=== PATIENT | female | born 1935 | race Caucasian/White ===

== ENCOUNTER 2016-05-15 10:57 | Outpatient (CLI) | payer MEDICARE | END 2016-05-15 10:58 | disposition home or self-care (01) | DX: J18.9 Pneumonia, unspecified organism (principal) ==

== ENCOUNTER 2016-09-08 00:45 | Outpatient (CLI) | payer MEDICARE | END 2016-09-08 00:46 | disposition critical access hospital (66) | DX: R07.9 Chest pain, unspecified (principal); R03.0 Elevated blood-pressure reading, without diagnosis of hypertension | CPT/HCPCS: A0425; A0429 ==

== ENCOUNTER 2016-09-08 01:12 | Emergency (ER) | payer MEDICARE ==
[2016-09-08 01:43] LABS: BASOPHILS % (AUTO) 0.6 %; EOSINOPHILS # (AUTO) 0.1 10^3/uL (0.0-0.7); EOSINOPHILS % (AUTO) 1.9 %; HCT - HEMATOCRIT 35.3 % (37.0-47.0); HGB - HEMOGLOBIN 11.7 g/dL (12.0-16.0); LYMPHOCYTES # (AUTO) 2.8 10^3/uL (1.5-3.5); LYMPHOCYTES % (AUTO) 37.5 %; MEAN CORPUSCULAR HEMOGLOBIN 30.6 pg (27.0-31.0); MEAN CORPUSCULAR HGB CONC 33.3 g/dL (32.0-36.0); MEAN CORPUSCULAR VOLUME 91.9 fL (81.0-99.0); MEAN PLATELET VOLUME 10.2 fL (7.9-10.8); MONOCYTES # (AUTO) 0.8 10^3/uL (0.0-1.0); MONOCYTES % (AUTO) 10.3 %; NEUTROPHILS # (AUTO) 3.7 10^3/uL (1.5-6.6); NEUTROPHILS % (AUTO) 49.7 %; RED BLOOD COUNT 3.84 10^6/uL (4.20-5.40); RED CELL DISTRIBUTION WIDTH 14.3 % (12.0-15.0); UNCORRECTED WHITE BLOOD COUNT 7.5 x10^3/uL; WHITE BLOOD COUNT 7.5 x10^3/uL (4.8-10.8)
[2016-09-08 01:57] LABS: ALBUMIN/GLOBULIN RATIO 0.9 (1.0-2.2); BILIRUBIN,TOTAL 0.3 mg/dL (0.2-1.0); CALCIUM 9.4 mg/dL (8.5-10.3); CREATININE 1.4 mg/dL (0.4-1.0); POTASSIUM 4.8 mmol/L (3.5-5.0); TOTAL PROTEIN 6.9 g/dL (6.7-8.2)
[2016-09-08 02:13] LABS: PT - PROTHROMBIN TIME 11.8 secs (9.9-12.6)
--- NOTE | 2016-09-08 02:18 | XRAY Preliminary Report ---
Exam: XR Chest 1 View IMPRESSION: 1. Mild cardiomegaly. 2. No acute abnormality seen. [facility] SITE ID: [id number]
--- NOTE | 2016-09-08 02:21 | XRAY Report ---
EXAM: CHEST RADIOGRAPHY EXAM DATE: 09/08/2016 01:59 AM. CLINICAL HISTORY: Chest pain. COMPARISON: 05/15/2016. TECHNIQUE: 1 view. FINDINGS: Lungs/Pleura: No alveolar consolidation or pleural effusion seen. No pneumothorax. Mediastinum: Mild cardiomegaly. Aortic atherosclerosis. Other: None. IMPRESSION: 1. Mild cardiomegaly. 2. No acute abnormality seen. [facility] Referring Provider Line: [phone] SITE ID: [id number]
[2016-09-08 02:30] LABS: PARTIAL THROMBOPLASTIN TIME 27.1 secs (24.9-33.3)
[2016-09-08 05:13] VITALS: BP 174/86
--- NOTE | 2016-09-08 05:41 | ED Physician Documentation ---
PD HPI CHEST PAIN - Stated complaint Stated Complaint: HTN/CP - Chief complaint Chief Complaint: Cardiac - History obtained from History obtained from: Patient, Family, EMS - History of Present Illness Timing - onset: How many minutes ago (30) Timing - onset during: Rest Timing - duration: Seconds Timing - details: Now resolved Quality: Pressure Location: Left chest Improved by: Rest Associated symptoms: No: Shortness of air, Diaphoresis, Nausea, Vomiting, Feeling faint / dizzy, General Weakness Recently seen: Not recently seen - Additional information Additional information: Patient is a 80 year old female wiht a history of htn who was brought in by ems for chest pain. According to patient and ems patient states that she got up tonight and she checked her blood pressure. He pressure was higher than usual so she called ems. when ems arrived she was hypertensive but states that she did not take her meds. patient took her night meds including metoprolol and plavix. as ems was about to leave patient complained of mild left sided chest pressure so ems brought the patient in for evaluation. Upon initial evaluation in the emergency department patient was in no acute distress and was chest pain free. Review of Systems Constitutional: denies: Fever, Chills Eyes: denies: Loss of vision, Decreased vision Ears: denies: Loss of hearing, Ear pain Nose: denies: Rhinorrhea / runny nose, Congestion Throat: denies: Dental pain / toothache, Oral lesions / sores Cardiac: reports: Chest pain / pressure. 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: Hysterectomy - Present Medications Home Medications: Ambulatory Orders Medication Instructions Recorded Confirmed Atorvastatin Calcium [Lipitor] 10 mg PO DAILY 01/16/15 09/08/16 Gabapentin [Neurontin] 60 mg PO BID 01/16/15 09/08/16 Lisinopril 20 mg PO DAILY 01/16/15 09/08/16 Metoprolol Tartrate 25 mg PO DAILY 01/16/15 09/08/16 oxyCODONE [Roxicodone] 10 mg PO Q6H PRN #20 tablet 01/16/15 09/08/16 traMADol [Ultram] 50 mg PO TID 01/16/15 09/08/16 Insulin Glargine,Hum.rec.anlog 10 - 26 units SQ TIDWM 08/08/15 09/08/16 [Toujeo Solostar] Clopidogrel [Plavix] 75 mg PO ONCE 09/08/16 09/08/16 Insulin NPH Human Isophane 48 - 50 units SQ DAILY 09/08/16 09/08/16 [Humulin N] Sertraline [Zoloft] 50 mg PO DAILY 09/08/16 09/08/16 - Allergies Allergies/Adverse Reactions: Allergies Allergy/AdvReac Type Severity Reaction Status Date / Time acetaminophen [From Tylenol] AdvReac Edema Verified 02/12/16 00:04 codeine AdvReac Unknown Verified 02/12/16 00:04 diazepam [From Valium] AdvReac Unknown Verified 02/12/16 00:04 Sulfa (Sulfonamide AdvReac Unknown Verified 02/12/16 00:05 Antibiotics) - Social History Does the pt smoke?: No Smoking Status: Never smoker Does the pt drink ETOH?: No Does the pt have substance abuse?: No - Immunizations Immunizations are current?: Yes - POLST Patient has POLST: Yes PD ED PE NORMAL - Vitals Vital signs reviewed: Yes - General General: Alert and oriented X 3, No acute distress, Well developed/nourished - HEENT HEENT: Atraumatic, PERRL, Pharynx benign - Neck Neck: Supple, no meningeal sign, No JVD - Cardiac Cardiac: RRR, No murmur - Respiratory Respiratory: No respiratory distress - Abdomen Abdomen: Soft, Non tender, Non distended - Derm Derm: Normal color, Warm and dry, No rash - Extremities Extremities: No deformity, No tenderness to palpate - Neuro Neuro: Alert and oriented X 3, 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, No motor deficit, No sensory deficit - Psych Psych: Normal mood, Normal affect Results - Vitals Vitals: Vital Signs - 24 hr 09/08/16 09/08/16 09/08/16 01:19 02:20 03:47 Temperature 35.5 C L Heart Rate 66 55 L 53 L Respiratory 16 14 9 L Rate Blood Pressure 214/61 H 215/90 H 173/48 H O2 Saturation 96 99 97 09/08/16 05:12 Temperature Heart Rate 61 Respiratory 16 Rate Blood Pressure 174/86 H O2 Saturation 100 Oxygen O2 Source Room air - EKG (time done) 0122 Rate: Rate (enter#) (58) Rhythm: NSR [place]: Normal Intervals: Normal [place] QRS: Normal Ischemia: Normal ST segments Compare to prior EKG: Unchanged from prior EKG - Labs Labs: Laboratory Tests 09/08/16 09/08/16 09/08/16 01:35 01:35 01:35 WBC 7.5 RBC 3.84 L Hgb 11.7 L Hct 35.3 L MCV 91.9 MCH 30.6 MCHC 33.3 RDW 14.3 Plt Count 124 L MPV 10.2 Neut # 3.7 Lymph # 2.8 [place] # 0.8 Eos # 0.1 Baso # 0.0 Absolute Nucleated RBC 0.00 Nucleated RBCs 0.0 PT INR APTT Sodium 137 Potassium 4.8 Chloride 104 Carbon Dioxide 25 Anion Gap 8.0 BUN 30 H Creatinine 1.4 H Estimated GFR (MDRD) 36 L Glucose 196 H Calcium 9.4 Total Bilirubin 0.3 AST 27 ALT 21 Alkaline Phosphatase 103 Troponin I < 0.04 B-Natriuretic Peptide Total Protein 6.9 Albumin 3.2 Globulin 3.7 Albumin/Globulin Ratio 0.9 L Lipase 35 TSH 09/08/16 09/08/16 09/08/16 01:35 01:35 02:03 WBC RBC Hgb Hct MCV MCH MCHC RDW Plt Count MPV Neut # Lymph # [place] # Eos # Baso # Absolute Nucleated RBC Nucleated RBCs PT 11.8 INR 1.0 APTT 27.1 Sodium Potassium Chloride Carbon Dioxide Anion Gap BUN Creatinine Estimated GFR (MDRD) Glucose Calcium Total Bilirubin AST ALT Alkaline Phosphatase Troponin I B-Natriuretic Peptide 214 H Total Protein Albumin Globulin Albumin/Globulin Ratio Lipase TSH 12.80 H 09/08/16 05:10 WBC RBC Hgb Hct MCV MCH MCHC RDW Plt Count MPV Neut # Lymph # [place] # Eos # Baso # Absolute Nucleated RBC Nucleated RBCs PT INR APTT Sodium Potassium Chloride Carbon Dioxide Anion Gap BUN Creatinine Estimated GFR (MDRD) Glucose Calcium Total Bilirubin AST ALT Alkaline Phosphatase Troponin I < 0.04 B-Natriuretic Peptide Total Protein Albumin Globulin Albumin/Globulin Ratio Lipase TSH - Rads (name of study) chest x-ray Radiology: Final report received (no acute abnormalities) PD MEDICAL DECISION MAKING - ED course Complexity details: reviewed old records, reviewed results, re-evaluated patient , considered differential, d/w patient, d/w family ED course: Patient was seen and examined at bedside. ekg was performed and was normal sinus rhythm. patient was chest pain free and had already taken asprin and plavix. IV access was gained and labs were drawn. chest x-ray was performed and was within normal limits. Patient's original diagnostics, including troponin came back and were within normal limits. Patient was observed for another 3.5 hours. Patient remained chest pain free. repeat troponin remained within normal limits. Patient required no further work up and was stable for discharge with outpatient follow up. Departure - Departure Disposition: 01 Home, Self Care Clinical Impression: Hypertension Condition: Good Instructions: ED Chest Pain NonCardiac Follow-Up: primary,care provider [Other] - Tomorrow Comments: Your diagnostics today were within normal limits indicating that it is less likely that the pain is cardiac in nature. that being said it is only a snapshot in time. You should still follow up with your doctor, and a stress test might be indicated. You should also work on organizations of your medications to stay more compliant. You may return to the emergency department at any time for new, worsening or uncontrollable symptoms.
== END 2016-09-08 06:00 | disposition home or self-care (01) ==
LOC: EDUNIT# → ED 01:12
DX: I10 Essential (primary) hypertension (principal); E78.00 Pure hypercholesterolemia, unspecified; E11.9 Type 2 diabetes mellitus without complications; Z79.4 Long term (current) use of insulin; G47.30 Sleep apnea, unspecified; Z86.73 Personal history of transient ischemic attack (TIA), and cerebral infarction without residual deficits
CPT/HCPCS: 71010; 80053; 83036; 83690; 83880; 84443; 84484; 85025; 85610; 85730; 93005; 99284

== ENCOUNTER 2016-09-08 10:30 | Emergency (ER) | payer MEDICARE ==
[2016-09-08 11:29] LABS: BILIRUBIN,URINE NEGATIVE (NEGATIVE); PH,URINE 7.5 PH (5.0-7.5); UA w/ MICROSCOPIC CHARGE YES
[2016-09-08 11:52] LABS: UR CULTURE IF IND NOT INDICATED; WBC,URINE 0-3 /HPF (0-5)
[2016-09-08] MEDS ORDERED: ONDANSETRON 4 MG/2 ML VIAL IVP STA (13:05)
[2016-09-08] MEDS ORDERED: SODIUM CHLORIDE 0.9% 1,000 ML IV ONE (13:05)
[2016-09-08] MEDS ORDERED: HYDROmorphone 1 MG/ML SYRINGE IVP STA (13:05)
--- NOTE | 2016-09-08 13:07 | ED Physician Documentation ---
PD HPI ABD PAIN - Stated complaint Stated Complaint: ABD PX - Chief complaint Chief Complaint: Abd Pain - History obtained from History obtained from: Patient, Family - History of Present Illness Timing - onset: Today Timing - duration: Days Timing - details: Gradual onset Pain level max: 5 Pain level now: 5 Quality: Aching, Pain Location: All over / everywhere Radiation: Other (non-radiating) Improved by: Laying still Worsened by: Moving, Position (walking), Palpation Associated symptoms: Diarrhea (BM x 4 today, but firm per pt). No: Nausea, Vomiting, Hematemesis, Constipation, Hematochezia, Dysuria, Hematuria, Chest pain Similar symptoms before: Has not had sx before Recently seen: Emergency Dept (last night for chest pain) Review of Systems Constitutional: denies: Fever, Chills Nose: denies: Rhinorrhea / runny nose, Congestion Throat: denies: Sore throat Cardiac: denies: Chest pain / pressure Respiratory: denies: Cough, Wheezing GI: reports: Abdominal Pain (started when she put her pants on at home, resolved when she took her pants off.), Nausea. 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 - Present Medications Home Medications: Ambulatory Orders Medication Instructions Recorded Confirmed Atorvastatin Calcium [Lipitor] 10 mg PO DAILY 01/16/15 09/08/16 Gabapentin [Neurontin] 60 mg PO BID 01/16/15 09/08/16 Lisinopril 20 mg PO DAILY 01/16/15 09/08/16 Metoprolol Tartrate 25 mg PO DAILY 01/16/15 09/08/16 oxyCODONE [Roxicodone] 10 mg PO Q6H PRN #20 tablet 01/16/15 09/08/16 traMADol [Ultram] 50 mg PO TID 01/16/15 09/08/16 Insulin Glargine,Hum.rec.anlog 10 - 26 units SQ TIDWM 08/08/15 09/08/16 [Touyunior Solostosvaldo] Clopidogrel [Plavix] 75 mg PO ONCE 09/08/16 09/08/16 Insulin NPH Human Isophane 48 - 50 units SQ DAILY 09/08/16 09/08/16 [Humulin N] Sertraline [Zoloft] 50 mg PO DAILY 09/08/16 09/08/16 - Allergies Allergies/Adverse Reactions: Allergies Allergy/AdvReac Type Severity Reaction Status Date / Time acetaminophen [From Tylenol] AdvReac Edema Verified 02/12/16 00:04 codeine AdvReac Unknown Verified 02/12/16 00:04 diazepam [From Valium] AdvReac Unknown Verified 02/12/16 00:04 Sulfa (Sulfonamide AdvReac Unknown Verified 02/12/16 00:05 Antibiotics) - Social History Does the pt smoke?: No Smoking Status: Never smoker Does the pt drink ETOH?: No Does the pt have substance abuse?: No - Immunizations Immunizations are current?: Yes - POLST Patient has POLST: Yes PD ED PE NORMAL - Vitals Vital signs reviewed: Yes - General General: Alert and oriented X 3, No acute distress, Well developed/nourished - HEENT HEENT: Moist mucous membranes - Neck Neck: Supple, no meningeal sign - Cardiac Cardiac: RRR, Strong equal pulses - Respiratory Respiratory: No respiratory distress, Clear bilaterally - Abdomen Abdomen: Soft, Non distended, Other (diffusely TTP lower abdomen without peritoneal signs.) - Back Back: No CVA TTP, No spinal TTP - Derm Derm: Warm and dry - Extremities Extremities: Normal ROM s pain - Neuro Neuro: Alert and oriented X 3 - Psych Psych: Normal mood, Normal affect Results - Vitals Vitals: Vital Signs - 24 hr 09/08/16 09/08/16 10:38 15:01 Temperature 36.1 C L 36.6 C Heart Rate 59 L 74 Respiratory 20 16 Rate Blood Pressure 203/74 H 179/73 H O2 Saturation 98 97 Oxygen O2 Source Room air - Labs Labs: Laboratory Tests 09/08/16 09/08/16 09/08/16 10:45 13:10 13:10 WBC 8.0 RBC 3.79 L Hgb 11.8 L Hct 34.6 L MCV 91.4 MCH 31.2 H MCHC 34.1 RDW 14.5 Plt Count 116 L MPV 10.0 Sodium 138 Potassium 4.9 Chloride 105 Carbon Dioxide 26 Anion Gap 7.0 BUN 29 H Creatinine 1.3 H Estimated GFR (MDRD) 40 L Glucose 223 H Calcium 9.7 Total Bilirubin 0.6 AST 28 ALT 21 Alkaline Phosphatase 102 Total Protein 7.2 Albumin 3.4 Globulin 3.8 Albumin/Globulin Ratio 0.9 L Lipase 28 Urine Color YELLOW Urine Clarity CLEAR Urine pH 7.5 Ur Specific [place] 1.020 Urine Protein >=300 H Urine Glucose (UA) 250 H Urine Ketones NEGATIVE Urine Occult Blood TRACE-LYSE Urine Nitrite NEGATIVE Urine Bilirubin NEGATIVE Urine Urobilinogen 0.2 (NORMAL) Ur Leukocyte Esterase NEGATIVE Urine RBC 0-5 Urine WBC 0-3 Ur Squamous Epith Cells RARE Squamous Urine Bacteria Few Urine Casts 3-5 Hyaline Casts Ur Microscopic Review INDICATED Urine Culture Comments NOT INDICATED - Rads (name of study) CT abd/pelvis Radiology: Prelim report reviewed, EMP read contemporaneously, See rad report ( no acute abnormality.) PD MEDICAL DECISION MAKING - ED course Complexity details: reviewed results, re-evaluated patient, considered differential, d/w patient, d/w family ED course: Patient is a 80-year-old female with abdominal pain today. Unclear etiology. Resolved in the emergency department. No recurrent symptoms. No acute findings on laboratory testing or CT abdomen and pelvis to explain her symptoms. We will have her follow-up with her doctor for further evaluation and care. No peritoneal signs. Abdomen is soft, nontender nondistended on serial exam. Patient counseled regarding signs and symptoms for which I believe and urgent re-evaluation would be necessary. Patient with good understanding of and agreement to plan and is comfortable going home at this time This document was made in part using voice recognition software. While efforts are made to proofread this document, sound alike and grammatical errors may occur. Departure - Departure Disposition: 01 Home, Self Care Clinical Impression: Abdominal pain Qualifiers: Abdominal location: generalized Qualified Code(s): R10.84 - Generalized abdominal pain Hypertension Qualifiers: Hypertension type: essential hypertension Qualified Code(s): I10 - Essential ( primary) hypertension Condition: Good Instructions: ED Abdominal Pain Unkn Cause Follow-Up: Cordelia Pendleton PA-C [Primary Care Provider] - Within 1 week Comments: Return if you worsen. The cause of your symptoms is unclear today. Your TSH was high last night and your doctor may want to adjust your thyroid medications. Discharge Date/Time: 09/08/16 15:25
[2016-09-08] MEDS ORDERED: HYDROmorphone 1 MG/ML SYRINGE ONE (13:13)
[2016-09-08] MEDS ORDERED: ONDANSETRON 4 MG/2 ML VIAL ONE (13:14)
[2016-09-08 13:21] LABS: HCT - HEMATOCRIT 34.6 % (37.0-47.0); HGB - HEMOGLOBIN 11.8 g/dL (12.0-16.0); MEAN CORPUSCULAR HEMOGLOBIN 31.2 pg (27.0-31.0); MEAN CORPUSCULAR HGB CONC 34.1 g/dL (32.0-36.0); MEAN CORPUSCULAR VOLUME 91.4 fL (81.0-99.0); RED BLOOD COUNT 3.79 10^6/uL (4.20-5.40); RED CELL DISTRIBUTION WIDTH 14.5 % (12.0-15.0)
[2016-09-08 13:40] LABS: ALBUMIN/GLOBULIN RATIO 0.9 (1.0-2.2); BILIRUBIN,TOTAL 0.6 mg/dL (0.2-1.0); CALCIUM 9.7 mg/dL (8.5-10.3); CREATININE 1.3 mg/dL (0.4-1.0); POTASSIUM 4.9 mmol/L (3.5-5.0); TOTAL PROTEIN 7.2 g/dL (6.7-8.2)
[2016-09-08] MEDS ORDERED: IOPAMIDOL-300 100 ML VIAL IVP ONE ×2 (13:48)
--- NOTE | 2016-09-08 14:32 | CT Report ---
EXAM: CT ABDOMEN AND PELVIS EXAM DATE: 09/08/2016 01:48 PM. CLINICAL HISTORY: Lower abd pain, diarrhea. COMPARISONS: None. TECHNIQUE: Routine helical CT imaging was performed through the abdomen and pelvis. IV contrast: 50 m L Isovue 300. Enteric contrast: No. Reconstructions: Coronal and sagittal. In accordance with CT protocol optimization, one or more of the following dose reduction techniques w ere utilized for this exam: automated exposure control, adjustment of mA and/or KV based on patient s ize, or use of iterative reconstructive technique. FINDINGS: Lung Bases: Unremarkable. Liver: Normal. No masses. Gallbladder/Bile Ducts: Patient is status post cholecystectomy. Spleen: Normal. Pancreas: Normal. Adrenal Glands: Normal. Kidneys: Normal. No masses or hydronephrosis. Peritoneal Cavity/Bowel: Diverticulosis without diverticulitis. No bowel obstruction or inflammatory process associated with the bowel. No free air or fluid in the abdomen or pelvis. The appendix is not visualized. Pelvic Organs: Normal. The bladder and visualized pelvic organs are within normal limits. Vasculature: No aneurysms or other significant abnormality. Bones: Degenerative changes in lumbar spine with posterior fusion at L3-L4 with no evidence of Failure or loosening. Other: None. IMPRESSION: 1. Diverticulosis without diverticulitis. 2. No bowel obstruction or inflammatory process associated with the bowel. 3. No free air or fluid in the abdomen or pelvis. [facility] Referring Provider Line: [phone] SITE ID: [id number]
[2016-09-08 15:02] VITALS: BP 179/73
== END 2016-09-08 15:25 | disposition home or self-care (01) ==
LOC: ED 10:30
DX: R10.84 Generalized abdominal pain (principal); I10 Essential (primary) hypertension; E78.00 Pure hypercholesterolemia, unspecified; E11.9 Type 2 diabetes mellitus without complications; Z79.4 Long term (current) use of insulin; G47.30 Sleep apnea, unspecified; Z86.73 Personal history of transient ischemic attack (TIA), and cerebral infarction without residual deficits
CPT/HCPCS: 36415; 71010; 74177; 80053; 81001; 83690; 83880; 84443; 84484; 85025; 85027; 85610; 85730; 93005; 93010; 96374; 96375; 99283; 99284; 99285; J1170; Q9967; 81003; 83036; 87086

== ENCOUNTER 2016-09-09 06:23 | Outpatient (CLI) | payer MEDICARE | END 2016-09-09 06:24 | disposition critical access hospital (66) | LOC: EMS 06:23 | PROVIDERS: ATTEND Surgery | DX: R07.9 Chest pain, unspecified (principal); R06.02 Shortness of breath | CPT/HCPCS: A0425; A0427; 84484 ==

== ENCOUNTER 2016-09-09 06:51 | Observation (INO) | payer MEDICARE ==
--- NOTE | 2016-09-09 07:24 | XRAY Preliminary Report ---
Exam: XR Chest 1 View IMPRESSION: 1. Mild cardiomegaly. 2. No focal consolidation seen. [facility] SITE ID: [id number]
--- NOTE | 2016-09-09 07:27 | XRAY Report ---
EXAM: CHEST RADIOGRAPHY EXAM DATE: 09/09/2016 07:15 AM. CLINICAL HISTORY: Chest pain. COMPARISON: 09/08/2016. TECHNIQUE: 1 view. FINDINGS: Lungs/Pleura: No alveolar consolidation or pleural effusion seen. No pneumothorax. Mediastinum: Mild cardiomegaly. Other: None. IMPRESSION: 1. Mild cardiomegaly. 2. No focal consolidation seen. [facility] Referring Provider Line: [phone] SITE ID: [id number]
[2016-09-09 07:36] LABS: BASOPHILS % (AUTO) 0.3 %; EOSINOPHILS # (AUTO) 0.1 10^3/uL (0.0-0.7); EOSINOPHILS % (AUTO) 1.2 %; HCT - HEMATOCRIT 33.9 % (37.0-47.0); HGB - HEMOGLOBIN 11.6 g/dL (12.0-16.0); LYMPHOCYTES # (AUTO) 2.9 10^3/uL (1.5-3.5); LYMPHOCYTES % (AUTO) 38.6 %; MEAN CORPUSCULAR HEMOGLOBIN 31.1 pg (27.0-31.0); MEAN CORPUSCULAR HGB CONC 34.3 g/dL (32.0-36.0); MEAN CORPUSCULAR VOLUME 90.6 fL (81.0-99.0); MEAN PLATELET VOLUME 10.1 fL (7.9-10.8); MONOCYTES # (AUTO) 0.7 10^3/uL (0.0-1.0); MONOCYTES % (AUTO) 9.2 %; NEUTROPHILS # (AUTO) 3.9 10^3/uL (1.5-6.6); NEUTROPHILS % (AUTO) 50.7 %; RED BLOOD COUNT 3.74 10^6/uL (4.20-5.40); RED CELL DISTRIBUTION WIDTH 14.3 % (12.0-15.0); UNCORRECTED WHITE BLOOD COUNT 7.6 x10^3/uL; WHITE BLOOD COUNT 7.6 x10^3/uL (4.8-10.8)
[2016-09-09 07:37] LABS: ALBUMIN/GLOBULIN RATIO 0.9 (1.0-2.2); BILIRUBIN,TOTAL 0.8 mg/dL (0.2-1.0); CALCIUM 9.6 mg/dL (8.5-10.3); CREATININE 1.2 mg/dL (0.4-1.0); POTASSIUM 4.2 mmol/L (3.5-5.0); TOTAL PROTEIN 6.9 g/dL (6.7-8.2)
[2016-09-09] MEDS ORDERED: PROMETHAZINE INJ 12.5 MG in SODIUM CHLORIDE 0.9% 50 ML IV STA (07:55)
[2016-09-09] MEDS ORDERED: MORPHINE 2 MG/ML SYRINGE IVP STA (07:55)
[2016-09-09] MEDS ORDERED: PROMETHAZINE 25 MG/1 ML VIAL ONE (07:58)
[2016-09-09] MEDS ORDERED: MORPHINE 2 MG/ML SYRINGE ONE (07:59)
--- NOTE | 2016-09-09 08:18 | ED Physician Documentation ---
History of Present Illness - Stated complaint Stated Complaint: L CHEST DISCOMFORT - Chief complaint Chief Complaint: Cardiac - Additonal information Additional information: hx from pt 80 female seen twice yesterday - once for HTN and brief CP and then for abd pain back again this AM for chest discomofrt 4/10 rad to posterior neck with assoc SOA and diaphoresis onset 5 Am and better with nitro by EMS took her plavix last night no fever cough no NV chronic R leg swelling never worked up per pt Review of Systems Constitutional: reports: Sweats. 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 - Present Medications Home Medications: Ambulatory Orders Medication Instructions Recorded Confirmed Atorvastatin Calcium [Lipitor] 10 mg PO DAILY 01/16/15 09/09/16 Gabapentin [Neurontin] 600 mg PO BID 01/16/15 09/09/16 Lisinopril 20 mg PO DAILY 01/16/15 09/09/16 Metoprolol Tartrate 25 mg PO BID 01/16/15 09/09/16 Clopidogrel [Plavix] 75 mg PO DAILY 09/08/16 09/09/16 Insulin NPH Human Isophane 48 - 50 units SQ DAILY 09/08/16 09/09/16 [Humulin N] Sertraline [Zoloft] 50 mg PO DAILY 09/08/16 09/09/16 Insulin Lispro [Humalog Kwikpen] 10 - 30 unit SQ TIDWM 09/09/16 09/09/16 Magnesium Oxide [Mag Ox] 400 mg PO DAILY 09/09/16 09/09/16 oxyCODONE [Roxicodone] 5 mg PO Q6H PRN 09/09/16 09/09/16 - Allergies Allergies/Adverse Reactions: Allergies Allergy/AdvReac Type Severity Reaction Status Date / Time acetaminophen [From Tylenol] AdvReac Edema Verified 09/09/16 06:57 codeine AdvReac Unknown Verified 09/09/16 06:57 diazepam [From Valium] AdvReac Unknown Verified 09/09/16 06:57 Sulfa (Sulfonamide AdvReac Unknown Verified 09/09/16 06:57 Antibiotics) - Social History Does the pt smoke?: No Smoking Status: Never smoker Does the pt drink ETOH?: No Does the pt have substance abuse?: No - Immunizations Immunizations are current?: Yes - POLST Patient has POLST: Yes PD ED PE NORMAL - Vitals Vital signs reviewed: Yes - General General: Alert and oriented X 3 - HEENT HEENT: PERRL - Neck Neck: Supple, no meningeal sign - Cardiac Cardiac: RRR - Respiratory Respiratory: No respiratory distress, Clear bilaterally - Abdomen Abdomen: Soft, Non tender - Derm Derm: Normal color - Extremities Extremities: No deformity, No calf tenderness / cord. No: No edema (+ RLE edema ) - Neuro Neuro: Alert and oriented X 3, No motor deficit, No sensory deficit Results - Vitals Vitals: Vital Signs - 24 hr 09/09/16 09/09/16 09/09/16 06:53 07:04 07:48 Temperature 36.0 C L Heart Rate 77 58 L 60 Respiratory 32 H 27 H 18 Rate Blood Pressure 212/69 H 196/59 H 218/64 H O2 Saturation 99 96 100 09/09/16 08:45 Temperature Heart Rate 61 Respiratory 16 Rate Blood Pressure 166/64 H O2 Saturation 97 Oxygen O2 Source Room air - EKG (time done) 0705 Rate: Rate (enter#) (56) Rhythm: NSR [place]: Normal Intervals: Normal ID Ischemia: ST depression (very slight , lateral) - Labs Labs: Laboratory Tests 09/09/16 09/09/16 09/09/16 07:15 07:15 07:15 WBC 7.6 RBC 3.74 L Hgb 11.6 L Hct 33.9 L MCV 90.6 MCH 31.1 H MCHC 34.3 RDW 14.3 Plt Count 120 L MPV 10.1 Neut # 3.9 Lymph # 2.9 [place] # 0.7 Eos # 0.1 Baso # 0.0 Absolute Nucleated RBC 0.00 Nucleated RBCs 0.0 Sodium 137 Potassium 4.2 Chloride 107 Carbon Dioxide 21 Anion Gap 9.0 BUN 24 H Creatinine 1.2 H Estimated GFR (MDRD) 43 L Glucose 239 H Calcium 9.6 Total Bilirubin 0.8 AST 28 ALT 21 Alkaline Phosphatase 98 Troponin I < 0.04 B-Natriuretic Peptide Total Protein 6.9 Albumin 3.2 Globulin 3.7 Albumin/Globulin Ratio 0.9 L Lipase 46 09/09/16 07:15 WBC RBC Hgb Hct MCV MCH MCHC RDW Plt Count MPV Neut # Lymph # [place] # Eos # Baso # Absolute Nucleated RBC Nucleated RBCs Sodium Potassium Chloride Carbon Dioxide Anion Gap BUN Creatinine Estimated GFR (MDRD) Glucose Calcium Total Bilirubin AST ALT Alkaline Phosphatase Troponin I B-Natriuretic Peptide 272 H Total Protein Albumin Globulin Albumin/Globulin Ratio Lipase - Rads (name of study) CXR Radiology: See rad report (mild cardiomegaly) doppler Radiology: See rad report (no DVT) PD MEDICAL DECISION MAKING - ED course ED course: cannopt get CTPA 2/2 GFR but doppler RLE neg so doubt PE CP SOA diaphoresis X 2 hr relieved with nitro in a pt with nurmeorus risk factors will obs to rule out Departure - Departure Disposition: ED Place in Observation Clinical Impression: Chest pain Qualifiers: Chest pain type: unspecified Qualified Code(s): R07.9 - Chest pain, unspecified
--- NOTE | 2016-09-09 09:20 | Ultrasound Preliminary Report ---
Exam: US Duplex Ext Veins Right IMPRESSION: No evidence for deep venous thrombosis. [facility] SITE ID: [id number]
--- NOTE | 2016-09-09 09:22 | Ultrasound Report ---
EXAM: RIGHT LOWER EXTREMITY VENOUS ULTRASOUND EXAM DATE: 09/09/2016 08:39 AM. CLINICAL HISTORY: Right leg swell, sob, chest pain, clinical concern for DVT. COMPARISON: None. TECHNIQUE: Real-time sonographic vascular imaging was performed by the mail list processor through the lower extremity utilizing both color-flow and Doppler spectral analysis. Multiple telesales representative static florian ges were saved for review. FINDINGS: Common Femoral Vein (CFV): Normal. CFV-GSV [place]: Normal. Profunda Femoral Vein (PFV): Normal. Femoral Vein (FV) Prox: Normal. Femoral Vein (FV) Mid: Normal. Femoral Vein (FV) Dist: Normal. Popliteal Vein: Normal. Posterior Tibial Veins: Normal. Peroneal Veins: Normal. IMPRESSION: No evidence for deep venous thrombosis. [facility] Referring Provider Line: [phone] SITE ID: [id number]
[2016-09-09] MEDS ORDERED: SODIUM CHLORIDE FLUSH 0.9% 10 ML SYRINGE IVP PRN (09:30)
[2016-09-09] MEDS ORDERED: oxyCODONE 5 MG TABLET PO PRN (11:55)
[2016-09-09] MEDS ORDERED: LISINOPRIL 20 MG TABLET PO SCH (12:00)
[2016-09-09] MEDS ORDERED: CLOPIDOGREL 75 MG TABLET PO SCH (12:00)
[2016-09-09] MEDS ORDERED: ATORVASTATIN 10 MG TABLET PO SCH (12:00)
[2016-09-09] MEDS ORDERED: GABAPENTIN 300 MG CAPSULE PO SCH (12:00)
[2016-09-09] MEDS ORDERED: INSULIN REGULAR HUMAN 100 UNIT/1 ML 10 ML MDV SUBQ SCH (12:00)
[2016-09-09 12:21] LABS: HEMOGLOBIN A1C 0.66 g/dL
[2016-09-09 12:47] LABS: CHOL/HDL RATIO 4.2 (<4.4); CHOLESTEROL 226 mg/dL; HDL CHOLESTEROL 54 mg/dL; LDL/HDL RATIO 2.6 (<4.4); TRIGLYCERIDES 156 mg/dL; VLDL CHOLESTEROL 31 mg/dL
[2016-09-09] MEDS ORDERED: INSULIN 70/30 HUMAN 100 UNIT/1 ML 10 ML MDV SUBQ ONE (13:31)
[2016-09-09] MEDS ORDERED: SODIUM CHLORIDE FLUSH 0.9% 10 ML SYRINGE IVP SCH (14:00)
[2016-09-09] MEDS ORDERED: ALPRAZolam 0.25 MG TABLET PO ONE (14:05)
[2016-09-09] MEDS ORDERED: INSULIN LISPRO 100 UNIT/1 ML 10 ML MDV SUBQ ONE (14:27)
[2016-09-09] MEDS ORDERED: INSULIN REGULAR HUMAN 100 UNIT/1 ML 10 ML MDV SUBQ ONE (14:40)
--- NOTE | 2016-09-09 16:35 | Discharge Plan ---
Discharge Plan Disposition: Home, Self Care Condition: Stable Prescriptions: Alprazolam 0.25 mg PO BID PRN #10 tablet PRN Reason: Anxiety Diet: Diabetic Activity Restrictions: No Restrictions Shower Restrictions: No Driving Restrictions: No Weight Bearing: Full Weight Additional Instructions or Follow Up instructions: Chest pain Your EKG, heart enzymes, echocardiogram did not show evidence of cardiac muscle injury That does NOT mean that you do not have coronary artery disease. You do have risk factors (diabetes, hypertension, cholesterol. You do not smoke so that is good), Your symptoms today (rather localized left chest pain) were somewhat atypical for heart pain, BUT it would still be good for you to have an outpatient stress test that needs to be arranged by your PCP Some of your symptoms may have been extreme anxiety; you felt much better after alprazolam 0.25 mg. You have a prescription for a small # of these if you have extreme anxiety. Try a 1/2 pill first (0.125 mg). Possibly your PCP could increase your zoloft dose for better "background" anxiety control. We will defer to Dr. Pendleton. Frequent hypoglycemia with "hypoglycemic unawareness". You reported that on your home dose of "average" 45 units of NPH nightly, and meal based insulin Regular/short acting from 10-18 units based on your blood sugar that you "at least " 2x / month have a glucose in the 40's without symptoms. that puts you at risk for falls or other consequence of low sugar. Your A1C is 6.5, which suggests over control at your age, and the frequent low sugars. It is very important that you discuss this with your PCP and your sheetrock applicator Until your Sunday appointment, reduce your NPH dose to 40 units, and dont exceed 14 units on your "prandial" (meal based" insulin dose, even if your sliding scale would say to take 16 or 18 units. ? If lantus would work for you Obstructive sleep apnea; continue to wear your CPAP nightly; try to wear it longer than from 10pm - 1am (sounds like you only last 3 hrs til the dogs wake you) No Smoking: If you smoke, Please STOP! Call for help. Follow-up with: Cordelia Pendleton PA-C [Primary Care Provider] - 1-2 Days (follow up for possible out patient cardiac stress test follow up to evaluate anxiety control / ? possible increase zoloft dose She was given a small # of alprazolam for prn use (only for severe anxiety) needs f/u for insulin/ frequent episodes of hypoglycemia/unawarenessover many months)
[2016-09-09] MEDS ORDERED: METOPROLOL TARTRATE 25 MG TABLET PO SCH (17:00)
[2016-09-09 20:16] VITALS: BP 168/73
--- NOTE | 2016-09-10 01:46 | HISTORY & PHYSICAL EXAMINATION ---
DATE OF ADMISSION: 09/09/2016 PRIMARY CARE PROVIDER: Dr. Pendleton CHIEF COMPLAINT: Chest pressure localized over the left breast this morning. HISTORY OF PRESENT ILLNESS: The patient is a 80-year-old female who presented to the ER at [facility] 3 times in the last 24 hours. This morning she woke up with fairly localized left-sided chest pain and she clarifies that she was not wakened by this, but rather when her dogs woke her, she noticed that she had this discomfort and she says, "that it felt like it was trying to shut down", although she did not qualify this (what "it" was ) any further. Initially, she denies any associated symptoms, but her family says she does have a modest beading of sweat on her brow. She denies that there was any radiation of this to her arm or jaw and did have some associated nausea. Initial troponin in the emergency room was not elevated. EKG done today 2016, showed normal sinus rhythm with a rate in the 50s with left axis and very slight depressions in 1, 2, 4, 5 and 6, unchanged compared with the EKG from the prior day. This is also unchanged and compared with an EKG from a year ago, August 08 2015, although her heart rate at that time was 69. When the aviculturist were called this morning, the patient notes the pain improved with nitro paste; however, she says that this improvement did not come for approximately 20 minutes and when I asked about the time frame whether the resolution was really due to the nitropaste, she says well it did not work initially because they did not put the paste on correctly, but "it was the nitro-paste that made me feel better. Her vital signs in the emergency room today were notable for elevated blood pressure 212/69, rechecked at 169/59, rechecked at 218/64 and then 166/64. In the emergency room, she had been given morphine 2 mg at approximately 8 o'clock. In asking the family about any new activity intolerance, they note she actually very recently had back surgery, which she had no difficulty with anesthesia or recovery. She did not require SNF stay, she was actually going to followup for 1 month post. She denies that there was any new recent activity intolerance due to shortness of breath or fatigue, but rather it was due to back pain. She has not had any orthopnea or PND and does have trace lower extremity edema, which is chronic on both legs. In the emergency room, they had done a venous duplex of the right. She indicates this has never been worked for and was negative for a DVT. Yesterday 09/08, at approximately midnight she had substernal chest pain which brought her to the ED. She notes that this also did not wake her up. She had gotten up and then noticed it and she had some corresponding nausea. She had gone to the emergency room via EMS. In discussion with the patient, she described this chest discomfort; however, according to the ED report, at that time she had gotten up and checked her blood pressure and called EMS when she found it to be higher than usual. She also notes that she had not taken her night time meds and is not entirely sure why she did not, but she says she does not generally miss her medication. Last night when she came, according to the ED documentation she actually was chest pain free by the time they came to the emergency room. An EKG done at that time showed normal sinus rhythm without acute ischemic changes. She was given aspirin at that time. She had an initial troponin, and after being observed for several hours was sent home; However, at 10 in the morning, her er family brought her back as she then developed abdominal discomfort and pain to her left shoulder. Her son also suggested she had a panic attack. She does not have any short-acting anxiolytic at home, but the son had her take her Zoloft. On that second presentation, although she indicates to me that it was primarily abdominal discomfort and the left shoulder pain, in the emergency room note it indicates, "all over, everywhere pain" as well as diarrheal bowel movement x4. On that second ED presentation, which per the records, was for abdominal discomfort, she had a CT abdomen and pelvis and unremarkable lab testing with an unremarkable abdominal exam and again was sent home. Yesterday, in the emergency room, she had been given a dose of 1 mg of IV Dilaudid for her abdominal pain. PAST MEDICAL HISTORY: 1. Hypertension. 2. Diabetes mellitus type 2 with history of hypoglycemia. 3. Hyperlipidemia. 4. Obstructive sleep apnea on CPAP. 5. History of stroke, on Plavix. 6. Chronic lower extremity edema as above. SURGERY HISTORY: Includes a total knee replacement, hysterectomy and back surgery as noted above. HOME MEDICATIONS: This list was gone over with the patient. 1. Atorvastatin 10 mg once daily. 2. Gabapentin 600 mg twice daily for neuropathy. 3. Lisinopril 20 mg once daily. 4. Metoprolol tartrate 25 mg twice daily. 5. Oxycodone 5-10 mg every 6 hours if needed for pain, just since her back surgery. 6. Novolin N 48-50 units based on her blood sugar. She does not take it if her sugar is under 90. She reports usually it is on average 45 units that she takes. Then she also takes meal based prandial Humalog. She takes 10 units of Humalog for a blood sugar less than 120, none for a blood sugar less than 90; 120-140, she takes 12 units; 140-160, she takes 14 units and 161-180 she takes 16 units, if it is 181-200, she takes 18 units. ALLERGIES: 1. SHE REPORTEDLY HAS TRANSAMINITIS WITH TYLENOL. SHE ALSO IS ALLERGIC TO: 2. CODEINE. 3. VALIUM. 4. SULFA. 5. TAPE. SOCIAL HISTORY: She is a never smoker. Does not drink alcohol and no history of illicits. FAMILY HISTORY: Her father of coronary disease and had a CABG and 83, mother complications of diabetes, at 76. Her children, all 3 of them have diabetes. One child had a gastric bypass surgery and had diabetes complications as well. SOCIAL HISTORY: She lives with her son. She originally is from [place] and they all came to live closer to the granddaughter who is here at the [facility] base. Her approximately 7 years ago and since then, she has lived with her son. REVIEW OF SYSTEMS: CONSTITUTIONAL: No unintentional weight loss or weight gain, no night sweats or fever. HEAD, EARS, EYES, NOSE, THROAT: No change in vision. No neck stiffness. CARDIOVASCULAR: As per the HPI. RESPIRATORY: No shortness of breath, cough or wheezing and as above, no activity intolerance in the form of shortness of breath. GASTROINTESTINAL: She reports chronic loose bowels that initially she attributed to metformin. However, she has been off that for some time and still has at least 4 loose bowel movements per day. She says she had a colonoscopy for this and does take Imodium generally each morning, there has been no further workup. GENITOURINARY: She denies any dysuria, frequency of hesitancy, although she does have some dribbling. MUSCULOSKELETAL: She reports some hand arthritis and right foot and ankle are arthritic and she has neuropathy related to diabetes for which she is on gabapentin. She denies any falls, other than a trip over her a few weeks ago and per the family that is the first fall, she has had in a long time. ENDOCRINE: She is followed by Dr. Stern and is on NPH and Novolin. She reports that she has hypoglycemic episodes at least twice a month down into the 40s. She reports that her provider is aware of this and that they "are working on it ". She actually presented to the ED about a year ago with facial droop in the setting of severe hypoglycemia and evidently these are happening at least twice a month and she had hypoglycemic unawareness. HEME: No easy bruising or bleeding. PSYCH; per son she is "prone" to anxiety, panic, and she notes she had some weird dreams after watching a television show last evening PHYSICAL EXAMINATION: VITAL SIGNS: Most recently on arrival to the floor, heart rate 58, blood pressure 170/59, respiratory rate 14, room air oxygenation 100%. The patient is seen in the emergency room with her son and granddaughter present. NEUROLOGIC: She is alert, oriented, appropriate, initially lying in the room with the lights out, which was her preference though she tolerated the lights being on. She is in no acute distress. She seems to need some jogging of her memory from her family regarding the reason for her 3presentations in the last 2 days. CN 2-12 intact HEAD, EARS, EYES, NOSE AND THROAT: She is normocephalic, atraumatic, wearing glasses, anicteric sclerae. Pupils are equal. Oral mucosa is moist. Dentition is intact. NECK: Supple. There is no appreciable lymphadenopathy. Carotids are +2 with no appreciable bruit. CHEST: Posterior is clear to auscultation with unlabored respirations. HEART: Regular S1, S2 with no appreciable extra sounds. There is no longer any localized tenderness over the left chest wall area. ABDOMEN: Generous soft, nondistended, nontender. Habitus precludes any appreciable organomegaly. EXTREMITIES: Notable for no joint swelling or tenderness. She has trace to +1 pretibial edema bilaterally. Gait was not assessed. She moves extremities without any difficulty, rolling over in bed onto her side for a portion of the echocardiogram. DIAGNOSTIC STUDIES: Chest x-ray August 10 shows mild cardiomegaly and no acute findings. Venous duplex done today of the right lower extremity shows no DVT. CT abdomen and pelvis, which was done yesterday due to her complaints of abdominal pain was unremarkable. EKG is as described previously. Echocardiogram is in the process currently. DIAGNOSTIC LABORATORY STUDIES: Troponin initially done at 7 in the morning, there was also one yesterday at 5, less then 0.04. BNP is 272. Sodium 137, potassium 4.2, chloride 107, bicarbonate 21, BUN 24, creatinine 1.2. BUN and creatinine are consistent with values that have been done over the course of last year. Glucose 239, today at 7:15 in the morning and yesterday at 1 in the afternoon, it was 223. White count 7.6, hemoglobin 11.6, hematocrit 33.9, platelets 120,000. UA done yesterday was unremarkable. ASSESSMENT AND PLAN: 1. Chest pain. She does have cardiac risk factors of hypertension, hyperlipidemia, diabetes and family history, although the family history is in age well over 55 and 65 respectively for father, mother, and her different presentations over the last 3 days in a very localized left chest pain, is somewhat atypical for ischemic chest pain. However, she will have serial troponins and echocardiogram to evaluate for any wall motion abnormality. Given her risk factors, it would be recommended to have an outpatient stress test as we cannot do one here. Her second and third troponin will be approximately at noon and 6 p.m. She is already on a statin, beta-avelina, and an DMITRY inhibitor. She is on Plavix. She had been on aspirin until the time of this stroke, but since then has only been on Plavix (no further ASA). 2. Hypertension. She had persistent hypertension on presentation to the emergency room, had not taken her medications at home, this is improving. There may have been a component of anxiety along with this. She does not have evidence of organ damage with any severe LVH on her EKG, although there is cardiomegaly on the chest x-ray and the echocardiogram will be in front of this. She continues on her lisinopril for blood pressure control. Currently, her heart rate in the low 50s precludes her beta-avelina. We will watch this over the course of the day as her blood pressure improves, but we may need to lower her beta-avelina dose. The sinus bradycardia is likely related to the hypertension right now, and I suspect the heart rate will increase somewhat as blood pressure improves (which it is). 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 This is definitely concerning and the patient indicates she is having followup with her PCP on Sunday. It is not entirely clear why she is not on an agent with less peaks, possibly insulin and will include on her discharge paperwork consideration of Lantus. 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 4. History of stroke. The patient had noted that she was treated as hypoglycemia and she reports that she subsequently went to [facility] where she was diagnosed with a stroke in 07/2015. However, she had a MRI of the brain, 2 months later, here at [facility] and there is no stroke found on the brain MRI. She was evidently started on Plavix based on having a stroke in 07/2015. I will try to obtain these records from [facility] just for clarification of what happened in July 2015. 5. Deep vein thrombosis prophylaxis. She will not need any currently as she is low risk for DVT right now and plus she already had a study showing no DVT. CODE STATUS: FULL CODE. JOB #: [id number] EXT JOB #:[id number] [facility]OSPITALDorothy
[2016-09-10] MEDS ORDERED: POLYETHYLENE GLYCOL 3350 17 GM PACKET PO SCH (09:00)
[2016-09-10] MEDS ORDERED: SERTRALINE 50 MG TABLET PO SCH (09:00)
--- NOTE | 2016-09-11 07:15 | DISCHARGE SUMMARY ---
DATE OF ADMISSION: 09/09/2016 DATE OF DISCHARGE: 09/09/2016 PRIMARY CARE PROVIDER: Dr. Cordelia Pendleton. PRIMARY DISCHARGE DIAGNOSES 1. Chest pain. 2. Anxiety. 3. 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 4. Hypertension. CONSULTATIONS: None. PROCEDURES: None. DIAGNOSTIC IMAGING STUDIES Chest x-ray on 09/09/2016: Mild cardiomegaly. No focal consolidation or other acute finding. Venous duplex on 09/09/2016: No evidence for DVT, right lower extremity. LABORATORY STUDIES: Troponin less than 0.04 x3. BNP 272. Lipid panel, total cholesterol 226, triglycerides 156, LDL 141, HDL 54, sodium of 137, potassium 4.2, chloride 107, bicarbonate 21, BUN 24, creatinine 1.2, glucose 239 at 7:15 in the morning. Blood sugar point of care testing in the very short time she was here. Point of care glucose 205 at 8 in the morning, 278 at noon, 213 at 4 p.m. A 12-lead EKG: Normal sinus rhythm with a rate of approximately 66 with a left axis. No acute ST elevations or T-wave inversions. She has nominal ST depression of 1 mm in 1, 2, 3, 4 and 5, unchanged from EKG the day prior to admission, as well as of 09/2015. BRIEF HOSPITAL COURSE: Please see the history and physical dated 09/09 for full details. 1. Chest pain. Briefly, the patient is a 80-year-old female who came to the emergency room 3 times in 24 hours, please see details in the ER physician's note for the presentations on 09/08. On 09/09, she was awakened by her dog and noted some localized left breast area discomfort. Of note, this did not wake her up. She initially denied any associated symptoms, although her family said that she had some beading of sweat on her brow. Previously, she had had some complaints of abdominal pain. She initially said that her pain was resolved by nitro paste that the EMT's had placed on her; however, she said that it took 20 minutes to work, which would be inconsistent with an effect of nitroglycerin. Emergency room EKG was without acute ischemic changes. Troponins were negative x3. She was monitored on telemetry, and her sinus dillan was unchanged. Her initial blood pressure was elevated at 219/69. This resolved with medication of her home lisinopril and metoprolol. On discharge, it was 161/62, though she did have considerable anxiety at the time of admission, which seemed to be a considerable component to her presenting symptoms. She has a history of panic attacks and is only on Zoloft at home. She denies having any short-acting anxiolytic prescription. After monitoring her for a couple hours in the hospital , she did receive a dose of alprazolam 0.25 mg, and she was feeling markedly improved after she received that and she is given a prescription for a small number of xanax to be used only for extreme anxiety. The patient does have underlying cardiac risk factors of hypertension, hyperlipidemia, and diabetes, so it would be recommended to have an outpatient stress test, although this particular presentation seems most consistent with anxiety. She continues on her Plavix, beta-avelina, and statin. Of note, the Plavix is for history of stroke. Prior to that she had been on aspirin and for cardiac risk given her diabetes, ideally she would be on aspirin. Interestingly, she says that she was diagnosed with a stroke approximately this time last year at [facility]; however, since that time, she has had an MRI of the brain here, which demonstrates no stroke. We tried to obtain those records from [facility] for additional information; however, they did not come at the time she was here. Would recommend following up on those. Again, whether or not she should ideally be on aspirin for cardiac protection. 2. Diabetes mellitus and frequent hypoglycemic unawareness. The patient is on a regimen at home of Novolin-N, for which she takes anywhere from 45-50 units along with a prandial coverage of Humalog-R, which ranges anywhere from 10 units up to 18 units with meals. She had forgotten to take her insulin the prior day and did have a sugar over 200 on presentation; however, she says that she has at least twice a month glucoses in the 40s, of which she is unaware and only finds that on a fingerstick, which is certainly concerning given her age. Of note, her A1c is 6.5, which in an 82-year-old and her comorbid conditions, which is just a little bit of over control, she says she is followed closely by Endocrine and her PCP and she does in fact have a followup with her primary provider, Dr. Pendleton, on Sunday. In case the patient has not made clear to her PCP that she has hypoglycemia on this frequent of a basis and is aware of it, we advised her until followup until that can be addressed, to not take more than 40 mg of her N and to not exceed 14 units on her prandial base regardless of her fingerstick until she is rechecked. 3. Hypertension. She notes that she did not take her medications the prior day and denies that she has a regular history of missing her medications. I suspect that the hypertension on presentation was primarily related to her anxiety. It did improve and she received her dose of lisinopril and metoprolol prior to discharge. FOLLOWUP She is to follow up with her primary provider, Dr. Pendleton, on Sunday. 1. Consider outpatient stress test. 2. Reevaluate her insulin regimen given her hypoglycemic unawareness and relatively frequent hypoglycemia. 3. Revaluate blood pressure control. 4. Consider increase in statin dose given lipid panel results noted above. 5. Consider reevaluating the records from [facility] regarding the start of Plavix for stroke and the discontinuation nearly a year ago of aspirin if she should be on aspirin therapy. 6. The patient to continue wearing her CPAP for sleep apnea/ She wears it only ~ 3 hrs total /night and was advised to try to leave it on longer 7. consider increase zoloft dose for anxiety. DISCHARGE MEDICATIONS The only change on her regimen is the recommended more conservative dosing of her insulin until followup. Otherwise, she continues on 1. Sertraline 50 mg once daily. 2. Metoprolol 25 mg twice daily. 3. Magnesium oxide 400 mg once daily. 4. Lisinopril 20 mg once daily. 5. Gabapentin 600 mg twice daily. 6. Plavix 75 mg once daily. 7. Atorvastatin 10 mg once daily. 8. Oxycodone 5 mg every 6 hours if needed for pain. 9. NPH insulin as above to not exceed 40 units until followup with her evening dose and prandial lispro coverage not to exceed 14 units. 10. Lastly, she was given a prescription for a small number of alprazolam 0.25 mg tablets, only 10 of those, and advised to even try 1/2 of one for a situation of extreme anxiety twice daily p.r.n. extreme anxiety JOB #: [id number] EXT JOB #:[id number] [facility]
== END 2016-09-09 19:25 | disposition home or self-care (01) ==
LOC: EDUNIT# → ED 06:51 → MS 09:30
PROVIDERS: ADMIT Nurse Practitioner; ATTEND Nurse Practitioner
DX: R07.89 Other chest pain (principal); F41.0 Panic disorder [episodic paroxysmal anxiety]; E11.649 Type 2 diabetes mellitus with hypoglycemia without coma; I10 Essential (primary) hypertension; E78.5 Hyperlipidemia, unspecified; G47.30 Sleep apnea, unspecified; Z79.02 Long term (current) use of antithrombotics/antiplatelets; Z86.73 Personal history of transient ischemic attack (TIA), and cerebral infarction without residual deficits; Z79.4 Long term (current) use of insulin; Z98.890 Other specified postprocedural states
CPT/HCPCS: 36415; 71010; 80053; 80061; 83036; 83690; 83880; 84484; 85025; 93005; 93010; 93306; 93971; 96365; 96375; 99284; A9270; G0378; J1815

== ENCOUNTER 2017-04-18 10:36 | Outpatient (CLI) | payer MEDICARE ==
--- NOTE | 2017-04-19 16:21 | XRAY Report ---
DATE OF SERVICE: 04/18/2017 COMPLETE LUMBAR SPINE: 04/18/2017 CLINICAL INDICATION: Pain. COMPARISON: 03/06/2016 FINDINGS: AP, lateral, oblique, coned-down views of the lumbar spine demonstrate moderate degenerati ve disk and facet disease. Postoperative changes of posterior radha and pedicle screw fusion of L4 to L5 are p resent, with no evidence of hardware complication. The visualized bowel gas pattern is normal. IMPRESSION: Degenerative changes, with posterior radha and pedicle screw fusion of L4 to L5. No evide nce of fracture. TD: 04/18/2017 18:21
== END 2017-04-18 10:37 | disposition home or self-care (01) ==
LOC: DI.S 10:36
PROVIDERS: ATTEND Physician Assistant Medical
DX: M51.36 Other intervertebral disc degeneration, lumbar region (principal); M47.896 Other spondylosis, lumbar region; Z98.1 Arthrodesis status
CPT/HCPCS: 72110

== ENCOUNTER 2017-04-18 23:48 | Outpatient (CLI) | payer MEDICARE | END 2017-04-18 23:49 | disposition home or self-care (01) | LOC: EMS 23:48 | PROVIDERS: ATTEND Surgery | DX: R06.00 Dyspnea, unspecified (principal) | CPT/HCPCS: A0425; A0427 ==

== ENCOUNTER 2017-04-19 00:11 | Inpatient (IN) | payer MEDICARE ==
[2017-04-19] MEDS ORDERED: NITROGLYCERIN 50 MG/250 ML 50 MG/250 ML BOTTLE IV STA (00:29)
[2017-04-19 00:34] LABS: BASOPHILS % (AUTO) 0.9 %; EOSINOPHILS % (AUTO) 1.4 %; LYMPHOCYTES % (AUTO) 59.8 %; MEAN CORPUSCULAR HEMOGLOBIN 30.3 pg (27.0-31.0); MEAN CORPUSCULAR HGB CONC 31.8 g/dL (32.0-36.0); MEAN CORPUSCULAR VOLUME 95.1 fL (81.0-99.0); MEAN PLATELET VOLUME 10.2 fL (7.9-10.8); MONOCYTES % (AUTO) 3.2 %; NEUTROPHILS % (AUTO) 34.7 %; PLT - PLATELET COUNT 221 10^3/uL (130-450); RED BLOOD COUNT 4.94 10^6/uL (4.20-5.40); RED CELL DISTRIBUTION WIDTH 14.7 % (12.0-15.0); WHITE BLOOD COUNT 30.1 x10^3/uL (4.8-10.8)
[2017-04-19 00:36] LABS: ABNORMAL LYMPHS % (MANUAL) 0 %
[2017-04-19 00:44] LABS: ALBUMIN 3.3 g/dL (3.2-5.5); ALBUMIN/GLOBULIN RATIO 0.7 (1.0-2.2); BILIRUBIN,TOTAL 0.5 mg/dL (0.2-1.0); CALCIUM 9.7 mg/dL (8.5-10.3); CREATININE 1.7 mg/dL (0.4-1.0); TOTAL PROTEIN 8.1 g/dL (6.7-8.2)
[2017-04-19] MEDS ORDERED: HYDROcod/ACETAM 5/325 MG TABLET PO PRN (00:45)
[2017-04-19] MEDS ORDERED: ONDANSETRON 4 MG/2 ML VIAL IVP PRN (00:45)
[2017-04-19] MEDS ORDERED: SODIUM CHLORIDE FLUSH 0.9% 10 ML SYRINGE IVP PRN (00:45)
[2017-04-19] MEDS ORDERED: ONDANSETRON ODT 4 MG TABLET TL PRN (00:45)
[2017-04-19] MEDS ORDERED: ACETAMINOPHEN 325 MG TABLET PO PRN (00:45)
--- NOTE | 2017-04-19 00:46 | ED Physician Documentation ---
History of Present Illness - Stated complaint Stated Complaint: SOA - Chief complaint Chief Complaint: Resp - History obtained from History obtained from: Family, EMS (pt with hx of asthma arrived by EMS after at around 10PM the pt became short of breath. family reports that the pt cam to get them at around 11PM for shortenss of breath. Does have a hx of asthma and took some of her nebs at home at the onset of this symptoms with minimal relief. no hx of CHF. EMS had pt with o2 sats in the 70's on the way to the ER. they attempted CPAP on 21% fi02 in route and the sats dropped to the low 70 's.) Review of Systems Unable to obtain: Other (shortness of breath. ROS provided by EMS and family) Constitutional: denies: Fever Cardiac: denies: Chest pain / pressure Respiratory: reports: Dyspnea. denies: Cough, Hemoptysis GI: denies: Vomiting Skin: denies: Rash Neurologic: reports: Altered mental status. 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 - Present Medications Home Medications: Ambulatory Orders Medication Instructions Recorded Confirmed Atorvastatin Calcium [Lipitor] 10 mg PO DAILY 01/16/15 04/19/17 Gabapentin [Neurontin] 600 mg PO BID 01/16/15 04/19/17 Lisinopril 20 mg PO DAILY 01/16/15 04/19/17 Metoprolol Tartrate 25 mg PO BID 01/16/15 04/19/17 Clopidogrel [Plavix] 75 mg PO DAILY 09/08/16 04/19/17 Insulin NPH Human Isophane 48 - 50 units SQ DAILY 09/08/16 04/19/17 [Humulin N] ALPRAZolam [Alprazolam] 0.25 mg PO BID PRN #10 tablet 09/09/16 04/19/17 Insulin Lispro [Humalog Kwikpen 10 - 30 unit SQ TIDWM 09/09/16 04/19/17 U-100] Magnesium Oxide [Mag Ox] 400 mg PO DAILY 09/09/16 04/19/17 oxyCODONE [Roxicodone] 5 mg PO Q6H PRN 09/09/16 04/19/17 Calcium/Magnesium/Vitamin D3 1 tab PO DAILY 04/19/17 04/19/17 [Douglas-Mag Complex 300-150 mg Tab] L. Acidophilus/L. Rhamnosus 2 tab PO DAILY 04/19/17 04/19/17 [Probiotic 15 Billion Cell Cap] Meclizine HCl [Motion Sickness 25 mg PO QID 04/19/17 04/19/17 Relief] traMADol [Ultram] 1 tab PO QID 04/19/17 04/19/17 - Allergies Allergies/Adverse Reactions: Allergies Allergy/AdvReac Type Severity Reaction Status Date / Time acetaminophen [From Tylenol] AdvReac Edema Verified 04/19/17 00:16 codeine AdvReac Unknown Verified 04/19/17 00:16 diazepam [From Valium] AdvReac Unknown Verified 04/19/17 00:16 Sulfa (Sulfonamide AdvReac Unknown Verified 04/19/17 00:16 Antibiotics) - Social History Does the pt smoke?: No Smoking Status: Never smoker Does the pt drink ETOH?: No Does the pt have substance abuse?: No - Immunizations Immunizations are current?: Yes - POLST Patient has POLST: Yes PD ED PE NORMAL - Vitals Vital signs reviewed: Yes - General General: Well developed/nourished. No: No acute distress (severe distress) - HEENT HEENT: Moist mucous membranes, Pharynx benign - Neck Neck: No JVD - Cardiac Cardiac: RRR, No murmur - Respiratory Respiratory: No: No respiratory distress (sats 75% on NRB. crackles with decreased lung sounds bilatera. ), Clear bilaterally - Abdomen Abdomen: Soft - Back Back: Other (unremarkable. ) - Derm Derm: Normal color, Warm and dry, No rash - Extremities Extremities: No edema, No calf tenderness / cord - Neuro Eye Opening: Spontaneous Motor: Obeys Commands Verbal: None (did not answer questions) GCS Score: 11 PD ED PE EXPANDED - Respiratory Respiratory: Distress, Labored, Accessory mm use, Rhonchi, Rales, Decreased breath sounds, Right upper lobe, Right middle lobe, Right lower lobe, Left upper lobe, Left lower lobe. No: Gasping, Absent Breath Sounds Results - Vitals Vitals: Vital Signs - 24 hr 04/19/17 04/19/17 04/19/17 00:11 00:20 00:25 Temperature 35.1 C L Heart Rate 98 126 H Respiratory 22 30 H Rate Blood Pressure 205/89 H 210/99 H O2 Saturation 74 L 84 L 88 L 04/19/17 04/19/17 00:37 00:42 Temperature Heart Rate 125 H 124 H Respiratory 31 H 37 H Rate Blood Pressure 187/90 H 185/86 H O2 Saturation 89 L 87 L Oxygen O2 Source BIPAP - EKG (time done) 0015 Rate: Rate (enter#) Rhythm: NSR [place]: LAD Intervals: Normal IA QRS: LVH Ischemia: Non specific changes - Labs Labs: Laboratory Tests 04/19/17 04/19/17 04/19/17 00:18 00:18 00:18 WBC 30.1 H RBC 4.94 Hgb 15.0 Hct 47.0 MCV 95.1 MCH 30.3 MCHC 31.8 L RDW 14.7 Plt Count 221 MPV 10.2 Neut # Not Reportable Lymph # Not Reportable Meade # Not Reportable Eos # Not Reportable Baso # Not Reportable Absolute Nucleated RBC Not Reportable Total Counted 100 Band Neuts % (Manual) 1 Reactive Lymphs % (Man) 30 Abnorm Lymph % (Manual) 0 Nucleated RBC % Not Reportable Neutrophils # (Manual) 13.8 H Lymphocytes # (Manual) 15.7 H Monocytes # (Manual) 0.6 Eosinophils # (Manual) 0.0 Basophils # (Manual) 0.0 Differential Comment MANUAL DIFFERENTIAL Platelet Estimate NORMAL (130-450,000) RBC Morph Micro Appear NORMAL APPEARANCE PT 11.2 INR 1.0 APTT 27.8 Bld Gas Analysis Time Sample Site ABG pH ABG pCO2 ABG pO2 ABG HCO3 ABG Total CO2 ABG O2 Saturation ABG Oximetry Spot Check ABG Base Excess Joe Test Respiration Rate O2 Delivery Device Vent Mode FiO2 EPAP IPAP Sodium 139 Potassium 4.3 Chloride 101 Carbon Dioxide 26 Anion Gap 12.0 BUN 34 H Creatinine 1.7 H Estimated GFR (MDRD) 29 L Glucose 249 H Lactic Acid Calcium 9.7 Total Bilirubin 0.5 AST 57 H ALT 32 Alkaline Phosphatase 115 Troponin I B-Natriuretic Peptide Total Protein 8.1 Albumin 3.3 Globulin 4.8 H Albumin/Globulin Ratio 0.7 L Lipase 38 04/19/17 04/19/17 04/19/17 00:18 00:18 00:33 WBC RBC Hgb Hct MCV MCH MCHC RDW Plt Count MPV Neut # Lymph # Meade # Eos # Baso # Absolute Nucleated RBC Total Counted Band Neuts % (Manual) Reactive Lymphs % (Man) Abnorm Lymph % (Manual) Nucleated RBC % Neutrophils # (Manual) Lymphocytes # (Manual) Monocytes # (Manual) Eosinophils # (Manual) Basophils # (Manual) Differential Comment Platelet Estimate RBC Morph Micro Appear PT INR APTT Bld Gas Analysis Time Sample Site ABG pH ABG pCO2 ABG pO2 ABG HCO3 ABG Total CO2 ABG O2 Saturation ABG Oximetry Spot Check ABG Base Excess Joe Test Respiration Rate O2 Delivery Device Vent Mode FiO2 EPAP IPAP Sodium Potassium Chloride Carbon Dioxide Anion Gap BUN Creatinine Estimated GFR (MDRD) Glucose Lactic Acid 1.8 Calcium Total Bilirubin AST ALT Alkaline Phosphatase Troponin I 0.09 B-Natriuretic Peptide 311 H Total Protein Albumin Globulin Albumin/Globulin Ratio Lipase 04/19/17 00:40 WBC RBC Hgb Hct MCV MCH MCHC RDW Plt Count MPV Neut # Lymph # Meade # Eos # Baso # Absolute Nucleated RBC Total Counted Band Neuts % (Manual) Reactive Lymphs % (Man) Abnorm Lymph % (Manual) Nucleated RBC % Neutrophils # (Manual) Lymphocytes # (Manual) Monocytes # (Manual) Eosinophils # (Manual) Basophils # (Manual) Differential Comment Platelet Estimate RBC Morph Micro Appear PT INR APTT Bld Gas Analysis Time 0050 Sample Site LEFT RADIAL ABG pH 7.20 L* ABG pCO2 63 H* ABG pO2 61 L ABG HCO3 24.5 ABG Total CO2 26.0 ABG O2 Saturation 84 L* ABG Oximetry Spot Check 89 ABG Base Excess -4.0 L Joe Test POSITIVE Respiration Rate 18 O2 Delivery Device BiPAP Vent Mode SYNCHRONOUS/TIMES FiO2 100.00 EPAP 5 IPAP 12 Sodium Potassium Chloride Carbon Dioxide Anion Gap BUN Creatinine Estimated GFR (MDRD) Glucose Lactic Acid Calcium Total Bilirubin AST ALT Alkaline Phosphatase Troponin I B-Natriuretic Peptide Total Protein Albumin Globulin Albumin/Globulin Ratio Lipase - Rads (name of study) CXR Radiology: Final report received (significan increase in diffuse interstitial and alveolar opacities concerning for infultrates or edema.), EMP read contemporaneously PD MEDICAL DECISION MAKING - ED course Complexity details: reviewed old records, reviewed results, re-evaluated patient , considered differential, d/w patient, d/w audit consultant ED course: Pt with respiratory distress and hypoxic. O2 sats increased to the high 80's and low 90's on BIPAP. ABG with a ph of 7.2 and Co2 of 62. Pt does follow commands. No STEMI on the ECG. pt with pulm edema on exam and on the CXR. no Hx of CHF. EMS gave lasix in route and placed nitro paste. pt hypertensive in the ER and placed on a nitro drip. pt becoming more responsive on the BiPAP. Discussed case with admitting provider will admit to the ICU. - Critical Care Time(min): 35 Time Includes: Direct patient care, Review records, Reassess patient, Document care, Coordinate care, Medical consult Data interpretation: Labs, ABG, CXR, Cardiac output Departure - Departure Disposition: 66 [facility] DC/Xfer Clinical Impression: Shortness of breath, CHF (congestive heart failure), Asthma, Hypoxia Condition: Stable Discharge Date/Time: 04/19/17 01:21
[2017-04-19 00:49] LABS: PT - PROTHROMBIN TIME 11.2 secs (9.9-12.6)
[2017-04-19] MEDS ORDERED: oxyCODONE 5 MG TABLET PO PRN (00:50)
--- NOTE | 2017-04-19 01:03 | XRAY Preliminary Report ---
Exam: XR CHEST 1 VIEW IMPRESSION: 1. Significant increase in the diffuse interstitial and alveolar opacities concerning for edema or in filtrates. 2. Mild cardiac enlargement. 3. Small effusions or pneumothorax. [facility] SITE ID: [id number]
[2017-04-19 01:04] LABS: BAND NEUTROPHILS % (MANUAL) 1 %; DIFFERENTIAL COMMENT MANUAL DIFFERENTIAL; LYMPHOCYTES # (MANUAL) 15.7 10^3/uL (1.5-3.5); LYMPHOCYTES % (MANUAL) 22 %; MONOCYTES # (MANUAL) 0.6 10^3/uL (0.0-1.0); NEUTROPHILS # (MANUAL) 13.8 10^3/uL (1.5-6.6); NEUTROPHILS % (MANUAL) 45 %; PLATELET ESTIMATE, MANUAL NORMAL (130-450,000) (NORMAL); RBC MORPHOLOGY (MULTIPLE) NORMAL APPEARANCE (NORMAL)
--- NOTE | 2017-04-19 01:07 | XRAY Report ---
EXAM: CHEST RADIOGRAPHY EXAM DATE: 04/19/2017 12:39 AM. CLINICAL HISTORY: Shortness of breath. COMPARISON: 09/09/2016. TECHNIQUE: 1 view. FINDINGS: Lungs/Pleura: Mild blunting of the costophrenic angles. No pneumothorax. Worsening diffuse interstiti al and ground-glass opacities throughout both lungs. No pneumothorax. Mediastinum: Mild cardiac enlargement. EKG leads overlie the chest. Other: None. IMPRESSION: 1. Significant increase in the diffuse interstitial and alveolar opacities concerning for edema or in filtrates. 2. Mild cardiac enlargement. 3. Small effusions. No pneumothorax. [facility] Referring Provider Line: [phone] SITE ID: [id number]
[2017-04-19 01:21] LABS: ABG HCO3 24.5 mmol/L (22.0-26.0); ABG PO2 61 mmHg (80-100)
[2017-04-19 01:51] LABS: ABG OXYGEN SATURATION 84 % (94-98); ABG PCO2 63 mmHg (34-45); ALLEN TEST POSITIVE
[2017-04-19] MEDS ORDERED: FUROSEMIDE 40 MG/4 ML VIAL ONE (02:44)
[2017-04-19] MEDS: SODIUM CHLORIDE FLUSH 0.9% 10 ML SYRINGE IVP SCH ×2 (05:09→06:34)
[2017-04-19] MEDS: FUROSEMIDE 40 MG/4 ML VIAL IVP SCH ×2 (05:10→06:34)
[2017-04-19 06:16] LABS: BASOPHILS % (AUTO) 0.2 %; EOSINOPHILS % (AUTO) 0.1 %; LYMPHOCYTES # (AUTO) 0.7 10^3/uL (1.5-3.5); LYMPHOCYTES % (AUTO) 6.5 %; MEAN CORPUSCULAR HEMOGLOBIN 30.5 pg (27.0-31.0); MEAN CORPUSCULAR HGB CONC 31.8 g/dL (32.0-36.0); MEAN CORPUSCULAR VOLUME 95.8 fL (81.0-99.0); MEAN PLATELET VOLUME 9.9 fL (7.9-10.8); MONOCYTES # (AUTO) 0.9 10^3/uL (0.0-1.0); MONOCYTES % (AUTO) 8.6 %; NEUTROPHILS # (AUTO) 9.3 10^3/uL (1.5-6.6); NEUTROPHILS % (AUTO) 84.6 %; PLT - PLATELET COUNT 191 10^3/uL (130-450); RED CELL DISTRIBUTION WIDTH 14.7 % (12.0-15.0)
[2017-04-19 06:28] LABS: MAGNESIUM 1.7 mg/dL (1.7-2.8)
[2017-04-19 06:32] LABS: HB2 TOTAL 15.1 g/dL; HEMOGLOBIN A1C 0.83 g/dL; HEMOGLOBIN A1C % 7.2 % (4.6-6.2)
[2017-04-19] MEDS ORDERED: INSULIN NPH HUMAN 100 UNIT/1 ML 10 ML MDV SUBQ SCH (07:00)
[2017-04-19] MEDS: ALBUTEROL NEB 2.5 MG/3 ML INH PRN ×2 (07:20→11:10)
[2017-04-19] MEDS ORDERED: MORPHINE 2 MG/ML SYRINGE IVP PRN (08:21)
[2017-04-19] MEDS ORDERED: HEPARIN 5,000 UNIT/ML VIAL IVP ONE (08:23)
[2017-04-19] MEDS ORDERED: ASPIRIN CHEW 81 MG TABLET PO SCH ×2 (08:30)
[2017-04-19] MEDS: INSULIN ASPART 300 UNIT/3 ML PEN SUBQ SCH ×2 (08:35→12:16)
[2017-04-19 08:37] LABS: ABG BASE EXCESS -7.8 mmol/L (-2.0-3.0); ABG HCO3 20.7 mmol/L (22.0-26.0); ABG OXYGEN SATURATION 94 % (94-98); ABG PCO2 54 mmHg (34-45); ABG PO2 77 mmHg (80-100); ABG TCO2 22.3 MMOL/L (21.0-29.0); ALLEN TEST POSITIVE
[2017-04-19] MEDS ORDERED: GABAPENTIN 300 MG CAPSULE PO SCH (09:00)
[2017-04-19] MEDS ORDERED: ALPRAZolam 0.25 MG TABLET PO PRN (09:00)
[2017-04-19] MEDS ORDERED: METOPROLOL TARTRATE 25 MG TABLET PO SCH (09:00)
[2017-04-19] MEDS ORDERED: LISINOPRIL 20 MG TABLET PO SCH (09:00)
[2017-04-19] MEDS ORDERED: HEPARIN 25,000 UNITS/500 ML NS 25,000 UNIT/500 ML BAG IV SCH (09:00)
[2017-04-19] MEDS ORDERED: CLOPIDOGREL 75 MG TABLET PO SCH (09:00)
[2017-04-19] MEDS ORDERED: traMADol 50 MG TABLET PO SCH (09:00)
[2017-04-19] MEDS ORDERED: BUMETANIDE 1 MG/4 ML VIAL IVP SCH (10:00)
[2017-04-19] MEDS ORDERED: NITROGLYCERIN 50 MG/250 ML 50 MG/250 ML BOTTLE IV SCH (11:00)
--- NOTE | 2017-04-19 12:12 | HISTORY & PHYSICAL EXAMINATION ---
DATE OF SERVICE: 04/19/2017 Physician: Corie Miller MD PRIMARY CARE PROVIDER: RYAN Villasenor ADMITTING PROVIDER: Corie Miller MD CHIEF COMPLAINT: Sudden onset of severe shortness of breath. HISTORY OF PRESENT ILLNESS: The patient is an 81-year-old, morbidly obese, female that has a history of diastolic stage 2 congestive heart failure, anxiety and depression, and atypical chest pain. She lives with her son and [id number], and has done so since approximately 2008. They said that they still trust her to take her own medications and, as far as they are concerned, she seems to do a good job with her pills and her insulin. So she is compliant with medication. [place] and [place] have been busy for the family, but she has not been in discrete with her diet. If anything, they have to encourage her to eat. Her daughter states that she is recently trying to get her mom to do protein supplements to improve her diet. She had a cold a couple of months ago. The entire family did. All of her cold symptoms resolved except for a dry hacking cough. Her son has the same cough. Her endurance has remained unchanged. If she has to walk long distances, she needs a walker to push or hold on to. At the grocery store, she uses a grocery cart to push, but if push comes to shove, she is actually able to walk probably 100 feet without having to stop as long as she does it slowly and she does not need a walker. She does have intermittent leg edema that comes and goes. In addition to the dry cough, she feels like her legs have been more swollen over the last couple of months. Again, she has been compliant with her medications. Around 9:30 in the evening everyone went to bed. She has obstructive sleep apnea and uses a CPAP mask. As she lay down, she realized that she was uncomfortable and had to start sitting up in bed to feel like she was breathing better. As time went on, anxiety and shortness of breath increased to the point she felt like she could not breathe and she was suffocating. She denies chest pain, palpitations or nausea. She went into her son's room and woke him up. He said that she was able to speak a few short words, but was clearly gasping for air. By the time the ambulance got there to treat her, she was audibly gurgling. EMS described her as having pink frothy phlegm. She was given nitroglycerin paste and Lasix 40 mg IV push. She was then transferred to the emergency room where her blood pressure was 205/89. She was 74% on a nonrebreather mask. She was then placed on BiPAP, and started on a nitroglycerin drip. By then, the Lasix IV kicked in , she was having good urine output, and nitroglycerin drip brought her blood pressure steadily down to the 120s and in the one-teens. The patient herself was feeling much better. Chest x-ray revealed significant increase in diffuse interstitial and alveolar opacities concerning for edema or infiltrates when compared to the 09/09/2016 x-ray. She is afebrile, and she has a white blood count of 30,000. BNP was 311, and creatinine was 1.7. Normal creatinine is anywhere between 1 and 1.2. Initial troponin was less than 0.09. The patient is now brought into the ICU, on BiPAP, and being treated for diastolic congestive heart failure causing acute respiratory failure with hypoxia. PAST MEDICAL HISTORY 1. Hypertension. 2. Type 2 diabetes mellitus, uncontrolled, with complications of neuropathy and retinopathy, on long-term use of insulin. Last glycosylated hemoglobin was 7.8% 02/27/2017. 3. History of stroke that presented with slurred speech and dysarthria, and chronic left body numbness. 4. Morbid obesity. 5. Obstructive sleep apnea, on CPAP. 6. History of asthma, but never been intubated. 7. Hyperlipidemia. 8. s/p hysterectomy 9. Chronic low back pain with sciatica resulting in an L4-L5 fusion, cage placement, decompressive laminectomy with bilateral facetectomies and L1-L2 left microdiscectomy with hemilaminectomy 08/03/2016. 10. History of chest pain with qlqb-tjj-iwlbjoktmw-infarction admission 2016. 11. Osteoarthritis, status post left total knee replacement. ALLERGIES 1. ACETAMINOPHEN, WHICH "ATTACKS" HER LIVER. 2. CODEINE, WHICH CAUSES A COTTON MOUTH AND FUZZY THINKING. 3. SULFA, WHICH CAUSES A RASH. 4. VALIUM MAKES HER FEEL FUNNY. 5. METFORMIN CAUSES DIARRHEA. 6. TAPE PEELS OFF HER SKIN. MEDICATIONS 1. Alprazolam 0.25 mg tablet, 1/2-1 p.o. b.i.d. p.r.n. 2. Lipitor 10 mg daily. 3. Vitamin D 1 tablet daily. 4. Plavix 75 mg daily. 5. Neurontin 600 mg p.o. b.i.d. 6. Humalog KwikPen before meals anywhere between 10 and 30 units a.c. t.i.d. 7. NPH 48-50 units b.i.d. 8. Acidophilus 2 tablets daily. 9. Lisinopril 20 mg daily. 10. Magnesium oxide 400 mg daily. 11. Meclizine 25 mg p.o. q.i.d. p.r.n. motion sickness. 12. Metoprolol tartrate 25 mg p.o. b.i.d. 13. Oxycodone 5 mg p.o. q. 6 hours p.r.n. pain. 14. Ultram 50 mg tablet 1 p.o. q.i.d. p.r.n. pain. SOCIAL HISTORY: She is from [place], which is the [facility]. She worked mainly doing [employer] all of her life. When she retired, she and her went on a 5 -year motor home trip with her daughter and son-in-law. Her was diagnosed with cancer and they could no longer travel. When he , she moved in with her son approximately 2008 and lived with him in [place] until they moved here in 2014. So she has lived with her son and [id number] since 2008. She was never a smoker. She has no history of alcohol abuse or recreational substance abuse. CODE STATUS: Resuscitation allow with regards to chest compressions and cardioversion. However, she does not want to be intubated. FAMILY HISTORY: Father of coronary artery disease and had bypass surgery at age 83. Mom of complications of diabetes and at the age of 76. Of 3 children, they have diabetes, one had gastric bypass surgery for obesity. REVIEW OF SYSTEMS CONSTITUTIONAL: She has had no recent change in exertional status until tonight , and denies any constitutional complaints of unexpected weight changes, fevers, chills, sweats. HEAD AND NECK: Without any change in vision, hearing, swallowing. PULMONARY: She gets occasional wheezing from asthma, but has never needed to be intubated, nor has she had to be on steroids. She has had the dry nonproductive cough for a couple of months now. This is after she had a bad cold. CARDIAC: She has no problems with bypass surgery. She did have the rule-out- [facility] admission 08/2016. She knows that she has a murmur. Leg edema is present off and on, worsening over the last 2 months. She has been evaluated for the leg edema with venous Dopplers, and those have been negative. An echocardiogram was done 09/2015 and 08/2016. From 08/2016, she had an overall left ventricular systolic function normal with an ejection fraction of 60% to 65%. She had grade 2 diastolic dysfunction. Right ventricle was normal, and no hemodynamically significant cardiac valve disease noted. GI: She used to have diarrhea when she took metformin and when she stopped it, her diarrhea got much better. She has had a colonoscopy. There is no blood in her stool. She still tends to have loose stools. GENITOURINARY: She denies urgency, frequency, dysuria. She denies hematuria. JOINTS: Ache in the morning, knees. GYNECOLOGIC: G3, P3 status post hysterectomy. OCCUPATIONAL THERAPIST HOME BASED: She denies syncope, is developing some mild memory loss, but no history of seizures. She continues to have left body weakness, and sometimes she wonders if it is just her sciatica that causes her leg to feel that way and not the stroke. She still has problems with balance off and on, but not severely. PHYSICAL EXAMINATION She is seen in the ICU, and in [facility], both IVs have popped out, so she is no longer on a nitroglycerin drip. VITAL SIGNS: Blood pressure is 118/60 systolic, respirations are 20 and unlabored, temperature is 36. Pulse is 78. GENERAL: She is a pleasant, alert and oriented, morbidly obese, elderly female who looks her stated age. HEAD AND NECK: Voice is muffled by the BiPAP mask, but no facial asymmetry. Pupils are reactive. Mouth is dry. NECK: Too obese to assess for JVD, but it is supple. No goiter or bruits. PULMONARY: Diffuse crackles in the supine position, louder at the axilla, but no increased respiratory effort with talking to me. No tachypnea or use of accessory muscles. HEART: Regular rate and rhythm with is soft systolic murmur in the left lower sternal border. ABDOMEN: Obese, soft, nontender, without organomegaly. EXTREMITIES: She has 3+ bilateral pitting edema to just at the knees. The left knee has an anterior total knee replacement scar. She is Homans' negative. There is no redness, skin breakdown. NEUROLOGIC: She is alert, oriented to person, place and time. Able to give a lucid history in spite of the BiPAP mask being on. She uses her right arm to bring a Yankauer up to her mouth and suck up pink, frothy phlegm that comes and goes. She occasionally uses her left hand to adjust the bed sheets, adjust her face mask while she uses the right hand to put the [place]auer in her mouth. She is able to lift both legs off the bed. LABORATORY/DATA: Sodium 139, potassium 4.3, BUN 34, creatinine 1.7. Lactic acid 1.8. AST 57. ALT 32. Total bilirubin 0.05. Troponin of 0.09. BNP is 311. White cell count is 30.1000, even divided between neutrophils and lymphocytes. Hemoglobin is 15. This patient's hemoglobin is usually 32.1 or 11. Hematocrit 47. Platelets 221. In the past, her thrombocytopenia has gone to as low as 110. This is the first time in a year her platelets have been normal. Chest x-ray is as above. ASSESSMENT/PLAN 1. Acute respiratory failure with hypoxia and hypercapnia. Blood gas shows a pH of 7.2, pCO2 of 63, pO2 61 with base excess -4 and an 84% saturation. She is on synchronous BiPAP with an FiO2 of 100%. Most likely cause is combination of asthma, and diastolic congestive heart failure, as well as uncontrolled hypertension. Admit to ICU. Give 40 mg of Lasix more. Since she is off the nitroglycerin drip, we will keep her off the nitroglycerin drip. From what she was in the emergency room and to what she is in the ICU, she is much improved. Her code status is no intubation at all. She will allow chest compressions. 2. Diastolic congestive heart failure. Control blood pressure, diurese. We will also recheck serial cardiac enzymes to make sure coronary ischemia not cause of sudden decompensation as opposed to #5. 3. History of asthma. Currently, there is no wheezing, but she has hypercapnia. This could be from chronic obstructive sleep apnea or worsening of asthma. Since white blood count is elevated, we will hold off on using steroids. Use albuterol or Xopenex as needed. No signs of infection on the basis of fever or history. As such, no antibiotics. 4. Type 2 diabetes mellitus, uncontrolled, with complications of neuropathy, on long-term use of insulin. We will resume NPH b.i.d. and sliding scale high dose insulin before meals t.i.d. 5. Uncontrolled hypertension, possible malignant hypertension. Contributing to #1 and #2. Blood pressure has now dropped dramatically with the nitroglycerin drip. We will resume her usual medications and no nitroglycerin drip will be resumed. 6. Anxiety history. We will make sure her alprazolam is given. 7. Deep venous thrombosis prophylaxis. Will be SCDs and ALBARO carter. 8. CODE STATUS: DO NOT INTUBATE, BUT DO CHEST COMPRESSIONS AND CARDIOVERSION. TD: 04/19/2017 08:28 MTDDorothy
[2017-04-19 14:25] VITALS: BP 104/92
--- NOTE | 2017-04-19 14:28 | DISCHARGE SUMMARY ---
DATE OF SERVICE: 04/19/2017 Physician: Bridget Gallegos MD DISCHARGE/TRANSFER SUMMARY HOSPITAL COURSE: This is an 81-year-old white female with history of diabetes on insulin, hypertension, sleep apnea, who uses a CPAP, prior stroke maintained on Plavix, prior evaluation in August 2016 for chest pain where she ruled out for an VT, and echo showed LVH with diastolic dysfunction. The patient presented with 1 month of leg edema and then rapidly progressive PND and flash pulmonary edema, placed in the ICU on a BiPAP as she wanted no intubation ever and has ruled in for myocardial infarction. DISCHARGE DIAGNOSES AND HOSPITAL COURSE 1. Flash pulmonary edema. The patient had gurgling audible by her family members at the time of her symptoms and witnessed frothy sputum since being admitted. She has received IV diuretics , IV nitroglycerin drip and respiratory treatment with both inhalers and requiring BiPAP to improve very low saturations. Her chest x-ray was consistent with pulmonary edema. The etiology of the pulmonary edema appears to be from malignant hypertension as well as an acute NSTEMI. 2. Acute guj-NK-kevpwsqql myocardial infarction (NSTEMI). The patient never described chest discomfort; however, her presentation was of shortness of breath and pulmonary edema. The patient's initial troponin was 0.09 in the ER, increased to 1.21 and at the time of discharge the last troponin was 1.60. The patient was treated with full dose IV heparin drip with bolus, IV nitroglycerin, her beta- avelina oral dose was continued, she received (chewed) 4 baby aspirin given at the time of the rule-in, daily aspirin was started, and she was kept on her daily Plavix. She was accepted in transfer to the [facility] for further cardiac management including coronary angiography, under the care of Dr. Valdivia and the [facility]. 3. Hypertension. The patient's admission blood pressure was 205/89, 210/99 and in sinus tachycardia at a rate of 126 (also in respiratory distress with a respiratory rate of 30). After management of both blood pressure and respiratory status, her blood pressure improved and at the time of discharge was 126/71 on the above management. 4. Diabetes, on insulin. The patient's HbA1c was 7.2, indicating fairly good diabetic control. The patient had fingerstick glucoses of 390-420 while here, likely related to the stress of the acute VT and pulmonary edema. This was treated with sliding scale insulin coverage. 5. Acute versus chronic renal insufficiency. The patient presented with a creatinine of 1.7 and repeat after 6 hours was 2.0 at the time of discharge. This may be related to renal vascular disease versus hypoperfusion from her acute myocardial infarction. 6. Prior stroke, on Plavix. The patient was not on aspirin plus Plavix according to the family, only on Plavix at home, and this was continued throughout the course. She had additional aspirin and iv heparin begun while here as well as the management (see above) for the acute myocardial infarction. 7. Obstructive sleep apnea, on CPAP. By description, she is compliant with her management. She was able to tolerate a BiPAP mask for management of her pulmonary edema. 8. Hyperlipidemia. Continued management with her medications and dietary restrictions as advised. Labs and Imaging: Reviewed and summarized above. MEDICATIONS AT THE TIME OF DISCHARGE 1. Tylenol p.o. p.r.n. 2. [place] p.o. p.r.n. 3. Albuterol inhaler p.r.n. wheezing. 4. Xanax p.r.n. anxiety. 5. Adult-dose aspirin daily, begun today. 6. Bumex 1 mg IV b.i.d. 7. Neurontin 600 mg p.o. b.i.d. 8. Heparin weight-based protocol with bolus and drip. 9. Insulin sliding scale coverage as well as NPH 40 units subcutaneous b.i.d. and a.c. 10. Lisinopril 20 mg p.o. daily. 11. Morphine 2 mg IV q.2 hours p.r.n. dyspnea. 12. IV nitroglycerin drip at 5 mcg per minute. 13. Zofran p.r.n. nausea. 14. Oxycodone p.r.n. pain. 15. Ultram 50 mg p.o. b.i.d. ALLERGIES 1. TYLENOL. 2. CODEINE. 3. VALIUM. 4. SULFA. CONDITION AT DISCHARGE: Guarded. PHYSICAL EXAMINATION VITAL SIGNS: Blood pressure 126/70, heart rate 100-120 in sinus rhythm, afebrile, respiratory rate 30 on BiPAP with saturation of 89 percent with FiO2 of 60%. HEENT: Oral airway moist. NECK: Positive JVD. No carotid bruits. CHEST: Diminished breath sounds diffusely. Heart sounds distant. ABDOMEN: Soft. EXTREMITIES: Trace pedal edema. NEUROLOGIC : Intact. CODE STATUS: DO NOT INTUBATE, BUT A FULL CODE IS PERMISSIBLE OTHERWISE. TOTAL TIME REQUIRED FOR COMPLETE BEING DISCHARGED: 60 minutes. TD: 04/19/2017 14:14 MTDDorothy
--- NOTE | 2017-05-08 16:50 | HISTORY & PHYSICAL EXAMINATION ---
DATE OF SERVICE: 04/19/2017 Physician: Corie Miller MD ADDENDUM: I am attesting that this patient will be admitted to the hospital for less than 96 hours. At 96 hours, I plan on discharging or reevaluating the patient for transfer. TD: 05/08/2017 13:43
== END 2017-04-19 15:30 | disposition short-term general hospital (02) | DRG 280 ==
LOC: EDUNIT# → EDBD → ED 00:11 → ICU 00:45
PROVIDERS: ADMIT Specialist; ATTEND Internal Medicine
DX: R09.02 Hypoxemia (principal); I11.0 Hypertensive heart disease with heart failure; I50.9 Heart failure, unspecified; I21.4 Non-ST elevation (NSTEMI) myocardial infarction; G47.30 Sleep apnea, unspecified; E11.9 Type 2 diabetes mellitus without complications; Z86.73 Personal history of transient ischemic attack (TIA), and cerebral infarction without residual deficits; J96.01 Acute respiratory failure with hypoxia; J96.02 Acute respiratory failure with hypercapnia; I13.0 Hypertensive heart and chronic kidney disease with heart failure and stage 1 through stage 4 chronic kidney disease, or unspecified chronic kidney disease; I50.30 Unspecified diastolic (congestive) heart failure; I69.354 Hemiplegia and hemiparesis following cerebral infarction affecting left non-dominant side; E11.65 Type 2 diabetes mellitus with hyperglycemia; E11.40 Type 2 diabetes mellitus with diabetic neuropathy, unspecified; E11.319 Type 2 diabetes mellitus with unspecified diabetic retinopathy without macular edema; E11.22 Type 2 diabetes mellitus with diabetic chronic kidney disease; N18.9 Chronic kidney disease, unspecified; J45.909 Unspecified asthma, uncomplicated; G47.33 Obstructive sleep apnea (adult) (pediatric); E78.5 Hyperlipidemia, unspecified; E66.01 Morbid (severe) obesity due to excess calories; F32.9 Major depressive disorder, single episode, unspecified; F41.9 Anxiety disorder, unspecified; M54.42 Lumbago with sciatica, left side; Z96.652 Presence of left artificial knee joint; Z79.4 Long term (current) use of insulin; Z79.02 Long term (current) use of antithrombotics/antiplatelets; Z68.37 Body mass index [BMI] 37.0-37.9, adult; Z98.1 Arthrodesis status
CPT/HCPCS: 36415; 36600; 71010; 80048; 80053; 82803; 83036; 83605; 83690; 83735; 83880; 84100; 84484; 85025; 85610; 85730; 87070; 87150; 87205; 93005; 93306; 94640; 94660; 96365; 99284; 99291

== ENCOUNTER 2017-05-07 10:58 | Inpatient (IN) | payer MEDICARE ==
--- NOTE | 2017-05-07 11:49 | XRAY Report ---
EXAM: CHEST RADIOGRAPHY, 2 VIEWS EXAM DATE: 05/07/2017 11:39 AM. CLINICAL HISTORY: 81-year-old female with SOA. COMPARISON: AP portable study of 04/19/2017 and previous. TECHNIQUE: Upright PA and lateral views. FINDINGS: Lungs/Pleura: Small bilateral pleural effusions with minimal residual infiltrate/edema right upper lo be. No pneumothorax. Mediastinum: Heart size upper normal without pulmonary vascular congestion or adenopathy. Other: Trachea is midline. Osseous structures are unremarkable for age. IMPRESSION: Near-complete resolution of likely CHF and pulmonary edema since prior exam with small re sidual bilateral pleural effusions and minimal residual infiltrate/edema right upper lobe. [facility] Referring Provider Line: [phone] SITE ID: [id number]
[2017-05-07] MEDS ORDERED: NITROGLYCERIN 2% PASTE TOP STA (12:03)
[2017-05-07] MEDS ORDERED: FUROSEMIDE 40 MG/4 ML VIAL IVP STA (12:03)
--- NOTE | 2017-05-07 12:07 | ED Physician Documentation ---
PD HPI DYSPNEA - Stated complaint Stated Complaint: FLUID IN LUNGS - Chief complaint Chief Complaint: Cardiac - History obtained from History obtained from: Patient - History of Present Illness Timing - onset: Other (This is an 81-year-old woman who is admitted here couple days after [facility] for pulmonary edema. During that admission she ruled in and was transferred to [facility], per her she was managed medically because her renal function would not permit coronary angiography. Progressively since discharge from they are over the last couple weeks she has developed dyspnea on exertion and orthopnea. 2 days ago she had an episode of angina which resolved with nitroglycerin. She notes that she has had a 16 pound weight gain since discharge over the last 2 weeks or so as well. There is no active chest pain at this juncture. She does have significant pedal edema.) Review of Systems Ten Systems: 10 systems reviewed and negative Constitutional: denies: Fever, Chills Throat: denies: Dental pain / toothache, Sore throat Cardiac: reports: Chest pain / pressure, Pedal edema. denies: Palpitations, Calf pain Respiratory: reports: Dyspnea. 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 - Present Medications Home Medications: Ambulatory Orders Medication Instructions Recorded Confirmed Atorvastatin Calcium [Lipitor] 10 mg PO DAILY 01/16/15 05/07/17 Gabapentin [Neurontin] 600 mg PO BID 01/16/15 05/07/17 Lisinopril 20 mg PO DAILY 01/16/15 05/07/17 Metoprolol Tartrate 25 mg PO BID 01/16/15 05/07/17 Clopidogrel [Plavix] 75 mg PO DAILY 09/08/16 05/07/17 Insulin NPH Human Isophane 48 - 50 units SQ DAILY 09/08/16 05/07/17 [Humulin N] Insulin Lispro [Humalog Kwikpen 10 - 30 unit SQ TIDWM 09/09/16 05/07/17 U-100] Magnesium Oxide [Mag Ox] 400 mg PO DAILY 09/09/16 05/07/17 oxyCODONE [Roxicodone] 5 - 10 mg PO Q4H PRN 09/09/16 05/07/17 Calcium/Magnesium/Vitamin D3 1 tab PO DAILY 04/19/17 05/07/17 [[place]-Mag Complex 300-150 mg Tab] L. Acidophilus/L. Rhamnosus 2 tab PO DAILY 04/19/17 05/07/17 [Probiotic 15 Billion Cell Cap] Meclizine HCl [Motion Sickness 25 mg PO QID 04/19/17 05/07/17 Relief] hydrOXYzine PAMOATE [Vistaril] 25 - 50 mg PO Q4H PRN 04/19/17 05/07/17 traMADol [Ultram] 1 tab PO QID 04/19/17 05/07/17 - Allergies Allergies/Adverse Reactions: Allergies Allergy/AdvReac Type Severity Reaction Status Date / Time adhesive tape AdvReac Mild Itching Verified 05/07/17 11:20 acetaminophen [From Tylenol] AdvReac Edema Verified 05/07/17 11:19 codeine AdvReac Unknown Verified 05/07/17 11:19 diazepam [From Valium] AdvReac Unknown Verified 05/07/17 11:19 Sulfa (Sulfonamide AdvReac Unknown Verified 05/07/17 11:19 Antibiotics) - Social History Does the pt smoke?: No Smoking Status: Never smoker Does the pt drink ETOH?: No Does the pt have substance abuse?: No - Family History Family history: reports: Non contributory - Immunizations Immunizations are current?: Yes - POLST Patient has POLST: Yes PD ED PE NORMAL - Vitals Vital signs reviewed: Yes - General General: Alert and oriented X 3, No acute distress - HEENT HEENT: PERRL, EOMI - Neck Neck: Supple, no meningeal sign, No bony TTP - Cardiac Cardiac: RRR, No murmur - Respiratory Respiratory: Other (Mild bibasilar rales, nonlabored at rest but easily winded.) - Abdomen Abdomen: Soft, Non tender - Rectal Rectal: Other (brown stool, mod guaiac pos) - Back Back: No CVA TTP, No spinal TTP - Derm Derm: Normal color, Warm and dry - Extremities Extremities: Other (3 Bilateral pitting pedal edema) - Neuro Neuro: Alert and oriented X 3, Normal speech Results - Vitals Vitals: Vital Signs - 24 hr 05/07/17 11:14 Temperature 36.3 C L Heart Rate 64 Respiratory 20 Rate Blood Pressure 165/52 H O2 Saturation 99 Oxygen O2 Source Room air - EKG (time done) 1211 Rate: Rate (enter#) (61) Rhythm: NSR [place]: Normal Intervals: Normal MA QRS: Normal Ischemia: T wave inversion (inferolateral) Compare to prior EKG: Changed from prior EKG (Compared with April 19, 2017, she has an increase in ischemic appearing T-wave inversion in the inferolateral leads, especially lead II and leads V4 through V6.) - Labs Labs: Laboratory Tests 05/07/17 05/07/17 05/07/17 12:15 12:15 12:15 WBC 8.1 RBC 3.10 L Hgb 9.7 L Hct 26.6 L MCV 85.5 MCH 31.4 H MCHC 36.7 H RDW 14.5 Plt Count 115 L MPV 8.9 Neut # 3.7 Lymph # 3.6 H [place] # 0.6 Eos # 0.2 Baso # 0.0 Absolute Nucleated RBC 0.00 Band Neuts % (Manual) Not Reportable Abnorm Lymph % (Manual) Not Reportable Nucleated RBC % 0.0 Neutrophils # (Manual) Not Reportable Lymphocytes # (Manual) Not Reportable Monocytes # (Manual) Not Reportable Eosinophils # (Manual) Not Reportable Basophils # (Manual) Not Reportable Differential Comment MANUAL=AUTO DIFF Platelet Estimate DECREASED (<130,000) Platelet Morphology NORMAL APPEARANCE RBC Morph Micro Appear NORMAL APPEARANCE VBG pH VBG pCO2 VBG pO2 VBG HCO3 VBG Total CO2 VBG O2 Saturation VBG Base Excess Sodium 137 Potassium 4.8 Chloride 107 Carbon Dioxide 22 Anion Gap 8.0 BUN 36 H Creatinine 2.0 H Estimated GFR (MDRD) 24 L Glucose 142 H Calcium 9.3 Total Bilirubin 0.4 AST 29 ALT 23 Alkaline Phosphatase 76 Troponin I < 0.04 B-Natriuretic Peptide Total Protein 6.4 L Albumin 2.8 L Globulin 3.6 Albumin/Globulin Ratio 0.8 L Lipase 45 05/07/17 05/07/17 12:15 12:15 WBC RBC Hgb Hct MCV MCH MCHC RDW Plt Count MPV Neut # Lymph # [place] # Eos # Baso # Absolute Nucleated RBC Band Neuts % (Manual) Abnorm Lymph % (Manual) Nucleated RBC % Neutrophils # (Manual) Lymphocytes # (Manual) Monocytes # (Manual) Eosinophils # (Manual) Basophils # (Manual) Differential Comment Platelet Estimate Platelet Morphology RBC Morph Micro Appear VBG pH 7.286 L VBG pCO2 48.6 VBG pO2 32.3 VBG HCO3 22.6 L VBG Total CO2 24.1 VBG O2 Saturation 64.4 VBG Base Excess -4.1 L Sodium Potassium Chloride Carbon Dioxide Anion Gap BUN Creatinine Estimated GFR (MDRD) Glucose Calcium Total Bilirubin AST ALT Alkaline Phosphatase Troponin I B-Natriuretic Peptide 391 H Total Protein Albumin Globulin Albumin/Globulin Ratio Lipase PD MEDICAL DECISION MAKING - ED course ED course: 81-year-old woman with I think ischemic cardiomyopathy presents with progressive orthopnea and dyspnea but with relatively clear lungs and clear chest x-ray but she does have significant pedal edema. She has baseline chronic renal insufficiency. Her troponin is negative and her BNP is improved from the last admission. Notably though her hemoglobin has trended from 14- 9.7. Case was discussed by phone with Dr. Arin Freitas cardiology who felt that medical management only was necessary and no transfer was necessary at this juncture unless the condition changes. She was administered Nitropaste, Lasix IV and Protonix. She was crossmatched for blood. Spoke with Dr. Miller for admission at 2 PM. Departure - Departure Disposition: [facility] DC/Xfer Clinical Impression: Renal insufficiency CHF (congestive heart failure) Qualifiers: Congestive heart failure type: unspecified Congestive heart failure chronicity : unspecified Qualified Code(s): I50.9 - Heart failure, unspecified GI bleed Qualifiers: GI bleed type/associated pathology: unspecified gastrointestinal hemorrhage type Qualified Code(s): K92.2 - Gastrointestinal hemorrhage, unspecified Cardiomyopathy Qualifiers: Cardiomyopathy type: unspecified Qualified Code(s): I42.9 - Cardiomyopathy, unspecified Condition: Serious
[2017-05-07 12:34] LABS: BASOPHILS % (AUTO) 0.4 %; EOSINOPHILS # (AUTO) 0.2 10^3/uL (0.0-0.7); EOSINOPHILS % (AUTO) 1.9 %; HGB - HEMOGLOBIN 9.7 g/dL (12.0-16.0); LYMPHOCYTES # (AUTO) 3.6 10^3/uL (1.5-3.5); LYMPHOCYTES % (AUTO) 44.4 %; MEAN CORPUSCULAR HEMOGLOBIN 31.4 pg (27.0-31.0); MEAN CORPUSCULAR HGB CONC 36.7 g/dL (32.0-36.0); MEAN CORPUSCULAR VOLUME 85.5 fL (81.0-99.0); MEAN PLATELET VOLUME 8.9 fL (7.9-10.8); MONOCYTES # (AUTO) 0.6 10^3/uL (0.0-1.0); MONOCYTES % (AUTO) 7.7 %; NEUTROPHILS # (AUTO) 3.7 10^3/uL (1.5-6.6); NEUTROPHILS % (AUTO) 45.6 %; PLT - PLATELET COUNT 115 10^3/uL (130-450); RED CELL DISTRIBUTION WIDTH 14.5 % (12.0-15.0); WHITE BLOOD COUNT 8.1 x10^3/uL (4.8-10.8)
[2017-05-07 12:38] LABS: VBG BASE EXCESS -4.1 mmol/L (-2 - +2); VBG PCO2 48.6 mmHg (41-51); VBG PH 7.286 (7.31-7.41); VBG PO2 32.3 mmHg (25-47); VBG TOTAL CO2 24.1 mmol/L (24-29)
[2017-05-07 12:41] LABS: ALBUMIN 2.8 g/dL (3.2-5.5); ALBUMIN/GLOBULIN RATIO 0.8 (1.0-2.2); BILIRUBIN,TOTAL 0.4 mg/dL (0.2-1.0); CALCIUM 9.3 mg/dL (8.5-10.3); TOTAL PROTEIN 6.4 g/dL (6.7-8.2)
[2017-05-07 12:51] LABS: PLATELET ESTIMATE, MANUAL DECREASED (<130,000) (NORMAL); PLATELET MORPHOLOGY NORMAL APPEARANCE (NORMAL); RBC MORPHOLOGY (MULTIPLE) NORMAL APPEARANCE (NORMAL)
[2017-05-07 12:52] LABS: DIFFERENTIAL COMMENT MANUAL=AUTO DIFF
[2017-05-07] MEDS ORDERED: PANTOPRAZOLE 40 MG VIAL IVP STA (13:44)
[2017-05-07] MEDS ORDERED: SODIUM CHLORIDE FLUSH 0.9% 10 ML SYRINGE IVP PRN (14:01)
[2017-05-07] MEDS: SODIUM CHLORIDE FLUSH 0.9% 10 ML SYRINGE IVP SCH (14:11)
[2017-05-07 18:47] LABS: BASOPHILS % (AUTO) 0.6 %; EOSINOPHILS # (AUTO) 0.1 10^3/uL (0.0-0.7); EOSINOPHILS % (AUTO) 1.7 %; HGB - HEMOGLOBIN 9.7 g/dL (12.0-16.0); LYMPHOCYTES # (AUTO) 3.8 10^3/uL (1.5-3.5); LYMPHOCYTES % (AUTO) 51.2 %; MEAN CORPUSCULAR HGB CONC 32.4 g/dL (32.0-36.0); MEAN CORPUSCULAR VOLUME 92.8 fL (81.0-99.0); MONOCYTES # (AUTO) 0.8 10^3/uL (0.0-1.0); MONOCYTES % (AUTO) 10.4 %; NEUTROPHILS # (AUTO) 2.7 10^3/uL (1.5-6.6); NEUTROPHILS % (AUTO) 36.1 %; PLT - PLATELET COUNT 134 10^3/uL (130-450); RED BLOOD COUNT 3.25 10^6/uL (4.20-5.40); RED CELL DISTRIBUTION WIDTH 14.3 % (12.0-15.0); WHITE BLOOD COUNT 7.4 x10^3/uL (4.8-10.8)
--- NOTE | 2017-05-07 19:39 | HISTORY & PHYSICAL EXAMINATION ---
DATE OF SERVICE: 05/07/2017 Physician: Corie Miller MD DATE OF ADMISSION: 05/07/2017 PRIMARY CARE PROVIDER: Cordelia Pendleton ADMITTING PROVIDER: Corie Miller CHIEF COMPLAINT: Severe shortness of breath and orthopnea. HISTORY OF PRESENT ILLNESS: Ms. Vences is a day, day 81-year-old female who is accompanied by her son. She lives with her son and [id number]. She was just with us on April 19, when she was hospitalized with flash pulmonary edema and frothy, frothy pink sputum. We attributed the flash pulmonary edema to multiple causes including asthma, diastolic congestive heart failure, as well as uncontrolled hypertension with a systolic that was 205/89. She was treated with Lasix, nitroglycerin drip, and once her blood pressure came down in the 120 systolic, the patient felt much better, with very brisk diuresis. Her chest x-ray at that time showed a diffuse increase in interstitial alveolar opacities concerning for edema. Her initial troponin was less than 0.09. Through the course of the morning, the patient was gradually improving and was less and less short of breath; however, her troponin increased to 1.21, then 1.60. She was treated with IV heparin drip, IV nitroglycerin, beta avelina oral dose continued. She was given 4 baby aspirin. We contacted [facility] and accepted the patient in transfer for further cardiac management including coronary angiography under the care of Dr. Valdivia. She did not get a coronary angiogram, and when she was discharged from the hospital, she was not discharged with a diuretic. She is not aware of congestive heart failure education. For instance, she did not know she needed to weigh herself daily. She knew that she was gaining weight and her legs were getting more and more swollen and she was having orthopnea, but she did not realize that she needed to tell somebody that. On 05/05/2017 , she had an episode of anginal and left anterior chest that radiated into her left armpit, associated with a little bit of nausea and diaphoresis. She took some sublingual nitroglycerin and it went away. Between discharge and now she has never really recovered back to baseline. Everything she does requires an extensive effort and she is just exhausted. While she can still get up and feed herself, dress herself, etc., it takes 3 times as long to do things as it used to do. She has only had 2 episodes of angina between discharge of [place] to now. She did have 1 episode of very dark stool. She says it was "almost black, but not quite" and she has had no further stool like that. That happened last week. She has finally gained probably 16 pounds from what she can gather, as she weighed herself today. Her dyspnea on exertion is now constant and at rest, and she decided to call her doctor. Her doctor asked her to please call us and she was brought in by EMS. Here she has a blood pressure of 165/52. Her EKG shows some new T-wave inversions, but her troponin is stable, creatinine is stable, BNP is at 300. Stool is guaiac positive. Her baseline creatinine is 1.1. She is up to 2 today. Her hemoglobin at discharge on April 19, when she went to [facility], was 14. Today, she is 9.7. She does take aspirin and Plavix, but no other nonsteroidals or anticoagulants. She has chronic pain syndrome, for which she is treating that with tramadol. As such, this day lady is now admitted for systolic congestive heart failure , probably exacerbated by anemia. She also may be having a GI bleed. PAST MEDICAL HISTORY: 1. Coronary artery disease with NSTEMI 04/19/2017. Echocardiogram done April 19, showed mild concentric left ventricular hypertrophy, overall left ventricular systolic function moderately severely impaired with an ejection fraction of 30-35%. Mild increase in left atrial volume index. Mild mitral regurgitation. Mildly abnormal heart pressures. She also has a previous rule out myocardial admission for chest pain in 07/2016. 2. Hypertension. 3. Type 2 diabetes mellitus, uncontrolled, with complications of neuropathy and retinopathy, and kidney disease, on long-term insulin use. Glycosylated hemoglobin 7.8% 10/2016. 4. History of stroke that presented with slurred speech, dysarthria and chronic left body numbness. 5. Morbid obesity. 6. Obstructive sleep apnea on CPAP. 7. History of asthma, never intubated. 8. Hyperlipidemia. 9. G3, P3. 10. Status post hysterectomy and has chronic urinary incontinence that is overflow as well as urge. 11. Chronic low back pain with sciatica resulting in an L4-5 fusion. Cage placement. Decompressive laminectomy and bilateral facetectomy, as well as L1-2 left microdiscectomy with hemilaminectomy 08/03/2016. 12. Osteoarthritis, status left total knee replacement ALLERGIES: 1. ACETAMINOPHEN ATTACKS HER LIVER. 2. CODEINE CAUSES COTTON MOUTH AND FUZZY THINKING. 3. SULFA MAKES HER HAVE A RASH. 4. VALIUM MAKES HER FEEL FUNNY. 5. METFORMIN CAUSES DIARRHEA. 6. TAPE PEELS HER SKIN OFF. MEDICATIONS: 1. Amlodipine 10 mg daily. 2. Vitamin C 250 mg daily. 3. Aspirin 81 mg daily. 4. Atorvastatin 40 mg daily. 5. Carvedilol 12.5 mg p.o. b.i.d. 6. Vitamin D 2000 units daily. 7. Plavix 75 mg daily. 8. Dicyclomine 10 mg p.o. t.i.d. 9. Gabapentin 600 mg p.o. b.i.d. 10. Glimepiride 2 mg daily. 11. Lispro sliding scale before meals t.i.d. 12. NPH 35 units subcutaneous q. p.m. 13. Isosorbide mononitrate 30 mg daily. 14. Levothyroxine 75 mcg daily. 15. Sublingual nitroglycerin 0.4 mg every 5 minutes p.r.n. chest pain. 16. Zoloft 50 mg daily. 17. Tramadol 50 mg p.o. t.i.d. p.r.n. SOCIAL HISTORY: She is from [place], which is in [facility]. She is on the [place], she carefully points out, [place]. She worked doing [employer] all of her life. When she retired, she and her went on a 5-year motor home trip with her daughter and son-in-law. Her was diagnosed with cancer and they could not travel. When he , she moved in with her son approximately 2009 live with them in [place] until they moved here in 2014. She has lived with her son and daughter-in- law since 2008. She was never a smoker. She has no history of alcohol abuse or recreational substance abuse. FAMILY HISTORY: Father of coronary artery disease and had bypass surgery at the age of 83. Mom of complications of diabetes and at the age of 76. She has 3 children. They all have diabetes. One had gastric bypass surgery for obesity. CODE STATUS: She is OKAY WITH CHEST COMPRESSIONS AND CARDIOVERSION. However, SHE NEVER WANTS TO BE INTUBATED. REVIEW OF SYSTEMS: CONSTITUTIONAL: Recent weight gain of 16 pounds in the last 2 weeks. Denies any fevers, chills, sweats. HEAD AND NECK: Without any change in vision, hearing or swallowing. PULMONARY: She got diagnosed with asthma at the age of 71. She can't believe it, but she never needed to be intubated or be on steroids. She feels like a lot of her postnasal drip causes the asthma and the postnasal drip is from her CPAP mask. CARDIOVASCULAR: As above. GASTROINTESTINAL: A lack of appetite. She just does not have the appetite she used too, but she is still eating. No abdominal pain, no diarrhea. No blood in her stool. GENITOURINARY: She has incontinence, overflow especially with coughing. She leaks all the time and really hates to travel because of it. She denies hematuria, urgency, frequency, dysuria. JOINT: Stiffness in the morning in her joints and knees. Get better as the day goes on. CENTRAL NERVOUS SYSTEM: Mild memory loss, but no history of seizures, or syncope. Her leg is always numb and weak. She has problems with balance, but no recent falls. PHYSICAL EXAMINATION: The patient seen in ICU. VITAL SIGNS: Temperature is 36.7, pulse is 62 in sinus, blood pressure 136/51. She is 99% on room air. Breathing at about 15 a minute. GENERAL: She is a short-statured, morbidly obese, exceedingly pleasant elderly woman. Son is at the bedside. She is alert, oriented, lucid and appropriate. She has definite generalized paleness. HEAD AND NECK: Unremarkable. Normocephalic, atraumatic skull. Pupils reactive. Sclerae nonicteric. Moist, pink oral mucosa. Neck is supple. Sternocleidal musculature is quite firm, but there is no JVD. She points to underneath her jawline and says that it aches there and in palpation, she has large anterior cervical nodes high up underneath her jawline, most likely from postnasal drip. No bruits. No goiter. LUNGS: Actually clear. I do not hear crackles, rhonchi or wheezing. Slightly diminished at the bases. HEART: Regular rate and rhythm. Soft systolic murmur. ABDOMEN: Obese, soft, nontender, with hypoactive bowel sounds. No guarding, no rebound. EXTREMITIES: The legs are with 2+ edema. SCDs and ALBARO hosfreya are on them. She says she is already starting to feel the effects of diuresis, but are they are still edematous. No clubbing or cyanosis. NEUROLOGIC: She is a little deaf, but other cranial nerves appear intact. No focal deficits with upper and lower extremity strength appears intact. She uses her hands, raises her arms, raises her legs without any difficulty. Left leg is more difficult to move because of the sciatica. Speech is lucid. LABORATORY DATA: White cell count is 8.1, hemoglobin 9.7. Hematocrit 26.6. Platelets 115. Her discharge H and H on April 19, was hemoglobin 14, hematocrit 44, platelets 191. INR is not done. Venous blood gas shows a pH of 7.28, pCO2 48, bicarbonate 22, base excess -4. Sodium and potassium are normal. Anion gap is normal. BUN is 36. Her usual BUN varies anywhere from 19 in 01/2016 and as high as 40 April 19. Creatinine is 2. She was 1.0 02/09/2015. She has then climbed up to 1.1, then 1.3. She was 1.7 April 19, and she is 2.0 today. BNP 391. Troponin less than 0.04. Chest x-ray has near complete resolution of likely congestive heart failure and pulmonary edema since prior exam with small residual bilateral pleural effusions and minimal residual infiltrate, edema in right upper lobe. ASSESSMENT AND PLAN: 1. Uzvul-ex-awtssbk diastolic congestive heart failure. My suspicion is this woman has ongoing coronary ischemia. Add that, the new anemia and we have a lack of oxygen delivery to this unfortunate woman's myocardium and a resultant diastolic heart failure. She does have chronic systolic heart failure but that may or may not be the problem. She does not appear to be fluid overloaded by lung exam or chest x-ray exam or BNP. Her legs, however, are quite edematous. She is caught between a rock and a hard place and I am going to have to diurese her, but at the same time increase her oxygen develivery being affected by her anemia. Troponin is negative. We will repeat troponin in [address] Altamirano has already spoken to her customer relations coordinator, Dr. Valdivia. Apparently Dr. Valdivia feels that we can handle this problem. It would only be medical management at [facility] anyway. We can do medical management here as well as they can, according to Dr. Altamirano's statement of Dr. Valdivia. 2. Acute blood loss anemia with guaiac positive stool. One episode of near black stool. This woman is on aspirin and Plavix and I would suspect a gastrointestinal bleed. Her gastrointestinal review of systems is completely negative other than the change in stool. Check hemoglobin in 6 hours. If she drops below 9, I am seriously going to consider transfusing her because of her shortness of breath and fatigue, and probable active coronary artery disease with angina. We will diurese as needed with the extra blood on board. 3. Ufnho-wj-ouzqeiu kidney disease, stage III. This may be part of the problem of why she did not get a coronary angiogram. I am not sure. We will continue to monitor. In the face of blood and diuresis, she may get worse before she gets better. 4. Hypertension with a history of malignant hypertension and flash pulmonary edema. This woman's home blood pressure medicines are Norvasc, carvedilol and isosorbide mononitrate. We will make sure she stays on those. 5. Type 2 diabetes, uncontrolled, with complications, on long-term insulin. We will resume NPH at night, and short-acting insulin before meals with sliding scale to cover. 6. DO NOT INTUBATE status. However, SHE STILL WANTS CHEST COMPRESSIONS AND CARDIOVERSION. 7. Deep vein thrombosis prophylaxis will be with sequential compression devices and ALBARO hose. However, when available will allow the patient to please get up and walk in the room. 8. I am attesting that I anticipate less than a 96 hour admission and at 96 hours will evaluate for transfer and/or discharge. TD: 05/07/2017 20:36 MARIBEL
[2017-05-07] MEDS: INSULIN ASPART 300 UNIT/3 ML PEN SUBQ SCH (21:20)
[2017-05-07] MEDS: PANTOPRAZOLE 40 MG VIAL IVP SCH (21:31)
[2017-05-07] MEDS: INSULIN GLARGINE 300 UNIT/3 ML PEN SUBQ SCH (21:31)
[2017-05-07] MEDS ORDERED: MIN OIL/DIMETHICON/COCONUT OIL 92 GM TUBE TOP PRN (23:08)
[2017-05-08 04:51] LABS: BASOPHILS # (AUTO) 0.1 10^3/uL (0.0-0.1); BASOPHILS % (AUTO) 0.6 %; EOSINOPHILS # (AUTO) 0.2 10^3/uL (0.0-0.7); EOSINOPHILS % (AUTO) 1.8 %; HGB - HEMOGLOBIN 10.3 g/dL (12.0-16.0); LYMPHOCYTES # (AUTO) 4.5 10^3/uL (1.5-3.5); LYMPHOCYTES % (AUTO) 48.6 %; MEAN CORPUSCULAR HEMOGLOBIN 30.5 pg (27.0-31.0); MEAN CORPUSCULAR HGB CONC 32.4 g/dL (32.0-36.0); MEAN CORPUSCULAR VOLUME 93.9 fL (81.0-99.0); MEAN PLATELET VOLUME 9.9 fL (7.9-10.8); MONOCYTES # (AUTO) 0.9 10^3/uL (0.0-1.0); MONOCYTES % (AUTO) 9.8 %; NEUTROPHILS # (AUTO) 3.7 10^3/uL (1.5-6.6); NEUTROPHILS % (AUTO) 39.2 %; PLT - PLATELET COUNT 136 10^3/uL (130-450); RED BLOOD COUNT 3.39 10^6/uL (4.20-5.40); RED CELL DISTRIBUTION WIDTH 14.8 % (12.0-15.0); WHITE BLOOD COUNT 9.3 x10^3/uL (4.8-10.8)
[2017-05-08 05:00] LABS: CALCIUM 9.2 mg/dL (8.5-10.3); MAGNESIUM 1.8 mg/dL (1.7-2.8); PHOSPHORUS 3.9 mg/dL (2.5-4.6)
[2017-05-08 05:38] LABS: HB2 TOTAL 10.6 g/dL; HEMOGLOBIN A1C 0.58 g/dL; HEMOGLOBIN A1C % 7.2 % (4.6-6.2)
[2017-05-08] MEDS: SODIUM CHLORIDE FLUSH 0.9% 10 ML SYRINGE IVP SCH ×3 (05:42→21:02)
[2017-05-08] MEDS: INSULIN ASPART 300 UNIT/3 ML PEN SUBQ SCH ×4 (07:47→21:01)
[2017-05-08] MEDS: PANTOPRAZOLE 40 MG VIAL IVP SCH (10:06)
[2017-05-08] MEDS ORDERED: traMADol 50 MG TABLET PO PRN (11:54)
--- NOTE | 2017-05-08 12:05 | HISTORY & PHYSICAL EXAMINATION ---
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: reports: Hysterectomy - POLST Patient has POLST: Yes Meds/Allgy - Home Medications Home Medications: Ambulatory Orders Medication Instructions Recorded Confirmed traMADol [Ultram] 50 mg PO QID PRN 04/19/17 05/07/17 Ascorbic Acid [Vitamin C] 250 mg PO DAILY 05/07/17 05/07/17 Aspirin [Aspirin EC] 81 mg PO DAILY 05/07/17 05/07/17 Atorvastatin Calcium 40 mg PO QPM 05/07/17 05/07/17 Carvedilol 12.5 mg PO BID 05/07/17 05/07/17 Cholecalciferol (Vitamin D3) 2,000 units PO DAILY 05/07/17 05/07/17 [Vitamin D3] Clopidogrel Bisulfate [Clopidogrel] 75 mg PO DAILY 05/07/17 05/07/17 Dicyclomine HCl 10 mg PO TID PRN 05/07/17 05/07/17 Gabapentin 600 mg PO BID 05/07/17 05/07/17 Glimepiride 2 mg PO DAILY 05/07/17 05/07/17 Insulin Lispro [Humalog Kwikpen 5 - 30 units SUBQ TIDWM 05/07/17 05/07/17 U-100] Insulin NPH Human Isophane 35 units SUBQ QPM 05/07/17 05/07/17 [Humulin N] Isosorbide Mononitrate ER [Imdur] 30 mg PO QPM 05/07/17 05/07/17 Levothyroxine Sodium 75 mcg PO QDAC 05/07/17 05/07/17 Nitroglycerin [Nitrostat] 0.4 mg PO Q5M PRN 05/07/17 05/07/17 Sertraline [Zoloft] 50 mg PO DAILY 05/07/17 05/07/17 amLODIPine [Norvasc] 10 mg PO DAILY 05/07/17 05/07/17 - Allergies Allergies/Adverse Reactions: Allergies Allergy/AdvReac Type Severity Reaction Status Date / Time adhesive tape AdvReac Mild Itching Verified 05/07/17 11:20 acetaminophen [From Tylenol] AdvReac Edema Verified 05/07/17 11:19 codeine AdvReac Unknown Verified 05/07/17 11:19 diazepam [From Valium] AdvReac Unknown Verified 05/07/17 11:19 Sulfa (Sulfonamide AdvReac Unknown Verified 05/07/17 11:19 Antibiotics) Exam - Vital Signs Vital Signs: Vital Signs x48h Temp Pulse Pulse Resp BP Pulse Ox 05/08/17 11:00 66 13 151/84 H 99 05/08/17 10:00 37.1 C 81 19 158/61 H 98 05/08/17 09:21 66 16 137/53 H 98 05/08/17 08:18 65 17 139/58 H 95 05/08/17 07:00 66 10 L 142/56 H 96 05/08/17 06:00 67 12 136/51 H 97 05/08/17 05:00 62 12 113/64 98 05/08/17 04:09 37.2 C 70 16 91/76 Conclusion/Plan - Lab Results Fish Bones: 05/08/17 04:34 05/08/17 04:34
[2017-05-08 12:14] LABS: BASOPHILS # (AUTO) 0.1 10^3/uL (0.0-0.1); BASOPHILS % (AUTO) 1.2 %; EOSINOPHILS # (AUTO) 0.1 10^3/uL (0.0-0.7); EOSINOPHILS % (AUTO) 1.6 %; HGB - HEMOGLOBIN 9.8 g/dL (12.0-16.0); MEAN CORPUSCULAR HGB CONC 32.2 g/dL (32.0-36.0); MEAN CORPUSCULAR VOLUME 96.5 fL (81.0-99.0); MEAN PLATELET VOLUME 10.3 fL (7.9-10.8); MONOCYTES # (AUTO) 0.6 10^3/uL (0.0-1.0); MONOCYTES % (AUTO) 8.1 %; NEUTROPHILS % (AUTO) 38.1 %; PLT - PLATELET COUNT 120 10^3/uL (130-450); RED BLOOD COUNT 3.16 10^6/uL (4.20-5.40); RED CELL DISTRIBUTION WIDTH 15.2 % (12.0-15.0); WHITE BLOOD COUNT 7.9 x10^3/uL (4.8-10.8)
--- NOTE | 2017-05-08 17:11 | PROVIDER PROGRESS NOTE ---
Subjective - Prog Note Date Prog Note Date: 05/08/17 Prog Note Time: 17:09 - Subjective Pt reports feeling: Improved (Patient has less shortness of breath and feels a little bit more energy today) Current Medications - Current Medications Current Medications: Insulin, mineral oil, Protonix, normal saline IV fluids, and tramadol Objective - Vital Signs/Intake & Output Reviewed Vital Signs: Yes Vital Signs: Vital Signs x48h Temp Pulse Resp BP Pulse Ox 05/08/17 16:00 65 18 169/58 H 97 05/08/17 15:00 68 17 158/58 H 100 05/08/17 14:00 37.1 C 72 14 150/59 H 96 05/08/17 13:00 73 16 170/62 H 98 05/08/17 12:00 79 12 170/92 H 98 05/08/17 11:00 66 13 151/84 H 99 05/08/17 10:00 37.1 C 81 19 158/61 H 98 05/08/17 09:21 66 16 137/53 H 98 Intake & Output: Intake & Output 05/05/17 05/06/17 05/07/17 05/08/17 23:59 23:59 23:59 23:59 Intake Total 250 200 Output Total 1150 1400 Balance -900 -1200 - Objective General Appearance: positive: No acute distress, Alert Eyes Bilateral: positive: Normal inspection, PERRL, EOMI, No lid inflammation, Conjunctivae nml, No scleral icterus ENT: positive: ENT inspection nml, Pharynx nml, No signs of dehydration Neck: positive: Nml inspection, Thyroid nml, No JVD, Trachea midline. negative : Thyromegaly Respiratory: positive: Chest non-tender, No respiratory distress, Breath sounds nml. negative: Wheezes, Rales, Rhonchi Cardiovascular: positive: Regular rate & rhythm, No murmur, No gallop. negative : Systolic murmur, Diastolic murmur Abdomen: positive: Non-tender, No organomegaly, Nml bowel sounds, No distention. negative: Guarding, Rebound, Hepatomegaly, Splenomegaly Back: positive: Nml inspection. negative: CVA tenderness (R), CVA tenderness (L ) Skin: positive: Color nml, No rash, Warm, Dry. negative: Cyanosis Extremities: positive: Non-tender, Full ROM, Nml appearance, Pedal edema Neurologic/Psychiatric: positive: Oriented x3, CN's nml (2-12), Motor nml, Sensation nml, Mood/affect nml - Lab Results Fish Bones: 05/08/17 12:05 05/08/17 04:34 Other Labs: Lab Results x24hrs 05/08/17 05/08/17 05/08/17 Range/Units 16:20 12:05 11:26 WBC 7.9 (4.8-10.8) x10^3/uL RBC 3.16 L (4.20-5.40) 10^6/uL Hgb 9.8 L (12.0-16.0) g/dL Hct 30.5 L (37.0-47.0) % MCV 96.5 (81.0-99.0) fL MCH 31.0 (27.0-31.0) pg MCHC 32.2 (32.0-36.0) g/dL RDW 15.2 H (12.0-15.0) % Plt Count 120 L (130-450) 10^3/uL MPV 10.3 (7.9-10.8) fL Neut # 3.0 (1.5-6.6) 10^3/uL Lymph # 4.0 H (1.5-3.5) 10^3/uL Early # 0.6 (0.0-1.0) 10^3/uL Eos # 0.1 (0.0-0.7) 10^3/uL Baso # 0.1 (0.0-0.1) 10^3/uL Absolute Nucleated RBC 0.00 x10^3/uL Nucleated RBC % 0.0 /100WBC Manual Slide Review Indicated WBC Morphology 2+ REACTIVE LYMPHS (NORMAL) Sodium (135-145) mmol/L Potassium (3.5-5.0) mmol/L Chloride (101-111) mmol/L Carbon Dioxide (21-32) mmol/L Anion Gap (6-13) BUN (6-20) mg/dL Creatinine (0.4-1.0) mg/dL Estimated GFR (MDRD) (>89) Glucose (70-100) mg/dL POC Whole Bld Glucose 204 H 131 H (70 - 100) mg/dL Glycated Hemoglobin (4.6-6.2) % Estim Average Glucose (70-100) Calcium (8.5-10.3) mg/dL Phosphorus (2.5-4.6) mg/dL Magnesium (1.7-2.8) mg/dL Troponin I (<0.49) ng/mL Crossmatch IS Only 05/08/17 05/08/17 05/08/17 Range/Units 07:42 04:34 04:34 WBC (4.8-10.8) x10^3/uL RBC (4.20-5.40) 10^6/uL Hgb (12.0-16.0) g/dL Hct (37.0-47.0) % MCV (81.0-99.0) fL MCH (27.0-31.0) pg MCHC (32.0-36.0) g/dL RDW (12.0-15.0) % Plt Count (130-450) 10^3/uL MPV (7.9-10.8) fL Neut # (1.5-6.6) 10^3/uL Lymph # (1.5-3.5) 10^3/uL Early # (0.0-1.0) 10^3/uL Eos # (0.0-0.7) 10^3/uL Baso # (0.0-0.1) 10^3/uL Absolute Nucleated RBC x10^3/uL Nucleated RBC % /100WBC Manual Slide Review WBC Morphology (NORMAL) Sodium 140 (135-145) mmol/L Potassium 4.3 (3.5-5.0) mmol/L Chloride 109 (101-111) mmol/L Carbon Dioxide 22 (21-32) mmol/L Anion Gap 9.0 (6-13) BUN 33 H (6-20) mg/dL Creatinine 2.0 H (0.4-1.0) mg/dL Estimated GFR (MDRD) 24 L (>89) Glucose 114 H (70-100) mg/dL POC Whole Bld Glucose 101 H (70 - 100) mg/dL Glycated Hemoglobin 7.2 H (4.6-6.2) % Estim Average Glucose 160 H (70-100) Calcium 9.2 (8.5-10.3) mg/dL Phosphorus 3.9 (2.5-4.6) mg/dL Magnesium 1.8 (1.7-2.8) mg/dL Troponin I (<0.49) ng/mL Crossmatch IS Only 05/08/17 05/07/17 05/07/17 Range/Units 04:34 20:41 18:37 WBC 9.3 7.4 (4.8-10.8) x10^3/uL RBC 3.39 L 3.25 L (4.20-5.40) 10^6/uL Hgb 10.3 L 9.7 L (12.0-16.0) g/dL Hct 31.8 L 30.1 L (37.0-47.0) % MCV 93.9 92.8 (81.0-99.0) fL MCH 30.5 30.0 (27.0-31.0) pg MCHC 32.4 32.4 (32.0-36.0) g/dL RDW 14.8 14.3 (12.0-15.0) % Plt Count 136 134 (130-450) 10^3/uL MPV 9.9 10.0 (7.9-10.8) fL Neut # 3.7 2.7 (1.5-6.6) 10^3/uL Lymph # 4.5 H 3.8 H (1.5-3.5) 10^3/uL Early # 0.9 0.8 (0.0-1.0) 10^3/uL Eos # 0.2 0.1 (0.0-0.7) 10^3/uL Baso # 0.1 0.0 (0.0-0.1) 10^3/uL Absolute Nucleated RBC 0.00 0.00 x10^3/uL Nucleated RBC % 0.0 0.0 /100WBC Manual Slide Review WBC Morphology (NORMAL) Sodium (135-145) mmol/L Potassium (3.5-5.0) mmol/L Chloride (101-111) mmol/L Carbon Dioxide (21-32) mmol/L Anion Gap (6-13) BUN (6-20) mg/dL Creatinine (0.4-1.0) mg/dL Estimated GFR (MDRD) (>89) Glucose (70-100) mg/dL POC Whole Bld Glucose 139 H (70 - 100) mg/dL Glycated Hemoglobin (4.6-6.2) % Estim Average Glucose (70-100) Calcium (8.5-10.3) mg/dL Phosphorus (2.5-4.6) mg/dL Magnesium (1.7-2.8) mg/dL Troponin I (<0.49) ng/mL Crossmatch IS Only 05/07/17 05/07/17 Range/Units 18:37 14:35 WBC (4.8-10.8) x10^3/uL RBC (4.20-5.40) 10^6/uL Hgb (12.0-16.0) g/dL Hct (37.0-47.0) % MCV (81.0-99.0) fL MCH (27.0-31.0) pg MCHC (32.0-36.0) g/dL RDW (12.0-15.0) % Plt Count (130-450) 10^3/uL MPV (7.9-10.8) fL Neut # (1.5-6.6) 10^3/uL Lymph # (1.5-3.5) 10^3/uL Early # (0.0-1.0) 10^3/uL Eos # (0.0-0.7) 10^3/uL Baso # (0.0-0.1) 10^3/uL Absolute Nucleated RBC x10^3/uL Nucleated RBC % /100WBC Manual Slide Review WBC Morphology (NORMAL) Sodium (135-145) mmol/L Potassium (3.5-5.0) mmol/L Chloride (101-111) mmol/L Carbon Dioxide (21-32) mmol/L Anion Gap (6-13) BUN (6-20) mg/dL Creatinine (0.4-1.0) mg/dL Estimated GFR (MDRD) (>89) Glucose (70-100) mg/dL POC Whole Bld Glucose (70 - 100) mg/dL Glycated Hemoglobin (4.6-6.2) % Estim Average Glucose (70-100) Calcium (8.5-10.3) mg/dL Phosphorus (2.5-4.6) mg/dL Magnesium (1.7-2.8) mg/dL Troponin I < 0.04 (<0.49) ng/mL Crossmatch IS Only See Detail - Diagnostic Imaging Diagnostic Imaging Results: positive: Final report reviewed Diagnostic Imaging Comments: EXAM: CHEST RADIOGRAPHY, 2 VIEWS EXAM DATE: 05/07/2017 11:39 AM. CLINICAL HISTORY: 81-year-old female with SOA. COMPARISON: [facility] portable study of 04/19/2017 and previous. TECHNIQUE: Upright PA and lateral views. FINDINGS: Lungs/Pleura: Small bilateral pleural effusions with minimal residual infiltrate /edema right upper lobe. No pneumothorax. Mediastinum: Heart size upper normal without pulmonary vascular congestion or adenopathy. Other: Trachea is midline. Osseous structures are unremarkable for age. IMPRESSION: Near-complete resolution of likely CHF and pulmonary edema since prior exam with small residual bilateral pleural effusions and minimal residual infiltrate/edema right upper lobe. Assessment/Plan - Problem List (1) Acute exacerbation of CHF (congestive heart failure) Impression: Patient is breathing easier today and her lower extremity edema is slowly resolving. She appears to be stable enough to be transferred to the medical surgical floor. Troponin I which was positive in March 2017 for myocardial infarction has been undetectable and the patient's BNP was elevated in the 300s but will be repeated tomorrow.At this time will continue the current care plan (2) Anemia due to GI blood loss Impression: Hemoglobin remains around 10, no need to transfuse at this time. (3) Diabetes type 2, controlled Impression: Blood sugars have been running between 101 140 with one isolated blood sugar around 200. We will continue with current medication regimen. (4) Renal insufficiency Impression: Acute on chronic renal insufficiency. We will repeat creatinine tomorrow. Patient has been receiving IV fluids gently due to her congestive heart failure. (5) Hypertension Impression: Continue current medications Qualifiers: Hypertension type: essential hypertension Qualified Code(s): I10 - Essential (primary) hypertension
[2017-05-08 17:55] LABS: BASOPHILS # (AUTO) 0.1 10^3/uL (0.0-0.1); BASOPHILS % (AUTO) 0.8 %; EOSINOPHILS # (AUTO) 0.1 10^3/uL (0.0-0.7); EOSINOPHILS % (AUTO) 1.8 %; HGB - HEMOGLOBIN 10.5 g/dL (12.0-16.0); LYMPHOCYTES # (AUTO) 3.6 10^3/uL (1.5-3.5); LYMPHOCYTES % (AUTO) 48.1 %; MEAN CORPUSCULAR HEMOGLOBIN 30.7 pg (27.0-31.0); MEAN CORPUSCULAR HGB CONC 32.9 g/dL (32.0-36.0); MEAN CORPUSCULAR VOLUME 93.4 fL (81.0-99.0); MONOCYTES # (AUTO) 0.8 10^3/uL (0.0-1.0); MONOCYTES % (AUTO) 10.9 %; NEUTROPHILS # (AUTO) 2.9 10^3/uL (1.5-6.6); NEUTROPHILS % (AUTO) 38.4 %; PLT - PLATELET COUNT 126 10^3/uL (130-450); RED BLOOD COUNT 3.43 10^6/uL (4.20-5.40); RED CELL DISTRIBUTION WIDTH 14.8 % (12.0-15.0); WHITE BLOOD COUNT 7.5 x10^3/uL (4.8-10.8)
[2017-05-08] MEDS: INSULIN GLARGINE 300 UNIT/3 ML PEN SUBQ SCH (21:02)
[2017-05-09 04:46] LABS: CALCIUM 8.8 mg/dL (8.5-10.3); CREATININE 1.9 mg/dL (0.4-1.0); MAGNESIUM 1.6 mg/dL (1.7-2.8); PHOSPHORUS 3.1 mg/dL (2.5-4.6)
[2017-05-09] MEDS ORDERED: PANTOPRAZOLE 40 MG TABLET PO SCH (07:00)
[2017-05-09] MEDS: SODIUM CHLORIDE FLUSH 0.9% 10 ML SYRINGE IVP SCH ×2 (07:12→14:58)
[2017-05-09] MEDS: INSULIN ASPART 300 UNIT/3 ML PEN SUBQ SCH ×2 (08:41→11:59)
--- NOTE | 2017-05-09 14:16 | Discharge Plan ---
Discharge Plan Disposition: 01 Home, Self Care Condition: Fair Diet: Cardiac Activity Restrictions: Activity as Tolerated Shower Restrictions: No Driving Restrictions: No Weight Bearing: Full Weight No Smoking: If you smoke, Please STOP! Call for help. Follow-up with: Cordelia Pendleton PA-C [Primary Care Provider] -
--- NOTE | 2017-05-09 14:20 | DISCHARGE SUMMARY ---
Discharge Summary Admit Date: 05/07/17 Discharge Date: 05/09/17 Discharging Provider: Dania Grewal DO Primary Care Provider: Cordelia Pendleton Code Status: Attempt Resuscitation Condition at Discharge: Fair Discharge Disposition: Home, Self Care - DIAGNOSES Admission Diagnoses: 1) Acute on chronic diastolic (congestive) heart failure 2) Other forms of angina pectoris 3) Acute posthemorrhagic anemia 4) Acute kidney failure, unspecified 5) Type 2 diabetes mellitus with unspecified complications Discharge Diagnoses with Status of Each Condition: 1) Acute on chronic diastolic (congestive) heart failure -Much improved. Patient resting initially on room air, ambulating without significant dyspnea. 2) Other forms of angina pectoris- Resolved, no further episodes this hospitalization. 3) Acute posthemorrhagic anemia - resolving 4) Acute kidney failure, unspecified - slowly improving 5) Type 2 diabetes mellitus with unspecified complications- continue home meds - HPI History of Present Illness: pt presented to ER with progressive christy, sob at rest, angina, and severe leg edema with 16 lb weight gain since dc from [place]. she has LVEF of 30% and ongoing angina after NsTEMI 04/19. She also had flash pulm edema then too. Since dc from [place] still tired, more and more christy and more and more leg edema. one episode of dark stool on ASA and Plavix. In ER normotensive, pale, sob. lungs clear. Hgb is 9 ( she was 14 04/19), and guaic (+). Admit for GI bleed, angina, and acute diastolic/systolic chf. PMH: spinal stenosis, obesity, asthma, KINDRA on CPAP, DM - HOSPITAL COURSE Hospital Course: The patient was admitted to the intensive care unit and stabilized. She was slowly diuresed and her symptoms improved to the point where today she is essentially asymptomatic. - ALLERGIES Allergies/Adverse Reactions: Allergies Allergy/AdvReac Type Severity Reaction Status Date / Time adhesive tape AdvReac Mild Itching Verified 05/07/17 11:20 acetaminophen [From Tylenol] AdvReac Edema Verified 05/07/17 11:19 codeine AdvReac Unknown Verified 05/07/17 11:19 diazepam [From Valium] AdvReac Unknown Verified 05/07/17 11:19 Sulfa (Sulfonamide AdvReac Unknown Verified 05/07/17 11:19 Antibiotics) - MEDICATIONS Home Medications: Ambulatory Orders Medication Instructions Recorded Confirmed traMADol [Ultram] 50 mg PO QID PRN 04/19/17 05/07/17 Ascorbic Acid [Vitamin C] 250 mg PO DAILY 05/07/17 05/07/17 Aspirin [Aspirin EC] 81 mg PO DAILY 05/07/17 05/07/17 Atorvastatin Calcium 40 mg PO QPM 05/07/17 05/07/17 Carvedilol 12.5 mg PO BID 05/07/17 05/07/17 Cholecalciferol (Vitamin D3) 2,000 units PO DAILY 05/07/17 05/07/17 [Vitamin D3] Clopidogrel Bisulfate [Clopidogrel] 75 mg PO DAILY 05/07/17 05/07/17 Dicyclomine HCl 10 mg PO TID PRN 05/07/17 05/07/17 Gabapentin 600 mg PO BID 05/07/17 05/07/17 Glimepiride 2 mg PO DAILY 05/07/17 05/07/17 Insulin Lispro [Humalog Kwikpen 5 - 30 units SUBQ TIDWM 05/07/17 05/07/17 U-100] Insulin NPH Human Isophane 35 units SUBQ QPM 05/07/17 05/07/17 [Humulin N] Isosorbide Mononitrate ER [Imdur] 30 mg PO QPM 05/07/17 05/07/17 Levothyroxine Sodium 75 mcg PO QDAC 05/07/17 05/07/17 Nitroglycerin [Nitrostat] 0.4 mg PO Q5M PRN 05/07/17 05/07/17 Sertraline [Zoloft] 50 mg PO DAILY 05/07/17 05/07/17 amLODIPine [Norvasc] 10 mg PO DAILY 05/07/17 05/07/17 - PHYSICAL EXAM AT DISCHARGE General Appearance: positive: No acute distress, Alert Eyes Bilateral: positive: Normal inspection, PERRL, EOMI ENT: positive: ENT inspection nml, Pharynx nml, No signs of dehydration Neck: positive: Nml inspection, Thyroid nml, No JVD, Trachea midline, Thyromegaly Respiratory: positive: Chest non-tender, No respiratory distress, Breath sounds nml. negative: Wheezes, Rales, Rhonchi Cardiovascular: positive: Regular rate & rhythm, No gallop. negative: Extrasystoles, Tachycardia Peripheral Pulses: positive: 1+ Abdomen: positive: Non-tender, No organomegaly, Nml bowel sounds, No distention Back: positive: Nml inspection. negative: CVA tenderness (R), CVA tenderness (L ) Skin: positive: Color nml, No rash, Warm, Dry Extremities: positive: Non-tender, Full ROM, Nml appearance Neurologic/Psychiatric: positive: Oriented x3, CN's nml (2-12), Motor nml, Sensation nml, Mood/affect nml - LABS Result Diagrams: 05/08/17 17:50 05/09/17 04:15 - DIAGNOSTIC IMAGING Diagnostic Imaging Results: Final report reviewed - FOLLOW UP Follow Up: Patient will follow up with her primary care physician and research mechanic. - TIME SPENT Time Spent in Discharge (Minutes): 45
[2017-05-09 14:41] VITALS: BP 170/76
== END 2017-05-09 15:00 | disposition home or self-care (01) | DRG 291 ==
LOC: ED 10:58 → ICU 14:01
PROVIDERS: ADMIT Specialist; ATTEND Hospitalist
DX: I13.0 Hypertensive heart and chronic kidney disease with heart failure and stage 1 through stage 4 chronic kidney disease, or unspecified chronic kidney disease (principal); N18.9 Chronic kidney disease, unspecified; I50.9 Heart failure, unspecified; I50.43 Acute on chronic combined systolic (congestive) and diastolic (congestive) heart failure; E78.00 Pure hypercholesterolemia, unspecified; G47.30 Sleep apnea, unspecified; K52.9 Noninfective gastroenteritis and colitis, unspecified; F41.9 Anxiety disorder, unspecified; N17.9 Acute kidney failure, unspecified; M19.90 Unspecified osteoarthritis, unspecified site; D62 Acute posthemorrhagic anemia; Z96.659 Presence of unspecified artificial knee joint; K92.2 Gastrointestinal hemorrhage, unspecified; E11.22 Type 2 diabetes mellitus with diabetic chronic kidney disease; N18.3 Chronic kidney disease, stage 3 (moderate); E11.65 Type 2 diabetes mellitus with hyperglycemia; E11.40 Type 2 diabetes mellitus with diabetic neuropathy, unspecified; E11.319 Type 2 diabetes mellitus with unspecified diabetic retinopathy without macular edema; I25.119 Atherosclerotic heart disease of native coronary artery with unspecified angina pectoris; Z68.37 Body mass index [BMI] 37.0-37.9, adult; E66.01 Morbid (severe) obesity due to excess calories; G47.33 Obstructive sleep apnea (adult) (pediatric); G89.4 Chronic pain syndrome; J45.909 Unspecified asthma, uncomplicated; E78.5 Hyperlipidemia, unspecified; R32 Unspecified urinary incontinence; Z96.652 Presence of left artificial knee joint; Z79.4 Long term (current) use of insulin; Z79.82 Long term (current) use of aspirin; Z79.02 Long term (current) use of antithrombotics/antiplatelets; Z79.899 Other long term (current) drug therapy; I25.2 Old myocardial infarction; Z98.1 Arthrodesis status; Z86.73 Personal history of transient ischemic attack (TIA), and cerebral infarction without residual deficits
CPT/HCPCS: 36415; 71046; 80048; 80053; 82803; 83036; 83690; 83735; 83880; 84100; 84484; 85025; 86850; 86900; 86901; 86920; 87150; 93005; 96374; 96375; 99283; 99285

== ENCOUNTER 2017-05-19 20:40 | Outpatient (CLI) | payer MEDICARE | END 2017-05-19 20:41 | disposition critical access hospital (66) | LOC: EMS 20:40 | PROVIDERS: ATTEND Surgery | DX: R53.1 Weakness (principal); R06.02 Shortness of breath | CPT/HCPCS: A0425; A0427 ==

== ENCOUNTER 2017-05-19 21:13 | Emergency (ER) | payer MEDICARE ==
[2017-05-19 22:02] LABS: BASOPHILS % (AUTO) 0.2 %; EOSINOPHILS # (AUTO) 0.2 10^3/uL (0.0-0.7); EOSINOPHILS % (AUTO) 2.4 %; HGB - HEMOGLOBIN 10.5 g/dL (12.0-16.0); LYMPHOCYTES # (AUTO) 4.5 10^3/uL (1.5-3.5); LYMPHOCYTES % (AUTO) 50.2 %; MEAN CORPUSCULAR HEMOGLOBIN 30.8 pg (27.0-31.0); MEAN CORPUSCULAR HGB CONC 34.6 g/dL (32.0-36.0); MEAN PLATELET VOLUME 9.7 fL (7.9-10.8); MONOCYTES # (AUTO) 0.7 10^3/uL (0.0-1.0); MONOCYTES % (AUTO) 8.1 %; NEUTROPHILS # (AUTO) 3.5 10^3/uL (1.5-6.6); NEUTROPHILS % (AUTO) 39.1 %; PLT - PLATELET COUNT 120 10^3/uL (130-450); RED CELL DISTRIBUTION WIDTH 14.6 % (12.0-15.0); WHITE BLOOD COUNT 8.9 x10^3/uL (4.8-10.8)
[2017-05-19 22:12] LABS: ALBUMIN 3.4 g/dL (3.2-5.5); ALBUMIN/GLOBULIN RATIO 0.9 (1.0-2.2); CALCIUM 9.6 mg/dL (8.5-10.3); CREATININE 1.6 mg/dL (0.4-1.0); MAGNESIUM 1.8 mg/dL (1.7-2.8); TOTAL PROTEIN 7.3 g/dL (6.7-8.2)
[2017-05-19 22:44] LABS: BILIRUBIN,URINE NEGATIVE (NEGATIVE); CLARITY,URINE CLEAR (CLEAR); GLUCOSE, URINE (UA) 100 mg/dL (NEGATIVE); KETONES,URINE (UA) NEGATIVE (NEGATIVE); LEUKOCYTE ESTERASE, URINE NEGATIVE (NEGATIVE); NITRITE,URINE NEGATIVE (NEGATIVE); OCCULT BLOOD,URINE TRACE-INTA (NEGATIVE); PH,URINE 6.5 PH (5.0-7.5); PROTEIN,URINE >=300 mg/dL (NEGATIVE); UROBILINOGEN,URINE 0.2 (NORMAL) E.U./dL (NORMAL)
[2017-05-19 22:51] LABS: PLATELET MORPHOLOGY NORMAL APPEARANCE (NORMAL)
[2017-05-19 22:52] LABS: PLATELET ESTIMATE, MANUAL NORMAL (130-450,000) (NORMAL); RBC MORPHOLOGY (MULTIPLE) NORMAL APPEARANCE (NORMAL)
[2017-05-19 23:02] LABS: BACTERIA,URINE Rare /HPF (None Seen); RBC,URINE 0-5 /HPF (0-5); SQUAMOUS EPITHELIAL CELL,UR FEW Squamous (<= Few)
--- NOTE | 2017-05-19 23:33 | XRAY Preliminary Report ---
Exam: XR CHEST 2 VIEW X-RAY IMPRESSION: 1. Mild cardiac enlargement. 2. Small bilateral effusions. No pneumothorax. Retrocardiac opacities could represent infiltrate or a telectasis. [facility] SITE ID: [id number]
--- NOTE | 2017-05-19 23:40 | XRAY Report ---
EXAM: CHEST RADIOGRAPHY EXAM DATE: 05/19/2017 11:05 PM. CLINICAL HISTORY: Chest pain, left-sided. COMPARISON: 01/05/2018. TECHNIQUE: 2 views. FINDINGS: Lungs/Pleura: Mild blunting of both costophrenic angles. No pneumothorax noted. Mild retrocardiac den sities could represent atelectasis. Mediastinum: Stable cardiac silhouette. EKG leads overlie the chest. Other: None. IMPRESSION: 1. Mild cardiac enlargement. 2. Small bilateral effusions. No pneumothorax. Retrocardiac opacities could represent infiltrate or a telectasis. [facility] Referring Provider Line: [phone] SITE ID: [id number]
[2017-05-19 23:48] VITALS: BP 158/59
[2017-05-19] MEDS ORDERED: DOXYCYCLINE 100 MG TABLET PO STA (23:59)
[2017-05-20] MEDS ORDERED: ONDANSETRON ODT 4 MG Prepack 2 TL PRN (00:11)
--- NOTE | 2017-05-20 00:11 | ED Physician Documentation ---
PD HPI URI - Stated complaint Stated Complaint: WEAKNESS - Chief complaint Chief Complaint: General - History obtained from History obtained from: Patient, Family - History of Present Illness Timing - onset: How many days ago (2-3 days of feeling generally ill/malaise, some cough. Shakiness/weak feeling today.) Timing duration: Days (2-3) Timing details: Gradual onset, Still present Associated symptoms: Chills, Dry cough, Dyspnea. No: Chest pain, NVD Contributing factors: Sick contact (she was recently in hospital for chest pain and cough, Dx pneumonia and also ACS. Seen by Cardiology and is doing medical management, since renal function was impaired. New meds the past week. Having some pedal edema but no notable weight gain per daughter.) Similar symptoms before: Diagnosis (pneumonia in the past month, with symptoms similar.) Review of Systems Ten Systems: 10 systems reviewed and negative Constitutional: reports: Chills, Myalgias. denies: Fever Nose: denies: Rhinorrhea / runny nose, Congestion Throat: denies: Sore throat Cardiac: denies: Chest pain / pressure, Palpitations Respiratory: reports: Cough GI: denies: Vomiting, Diarrhea Musculoskeletal: reports: Extremity swelling Neurologic: reports: Generalized weakness. denies: Focal weakness, Numbness, Syncope PD PAST MEDICAL HISTORY - Past Medical History Cardiovascular: Hypertension, High cholesterol Respiratory: Sleep apnea, CPAP use Neuro: CVA Endocrine/Autoimmune: Type 2 diabetes GI: Chronic diarrhea : None Psych: Anxiety Musculoskeletal: Osteoarthritis Derm: None - Past Surgical History Past Surgical History: Yes Ortho: Knee replacement, Spine surgery, Other /[employer]: Hysterectomy - Present Medications Home Medications: Ambulatory Orders Medication Instructions Recorded Confirmed traMADol [Ultram] 50 mg PO QID PRN 04/19/17 05/19/17 Ascorbic Acid [Vitamin C] 250 mg PO DAILY 05/07/17 05/19/17 Atorvastatin Calcium 40 mg PO QPM 05/07/17 05/19/17 Carvedilol 12.5 mg PO BID 05/07/17 05/19/17 Cholecalciferol (Vitamin D3) 2,000 units PO DAILY 05/07/17 05/19/17 [Vitamin D3] Clopidogrel Bisulfate [Clopidogrel] 75 mg PO DAILY 05/07/17 05/19/17 Gabapentin 600 mg PO BID 05/07/17 05/19/17 Insulin Lispro [Humalog Kwikpen 5 - 30 units SUBQ TIDWM 05/07/17 05/19/17 U-100] Insulin NPH Human Isophane 35 units SUBQ QPM 05/07/17 05/19/17 [Humulin N] Isosorbide Mononitrate ER [Imdur] 30 mg PO QPM 05/07/17 05/19/17 Nitroglycerin [Nitrostat] 0.4 mg PO Q5M PRN 05/07/17 05/19/17 Sertraline [Zoloft] 50 mg PO DAILY 05/07/17 05/19/17 amLODIPine [Norvasc] 10 mg PO DAILY 05/07/17 05/19/17 Furosemide [Lasix] 20 mg PO DAILY 05/19/17 05/19/17 Metoprolol Tartrate 25 mg PO BID 05/19/17 05/19/17 Potassium Chloride [Micro-K] 10 meq PO DAILY 05/19/17 05/19/17 Doxycycline Monohydrate 100 mg PO BID #14 tablet 05/20/17 - Allergies Allergies/Adverse Reactions: Allergies Allergy/AdvReac Type Severity Reaction Status Date / Time adhesive tape AdvReac Mild Itching Verified 05/19/17 21:22 acetaminophen [From Tylenol] AdvReac Edema Verified 05/19/17 21:22 codeine AdvReac Unknown Verified 05/19/17 21:22 diazepam [From Valium] AdvReac Unknown Verified 05/19/17 21:22 Sulfa (Sulfonamide AdvReac Unknown Verified 05/19/17 21:22 Antibiotics) - Social History Does the pt smoke?: No Smoking Status: Never smoker Does the pt drink ETOH?: No Does the pt have substance abuse?: No - Immunizations Immunizations are current?: Yes - POLST Patient has POLST: Yes PD ED PE NORMAL - Vitals Vital signs reviewed: Yes - General General: Alert and oriented X 3, No acute distress, Well developed/nourished - HEENT HEENT: Moist mucous membranes, Pharynx benign - Neck Neck: Supple, no meningeal sign, No adenopathy, No JVD - Cardiac Cardiac: RRR, No murmur - Respiratory Respiratory: No respiratory distress, Clear bilaterally - Abdomen Abdomen: Soft, Non tender - Back Back: No CVA TTP - Derm Derm: Normal color, Warm and dry - Extremities Extremities: No calf tenderness / cord, Other (has 2+ edema in both ankles/ lower legs. ) - Neuro Neuro: Alert and oriented X 3, No motor deficit, Normal speech - Psych Psych: Normal mood, Normal affect Results - Vitals Vitals: Vital Signs - 24 hr 05/19/17 05/19/17 05/19/17 21:17 22:35 23:46 Temperature 36.9 C Heart Rate 79 72 67 Respiratory 22 17 17 Rate Blood Pressure 177/68 H 163/63 H 158/59 H O2 Saturation 96 100 97 Oxygen O2 Source Room air - Labs Labs: Laboratory Tests 05/19/17 05/19/17 05/19/17 21:56 21:56 21:56 WBC 8.9 RBC 3.40 L Hgb 10.5 L Hct 30.3 L MCV 89.0 MCH 30.8 MCHC 34.6 RDW 14.6 Plt Count 120 L MPV 9.7 Neut # 3.5 Lymph # 4.5 H [place] # 0.7 Eos # 0.2 Baso # 0.0 Absolute Nucleated RBC 0.01 Nucleated RBC % 0.1 WBC Morphology 1+ REACTIVE LYMPHS Platelet Estimate NORMAL (130-450,000) Platelet Morphology NORMAL APPEARANCE RBC Morph Micro Appear NORMAL APPEARANCE Sodium 138 Potassium 3.9 Chloride 107 Carbon Dioxide 21 Anion Gap 10.0 BUN 42 H Creatinine 1.6 H Estimated GFR (MDRD) 31 L Glucose 213 H Lactic Acid 0.9 Calcium 9.6 Magnesium 1.8 Total Bilirubin 1.0 AST 36 ALT 32 Alkaline Phosphatase 112 Troponin I B-Natriuretic Peptide Total Protein 7.3 Albumin 3.4 Globulin 3.9 Albumin/Globulin Ratio 0.9 L Lipase 39 Urine Color Urine Clarity Urine pH Ur Specific [place] Urine Protein Urine Glucose (UA) Urine Ketones Urine Occult Blood Urine Nitrite Urine Bilirubin Urine Urobilinogen Ur Leukocyte Esterase Urine RBC Urine WBC Ur Squamous Epith Cells Urine Bacteria Ur Microscopic Review Urine Culture Comments Influenza A (Rapid) Influenza B (Rapid) Influenza Types A,B Ag 05/19/17 05/19/17 05/19/17 21:56 21:56 22:14 WBC RBC Hgb Hct MCV MCH MCHC RDW Plt Count MPV Neut # Lymph # [place] # Eos # Baso # Absolute Nucleated RBC Nucleated RBC % WBC Morphology Platelet Estimate Platelet Morphology RBC Morph Micro Appear Sodium Potassium Chloride Carbon Dioxide Anion Gap BUN Creatinine Estimated GFR (MDRD) Glucose Lactic Acid Calcium Magnesium Total Bilirubin AST ALT Alkaline Phosphatase Troponin I < 0.04 B-Natriuretic Peptide 444 H Total Protein Albumin Globulin Albumin/Globulin Ratio Lipase Urine Color Urine Clarity Urine pH Ur Specific [place] Urine Protein Urine Glucose (UA) Urine Ketones Urine Occult Blood Urine Nitrite Urine Bilirubin Urine Urobilinogen Ur Leukocyte Esterase Urine RBC Urine WBC Ur Squamous Epith Cells Urine Bacteria Ur Microscopic Review Urine Culture Comments Influenza A (Rapid) Negative Influenza B (Rapid) Negative Influenza Types A,B Ag - 05/19/17 22:34 WBC RBC Hgb Hct MCV MCH MCHC RDW Plt Count MPV Neut # Lymph # [place] # Eos # Baso # Absolute Nucleated RBC Nucleated RBC % WBC Morphology Platelet Estimate Platelet Morphology RBC Morph Micro Appear Sodium Potassium Chloride Carbon Dioxide Anion Gap BUN Creatinine Estimated GFR (MDRD) Glucose Lactic Acid Calcium Magnesium Total Bilirubin AST ALT Alkaline Phosphatase Troponin I B-Natriuretic Peptide Total Protein Albumin Globulin Albumin/Globulin Ratio Lipase Urine Color YELLOW Urine Clarity CLEAR Urine pH 6.5 Ur Specific [place] 1.025 Urine Protein >=300 H Urine Glucose (UA) 100 H Urine Ketones NEGATIVE Urine Occult Blood TRACE-INTA Urine Nitrite NEGATIVE Urine Bilirubin NEGATIVE Urine Urobilinogen 0.2 (NORMAL) Ur Leukocyte Esterase NEGATIVE Urine RBC 0-5 Urine WBC 0-3 Ur Squamous Epith Cells FEW Squamous Urine Bacteria Rare Ur Microscopic Review INDICATED Urine Culture Comments NOT INDICATED Influenza A (Rapid) Influenza B (Rapid) Influenza Types A,B Ag - Rads (name of study) chest Radiology: Prelim report reviewed (small posterior infiltrate, could be residual of recent pneumonia vs. atelectasis. But since she is having some cough and feeling ill, would treat it as new illness. She is okay with going home. Family okay with it as well. ) PD MEDICAL DECISION MAKING - ED course Complexity details: reviewed results, considered differential, d/w patient, d/w family Departure - Departure Disposition: Home, Self Care Clinical Impression: Dyspnea Qualifiers: Dyspnea type: shortness of breath Qualified Code(s): R06.02 - Shortness of breath Condition: Stable Record reviewed to determine appropriate education?: Yes Instructions: ED Dyspnea Shortness of Breath Follow-Up: Cordelia Pendleton PA-C [Primary Care Provider] - Prescriptions: Doxycycline Monohydrate 100 mg PO BID #14 tablet Comments: Right now there is no signs of congestive failure or heart attack. There is a small infiltrate on your x-ray which could be new or could be residual from the prior pneumonia. Will treat with doxycycline for a week in case of new infiltrate. Continue other usual medications. Recheck if not improving over the next few days. Discuss also be possible viral illness and so may be just ill for a few days. Return if worsening symptoms. You can use the furosemide for 2-3 days for leg edema, but does not appear to be CHF/fluid in the lungs right now. Discharge Date/Time: 05/20/17 00:31
== END 2017-05-20 00:31 | disposition home or self-care (01) ==
LOC: EDUNIT# → EDBD → ED 21:13
DX: R06.02 Shortness of breath (principal); R05 Cough; R94.31 Abnormal electrocardiogram [ECG] [EKG]; I10 Essential (primary) hypertension; E78.00 Pure hypercholesterolemia, unspecified; E11.9 Type 2 diabetes mellitus without complications; Z79.4 Long term (current) use of insulin; Z96.659 Presence of unspecified artificial knee joint
CPT/HCPCS: 36415; 71046; 80053; 81001; 83605; 83690; 83735; 83880; 84484; 85025; 87275; 87276; 93005; 99284; A9270; 81003; 87086

== ENCOUNTER 2017-05-29 04:20 | Outpatient (CLI) | payer MEDICARE | END 2017-05-29 04:21 | disposition short-term general hospital (02) | LOC: EMS 04:20 | PROVIDERS: ATTEND Surgery | DX: R07.9 Chest pain, unspecified (principal); R19.7 Diarrhea, unspecified | CPT/HCPCS: A0170; A0425; A0427 ==

== ENCOUNTER 2017-06-08 13:15 | Outpatient (CLI) | payer MEDICARE ==
--- NOTE | 2017-06-08 13:20 | CONSULTATION NOTE ---
Palliative Care Consultation - Referral Referring Provider: Cordelia Pendleton PA-C Time of Visit: 06/07/2017. 10:00 - 10:55 Referral setting: Home (Seen in home setting due to taxing and considerable effort required to leave the home due to breathlessness and weakness secondary to recent hospitalization for N-STEMI, NATALIE, and pneumonia.) - Information Sources Records reviewed: Previous records reviewed History/Review of Systems obtained from: Patient, Family Exam limitations: No limitations - History of Present Illness Brief History of Present Illness: Thank you, Cordelia Pendleton PA-C, for asking the palliative care consult service to be involved in the care of your patient. I am asked to provide support regarding symptom management and goals of care. This is an 81-year-old with multiple very recent ED visits and a hospitalization at [facility] for NSTEMI in March, and a second hospitalization, also at [facility], starting 29 May 2017, for NSTEMI, NATALIE, and pneumonia. Her medical history includes CKD III, CAD, DM II on insulin , diastolic CHF, HTN, arthritis, h/o multiple NSTEMI, h/o total hysterectomy 1969, h/o bladder suspension 1970,h/o appendectomy and cholecystectomy 1979, bilateral knee replacement surgeries 2002 and 2003, h/o back surgery 2015. Since discharge on 31 May, she is being followed by [facility], including nursing services for medicine management and disease education, and PT for rehabilitation. She is considering following up with cardiac rehabilitation. She lives with her son, James, and lcucarqe-xh-itr on several acres in [facility]. They moved here from [place], [place], after her son went on permanent work disability, to be closer to her son's daughter and grandchildren. After her March hospitalization for NSTEMI, she had been having worsening bilateral lower extremity edema and was started on oral Lasix by her PCP. She also had worsening SOA, neck stiffness and throbbing, with pins/needles down her left arm. She went in to the ED and was admitted for the NSTEMI and was found to have cmofq-yy-segwuvt kidney failure as well as pneumonia. She was released on oral antibiotics, which are now finished. She was not a candidate for coronary angiography given her renal function, and medical management was elected for her cardiac conditions, aspirin, ACEI, beta avelina, Imdur, nitroglycerin, anticoagulants, and statin. She is sitting up in her recliner today, is very pleasant, sociable, and alert. She is very organized and had the palliative care paperwork plus her list of current medications already filled out and ready to give to me. Her LE edema has improved since being on Lasix, and is about 2+ today. She does not wear compression stockings, but does elevate her legs during the day while sitting in her recliner. The nurse arrived toward the end of my visit and we agreed she would bring some tubigrip on her next visit for the patient to try out and order online if it works. She reports having had two sessions of physical therapy since being discharged from hospital. She has very little symptom burden currently. Her chronic back pain has vastly improved since her spinal fusion surgery of July 2015. She uses flexeril as needed for neck pain (and has not used it the past two nights) as well as lidocaine cream. She has a bone spur in the R heel that is chronically painful and uses Blue Ice on it at bedtime. 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 There may be complicated family dynamics between patient and adpcrwwh-yw-dds, per previous medical notes. The patient's granddaughter and her family live nearby in [place]. Family History - Family History Family History: Mother: (father age 77 heart, mother age 83 CHF), Father: , CAD, Other family: Cancer (sibling: liver cancer), Diabetes, Type 1 (children) Medications/Allergies - Medications Home Medications: Ambulatory Orders Medication Instructions Recorded Confirmed traMADol [Ultram] 50 mg PO QID PRN 12/28/17 02/16/18 Ascorbic Acid [Vitamin C] 1,000 mg PO DAILY 05/07/17 06/08/17 Atorvastatin Calcium 40 mg PO QPM 05/07/17 06/08/17 Carvedilol 25 mg PO BID 05/07/17 06/08/17 Cholecalciferol (Vitamin D3) 2,000 units PO QPM 05/07/17 06/08/17 [Vitamin D3] Clopidogrel Bisulfate [Clopidogrel] 75 mg PO DAILY 05/07/17 06/08/17 Insulin Lispro [Humalog Kwikpen 5 - 30 units SUBQ TIDWM 05/07/17 06/08/17 U-100] Insulin NPH Human Isophane 15 units SUBQ QPM 05/07/17 06/08/17 [Humulin N] Isosorbide Mononitrate ER [Imdur] 60 mg PO BID 05/07/17 06/08/17 Nitroglycerin [Nitrostat] 0.4 mg PO Q5M PRN 05/07/17 06/08/17 Sertraline [Zoloft] 50 mg PO DAILY 05/07/17 06/08/17 Furosemide [Lasix] 40 mg PO DAILY 05/19/17 06/08/17 Potassium Chloride [Micro-K] 10 meq PO DAILY 05/19/17 06/08/17 Cholecalciferol (Vitamin D3) 5,000 units PO DAILY 06/08/17 06/08/17 [Vitamin D3] Cyclobenzaprine HCl 5 mg PO DAILY PRN 06/08/17 06/08/17 Lidocaine Cream 1 ea TOP DAILY PRN 06/08/17 Lisinopril 5 mg PO DAILY 06/08/17 06/08/17 Magnesium Oxide 400 mg PO 06/08/17 Ondansetron HCl [Zofran] 4 mg PO Q6H PRN 06/08/17 06/08/17 Spironolactone 25 mg PO 06/08/17 - Allergies Allergies/Adverse Reactions: Allergies Allergy/AdvReac Type Severity Reaction Status Date / Time adhesive tape AdvReac Mild Itching Verified 05/19/17 21:22 acetaminophen [From Tylenol] AdvReac Edema Verified 05/19/17 21:22 codeine AdvReac Unknown Verified 01/27/18 21:22 diazepam [From Valium] AdvReac Unknown Verified 05/19/17 21:22 Sulfa (Sulfonamide AdvReac Unknown Verified 05/19/17 21:22 Antibiotics) Review of Systems - Constitutional Constitutional: reports: Fatigue (3 of 10), Poor appetite (3 of 10) - Cardiovascular Cardiovascular: reports: Edema (bilateral lower extremities, but greatly improved since Lasix) - Gastrointestinal Gastrointestinal: reports: Diarrhea (chronic). denies: Constipation - Genitourinary Genitourinary: denies: Dysuria, Incontinence - Musculoskeletal Musculoskeletal: reports: Back pain (chronic back pain improved to 2/10 since spinal surgery in July 2015. Hasn't used cyclosporine for neck/back pain for 2 days.), Stiffness, Gout, Joint pain (arthritis), Assistive devices (uses walker when outside of the house). denies: Transfer issues - Psychiatric Psychiatric: reports: Anxiety (3 of 10) - Endocrine Endocrine: reports: Diabetes type 2 Physical Exam - Vital Signs Temperature: 96.5 F Pulse Rate: 65 O2 Saturation: 93 Blood Pressure: 136/82 - Physical Exam General Appearance: positive: No acute distress, Alert Eyes Bilateral: positive: Normal inspection ENT: positive: No signs of dehydration Neck: positive: No JVD, Trachea midline Cardiovascular: positive: Regular rate & rhythm, No murmur, No gallop Abdomen: positive: Non-tender, Soft, Nml bowel sounds Skin: positive: No symptoms Extremities: positive: Pedal edema (+2, but improved per patient report) Neurologic/Psychiatric: positive: Oriented x3, Motor nml, Sensation nml, Mood/ affect nml Palliative Care - POLST POLST Status: DNR Pain: Pain improved (3/10) Tiredness/Fatigue: Mild (1-3) Drowsiness/Sedation: Mild (1-3) Nausea: None Depression: Mild (1-3) Anxiety: Mild (1-3) Dyspnea: None Anorexia: Mild (1-3) Constipation: No Performance Status: Independently ambulatory inside the house. Uses walker outside the house. Performs her own ADLs and bathing. Family prepares the meals. Continent of bowel /bladder. She is currently participating in PT. She is considering cardiac rehabilitation but has not scheduled an appointment yet. - Palliative Care Discussion: We filled out a new POLST because her original POLST was missing, likely is back at the hospital. She has made no changes to her DNR/selective treatment only. She wants medical conditions treated while avoiding burdensome measures. Her main goal is to rehabilitate so that she can resume her daily (on most days ) walks of 1/2 mile or so around the [facility] [place]. Impression and Recommendations - Palliative Care Impression: This is an 81-year-old with h/o CKD, diastolic CHF, CAD, HTN, DMII, arthritis and multiple very recent ED visits and two hospitalizations (since March) at [facility] for NSTEMI, with the second hospitalization including NATALIE and pneumonia. Since discharge from [facility] on [facility] May, [facility] for [facility], and is following up on cardiac rehabilitation. She has been improving since discharge, her bilateral lower extremity edema is being well controlled with Lasix, and she currently has a low symptom burden. She would benefit from palliative care oversight and monitoring on a regular basis. Recommendations/Counseling Done: Pneumonia: Symptoms resolved, oral antibiotics completed. CHF: Stable, continue Lasix, potassium,carvedilol for rate control, lisinopril for BP control. Bilateral lower extremity edema: Improved on Lasix. Recommend continued elevation throughout day and start compression. HH RN will bring sample tubigrip stockings at next visit for patient to try sizing. These are available for purchase by patient online. Chronic diarrhea: Chronic times years. Patient has been advised to discontinue medications some as loperamide. Monitor. Depression with anxiety: Stable on sertraline, patient rates depression mild at 1/10 and anxiety at 3/10. Monitor for mood/behavior changes. Can consider anxiolytic if anxiety increases. Advanced care planning: POLST redone since original was lost. No revisions from earlier version: patient is DNR and selective treatment: treat medical conditions while avoiding burdensome measures. Current goals are to rehabilitate with PT to regain strength,stamina and balance to resume her daily walks on the family's property. Next visit is scheduled for July 04 at 2pm. Time Spent: 55 minutes were spent with more than 50% of the time spent on counseling, education, and coordination of care.
== END 2017-06-08 13:16 | disposition home or self-care (01) ==
LOC: PC 13:15
PROVIDERS: ATTEND Nurse Practitioner
DX: Z51.5 Encounter for palliative care (principal); I50.9 Heart failure, unspecified; R60.0 Localized edema; K52.9 Noninfective gastroenteritis and colitis, unspecified; F41.8 Other specified anxiety disorders; I10 Essential (primary) hypertension; G47.30 Sleep apnea, unspecified; Z86.73 Personal history of transient ischemic attack (TIA), and cerebral infarction without residual deficits; E11.9 Type 2 diabetes mellitus without complications; Z79.4 Long term (current) use of insulin; Z79.891 Long term (current) use of opiate analgesic; R53.83 Other fatigue; G89.29 Other chronic pain; M54.5 Low back pain; I21.4 Non-ST elevation (NSTEMI) myocardial infarction; Z66 Do not resuscitate
CPT/HCPCS: 99343

== ENCOUNTER 2017-06-11 08:03 | Outpatient (CLI) | payer MEDICARE ==
[2017-06-11 13:30] LABS: CALCIUM 9.1 mg/dL (8.5-10.3); CREATININE 1.7 mg/dL (0.4-1.0)
[2017-06-11 16:49] LABS: MAGNESIUM 1.7 mg/dL (1.7-2.8)
== END 2017-06-11 08:04 | disposition home or self-care (01) ==
LOC: LAB.F 08:03
PROVIDERS: ATTEND Nurse Practitioner Family
DX: I50.9 Heart failure, unspecified (principal); N18.4 Chronic kidney disease, stage 4 (severe); E83.42 Hypomagnesemia
CPT/HCPCS: 36415; 80048; 83735; 83880; 84100

== ENCOUNTER 2017-07-04 20:10 | Outpatient (CLI) | payer MEDICARE ==
--- NOTE | 2017-07-04 20:24 | CONSULTATION NOTE ---
Palliative Care Follow Up - Referral Referring Provider: Cordelia Pendleton PA-C Time of Visit: 07/04/2017. 14:10 - 14:40 Referral setting: Home (Seen in home setting due to taxing and considerable effort required to leave the home due to recent hospitalization for N-STEMI.) Referral Reason: CHF - Information Sources Records reviewed: RN notes reviewed, Previous records reviewed History/Review of Systems obtained from: Patient, Family Exam limitations: No limitations - History of Present Illness Update Brief HPI Update: This is an 81-year-old woman with multiple recent ED visits and hospitalization at [facility] for NSTEMI in March, and a second hospitalization, also at [facility], starting 29 May 2017, for NSTEMI, NATALIE, and pneumonia. Her medical history includes CKD 3, CAD, DM 2 on insulin, diastolic CHF, HTN, arthritis, history of multiple NSTEMIs, history of total hysterectomy in 1969, history of bladder suspension 1970, history of appendectomy and cholecystectomy 1979, bilateral knee replacement surgeries in 2002 and 2003, history of back surgery 2015. The patient has recently been discharged from home health nursing and PT because goals have been met. She reports being able to walk around the perimeter of the family property, which was her goal in rehabilitation and therapy. She reports feeling well, her edema of lower extremities has improved. She is not wearing any compression stockings or Tubigrip which was supplied by nursing, but she finds that it works well and just is not wearing it today. She complains of sleep problems: she goes to bed about 11 and then wakes up just before 2am, and is wide awake for awhile. After that, she wakes up throughout the rest of the night. We discussed sleep hygiene and she does not want to start on any pills for insomnia at present. She has chronic loose stools associated with urge urinary incontinence. She uses adult briefs and pads. We discussed some approaches for dealing with the urge incontinence, such as scheduling times to use the bathroom and not waiting "until it's too late." Social History - Living Situation Living arrangement: At home Living Situation: With family Support System: She lives with her son, James, and xxiaodsp-iy-ien, Maci, on [place] [facility]. They moved here from [place], [place], after James went on permanent work disability, in order to be closer to James's daughter and grandchildren. Medications/Allergies - Medications Home Medications: Ambulatory Orders Medication Instructions Recorded Confirmed traMADol [Ultram] 50 mg PO QID PRN 04/19/17 07/04/17 Ascorbic Acid [Vitamin C] 1,000 mg PO DAILY 05/07/17 07/04/17 Atorvastatin Calcium 40 mg PO QPM 05/07/17 07/04/17 Carvedilol 25 mg PO BID 05/07/17 07/04/17 Cholecalciferol (Vitamin D3) 2,000 units PO QPM 05/07/17 07/04/17 [Vitamin D3] Clopidogrel Bisulfate [Clopidogrel] 75 mg PO DAILY 05/07/17 07/04/17 Insulin NPH Human Isophane 15 units SUBQ QPM 05/07/17 07/04/17 [Humulin N] Isosorbide Mononitrate ER [Imdur] 60 mg PO BID 05/07/17 07/04/17 Nitroglycerin [Nitrostat] 0.4 mg PO Q5M PRN 05/07/17 07/04/17 Sertraline [Zoloft] 50 mg PO DAILY 05/07/17 07/04/17 Furosemide [Lasix] 20 mg PO DAILY 05/19/17 07/04/17 Potassium Chloride [Micro-K] 10 meq PO DAILY 05/19/17 07/04/17 Cholecalciferol (Vitamin D3) 5,000 units PO DAILY 06/08/17 07/04/17 [Vitamin D3] Cyclobenzaprine HCl 5 mg PO DAILY PRN 06/08/17 07/04/17 Lidocaine Cream 1 ea TOP DAILY PRN 06/08/17 07/04/17 Lisinopril 5 mg PO DAILY 06/08/17 07/04/17 Magnesium Oxide 400 mg PO 06/08/17 Ondansetron HCl [Zofran] 4 mg PO Q6H PRN 06/08/17 07/04/17 Spironolactone 25 mg PO 06/08/17 - Allergies Allergies/Adverse Reactions: Allergies Allergy/AdvReac Type Severity Reaction Status Date / Time adhesive tape AdvReac Mild Itching Verified 05/19/17 21:22 acetaminophen [From Tylenol] AdvReac Edema Verified 05/19/17 21:22 codeine AdvReac Unknown Verified 05/19/17 21:22 diazepam [From Valium] AdvReac Unknown Verified 05/19/17 21:22 Sulfa (Sulfonamide AdvReac Unknown Verified 05/19/17 21:22 Antibiotics) Review of Systems - Constitutional Constitutional: reports: Weight loss (Weight loss was welcome. She weighed 196 lbs on 04/18/17, which is high for her -- per previous baseline was around 180 lbs. This morning she weighed 172 lbs, which is a weight gain from recent weights. She would prefer to weight less.). denies: Fatigue, Weakness, Poor appetite - Cardiovascular Cardiovascular: denies: Palpitations, Chest pain, Lightheadedness, Exertional dyspnea, Decr. exercise tolerance - Respiratory Respiratory: denies: SOB at rest, SOB with exertion - Gastrointestinal Gastrointestinal: reports: Other (chronic loose stools). denies: Nausea - Genitourinary Genitourinary: reports: Incontinence (urge) - Musculoskeletal Musculoskeletal: reports: Back pain (relieved with Tramadol), Stiffness, Assistive devices (walker outside the house). denies: Transfer issues - Endocrine Endocrine: reports: Diabetes type 2 - All Other Systems All Other Systems: reports: Reviewed and negative Physical Exam - Vital Signs Temperature: 96.1 F Pulse Rate: 55 O2 Saturation: 95 (room air) Blood Pressure: 110/54 - Physical Exam General Appearance: positive: No acute distress, Alert Eyes Bilateral: positive: EOMI, No lid inflammation, Conjunctivae nml, No scleral icterus ENT: positive: No signs of dehydration Neck: positive: No JVD, Trachea midline Cardiovascular: positive: Regular rate & rhythm, No murmur, No gallop Respiratory: positive: Chest non-tender, No respiratory distress, Breath sounds nml Skin: positive: No symptoms Extremities: positive: Pedal edema (+1, right more than left) Neurologic/Psychiatric: positive: Oriented x3, Mood/affect nml Palliative Care - POLST Patient has POLST: Yes POLST Status: DNR, Selective Treatment Pain: Location (back pain, uses tramadol to manage) Dyspnea: None Anorexia: None Sleep: Sleeps poorly (wakes up on and off during the night) Constipation: No Feelings of wellbeing/Perceived Quality of Life: Good - Palliative Care Discussion: Patient feels she is doing very well and is pleased to be able to walk around the property when the weather is good. She feels she has come a long way. She doesn't feel she needs a monthly palliative care follow up but would like me to call in about two months. Her phxzczzt-kz-fcy, Maci, confided to me, when we were alone in the room together for a brief period, that she was going to see a counsellor. Her , James, and she have not been speaking, and she is seeking help on how to approach this. She also feels she is not able to speak with other family members. The relationship between the patient and her daughter -in-law appears cordial, but there are complex family dynamics at work. Impression and Recommendations - Palliative Care Impression: This is an 81-year-old woman with a history of CKD, diastolic CHF, CAD, HTN, DM 2, arthritis and multiple recent ED visits with 2 hospitalizations (since March) at [facility] for NSTEMI. The second hospitalization was for NSTEMI, NATALIE and pneumonia. She has made very good progress and is discharged from home health and home physical therapy since she met her goals of therapy. She feels well and does not think she needs monthly palliative care oversight at this time; she did request palliative care to follow-up with her in about 2 months. Recommendations/Counseling Done: Chronic insomnia: Provided education and tactics for sleep hygiene. Weighed benefits and burdens of pharmaceutical approaches and decided against Bilateral lower extremity edema: Well controlled, likes the tubigrip material for compression, elevates legs throughout the day. CHF: Stable on lasix, potassium, spironolactone. HTN: Carvedilol and lisinopril. Chronic loose stools: For many years. She was counselled to discontinue medications such as loperamide. She manages it with briefs and heavy pads. Educated on tactics for urge incontinence, which is associated with her bowel incontinence. Advanced care planning: POLST is DNR and selective treatment. Does not feel she needs monthly follow up with palliative care. Wants palliative care to check in with her in about two monthsl. Call patient in August. Time Spent: 30 minutes were spent with more than 50% of the time spent on counseling, education, and coordination of care.
== END 2017-07-04 20:11 | disposition home or self-care (01) ==
LOC: PC 20:10
PROVIDERS: ATTEND Nurse Practitioner
DX: Z51.5 Encounter for palliative care (principal); F51.04 Psychophysiologic insomnia; E11.22 Type 2 diabetes mellitus with diabetic chronic kidney disease; I13.0 Hypertensive heart and chronic kidney disease with heart failure and stage 1 through stage 4 chronic kidney disease, or unspecified chronic kidney disease; N18.9 Chronic kidney disease, unspecified; Z79.4 Long term (current) use of insulin; Z66 Do not resuscitate
CPT/HCPCS: 99348

== ENCOUNTER 2017-08-03 13:43 | Outpatient (CLI) | payer MEDICARE | END 2017-08-03 13:44 | disposition home or self-care (01) | LOC: DI 13:43 | PROVIDERS: ATTEND Internal Medicine Cardiovascular Disease | DX: I50.9 Heart failure, unspecified (principal); I51.7 Cardiomegaly | CPT/HCPCS: 93306 ==

== ENCOUNTER 2017-08-21 14:57 | Outpatient (CLI) | payer MEDICARE ==
--- NOTE | 2017-08-21 16:57 | Ultrasound Report ---
RENAL ULTRASOUND: 08/21/2017 CLINICAL INDICATION: Chronic kidney disease, hematuria. TECHNIQUE: Real-time scanning was performed with investment representative static images obtained. FINDINGS: The right kidney measures 11.2 x 4.8 x 4.8 cm. No hydronephrosis, focal renal lesion, or perinephric collection is seen. The left kidney measures 11.1 x 5.2 x 4.7 cm. A 6 mm cortical cyst is incidentally noted. No hydronephrosis, solid renal lesion, or perinephric collection is present. Prevoid, the urinary bladder measures 5.8 x 4.0 x 2.8 cm, yielding a prevoid volume of 34 mL. Bilateral ureteral jets are present. No postvoid residual is seen. No bladder wall mass is appreciated. IMPRESSION: INCIDENTAL TINY LEFT RENAL CYST. NO HYDRONEPHROSIS. NO POSTVOID RESIDUAL. TD: 08/21/2017 16:55
== END 2017-08-21 14:58 | disposition home or self-care (01) ==
LOC: DI 14:57
PROVIDERS: ATTEND Internal Medicine Nephrology
DX: E11.22 Type 2 diabetes mellitus with diabetic chronic kidney disease (principal); N18.4 Chronic kidney disease, stage 4 (severe); R31.9 Hematuria, unspecified
CPT/HCPCS: 76770

== ENCOUNTER 2017-09-24 09:50 | Outpatient (CLI) | payer MEDICARE ==
[2017-09-24 17:51] LABS: BILIRUBIN,URINE NEGATIVE (NEGATIVE); GLUCOSE, URINE (UA) 250 mg/dL (NEGATIVE); KETONES,URINE (UA) NEGATIVE (NEGATIVE); LEUKOCYTE ESTERASE, URINE NEGATIVE (NEGATIVE); NITRITE,URINE NEGATIVE (NEGATIVE); OCCULT BLOOD,URINE NEGATIVE (NEGATIVE); PROTEIN,URINE >=300 mg/dL (NEGATIVE); UROBILINOGEN,URINE 0.2 (NORMAL) E.U./dL (NORMAL)
[2017-09-24 18:03] LABS: BACTERIA,URINE None Seen /HPF (None Seen); CLARITY,URINE CLEAR (CLEAR); RBC,URINE 0-5 /HPF (0-5); SQUAMOUS EPITHELIAL CELL,UR RARE Squamous (<= Few)
[2017-09-24 18:45] LABS: ALBUMIN 3.5 g/dL (3.2-5.5); BILIRUBIN,TOTAL 0.7 mg/dL (0.2-1.0); CALCIUM 9.6 mg/dL (8.5-10.3); CREATININE 1.6 mg/dL (0.4-1.0); MAGNESIUM 1.8 mg/dL (1.7-2.8); TOTAL PROTEIN 6.9 g/dL (6.7-8.2)
[2017-09-24 18:59] LABS: THYROID STIMULATING HORMONE 0.55 uIU/mL (0.34-5.60)
[2017-09-24 19:01] LABS: FREE T4 (FREE THYROXINE) 1.23 ng/dL (0.58-1.64)
== END 2017-09-24 09:51 | disposition home or self-care (01) ==
LOC: LAB.F 09:50
PROVIDERS: ATTEND Physician Assistant Medical
DX: N18.4 Chronic kidney disease, stage 4 (severe) (principal); E83.42 Hypomagnesemia; I50.9 Heart failure, unspecified; E03.9 Hypothyroidism, unspecified; N39.0 Urinary tract infection, site not specified
CPT/HCPCS: 36415; 80053; 81001; 83735; 83880; 84439; 84443; 84481; 87077; 87086

== ENCOUNTER 2017-09-26 08:33 | Outpatient (CLI) | payer MEDICARE ==
[2017-09-26 10:57] LABS: BASOPHILS % (AUTO) 0.4 %; EOSINOPHILS # (AUTO) 0.2 10^3/uL (0.0-0.7); HGB - HEMOGLOBIN 11.2 g/dL (12.0-16.0); LYMPHOCYTES # (AUTO) 4.1 10^3/uL (1.5-3.5); MEAN CORPUSCULAR HEMOGLOBIN 30.9 pg (27.0-31.0); MEAN CORPUSCULAR HGB CONC 33.9 g/dL (32.0-36.0); MEAN CORPUSCULAR VOLUME 91.1 fL (81.0-99.0); MONOCYTES # (AUTO) 0.7 10^3/uL (0.0-1.0); MONOCYTES % (AUTO) 8.6 %; NEUTROPHILS # (AUTO) 2.8 10^3/uL (1.5-6.6); PLT - PLATELET COUNT 94 10^3/uL (130-450); RED BLOOD COUNT 3.62 10^6/uL (4.20-5.40); RED CELL DISTRIBUTION WIDTH 14.2 % (12.0-15.0); WHITE BLOOD COUNT 7.7 x10^3/uL (4.8-10.8)
== END 2017-09-26 08:34 | disposition home or self-care (01) ==
LOC: LAB.F 08:33
PROVIDERS: ATTEND Physician Assistant Medical
DX: R53.83 Other fatigue (principal); R68.83 Chills (without fever); I50.9 Heart failure, unspecified
CPT/HCPCS: 36415; 85025

== ENCOUNTER 2017-10-07 21:35 | Emergency (ER) | payer MEDICARE ==
[2017-10-07] MEDS ORDERED: CYCLOBENZAPRINE 10 MG TABLET PO STA (22:10)
--- NOTE | 2017-10-07 23:10 | CT Report ---
Procedure Date: 10/07/2017 Accession Number: [id number] / [id number] Procedure: CT - Head W/O CPT Code: FULL RESULT: EXAM: CT HEAD EXAM DATE: 10/07/2017 10:42 PM. CLINICAL HISTORY: Fall on plavix. COMPARISON: 08/08/2015. TECHNIQUE: Multiaxial CT images were obtained from the foramen magnum to the vertex. Reformats: Coronal. IV contrast: None. In accordance with CT protocol optimization, one or more of the following dose reduction techniques were utilized for this exam: automated exposure control, adjustment of mA and/or KV based on patient size, or use of iterative reconstructive technique. FINDINGS: Parenchyma: No intraparenchymal hemorrhage. No evidence of mass, midline shift, or CT findings of acute infarction. He-white differentiation is distinct. Diffuse chronic microangiopathic white matter changes are evident. Extraaxial Spaces: Normal for age. No subdural or epidural collections identified. Ventricles: The ventricles and cortical sulci are enlarged, consistent with age-related tissue loss. Sinuses and orbits: Imaged paranasal sinuses, orbits, and mastoids show no significant abnormality. Bones: No evidence of fracture or calvarial defect. Other: No significant change since the prior study. IMPRESSION: Generalized age-related cortical atrophic changes without evidence of acute intracranial abnormality. RADIA
--- NOTE | 2017-10-07 23:16 | CT Report ---
Procedure Date: 10/07/2017 Accession Number: [id number] / [id number] Procedure: CT - Cervical Spine W/O CPT Code: FULL RESULT: EXAM: CT CERVICAL SPINE WITHOUT CONTRAST DATE: 10/07/2017 10:49 PM. HISTORY: Fall on back, pain diffusely. COMPARISONS: None. TECHNIQUE: Thin-section axial images were acquired of the cervical spine without contrast. Post-processing: Coronal and sagittal reformats. Other: None. In accordance with CT protocol optimization, one or more of the following dose reduction techniques were utilized for this exam: automated exposure control, adjustment of mA and/or KV based on patient size, or use of iterative reconstructive technique. FINDINGS: Alignment: No scoliosis or spondylolisthesis. Bones: No fracture or bone lesion. 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 Interspace Levels/Facets: Pannus formation dorsal to the dens. No significant appearing degenerative narrowing of the central canal or foramina. Musculature: Normal. No fatty atrophy. Other: The paravertebral and prevertebral soft tissues are unremarkable. The lung apices are clear. IMPRESSION: No fracture identified in the cervical spine. 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 RADIA
[2017-10-07] MEDS ORDERED: fentaNYL 100 MCG/2 ML VIAL IVP STA (23:22)
--- NOTE | 2017-10-07 23:23 | CT Report ---
Procedure Date: 10/07/2017 Accession Number: [id number] / [id number] Procedure: CT - Thoracic Spine W/O CPT Code: FULL RESULT: EXAM: CT THORACIC SPINE WITHOUT CONTRAST EXAM DATE: 10/07/2017 10:53 PM. CLINICAL HISTORY: Fall on back, pain diffusely. COMPARISONS: None. TECHNIQUE: Thin-section axial images were acquired of the thoracic spine from C7 to L1 without contrast. Post-processing: Coronal and sagittal reformats. Other: None. IV Contrast: None. In accordance with CT protocol optimization, one or more of the following dose reduction techniques were utilized for this exam: automated exposure control, adjustment of mA and/or KV based on patient size, or use of iterative reconstructive technique. FINDINGS: Alignment: Accentuated thoracic kyphosis. Bones: Spine is ankylosed from the lower cervical spine to T12. 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 At T7-T8, this is more pronounced and a mild degree of cord impingement could be present. AP diameter of the central canal reduced to 5.5 mm at this level. Musculature: Normal. No fatty atrophy. Other: The visualized lungs, mediastinum, and abdominal cavity are unremarkable. 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 No fracture is identified. RAD[facility]
--- NOTE | 2017-10-07 23:37 | CT Report ---
Procedure Date: 10/07/2017 Accession Number: [id number] / [id number] Procedure: CT - Lumbar Spine W/O CPT Code: FULL RESULT: EXAM: CT LUMBAR SPINE WITHOUT CONTRAST EXAM DATE: 10/07/2017 10:51 PM. CLINICAL HISTORY: Fall on back, pain diffusely. COMPARISONS: CT abdomen and pelvis 09/08/2016. TECHNIQUE: Thin-section axial images were acquired of the lumbar spine from T12 to S1 without contrast. Post-processing: Coronal and sagittal reformats. Other: None. In accordance with CT protocol optimization, one or more of the following dose reduction techniques were utilized for this exam: automated exposure control, adjustment of mA and/or KV based on patient size, or use of iterative reconstructive technique. FINDINGS: Alignment: Grade 1 anterolisthesis at L3-L4. Bones: Five [id number] lumbar vertebral bodies are present. Spine is ankylosed from L1 to the sacrum, from T12 cranially. Disk Levels/Facets: T12-L1: Mild disk space narrowing. Disk/endplate osteophyte and facet arthrosis narrows the central canal and the foramina bilaterally. Previous left-sided laminectomy. L1-L2: Right sided disk/endplate osteophyte mildly narrows the central canal. L2-L3: Facet hypertrophy and disk/endplate osteophyte. Moderate central stenosis. L3-L4: Solid-appearing fusion with bilateral pedicle screw instrumentation and spacer device placed across the disk space. Left-sided facetectomy. L4-L5: No significant abnormality. L5-S1: No significant abnormality. Musculature: Prominent atrophy of the posterior paraspinal musculature. Other: The visualized retroperitoneum is unremarkable. No significant interval change appreciated. IMPRESSION: 1. Spine is ankylosed from L1-L2 the sacrum, from T12 cranially. 2. Degenerative changes narrows the central canal at T12-L1, status post left-sided laminectomy.. 3. Moderate central stenosis at L2-L3. 4. Solid-appearing posterior instrumented fusion at L3-L4. RADIA
--- NOTE | 2017-10-07 23:43 | ED Physician Documentation ---
PD HPI Fall - Stated complaint Stated Complaint: GLF/HEAD INJ - Chief complaint Chief Complaint: Trauma Hd/Nk - History obtained from History obtained from: Patient, Family - History of Present Illness Mechanism of injury: Slipped Fall distance: Sitting position Where injury occurred: Home Timing - onset: Today Injury(ies) location: Head, Back Quality of pain: Pain, Throbbing, Aching Associated symptoms: No: LOC, AMS Worsens with: Movement, Palpation Recently seen: Not recently seen - Additional information Additional information: Patient is an 81 year old female with a history of chronic pain, and previous back surgery and previous KS who is presenting to the emergency department after falling. patient was trying to sit down and the walker she was using to support her rolled out and patient fell back. Patient landed on her back and hit her head on a metal chair. Patient is on plavix. Review of Systems Ten Systems: 10 systems reviewed and negative Musculoskeletal: reports: Back pain Neurologic: reports: Head injury. denies: Confused, Altered mental status, Headache, LOC PD PAST MEDICAL HISTORY - Past Medical History Cardiovascular: Hypertension, High cholesterol Respiratory: Sleep apnea, CPAP use Endocrine/Autoimmune: Type 2 diabetes GI: Chronic diarrhea : None Psych: Anxiety Musculoskeletal: Osteoarthritis Derm: None - Past Surgical History Past Surgical History: Yes General: Cholecystectomy Ortho: Knee replacement, Spine surgery, Other /[employer]: Hysterectomy, Other - Present Medications Home Medications: Ambulatory Orders Medication Instructions Recorded Confirmed traMADol [Ultram] 50 mg PO QID PRN 04/19/17 07/04/17 Ascorbic Acid [Vitamin C] 1,000 mg PO DAILY 05/07/17 07/04/17 Atorvastatin Calcium 40 mg PO QPM 05/07/17 07/04/17 Carvedilol 25 mg PO BID 05/07/17 07/04/17 Cholecalciferol (Vitamin D3) 2,000 units PO QPM 05/07/17 07/04/17 [Vitamin D3] Clopidogrel Bisulfate [Clopidogrel] 75 mg PO DAILY 05/07/17 07/04/17 Insulin NPH Human Isophane 15 units SUBQ QPM 05/07/17 07/04/17 [Humulin N] Isosorbide Mononitrate ER [Imdur] 60 mg PO BID 05/07/17 07/04/17 Nitroglycerin [Nitrostat] 0.4 mg PO Q5M PRN 05/07/17 07/04/17 Sertraline [Zoloft] 50 mg PO DAILY 05/07/17 07/04/17 Furosemide [Lasix] 20 mg PO DAILY 05/19/17 07/04/17 Potassium Chloride [Micro-K] 10 meq PO DAILY 05/19/17 07/04/17 Cholecalciferol (Vitamin D3) 5,000 units PO DAILY 06/08/17 07/04/17 [Vitamin D3] Cyclobenzaprine HCl 5 mg PO DAILY PRN 06/08/17 07/04/17 Lidocaine Cream 1 ea TOP DAILY PRN 06/08/17 07/04/17 Lisinopril 5 mg PO DAILY 06/08/17 07/04/17 Magnesium Oxide 400 mg PO 06/08/17 Ondansetron HCl [Zofran] 4 mg PO Q6H PRN 06/08/17 07/04/17 Spironolactone 25 mg PO 06/08/17 - Allergies Allergies/Adverse Reactions: Allergies Allergy/AdvReac Type Severity Reaction Status Date / Time adhesive tape AdvReac Mild Itching Verified 10/07/17 21:41 acetaminophen [From Tylenol] AdvReac Edema Verified 10/07/17 21:41 codeine AdvReac Unknown Verified 10/07/17 21:41 diazepam [From Valium] AdvReac Unknown Verified 10/07/17 21:41 Sulfa (Sulfonamide AdvReac Unknown Verified 10/07/17 21:41 Antibiotics) - Social History Does the pt smoke?: No Smoking Status: Never smoker Does the pt drink ETOH?: No Does the pt have substance abuse?: No - Immunizations Immunizations are current?: Yes - POLST Patient has POLST: Yes PD ED PE NORMAL - Vitals Vital signs reviewed: Yes - General General: Alert and oriented X 3 - Cardiac Cardiac: RRR, No murmur - Respiratory Respiratory: No respiratory distress - Abdomen Abdomen: Soft, Non tender - Derm Derm: Normal color, No rash - Neuro Neuro: Alert and oriented X 3, No motor deficit Eye Opening: Spontaneous Motor: Obeys Commands Verbal: Oriented GCS Score: 15 PD ED PE EXPANDED - General General: Alert, In Pain - HEENT HEENT: Dry mucous membranes - Back Back: Vertebral tenderness, Soft tissue tenderness Back visual: 1 - tenderness (diffuse tenderness throughout patient's cervical, thoracic and lumbar spine, no abrasion, laceration or gross deformity) Results - Vitals Vitals: Vital Signs - 24 hr 10/07/17 10/08/17 21:37 00:01 Temperature 36.6 C Heart Rate 59 L 60 Respiratory 19 18 Rate Blood Pressure 186/58 H 189/55 H O2 Saturation 98 96 Oxygen O2 Source Room air - Labs Labs: Laboratory Tests 10/07/17 22:04 POC Whole Bld Glucose 294 H - Rads (name of study) ct head Radiology: Final report received (no acute findings) ct cervical spine Radiology: Final report received (no acute fracture or dislocation), See rad report CT thoracic and lumbar spine Radiology: Final report received, See rad report (multiple chronic findings no acute fracture or dislocation) PD MEDICAL DECISION MAKING - ED course Complexity details: reviewed old records, reviewed results, re-evaluated patient , considered differential, d/w patient, d/w family ED course: Patient was seen and examined at bedside. patient was in pain but the story for the fall was clearly mechanical. it was hard to tease out what pain was actually new and what pain is chronic. Patient was on blood thinners and complained of headache. Patient had diffuse tenderness from her cervical spine through her lumbar spine. patient complained of bilateral muscle spams. Patient was treated with flexeril and imaging was ordered. When patient returned from imaging the results were reviewed. there were no acute findings. Patient was crying out in pain. patient was treated with fentanyl IM. Patient had no focal neurological deficits. patient required no further inpatient work up and was stable for discharge with outpatient follow up. - Sepsis Event Vital Signs: Vital Signs - 24 hr 10/07/17 10/08/17 21:37 00:01 Temperature 36.6 C Heart Rate 59 L 60 Respiratory 19 18 Rate Blood Pressure 186/58 H 189/55 H O2 Saturation 98 96 Oxygen O2 Source Room air Departure - Departure Disposition: 01 Home, Self Care Clinical Impression: Contusion Condition: Good Instructions: Back Pain Relieve Follow-Up: Cordelia Pendleton PA-C [Primary Care Provider] - Tomorrow Comments: Your diagnostics today showed multiple chronic findings but no acute fractures or dislocation. You should continue with your current pain management regiment. you will likely be more sore tomorrow and the next day. You should follow up with your doctor if your symptoms persist. You may return to the emergency department at any time for new, worsening or uncontrollable symptoms.
[2017-10-08 00:02] VITALS: BP 189/55
== END 2017-10-08 00:17 | disposition home or self-care (01) ==
LOC: ED 21:35
DX: S00.03XA Contusion of scalp, initial encounter (principal); S20.222A Contusion of left back wall of thorax, initial encounter; S20.221A Contusion of right back wall of thorax, initial encounter; S30.0XXA Contusion of lower back and pelvis, initial encounter; W18.39XA Other fall on same level, initial encounter; Y92.009 Unspecified place in unspecified non-institutional (private) residence as the place of occurrence of the external cause; I10 Essential (primary) hypertension; E78.00 Pure hypercholesterolemia, unspecified; G47.30 Sleep apnea, unspecified; E11.9 Type 2 diabetes mellitus without complications; M54.9 Dorsalgia, unspecified; G89.29 Other chronic pain; M19.90 Unspecified osteoarthritis, unspecified site; Z79.4 Long term (current) use of insulin
CPT/HCPCS: 70450; 72125; 72128; 72131; 99283; A9270

== ENCOUNTER 2017-10-25 09:31 | Outpatient (CLI) | payer MEDICARE ==
[2017-10-25 17:48] LABS: CHOL/HDL RATIO 2.7 (<4.4); CHOLESTEROL 136 mg/dL; HDL CHOLESTEROL 50 mg/dL; LDL CHOLESTEROL,CALCULATED 57 mg/dL; LDL/HDL RATIO 1.1 (<4.4); VLDL CHOLESTEROL 29 mg/dL
[2017-10-25 18:19] LABS: HEMOGLOBIN A1C 0.68 g/dL; HEMOGLOBIN A1C % 7.3 % (4.6-6.2)
== END 2017-10-25 09:32 | disposition home or self-care (01) ==
LOC: LAB.F 09:31
PROVIDERS: ATTEND Internal Medicine
DX: E78.5 Hyperlipidemia, unspecified (principal); E11.22 Type 2 diabetes mellitus with diabetic chronic kidney disease
CPT/HCPCS: 36415; 80061; 83036; 83721

== ENCOUNTER 2018-01-07 10:13 | Outpatient (CLI) | payer MEDICARE ==
[2018-01-07 11:07] LABS: HB2 TOTAL 11.4 g/dL; HEMOGLOBIN A1C 0.66 g/dL; HEMOGLOBIN A1C % 7.4 % (4.6-6.2)
== END 2018-01-07 10:14 | disposition home or self-care (01) ==
LOC: LAB 10:13
PROVIDERS: ATTEND Nurse Practitioner
DX: E11.51 Type 2 diabetes mellitus with diabetic peripheral angiopathy without gangrene (principal)
CPT/HCPCS: 36415; 83036

== ENCOUNTER 2018-01-17 07:35 | Outpatient (CLI) | payer MEDICARE | END 2018-01-17 07:36 | disposition home or self-care (01) | LOC: LAB.F 07:35 | PROVIDERS: ATTEND Physician Assistant Medical | DX: N39.0 Urinary tract infection, site not specified (principal); R32 Unspecified urinary incontinence | CPT/HCPCS: 87086 ==

== ENCOUNTER 2018-01-28 10:12 | Outpatient (CLI) | payer MEDICARE ==
[2018-01-28 18:15] LABS: BILIRUBIN,TOTAL 0.6 mg/dL (0.2-1.0); CREATININE 1.6 mg/dL (0.4-1.0); TOTAL PROTEIN 5.9 g/dL (6.7-8.2)
== END 2018-01-28 10:13 | disposition home or self-care (01) ==
LOC: LAB.F 10:12
PROVIDERS: ATTEND Physician Assistant Medical
DX: E87.5 Hyperkalemia (principal); I50.9 Heart failure, unspecified; E83.42 Hypomagnesemia
CPT/HCPCS: 36415; 80053; 83735

== ENCOUNTER 2018-02-11 16:17 | Observation (INO) | payer MEDICARE ==
--- NOTE | 2018-02-11 16:53 | ED Physician Documentation ---
PD HPI CHEST PAIN - Stated complaint Stated Complaint: CHEST PX - Chief complaint Chief Complaint: Cardiac - History obtained from History obtained from: Patient - History of Present Illness Timing - onset: Other (82-year-old woman with history of non-STEMI which was treated conservatively with medication management only given underlying renal function per her description presents 3 days of intermittent chest pain. It feels like a thump in her chest and then she feels drained for a second. She also has some residual chest pain but nothing severe right now and shortness of breath. She also has chronic right-sided pedal edema.) Review of Systems Ten Systems: 10 systems reviewed and negative Constitutional: denies: Fever, Chills Nose: denies: Rhinorrhea / runny nose, Congestion Cardiac: reports: Chest pain / pressure, Palpitations, Pedal edema. denies: Calf pain Respiratory: reports: Dyspnea. denies: Cough GI: denies: Abdominal Pain, Nausea, Vomiting PD PAST MEDICAL HISTORY - Past Medical History Cardiovascular: Hypertension, High cholesterol Respiratory: Sleep apnea, CPAP use Endocrine/Autoimmune: Type 2 diabetes GI: Chronic diarrhea : None Psych: Anxiety Musculoskeletal: Osteoarthritis Derm: None - Past Surgical History Past Surgical History: Yes General: Cholecystectomy Ortho: Knee replacement, Spine surgery, Other /MDM SR: Hysterectomy, Other - Present Medications Home Medications: Ambulatory Orders Medication Instructions Recorded Confirmed traMADol [Ultram] 50 mg PO QID PRN 04/19/17 07/04/17 Ascorbic Acid [Vitamin C] 1,000 mg PO DAILY 05/07/17 07/04/17 Atorvastatin Calcium 40 mg PO QPM 05/07/17 07/04/17 Carvedilol 25 mg PO BID 05/07/17 07/04/17 Cholecalciferol (Vitamin D3) 2,000 units PO QPM 05/07/17 07/04/17 [Vitamin D3] Clopidogrel Bisulfate [Clopidogrel] 75 mg PO DAILY 05/07/17 07/04/17 Insulin NPH Human Isophane 15 units SUBQ QPM 05/07/17 07/04/17 [Humulin N] Isosorbide Mononitrate ER [Imdur] 60 mg PO BID 05/07/17 07/04/17 Nitroglycerin [Nitrostat] 0.4 mg PO Q5M PRN 05/07/17 07/04/17 Sertraline [Zoloft] 50 mg PO DAILY 05/07/17 07/04/17 Furosemide [Lasix] 20 mg PO DAILY 05/19/17 07/04/17 Potassium Chloride [Micro-K] 10 meq PO DAILY 05/19/17 07/04/17 Cholecalciferol (Vitamin D3) 5,000 units PO DAILY 06/08/17 07/04/17 [Vitamin D3] Cyclobenzaprine HCl 5 mg PO DAILY PRN 06/08/17 07/04/17 Lidocaine Cream 1 ea TOP DAILY PRN 06/08/17 07/04/17 Lisinopril 5 mg PO DAILY 06/08/17 07/04/17 Magnesium Oxide 400 mg PO 06/08/17 Ondansetron HCl [Zofran] 4 mg PO Q6H PRN 06/08/17 07/04/17 Spironolactone 25 mg PO 06/08/17 - Allergies Allergies/Adverse Reactions: Allergies Allergy/AdvReac Type Severity Reaction Status Date / Time adhesive tape AdvReac Mild Itching Verified 10/07/17 21:41 acetaminophen [From Tylenol] AdvReac Edema Verified 10/07/17 21:41 codeine AdvReac Unknown Verified 10/07/17 21:41 diazepam [From Valium] AdvReac Unknown Verified 10/07/17 21:41 Sulfa (Sulfonamide AdvReac Unknown Verified 10/07/17 21:41 Antibiotics) - Social History Does the pt smoke?: No Smoking Status: Never smoker Does the pt drink ETOH?: No Does the pt have substance abuse?: No - Immunizations Immunizations are current?: Yes - POLST Patient has POLST: Yes PD ED PE NORMAL - Vitals Vital signs reviewed: Yes - General General: Alert and oriented X 3, No acute distress - HEENT HEENT: PERRL, EOMI - Neck Neck: Supple, no meningeal sign, No bony TTP - Cardiac Cardiac: RRR, No murmur - Respiratory Respiratory: No respiratory distress, Clear bilaterally - Abdomen Abdomen: Non tender - Back Back: No CVA TTP, No spinal TTP - Extremities Extremities: Other (Asymmetric pedal edema, right greater than left that she says is chronic and unchanged from usual.) - Neuro Neuro: Alert and oriented X 3, Normal speech Results - Vitals Vitals: Vital Signs - 24 hr 02/11/18 16:26 Temperature 36.8 C Heart Rate 69 Respiratory 16 Rate Blood Pressure 134/55 H O2 Saturation 97 Oxygen O2 Source Room air - EKG (time done) 1628 Rate: Rate (enter#) (53) Rhythm: NSR Sutton: Normal Intervals: Normal NV QRS: Normal Ischemia: Normal ST segments Computer interpretation: Agree with computer - Labs Labs: Laboratory Tests 02/11/18 02/11/18 02/11/18 16:46 16:46 16:46 WBC 6.5 RBC 3.35 L Hgb 10.6 L Hct 31.1 L MCV 92.8 MCH 31.6 H MCHC 34.0 RDW 14.4 Plt Count 94 L MPV 10.5 Neut # (Auto) 2.7 Lymph # (Auto) 3.0 Archer # (Auto) 0.6 Eos # (Auto) 0.1 Baso # (Auto) 0.0 Absolute Nucleated RBC 0.00 Nucleated RBC % 0.1 Sodium 139 Potassium 4.4 Chloride 108 Carbon Dioxide 24 Anion Gap 7.0 BUN 58 H Creatinine 1.7 H Estimated GFR (MDRD) 29 L Glucose 177 H Calcium 9.3 Magnesium 1.8 Total Bilirubin 0.8 AST 23 ALT 17 Alkaline Phosphatase 86 Troponin I < 0.04 Total Protein 6.5 L Albumin 3.5 Globulin 3.0 Albumin/Globulin Ratio 1.2 Lipase 62 H PD MEDICAL DECISION MAKING - ED course ED course: 82-year-old woman with atypical intermittent chest pain for 3 days that on first blush actually sounded like PVCs but there are some historical factors that make it inconsistent including the fact that she still has some pain we have not really seen a lot of PVCs on the monitor. She has high risk and has ruled in under similar circumstances before and as such she will be placed in observation and I spoke with Dr. Gallegos at 5:50 PM. Departure - Departure Disposition: ED Place in Observation Clinical Impression: Chest pain Qualifiers: Chest pain type: unspecified Qualified Code(s): R07.9 - Chest pain, unspecified Condition: Stable
[2018-02-11 17:03] LABS: BASOPHILS % (AUTO) 0.3 %; EOSINOPHILS # (AUTO) 0.1 10^3/uL (0.0-0.7); EOSINOPHILS % (AUTO) 1.9 %; HGB - HEMOGLOBIN 10.6 g/dL (12.0-16.0); MEAN CORPUSCULAR HEMOGLOBIN 31.6 pg (27.0-31.0); MEAN CORPUSCULAR VOLUME 92.8 fL (81.0-99.0); MEAN PLATELET VOLUME 10.5 fL (7.9-10.8); MONOCYTES # (AUTO) 0.6 10^3/uL (0.0-1.0); MONOCYTES % (AUTO) 9.9 %; NEUTROPHILS # (AUTO) 2.7 10^3/uL (1.5-6.6); NEUTROPHILS % (AUTO) 41.9 %; PLT - PLATELET COUNT 94 10^3/uL (130-450); RED BLOOD COUNT 3.35 10^6/uL (4.20-5.40); RED CELL DISTRIBUTION WIDTH 14.4 % (12.0-15.0); WHITE BLOOD COUNT 6.5 x10^3/uL (4.8-10.8)
[2018-02-11 17:16] LABS: ALBUMIN 3.5 g/dL (3.2-5.5); ALBUMIN/GLOBULIN RATIO 1.2 (1.0-2.2); BILIRUBIN,TOTAL 0.8 mg/dL (0.2-1.0); CALCIUM 9.3 mg/dL (8.5-10.3); CREATININE 1.7 mg/dL (0.4-1.0); MAGNESIUM 1.8 mg/dL (1.7-2.8); TOTAL PROTEIN 6.5 g/dL (6.7-8.2)
--- NOTE | 2018-02-11 17:32 | XRAY Report ---
Reason: chest pain/soa Procedure Date: 02/11/2018 Accession Number: [id number] / [id number] Procedure: XR - Chest 2 View X-Ray CPT Code: 61807 FULL RESULT: EXAM: CHEST RADIOGRAPHY EXAM DATE: 02/11/2018 05:09 PM. CLINICAL HISTORY: Chest pain/shortness of air. COMPARISON: CHEST 2 VIEW 05/19/2017 10:56 PM. TECHNIQUE: 2 views. FINDINGS: Lungs/Pleura: No focal opacities evident. No pleural effusion. No pneumothorax. Normal volumes. Mediastinum: Stable mild cardiomegaly. Other: Lumbar hardware. IMPRESSION: Stable mild cardiomegaly. No acute findings are seen. [facility]
[2018-02-11] MEDS ORDERED: ASPIRIN CHEW 81 MG TABLET PO STA (17:51)
[2018-02-11] MEDS ORDERED: SODIUM CHLORIDE FLUSH 0.9% 10 ML SYRINGE IVP PRN (18:33)
[2018-02-11] MEDS ORDERED: traMADol 50 MG TABLET PO PRN (20:09)
[2018-02-11] MEDS ORDERED: NITROGLYCERIN SL 0.4 MG TABLET SL PRN (20:09)
[2018-02-11] MEDS ORDERED: CYCLOBENZAPRINE 10 MG TABLET PO PRN (20:09)
[2018-02-11] MEDS ORDERED: MORPHINE 2 MG/ML CARPUJECT IVP PRN (20:19)
[2018-02-11] MEDS ORDERED: SPIRONOLACTONE 25 MG TABLET PO SCH (21:00)
[2018-02-11] MEDS ORDERED: MAGNESIUM OXIDE 400 MG TABLET PO SCH (21:00)
[2018-02-11] MEDS ORDERED: CHOLECALCIFEROL 1,000 UNIT TABLET PO SCH (21:00)
[2018-02-11] MEDS ORDERED: ATORVASTATIN 40 MG TABLET PO SCH (21:00)
[2018-02-11] MEDS: INSULIN ASPART 300 UNIT/3 ML PEN SUBQ SCH (21:46)
[2018-02-11] MEDS: CARVEDILOL 12.5 MG TABLET PO SCH (22:01)
--- NOTE | 2018-02-12 00:05 | HISTORY & PHYSICAL EXAMINATION ---
Chief Complaint - Chief Complaint Chief Complaint: Chest pain History of Present Illness - Admitted From Admitted From:: Emergency department - History Obtained From Records Reviewed: Yes History obtained from: Patient Exam Limitations: None - History of Present Illness HPI Comment/Other: Patient is a very pleasant 82-year-old female with a past medical history significant for insulin-dependent diabetes mellitus, hypertension, hyperlipidemia, chronic kidney disease stage IV, history of CVA, peripheral neuropathy, osteoarthritis and history of coronary artery disease status post non-ST elevation CA in March 2017 with significant coronary disease but no angiogram or stent done due to the patient's kidney disease. She presents today to the emergency department with a chief complaint of chest pain. The patient states that things all started back in July when she had a couple of falls onto her back. She states that after that she started rehab and seems to be doing okay but then had an episode about 4-5 months ago where she had chest pain in the left side of her chest which lasted for a few minutes and resolved with nitroglycerin. She states that after that the chest pain went away and did not return again until this morning. She states that when she woke up this morning she just did not feel right. She states that she began having left-sided chest pain that was going across the left side of her chest. She states that it was about a 5 out of 10 in severity and a dull pain. She states that there was no associated nausea, diaphoresis or palpitations. She states that she took 2 nitroglycerin and the pain did not improve then she remembered that those were old nitroglycerin pills so that she went and got a new bottle of nitroglycerin after 1 more nitroglycerin she states that the symptoms resolved. She states that she continued to feel fatigued throughout the day then at around 3 PM this afternoon the chest pain returned. She states that it was a little bit different as it started under her left breast and made its way up the chest. She states that this time she had associated shortness of breath and a headache. She denies any nausea or diaphoresis. She denies any cough, fevers or chills. The patient states that this time she did not take nitroglycerin and came straight to the emergency department. She states the pain again was dull and about 4 or 5 out of 10. Patient denies any blurred vision, runny nose, sore throat, nasal congestion, difficulty swallowing, orthopnea, PND, increased lower extremity swelling, palpitations, abdominal pain, vomiting, diarrhea, constipation, urinary urgency, urinary frequency, dysuria, increasing joint swelling, joint pain, neck stif fness, recent unintentional weight loss, changes in her appetite, skin rashes, hair loss, polyuria, polydipsia, dizziness or any focal neurologic deficits. On presentation to the emergency department the patient was afebrile and slightly hypertensive otherwise the remainder of her vital signs are within normal limits. The patient underwent an EKG which showed a normal sinus rhythm without any evidence of ST elevations or ischemic changes. The patient also underwent routine lab work including a troponin which was less than 0.04. The patient's labs otherwise were remarkable for creatinine of 1.7 which was near her baseline. And a mild anemia with a hemoglobin of 10.6. Given the patient's chest pain and multiple risk factors the patient was placed in observation for rule out of acute coronary syndrome. History - Past Medical History Cardiovascular: reports: Hypertension, High cholesterol, CA Respiratory: reports: Pneumonia, Sleep apnea, CPAP use Neuro: reports: None, CVA, Peripheral neuropathy Endocrine/Autoimmune: reports: Type 2 diabetes, HyPOthyroidism GI: reports: Chronic diarrhea : reports: Incontinence, Renal insuffiency, Kidney stones HEENT: reports: None Psych: reports: Anxiety Musculoskeletal: reports: Osteoarthritis, Fatigue, Chronic back pain Derm: reports: None MRSA Hx?: No - Past Surgical History General: reports: Cholecystectomy, Appendectomy Ortho: reports: Knee replacement, Spine surgery, Other /ENVIRONMENTAL SERVICES TECHNICIAN: reports: Hysterectomy, Other - Family & Social History Family History: Mother: (father age 77 heart, mother age 83 CHF), Father: , CAD, Other family: Cancer (sibling: liver cancer), Diabetes, Type 1 (children) Living arrangement: At home Living Situation: With family Social History Notes: The patient lives with her son in [place], [place]. She is . She previously lived in the [facility] area, she moved up to [facility] in 2014 so that her son could take care of her after her . She had 3 children 1 of whom has . 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 She has never smoked, she does not drink alcohol and she denies any illicit drug use. - Substance History Use: Uses substance without health or social issues: NONE (never smoker) - POLST Patient has POLST: Yes POLST Status: Full Code Meds/Allgy - Home Medications Home Medications: Ambulatory Orders Medication Instructions Recorded Confirmed traMADol [Ultram] 50 mg PO QID PRN 04/19/17 02/11/18 Atorvastatin Calcium 40 mg PO QPM 05/07/17 02/11/18 Carvedilol 25 mg PO BID 05/07/17 02/11/18 Cholecalciferol (Vitamin D3) 2,000 units PO QPM 05/07/17 02/11/18 [Vitamin D3] Clopidogrel Bisulfate [Clopidogrel] 75 mg PO DAILY 05/07/17 02/11/18 Insulin NPH Human Isophane 15 units SUBQ QPM 05/07/17 07/04/17 [Humulin N] Isosorbide Mononitrate ER [Imdur] 120 mg PO QDAC 05/07/17 02/11/18 Nitroglycerin [Nitrostat] 0.4 mg PO Q5M PRN 05/07/17 02/11/18 Sertraline [Zoloft] 50 mg PO DAILY 05/07/17 02/11/18 Furosemide [Lasix] 20 mg PO DAILY 05/19/17 02/11/18 Cholecalciferol (Vitamin D3) 1,000 units PO DAILY 06/08/17 02/11/18 [Vitamin D3] Cyclobenzaprine HCl 5 mg PO DAILY PRN 06/08/17 02/11/18 Lidocaine Cream 1 ea TOP DAILY PRN 06/08/17 02/11/18 Lisinopril 5 mg PO DAILY 06/08/17 02/11/18 Magnesium Oxide 400 mg PO QPM 06/08/17 02/11/18 Ondansetron HCl [Zofran] 4 mg PO Q6H PRN 06/08/17 02/11/18 Spironolactone 25 mg PO QPM 06/08/17 02/11/18 - Allergies Allergies/Adverse Reactions: Allergies Allergy/AdvReac Type Severity Reaction Status Date / Time adhesive tape AdvReac Mild Itching Verified 10/07/17 21:41 acetaminophen [From Tylenol] AdvReac Edema Verified 10/07/17 21:41 codeine AdvReac Unknown Verified 10/07/17 21:41 diazepam [From Valium] AdvReac Unknown Verified 10/07/17 21:41 Sulfa (Sulfonamide AdvReac Unknown Verified 10/07/17 21:41 Antibiotics) Review of Systems - Other Findings Other Findings: A comprehensive review of systems was performed the pertinent positives and negatives are stated above in the HPI and the remainder of the review of systems is negative. Prior Level of Functionality: The patient uses a walker at home and lives with her son. She has good support at home and she is still fairly independent with all her activities of daily living. Exam - Vital Signs Reviewed Vital Signs: Yes Vital Signs: Vital Signs x48h Temp Pulse Pulse Resp BP BP Pulse Ox 02/11/18 19:43 36.9 C 60 18 174/59 H 99 02/11/18 19:00 55 L 18 177/58 H 98 02/11/18 18:45 68 18 179/70 H 02/11/18 17:00 64 18 161/88 H 98 02/11/18 16:26 36.8 C 69 16 134/55 H 97 - Physical Exam General Appearance: positive: No acute distress, Alert Eyes Bilateral: positive: Normal inspection, PERRL, EOMI, No lid inflammation, Conjunctivae nml, No scleral icterus ENT: positive: ENT inspection nml, Pharynx nml, No signs of dehydration. negative: Purulent nasal drainage, Pharyngeal erythema, Oral lesions Neck: positive: Nml inspection, Thyroid nml, No JVD, Trachea midline. negative: Thyromegaly, Lymphadenopathy (R), Lymphadenopathy (L), Stiff neck, Carotid bruit, Tracheal deviation Respiratory: positive: Chest non-tender, No respiratory distress, Breath sounds nml. negative: Wheezes, Rales, Rhonchi Cardiovascular: positive: Regular rate & rhythm, No murmur, No gallop Peripheral Pulses: positive: 2+ Abdomen: positive: Non-tender, No organomegaly, Nml bowel sounds, No distention. negative: Guarding, Rebound, Hepatomegaly Back: positive: Nml inspection. negative: CVA tenderness (R), CVA tenderness (L) Skin: positive: Color nml, No rash, Warm, Dry. negative: Cyanosis, Diaphoresis, Pallor Extremities: positive: Non-tender, Full ROM, Nml appearance, No pedal edema Neurologic/Psychiatric: positive: Oriented x3, CN's nml (2-12), Motor nml, Sensation nml, Mood/affect nml Conclusion/Plan - Problem List (1) Chest pain Conclusion/Plan: The patient presents with left-sided chest pain that occurred at rest. She had an episode earlier in the day which resolved with 3 tablets of nitroglycerin. She had a second episode in the afternoon and came to the emergency department. The patient has multiple risk factors for coronary artery disease including history of coronary artery disease with an non-ST elevation CA in March 2017 with likely coronary artery disease but no angiogram performed secondary to the patient's CKD as she would not be a candidate for stents. The patient also has hypertension, hyperlipidemia and diabetes. The patient's chest pain had both typical and atypical features. Likely the patient has having angina. Plan: Serial troponins x3 Echocardiogram Titration of the patient's Imdur and carvedilol for better control of her anginal pain Nitroglycerin as needed Morphine as needed Aspirin, Plavix, Coreg and Lipitor Qualifiers: Chest pain type: unspecified Qualified Code(s): R07.9 - Chest pain, unspecified (2) History of coronary artery disease Conclusion/Plan: The patient has a history of coronary artery disease with a non-ST elevation CA in March 2017. At that time patient could not undergo coronary angiogram as she had poor kidney function. The patient is being medically managed for coronary artery disease. Currently the patient is on optimal medical management with Plavix, Coreg and Lipitor. We will continue these medications while the patient is hospitalized and get an echocardiogram as well as serial troponins. (3) Diabetes Conclusion/Plan: Patient has a history of type 2 diabetes mellitus on insulin. The patient presented to the emergency room department for chest pain and had a blood glucose of 177 on presentation. Plan: Continue patient's home dose of long acting insulin Sliding scale insulin with meals Diabetic diet Check hemoglobin A1c Check blood glucose before meals at bedtime Qualifiers: Diabetes mellitus type: type 2 Diabetes mellitus intermediate accountant insulin use: with intermediate accountant use Diabetes mellitus complication status: with hyperglycemia Qualified Code(s): E11.65 - Type 2 diabetes mellitus with hyperglycemia; Z79.4 - intermediate (current) use of insulin (4) CKD (chronic kidney disease) stage 4, GFR 15-29 ml/min Conclusion/Plan: The patient has a history of chronic kidney disease. Her GFR on presentation is 29 which is consistent with CKD stage IV. The patient had a non-ST elevation CA in March 2017 at which time cardiology decided against doing a coronary angiogram or placing any stents due to the patient's advanced kidney disease. The patient is being medically managed for her coronary artery disease. The patient has no indications for dialysis. Plan: Avoid nephrotoxic agents Monitor kidney function Monitor urine output. (5) Hypertension Conclusion/Plan: The patient has a history of hypertension. The patient's blood pressure on presentation was elevated in the 170s. The patient will be placed on her home blood pressure medications and we will continue to monitor the patient's blood pressure and titrate medications as needed. Qualifiers: Hypertension type: essential hypertension Qualified Code(s): I10 - Essential (primary) hypertension (6) Hyperlipidemia Conclusion/Plan: Patient has a history of hyperlipidemia and uses statin at home. The patient will be continued on statin while she is hospitalized. We will check a lipid profile in the morning. Qualifiers: Hyperlipidemia type: unspecified Qualified Code(s): E78.5 - Hyperlipidemia, unspecified - Lab Results Lab results reviewed: Yes Fish Bones: 02/11/18 16:46 02/11/18 16:46 Other Lab Results: Laboratory Results WBC 6.5 x10^3/uL (4.8-10.8) 02/11/18 16:46 RBC 3.35 10^6/uL (4.20-5.40) L 02/11/18 16:46 Hgb 10.6 g/dL (12.0-16.0) L 02/11/18 16:46 Hct 31.1 % (37.0-47.0) L 02/11/18 16:46 MCV 92.8 fL (81.0-99.0) 02/11/18 16:46 MCH 31.6 pg (27.0-31.0) H 02/11/18 16:46 MCHC 34.0 g/dL (32.0-36.0) 02/11/18 16:46 RDW 14.4 % (12.0-15.0) 02/11/18 16:46 Plt Count 94 10^3/uL (130-450) L 02/11/18 16:46 MPV 10.5 fL (7.9-10.8) 02/11/18 16:46 Neut # (Auto) 2.7 10^3/uL (1.5-6.6) 02/11/18 16:46 Lymph # (Auto) 3.0 10^3/uL (1.5-3.5) 02/11/18 16:46 [place] # (Auto) 0.6 10^3/uL (0.0-1.0) 02/11/18 16:46 Eos # (Auto) 0.1 10^3/uL (0.0-0.7) 02/11/18 16:46 Baso # (Auto) 0.0 10^3/uL (0.0-0.1) 02/11/18 16:46 Absolute Nucleated RBC 0.00 x10^3/uL 02/11/18 16:46 Nucleated RBC % 0.1 /100WBC 02/11/18 16:46 Sodium 139 mmol/L (135-145) 02/11/18 16:46 Potassium 4.4 mmol/L (3.5-5.0) 02/11/18 16:46 Chloride 108 mmol/L (101-111) 02/11/18 16:46 Carbon Dioxide 24 mmol/L (21-32) 02/11/18 16:46 Anion Gap 7.0 (6-13) 02/11/18 16:46 BUN 58 mg/dL (6-20) H 02/11/18 16:46 Creatinine 1.7 mg/dL (0.4-1.0) H 02/11/18 16:46 Estimated GFR (MDRD) 29 (>89) L 02/11/18 16:46 Glucose 177 mg/dL (70-100) H 02/11/18 16:46 POC Whole Bld Glucose 127 mg/dL (70 - 100) H 02/11/18 20:40 Calcium 9.3 mg/dL (8.5-10.3) 02/11/18 16:46 Magnesium 1.8 mg/dL (1.7-2.8) 02/11/18 16:46 Total Bilirubin 0.8 mg/dL (0.2-1.0) 02/11/18 16:46 AST 23 IU/L (10-42) 02/11/18 16:46 ALT 17 IU/L (10-60) 02/11/18 16:46 Alkaline Phosphatase 86 IU/L (42-121) 02/11/18 16:46 Troponin I < 0.04 ng/mL (<0.49) 02/11/18 16:46 Total Protein 6.5 g/dL (6.7-8.2) L 02/11/18 16:46 Albumin 3.5 g/dL (3.2-5.5) 02/11/18 16:46 Globulin 3.0 g/dL (2.1-4.2) 02/11/18 16:46 Albumin/Globulin Ratio 1.2 (1.0-2.2) 02/11/18 16:46 Lipase 62 U/L (22-51) H 02/11/18 16:46 - Diagnostic Imaging Results Diagnostic Imaging Results: positive: Final report reviewed Diagnostic Imaging Results Comments: Chest x-ray Impression: Stable mild cardiomegaly. No acute findings are seen. - EKG Results EKG Interpreted Independently: Yes EKG Findings: Normal sinus rhythm with no ST elevations or ischemic changes. Core Measures - Anticipated LOS I expect patient to be DC'd or transferred within 96 hours.: Yes - DVT/VTE - Prophylaxis VTE/DVT Device ordered at admit?: Yes
[2018-02-12] MEDS: SODIUM CHLORIDE FLUSH 0.9% 10 ML SYRINGE IVP SCH ×2 (00:14→09:22)
[2018-02-12] MEDS ORDERED: ISOSORBIDE MONONITRATE ER 30 MG TABLET PO SCH (07:00)
[2018-02-12 07:05] LABS: BASOPHILS % (AUTO) 0.4 %; EOSINOPHILS # (AUTO) 0.1 10^3/uL (0.0-0.7); EOSINOPHILS % (AUTO) 1.9 %; HGB - HEMOGLOBIN 10.4 g/dL (12.0-16.0); LYMPHOCYTES # (AUTO) 2.8 10^3/uL (1.5-3.5); LYMPHOCYTES % (AUTO) 46.7 %; MEAN CORPUSCULAR HEMOGLOBIN 31.6 pg (27.0-31.0); MEAN CORPUSCULAR HGB CONC 33.7 g/dL (32.0-36.0); MEAN PLATELET VOLUME 10.6 fL (7.9-10.8); MONOCYTES # (AUTO) 0.7 10^3/uL (0.0-1.0); MONOCYTES % (AUTO) 11.2 %; NEUTROPHILS # (AUTO) 2.4 10^3/uL (1.5-6.6); NEUTROPHILS % (AUTO) 39.8 %; PLT - PLATELET COUNT 86 10^3/uL (130-450); RED BLOOD COUNT 3.28 10^6/uL (4.20-5.40); RED CELL DISTRIBUTION WIDTH 14.4 % (12.0-15.0)
[2018-02-12 07:23] LABS: ALBUMIN 3.1 g/dL (3.2-5.5); ALBUMIN/GLOBULIN RATIO 1.1 (1.0-2.2); ALKALINE PHOSPHATASE 79 IU/L (42-121); ALT ALANINE AMINOTRANSFERASE 16 IU/L (10-60); AST ASPARTATE AMINOTRANSFERASE 21 IU/L (10-42); BILIRUBIN,TOTAL 0.8 mg/dL (0.2-1.0); BUN - BLOOD UREA NITROGEN 49 mg/dL (6-20); CALCIUM 9.3 mg/dL (8.5-10.3); CARBON DIOXIDE - CO2 23 mmol/L (21-32); CHLORIDE 107 mmol/L (101-111); CHOL/HDL RATIO 2.9 (<4.4); CHOLESTEROL 144 mg/dL; CREATININE 1.4 mg/dL (0.4-1.0); GFR - MDRD 36 (>89); GLUCOSE 197 mg/dL (70-100); HDL CHOLESTEROL 49 mg/dL; LDL CHOLESTEROL,CALCULATED 76 mg/dL; LDL/HDL RATIO 1.6 (<4.4); SODIUM 136 mmol/L (135-145); TOTAL PROTEIN 5.9 g/dL (6.7-8.2); VLDL CHOLESTEROL 19 mg/dL
[2018-02-12 07:33] LABS: HB2 TOTAL 10.4 g/dL; HEMOGLOBIN A1C 0.53 g/dL; HEMOGLOBIN A1C % 6.8 % (4.6-6.2)
[2018-02-12] MEDS ORDERED: ASPIRIN 325 MG TABLET PO SCH (08:00)
[2018-02-12] MEDS: INSULIN ASPART 300 UNIT/3 ML PEN SUBQ SCH ×2 (08:07→12:08)
[2018-02-12] MEDS ORDERED: CLOPIDOGREL 75 MG TABLET PO SCH (09:00)
[2018-02-12] MEDS ORDERED: POLYETHYLENE GLYCOL 3350 17 GM PACKET PO SCH (09:00)
[2018-02-12] MEDS ORDERED: CHOLECALCIFEROL 1,000 UNIT TABLET PO SCH (09:00)
[2018-02-12] MEDS ORDERED: LISINOPRIL 5 MG TABLET PO SCH (09:00)
[2018-02-12] MEDS ORDERED: SERTRALINE 50 MG TABLET PO SCH (09:00)
[2018-02-12] MEDS ORDERED: FUROSEMIDE 20 MG TABLET PO SCH (09:00)
[2018-02-12] MEDS: CARVEDILOL 12.5 MG TABLET PO SCH (09:21)
--- NOTE | 2018-02-12 11:42 | Discharge Plan ---
Discharge Plan Disposition: Home, Self Care Condition: Stable Prescriptions: hydrALAZINE [Apresoline] 25 mg PO BID #60 tablet Ranolazine [Ranexa] 500 mg PO BID #30 tab.er.12h Diet: Cardiac Activity Restrictions: Activity as Tolerated Shower Restrictions: No Driving Restrictions: No Weight Bearing: Full Weight Additional Instructions or Follow Up instructions: May f/u with PCP in 1-2 weeks. Has appt with [facility] in march but would need one sooner with an ECHO to follow. No Smoking: If you smoke, Please STOP! Call for help. Follow-up with: Cordelia Pendleton PA-C [Primary Care Provider] - (In 1-2 weeks )
[2018-02-12] MEDS ORDERED: hydrALAZINE 25 MG TABLET PO SCH (12:00)
[2018-02-12] MEDS ORDERED: NON FORMULARY MED PO SCH (12:00)
--- NOTE | 2018-02-12 12:23 | DISCHARGE SUMMARY ---
"Discharge Summary Admit Date: 02/11/18 Discharge Date: 02/12/18 Discharging Provider: Dr. Cassidy Primary Care Provider: Dr. Cordelia Pendleton Condition at Discharge: Stable Discharge Disposition: 01 Home, Self Care - DIAGNOSES Admission Diagnoses: Acute recurrent unstable chronic angina Discharge Diagnoses with Status of Each Condition: Chronic Stable Angina improved on Ranexa Chronic diastolic HF on hydralazine, coreg and Isosorbide - HPI History of Present Illness: Patient is a very pleasant 82-year-old female with a past medical history significant for insulin-dependent diabetes mellitus, hypertension, hype rlipidemia, chronic kidney disease stage IV, history of CVA, peripheral neuropathy, osteoarthritis and history of coronary artery disease status post non-ST elevation [place] in March 2017 with significant coronary disease but no angiogram or stent done due to the patient's kidney disease. She presents today to the emergency department with a chief complaint of chest pain. The patient states that things all started back in July when she had a couple of falls onto her back. She states that after that she started rehab and seems to be doing okay but then had an episode about 4-5 months ago where she had chest pain in the left side of her chest which lasted for a few minutes and resolved with nitroglycerin. She states that after that the chest pain went away and did not return again until this morning. She states that when she woke up this morning she just did not feel right. She states that she began having left-sided chest pain that was going across the left side of her chest. She states that it was about a 5 out of 10 in severity and a dull pain. She states that there was no a ssociated nausea, diaphoresis or palpitations. She states that she took 2 nitroglycerin and the pain did not improve then she remembered that those were old nitroglycerin pills so that she went and got a new bottle of nitroglycerin after 1 more nitroglycerin she states that the symptoms resolved. She states that she continued to feel fatigued throughout the day then at around 3 PM this afternoon the chest pain returned. She states that it was a little bit different as it started under her left breast and made its way up the chest. She states that this time she had associated shortness of breath and a headache. She denies any nausea or diaphoresis. She denies any cough, fevers or chills. The patient states that this time she did not take nitroglycerin and came straight to the emergency department. She states the pain again was dull and about 4 or 5 out of 10. Patient denies any blurred vision, runny nose, sore throat, nasal congestion, difficulty swallowing, orthopnea, PND, increased lower extremity swelling, palpitations, abdominal pain, vomiting, diarrhea, constipation, urinary urgency, urinary frequency, dysuria, increasing joint swelling, joint pain, neck stiffness, recent unintentional weight loss, changes in her appetite, skin rashes, hair loss, polyuria, polydipsia, dizziness or any focal neurologic deficits. On presentation to the emergency department the patient was afebrile and slightly hypertensive otherwise the remainder of her vital signs are within norm al limits. The patient underwent an EKG which showed a normal sinus rhythm without any evidence of ST elevations or ischemic changes. The patient also underwent routine lab work including a troponin which was less than 0.04. The patient's labs otherwise were remarkable for creatinine of 1.7 which was near her baseline. And a mild anemia with a hemoglobin of 10.6. Given the patient's chest pain and multiple risk factors the patient was placed in observation for rule out of acute coronary syndrome. 02/12/18: Patient CP free, hx CKD stge 4, not candidate for Angio/cath, chronic UA and Diast HF with BNP 292, CXR shows no decompensation, CBC stable, trop x 3 neg, ECHO no service today. Would benefit from Hydralazine 25mg po bid for afterload reduction, continue with Lisinopril, lasix but would not advise to uptitrate due to CKD-4, Cr 1.4. BP elevated 166/50, AF, Rx ranexa as outpatient. August f/u with PCP in 1-2 weeks. Has appt with [facility] in march but would need one sooner with an ECHO to follow. - CONSULTS | PROCEDURES Consultations: None Procedures: None - HOSPITAL COURSE Hospital Course: Patient was medically managed for chronic stable UA. Afterload reduction ind icated in the setting of Diastolic Grade 1/2 HF. No prior echo on Incentivyze and would benefit from Ranexa 500 mg PO BID, hydralazine for afterload reduction, continue all home meds. August f/u with PCP in 1-2 weeks. Has appt with [facility] in march but would need one sooner with an ECHO to follow. - ALLERGIES Allergies/Adverse Reactions: Allergies Allergy/AdvReac Type Severity Reaction Status Date / Time adhesive tape AdvReac Mild Itching Verified 10/07/17 21:41 acetaminophen [From Tylenol] AdvReac Edema Verified 10/07/17 21:41 codeine AdvReac Unknown Verified 10/07/17 21:41 diazepam [From Valium] AdvReac Unknown Verified 10/07/17 21:41 Sulfa (Sulfonamide AdvReac Unknown Verified 10/07/17 21:41 Antibiotics) - MEDICATIONS Home Medications: Ambulatory Orders Medication Instructions Recorded Confirmed traMADol [Ultram] 50 mg PO QID PRN 04/19/17 02/11/18 Atorvastatin Calcium 40 mg PO QPM 05/07/17 02/11/18 Cholecalciferol (Vitamin D3) 2,000 units PO QPM 05/07/17 02/11/18 [Vitamin D3] Clopidogrel Bisulfate [Clopidogrel] 75 mg PO DAILY 05/07/17 02/11/18 Insulin NPH Human Isophane 8 - 15 units SUBQ QPM 05/07/17 02/12/18 [Humulin N] Isosorbide Mononitrate ER [Imdur] 120 mg PO QDAC 05/07/17 02/11/18 Nitroglycerin [Nitrostat] 0.4 mg PO Q5M PRN 05/07/17 02/11/18 Sertraline [Zoloft] 50 mg PO DAILY 05/07/17 02/11/18 Furosemide [Lasix] 20 mg PO DAILY 05/19/17 02/11/18 Cholecalciferol (Vitamin D3) 1,000 units PO DAILY 06/08/17 02/11/18 [Vitamin D3] Cyclobenzaprine HCl 5 mg PO DAILY PRN 06/08/17 02/11/18 Lidocaine Cream 1 ea TOP DAILY PRN 06/08/17 02/11/18 Lisinopril 5 mg PO DAILY 06/08/17 02/11/18 Magnesium Oxide 400 mg PO QPM 06/08/17 02/11/18 Ondansetron HCl [Zofran] 4 mg PO Q6H PRN 06/08/17 02/11/18 Spironolactone 25 mg PO QPM 02/16/18 10/22/18 Carvedilol 25 mg PO BID 02/12/18 02/12/18 Ranolazine [Ranexa] 500 mg PO BID #30 tab.er.12h 02/12/18 hydrALAZINE [Apresoline] 25 mg PO BID #60 tablet 02/12/18 - PHYSICAL EXAM AT DISCHARGE General Appearance: positive: No acute distress Eyes Bilateral: positive: Normal inspection ENT: positive: ENT inspection nml Neck: positive: Nml inspection. negative: No JVD, Thyromegaly Respiratory: positive: Chest non-tender, Breath sounds nml. negative: No respiratory distress, Wheezes, Rales, Rhonchi Cardiovascular: positive: Regular rate & rhythm, No murmur, No gallop, JVD present. negative: Irregularly irregular, Tachycardia Peripheral Pulses: positive: 2+ Abdomen: positive: Non-tender, Nml bowel sounds, No distention, Tenderness. negative: No organomegaly Extremities: positive: Non-tender, Full ROM, No pedal edema. negative: Joint swelling - LABS Result Diagrams: 02/12/18 06:55 02/12/18 06:55 - DIAGNOSTIC IMAGING Diagnostic Imaging Results: Final report reviewed - FOLLOW UP Follow Up: August f/u with PCP in Dr. Cordelia Pendleton 1-2 weeks. Has appt with [facility] in march but would need one sooner with an ECHO to follow. - TIME SPENT Time Spent in Discharge (Minutes): 35"
[2018-02-12 13:17] VITALS: BP 144/49
[2018-02-12] MEDS ORDERED: INSULIN GLARGINE 300 UNIT/3 ML PEN SUBQ SCH (21:00)
== END 2018-02-12 13:36 | disposition home or self-care (01) ==
LOC: ED 16:17 → OBS 18:33
PROVIDERS: ADMIT Internal Medicine; ATTEND Family Medicine
DX: I25.119 Atherosclerotic heart disease of native coronary artery with unspecified angina pectoris (principal); N18.4 Chronic kidney disease, stage 4 (severe); I13.0 Hypertensive heart and chronic kidney disease with heart failure and stage 1 through stage 4 chronic kidney disease, or unspecified chronic kidney disease; I50.32 Chronic diastolic (congestive) heart failure; E11.22 Type 2 diabetes mellitus with diabetic chronic kidney disease; E11.42 Type 2 diabetes mellitus with diabetic polyneuropathy; E11.65 Type 2 diabetes mellitus with hyperglycemia; Z79.4 Long term (current) use of insulin; E78.5 Hyperlipidemia, unspecified; Z86.73 Personal history of transient ischemic attack (TIA), and cerebral infarction without residual deficits; I25.2 Old myocardial infarction; G47.30 Sleep apnea, unspecified; E03.9 Hypothyroidism, unspecified; Z79.02 Long term (current) use of antithrombotics/antiplatelets; M19.90 Unspecified osteoarthritis, unspecified site
CPT/HCPCS: 36415; 71046; 80053; 80061; 83036; 83690; 83735; 83880; 84484; 85025; 93005; 99284; A9270; G0378; 83721

== ENCOUNTER 2018-02-15 11:24 | Outpatient (CLI) | payer MEDICARE ==
[2018-02-15 18:11] LABS: HGB - HEMOGLOBIN 10.9 g/dL (12.0-16.0); MEAN CORPUSCULAR HEMOGLOBIN 31.6 pg (27.0-31.0); MEAN CORPUSCULAR HGB CONC 33.4 g/dL (32.0-36.0); MEAN CORPUSCULAR VOLUME 94.7 fL (81.0-99.0); MEAN PLATELET VOLUME 11.1 fL (7.9-10.8); RED BLOOD COUNT 3.45 10^6/uL (4.20-5.40); RED CELL DISTRIBUTION WIDTH 14.3 % (12.0-15.0); WHITE BLOOD COUNT 8.4 x10^3/uL (4.8-10.8)
[2018-02-15 19:00] LABS: CREATININE,URINE 101.9 mg/dL; PROTEIN/CREATININE RATIO,URINE 1.7 (<=0.2)
== END 2018-02-15 11:25 | disposition home or self-care (01) ==
LOC: LAB.F 11:24
PROVIDERS: ATTEND Internal Medicine Nephrology
DX: D70.9 Neutropenia, unspecified (principal); R80.9 Proteinuria, unspecified
CPT/HCPCS: 36415; 82570; 84156; 85027

== ENCOUNTER 2018-03-04 10:03 | Outpatient (CLI) | payer MEDICARE | END 2018-03-04 10:04 | disposition home or self-care (01) | LOC: LAB.F 10:03 | PROVIDERS: ATTEND Physician Assistant Medical | DX: E03.9 Hypothyroidism, unspecified (principal) | CPT/HCPCS: 36415; 84443 ==

== ENCOUNTER 2018-03-23 16:23 | Emergency (ER) | payer MEDICARE ==
[2018-03-23] MEDS ORDERED: ALBUTEROL NEB 2.5 MG/3 ML INH STA ×2 (16:40→17:50)
[2018-03-23] MEDS ORDERED: SODIUM CHLORIDE 0.9% 1,000 ML IV ONE (16:41)
--- NOTE | 2018-03-23 16:49 | ED Physician Documentation ---
PD HPI URI - Stated complaint Stated Complaint: SOA/CP/GREEN MUCUS - Chief complaint Chief Complaint: Resp - History obtained from History obtained from: Patient, Family () - History of Present Illness Timing - onset: How many days ago (3-4) Timing duration: Days (3-4) Timing details: Abrupt onset, Still present Associated symptoms: Fever, Chills, Nasal congestion, Productive cough (green), Dyspnea, Bilateral edema (chronic, not increased over baseline). No: Hemoptysis, NVD Contributing factors: Sick contact (her had URI symptoms last week and still with some cough, but improving.) Similar symptoms before: Diagnosis (had pneumonia last March (year ago) but no ongoing lung problems in the interval.) Recently seen: Not recently seen Review of Systems Constitutional: reports: Fever, Chills, Myalgias Nose: reports: Rhinorrhea / runny nose, Congestion Throat: denies: Sore throat Cardiac: denies: Chest pain / pressure, Palpitations Respiratory: reports: Dyspnea, Cough, Wheezing GI: denies: Abdominal Pain, Nausea, Vomiting : denies: Dysuria, Frequency Skin: denies: Rash, Lesions 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 denies: Focal weakness, Numbness, Near syncope, Altered mental status Endocrine: reports: Easy bruising / bleeding. denies: Weight loss Immunocompromised: denies: Immunocompromised PD PAST MEDICAL HISTORY - Past Medical History Cardiovascular: Hypertension, High cholesterol, [place] Respiratory: Pneumonia, Sleep apnea, CPAP use Neuro: None, CVA, Peripheral neuropathy Endocrine/Autoimmune: Type 2 diabetes, HyPOthyroidism GI: Chronic diarrhea : Incontinence, Renal insuffiency, Kidney stones HEENT: None Psych: Anxiety Musculoskeletal: Osteoarthritis, Fatigue, Chronic back pain Derm: None - Past Surgical History Past Surgical History: Yes General: Cholecystectomy, Appendectomy Ortho: Knee replacement, Spine surgery, 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, Other - Present Medications Home Medications: Ambulatory Orders Medication Instructions Recorded Confirmed traMADol [Ultram] 50 mg PO QID PRN 04/19/17 02/11/18 Atorvastatin Calcium 40 mg PO QPM 05/07/17 02/11/18 Cholecalciferol (Vitamin D3) 2,000 units PO QPM 05/07/17 02/11/18 [Vitamin D3] Clopidogrel Bisulfate [Clopidogrel] 75 mg PO DAILY 05/07/17 02/11/18 Insulin NPH Human Isophane 8 - 15 units SUBQ QPM 05/07/17 02/12/18 [Humulin N] Isosorbide Mononitrate ER [Imdur] 120 mg PO QDAC 05/07/17 02/11/18 Nitroglycerin [Nitrostat] 0.4 mg PO Q5M PRN 05/07/17 02/11/18 Sertraline [Zoloft] 50 mg PO DAILY 05/07/17 02/11/18 Furosemide [Lasix] 20 mg PO DAILY 05/19/17 02/11/18 Cholecalciferol (Vitamin D3) 1,000 units PO DAILY 06/08/17 02/11/18 [Vitamin D3] Cyclobenzaprine HCl 5 mg PO DAILY PRN 06/08/17 02/11/18 Lidocaine Cream 1 ea TOP DAILY PRN 06/08/17 02/11/18 Lisinopril 5 mg PO DAILY 06/08/17 02/11/18 Magnesium Oxide 400 mg PO QPM 06/08/17 02/11/18 Ondansetron HCl [Zofran] 4 mg PO Q6H PRN 06/08/17 02/11/18 Spironolactone 25 mg PO QPM 06/08/17 02/11/18 Carvedilol 25 mg PO BID 02/12/18 02/12/18 Ranolazine [Ranexa] 500 mg PO BID #30 tab.er.12h 02/12/18 hydrALAZINE [Apresoline] 25 mg PO BID #60 tablet 02/12/18 Albuterol 2.5 mg INH Q4H PRN #30 neb 03/23/18 Albuterol Sulf [Ventolin Hfa 1 - 2 puffs INH Q4HR PRN #1 inhaler 03/23/18 Inhaler] Benzonatate [Tessalon Perle] 100 - 200 mg PO TID PRN #30 capsule 03/23/18 Doxycycline Hyclate 100 mg PO BID #20 capsule 03/23/18 - Allergies Allergies/Adverse Reactions: Allergies Allergy/AdvReac Type Severity Reaction Status Date / Time adhesive tape AdvReac Mild Itching Verified 03/23/18 16:37 acetaminophen [From Tylenol] AdvReac Edema Verified 03/23/18 16:37 codeine AdvReac Unknown Verified 03/23/18 16:37 diazepam [From Valium] AdvReac Unknown Verified 03/23/18 16:37 Sulfa (Sulfonamide AdvReac Unknown Verified 03/23/18 16:37 Antibiotics) - Social History Does the pt smoke?: No Smoking Status: Never smoker Does the pt drink ETOH?: No Does the pt have substance abuse?: No - Family History Family history: reports: CAD - Immunizations Immunizations are current?: Yes - POLST Patient has POLST: Yes POLST Status: Full Code PD ED PE NORMAL - General General: Alert and oriented X 3, Well developed/nourished - HEENT HEENT: Moist mucous membranes, Pharynx benign - Neck Neck: Supple, no meningeal sign, No adenopathy - Cardiac Cardiac: RRR, No murmur - Respiratory Respiratory: No: Clear bilaterally (diffuse wheezing mild to moderate. Central/hilar congestion sounds. Peripheral without coarse sounds. No crackles at the bases. ) - Abdomen Abdomen: Soft, Non tender - Back Back: No CVA TTP - Derm Derm: Normal color, Warm and dry - Extremities Extremities: Normal ROM s pain, No calf tenderness / cord, Other (1+ edema in both lower legs. No redness nor tenderness. ) - Neuro Neuro: Alert and oriented X 3, No motor deficit, Normal speech Results - Vitals Vitals: Vital Signs - 24 hr 03/23/18 03/23/18 03/23/18 16:33 17:04 17:56 Temperature 36.8 C Heart Rate 72 66 59 L Respiratory 18 16 16 Rate Blood Pressure 129/47 L 119/54 L O2 Saturation 94 93 Oxygen O2 Source Room air - Labs Labs: Laboratory Tests 03/23/18 03/23/18 03/23/18 17:00 17:00 17:00 WBC 6.7 RBC 2.92 L Hgb 9.3 L Hct 27.8 L MCV 95.1 MCH 31.8 H MCHC 33.4 RDW 14.4 Plt Count 98 L MPV 10.5 Neut # (Auto) 3.5 Lymph # (Auto) 2.2 Irion # (Auto) 1.0 Eos # (Auto) 0.0 Baso # (Auto) 0.0 Absolute Nucleated RBC 0.00 Nucleated RBC % 0.0 Sodium 134 L Potassium 3.7 Chloride 106 Carbon Dioxide 21 Anion Gap 7.0 BUN 45 H Creatinine 2.0 H Estimated GFR (MDRD) 24 L Glucose 256 H Lactic Acid Calcium 8.5 Magnesium 1.6 L Total Bilirubin 0.8 AST 37 ALT 27 Alkaline Phosphatase 94 B-Natriuretic Peptide 280 H Total Protein 5.8 L Albumin 2.7 L Globulin 3.1 Albumin/Globulin Ratio 0.9 L Lipase 31 Influenza A (Rapid) Influenza B (Rapid) 03/23/18 03/23/18 17:00 17:15 WBC RBC Hgb Hct MCV MCH MCHC RDW Plt Count MPV Neut # (Auto) Lymph # (Auto) [place] # (Auto) Eos # (Auto) Baso # (Auto) Absolute Nucleated RBC Nucleated RBC % Sodium Potassium Chloride Carbon Dioxide Anion Gap BUN Creatinine Estimated GFR (MDRD) Glucose Lactic Acid 2.2 Calcium Magnesium Total Bilirubin AST ALT Alkaline Phosphatase B-Natriuretic Peptide Total Protein Albumin Globulin Albumin/Globulin Ratio Lipase Influenza A (Rapid) Negative Influenza B (Rapid) Negative - Rads (name of study) chest xray Radiology: Prelim report reviewed (no infiltrates, no CHF. elevated left hemidiaphragm. See Radiologist report. ), EMP read contemporaneously PD MEDICAL DECISION MAKING - ED course Complexity details: reviewed results (no infiltrates. No signs of sepsis nor CHF. ), re-evaluated patient (She is breathing easier. She feels better after nebulizer treatment. There is no signs of pneumonia. She does not up look septic. Her oxygenation saturations are adequate. She would prefer to go home and at this point I think she is stable for discharge.), considered differential (bronchitis/URI, viral vs bacterial. With some underlying asthma sounds. Has CAD/CHF in the past but does not seem pulmonary edema now. Will treat for potential bacterial bronchitis. She has nebulizer at home from last year. ), d/w patient Departure - Departure Disposition: Home, Self Care Clinical Impression: Acute bronchitis Qualifiers: Bronchitis organism: unspecified organism Qualified Code(s): J20.9 - Acute bronchitis, unspecified Dyspnea Qualifiers: Dyspnea type: shortness of breath Qualified Code(s): R06.02 - Shortness of breath Condition: Stable Record reviewed to determine appropriate education?: Yes Instructions: ED Upper Resp Infec Abx Tx Follow-Up: Helder,Cordelia L, PA-C [Primary Care Provider] - Prescriptions: Albuterol Sulf [Ventolin Hfa Inhaler] 1 - 2 puffs INH Q4HR PRN #1 inhaler PRN Reason: Shortness Of Air/Wheezing Albuterol 2.5 mg INH Q4H PRN #30 neb PRN Reason: Wheezing Benzonatate [Tessalon Perle] 100 - 200 mg PO TID PRN #30 capsule PRN Reason: Cough Doxycycline Hyclate 100 mg PO BID #20 capsule Comments: Use your albuterol nebulizer or inhaler 4 times a day regularly for the next week and then added doses if needed. This would be for the wheezing and shortness of breath. Doxycycline antibiotic twice daily for 10 days for potential bacterial infection. Tessalon if needed for cough. I looked these up in a reference and they do not interact with your Ranexa. Continue usual medications. Recheck if not improving over the next few days and return sooner if worsening.
[2018-03-23 17:09] LABS: BASOPHILS % (AUTO) 0.3 %; EOSINOPHILS % (AUTO) 0.3 %; HGB - HEMOGLOBIN 9.3 g/dL (12.0-16.0); LYMPHOCYTES # (AUTO) 2.2 10^3/uL (1.5-3.5); LYMPHOCYTES % (AUTO) 32.7 %; MEAN CORPUSCULAR HEMOGLOBIN 31.8 pg (27.0-31.0); MEAN CORPUSCULAR HGB CONC 33.4 g/dL (32.0-36.0); MEAN CORPUSCULAR VOLUME 95.1 fL (81.0-99.0); MEAN PLATELET VOLUME 10.5 fL (7.9-10.8); MONOCYTES % (AUTO) 15.2 %; NEUTROPHILS # (AUTO) 3.5 10^3/uL (1.5-6.6); NEUTROPHILS % (AUTO) 51.5 %; PLT - PLATELET COUNT 98 10^3/uL (130-450); RED BLOOD COUNT 2.92 10^6/uL (4.20-5.40); RED CELL DISTRIBUTION WIDTH 14.4 % (12.0-15.0); WHITE BLOOD COUNT 6.7 x10^3/uL (4.8-10.8)
[2018-03-23 17:23] LABS: ALBUMIN 2.7 g/dL (3.2-5.5); ALBUMIN/GLOBULIN RATIO 0.9 (1.0-2.2); BILIRUBIN,TOTAL 0.8 mg/dL (0.2-1.0); CALCIUM 8.5 mg/dL (8.5-10.3); MAGNESIUM 1.6 mg/dL (1.7-2.8); TOTAL PROTEIN 5.8 g/dL (6.7-8.2)
[2018-03-23] MEDS ORDERED: cefTRIAXone 1 GM VIAL IVP STA (17:44)
[2018-03-23] MEDS ORDERED: AZITHROMYCIN 250 MG TABLET PO STA (17:44)
[2018-03-23] MEDS ORDERED: BENZONATATE 100 MG CAPSULE PO STA (17:50)
--- NOTE | 2018-03-23 17:55 | XRAY Report ---
Reason: cough and green sputum/ dyspnea Procedure Date: 03/23/2018 Accession Number: [id number] / [id number] Procedure: XR - Chest 2 View X-Ray CPT Code: 82690 FULL RESULT: EXAM: CHEST RADIOGRAPHY EXAM DATE: 03/23/2018 05:43 PM. CLINICAL HISTORY: Cough and green sputum/ dyspnea. COMPARISON: CHEST 2 VIEW 02/11/2018 5:01 PM. TECHNIQUE: 2 views. FINDINGS: Lungs/Pleura: No focal opacities evident. No pleural effusion. No pneumothorax. Normal volumes. Mediastinum: Stable cardiomediastinal silhouette. Other: Mildly elevated right hemidiaphragm is unchanged. IMPRESSION: 1. No acute pulmonary process. RADIA
[2018-03-23 18:27] VITALS: BP 102/61
== END 2018-03-23 18:27 | disposition home or self-care (01) ==
LOC: ED 16:23
DX: J20.9 Acute bronchitis, unspecified (principal); I10 Essential (primary) hypertension; E11.9 Type 2 diabetes mellitus without complications; Z87.01 Personal history of pneumonia (recurrent); N28.9 Disorder of kidney and ureter, unspecified; Z79.4 Long term (current) use of insulin; Z86.79 Personal history of other diseases of the circulatory system
CPT/HCPCS: 36415; 71046; 80053; 83605; 83690; 83735; 83880; 85025; 87205; 87275; 87276; 94640; 96374; 99283; A9270; 87070

== ENCOUNTER 2018-05-02 16:48 | Outpatient (CLI) | payer MEDICARE ==
[2018-05-02 17:06] LABS: HGB - HEMOGLOBIN 11.3 g/dL (12.0-16.0); MEAN CORPUSCULAR HEMOGLOBIN 31.9 pg (27.0-31.0); MEAN CORPUSCULAR HGB CONC 33.3 g/dL (32.0-36.0); MEAN CORPUSCULAR VOLUME 96.1 fL (81.0-99.0); MEAN PLATELET VOLUME 9.3 fL (7.9-10.8); RED BLOOD COUNT 3.55 10^6/uL (4.20-5.40); WHITE BLOOD COUNT 8.6 x10^3/uL (4.8-10.8)
[2018-05-02 17:23] LABS: ALBUMIN 3.7 g/dL (3.2-5.5); CALCIUM 9.1 mg/dL (8.5-10.3); CREATININE 2.2 mg/dL (0.4-1.0); PHOSPHORUS 4.1 mg/dL (2.5-4.6); URIC ACID 7.9 mg/dL (2.6-7.2)
== END 2018-05-02 16:49 | disposition home or self-care (01) ==
LOC: LAB 16:48
PROVIDERS: ATTEND Internal Medicine Nephrology
DX: R80.9 Proteinuria, unspecified (principal); N05.9 Unspecified nephritic syndrome with unspecified morphologic changes; D70.9 Neutropenia, unspecified; D63.1 Anemia in chronic kidney disease; E83.30 Disorder of phosphorus metabolism, unspecified; N25.81 Secondary hyperparathyroidism of renal origin; M10.00 Idiopathic gout, unspecified site
CPT/HCPCS: 36415; 80048; 82040; 83970; 84100; 84550; 85027

== ENCOUNTER 2018-05-09 10:43 | Outpatient (CLI) | payer MEDICARE ==
[2018-05-09 18:17] LABS: HB2 TOTAL 11.2 g/dL; HEMOGLOBIN A1C 0.53 g/dL; HEMOGLOBIN A1C % 6.5 % (4.6-6.2)
== END 2018-05-09 10:44 | disposition home or self-care (01) ==
LOC: LAB.F 10:43
PROVIDERS: ATTEND Nurse Practitioner
DX: E11.51 Type 2 diabetes mellitus with diabetic peripheral angiopathy without gangrene (principal)
CPT/HCPCS: 36415; 83036

== ENCOUNTER 2018-07-24 17:47 | Outpatient (CLI) | payer MEDICARE ==
--- NOTE | 2018-07-25 22:13 | XRAY Report ---
Reason: BRONCHITIS,ACUTE WITH BRONCHOSPASM,ASTHMA EXACERBA Procedure Date: 07/24/2018 Accession Number: [id number] / [id number] Procedure: XR - Chest 2 View X-Ray CPT Code: 18433 FULL RESULT: EXAM: CHEST RADIOGRAPHY EXAM DATE: 07/24/2018 06:21 PM. CLINICAL HISTORY: Bronchitis. COMPARISON: CHEST 2 VIEW 03/23/2018 5:26 PM. TECHNIQUE: 2 views. FINDINGS: Lungs/Pleura: No focal opacities evident. No pleural effusion. No pneumothorax. Normal volumes. Mediastinum: There is mild cardiomegaly. There is thoracic aortic calcification. Other: None. IMPRESSION: No acute intrathoracic plain film abnormality. RADIA
== END 2018-07-24 17:48 | disposition home or self-care (01) ==
LOC: DI 17:47
PROVIDERS: ATTEND Physician Assistant Medical
DX: J20.9 Acute bronchitis, unspecified (principal); J45.901 Unspecified asthma with (acute) exacerbation; I50.9 Heart failure, unspecified
CPT/HCPCS: 71046

== ENCOUNTER 2018-09-05 08:50 | Outpatient (CLI) | payer MEDICARE ==
[2018-09-05 12:55] LABS: HB2 TOTAL 9.6 g/dL; HEMOGLOBIN A1C 0.46 g/dL; HEMOGLOBIN A1C % 6.5 % (4.6-6.2)
== END 2018-09-05 08:51 | disposition home or self-care (01) ==
LOC: LAB.F 08:50
PROVIDERS: ATTEND Nurse Practitioner
DX: E11.40 Type 2 diabetes mellitus with diabetic neuropathy, unspecified (principal); Z79.4 Long term (current) use of insulin
CPT/HCPCS: 36415; 83036

== ENCOUNTER 2018-09-13 08:40 | Outpatient (CLI) | payer MEDICARE ==
--- NOTE | 2018-09-13 11:15 | Ultrasound Report ---
Reason: LEG SWELLING Procedure Date: 09/13/2018 Accession Number: [id number] / [id number] Procedure: US - Duplex Ext Veins Bilateral CPT Code: FULL RESULT: EXAM: BILATERAL LOWER EXTREMITY VENOUS ULTRASOUND EXAM DATE: 09/13/2018 09:43 AM. CLINICAL HISTORY: Bilateral leg swelling. COMPARISON: None. TECHNIQUE: Real-time sonographic vascular imaging was performed by the freight receiver through the lower extremities utilizing both color-flow and Doppler spectral analysis. Multiple goodwill representative static images were saved for review. FINDINGS: Right: Common Femoral Vein (CFV): Normal. CFV-GSV Junction: Normal. Profunda Femoral Vein (PFV): Normal. Femoral Vein (FV) Prox: Normal. Femoral Vein (FV) Mid: Normal. Femoral Vein (FV) Dist: Normal. Popliteal Vein: Normal. Posterior Tibial Veins: Normal. Peroneal Veins: Normal. Left: Common Femoral Vein (CFV): Normal. CFV-GSV Junction: Normal. Profunda Femoral Vein (PFV): Normal. Femoral Vein (FV) Prox: Normal. Femoral Vein (FV) Mid: Normal. Femoral Vein (FV) Dist: Normal. Popliteal Vein: Normal. Posterior Tibial Veins: Normal. Peroneal Veins: Normal. Other: None. IMPRESSION: No evidence for deep venous thrombosis bilaterally. RADIA
== END 2018-09-13 08:41 | disposition home or self-care (01) ==
LOC: DI 08:40
PROVIDERS: ATTEND Student in an Organized Health Care Education/Training Program
DX: M79.89 Other specified soft tissue disorders (principal)
CPT/HCPCS: 93970

== ENCOUNTER 2018-09-17 08:00 | Outpatient (CLI) | payer MEDICARE | END 2018-09-17 23:59 | disposition home or self-care (01) | LOC: LAB.R 08:00 | PROVIDERS: ATTEND Physician Assistant Medical | DX: N30.90 Cystitis, unspecified without hematuria (principal) | CPT/HCPCS: 87086 ==

== ENCOUNTER 2018-09-17 09:19 | Outpatient (CLI) | payer MEDICARE ==
[2018-09-17 18:07] LABS: HGB - HEMOGLOBIN 9.8 g/dL (12.0-16.0); MEAN CORPUSCULAR HEMOGLOBIN 32.2 pg (27.0-31.0); MEAN CORPUSCULAR HGB CONC 32.8 g/dL (32.0-36.0); MEAN CORPUSCULAR VOLUME 98.2 fL (81.0-99.0); MEAN PLATELET VOLUME 10.6 fL (7.9-10.8); RED BLOOD COUNT 3.05 10^6/uL (4.20-5.40); RED CELL DISTRIBUTION WIDTH 14.5 % (12.0-15.0); WHITE BLOOD COUNT 6.7 x10^3/uL (4.8-10.8)
[2018-09-17 18:23] LABS: CALCIUM 9.2 mg/dL (8.5-10.3); CREATININE 2.1 mg/dL (0.4-1.0)
== END 2018-09-17 09:20 | disposition home or self-care (01) ==
LOC: LAB.F 09:19
PROVIDERS: ATTEND Internal Medicine Nephrology
DX: N05.9 Unspecified nephritic syndrome with unspecified morphologic changes (principal); D70.9 Neutropenia, unspecified; D63.1 Anemia in chronic kidney disease; D50.0 Iron deficiency anemia secondary to blood loss (chronic); N30.90 Cystitis, unspecified without hematuria
CPT/HCPCS: 36415; 80048; 82728; 83540; 84466; 85025; 85027; 87086

== ENCOUNTER 2018-10-02 08:27 | Outpatient (CLI) | payer MEDICARE | END 2018-10-02 08:28 | disposition home or self-care (01) | LOC: LAB.F 08:27 | PROVIDERS: ATTEND Physician Assistant Medical | DX: N39.0 Urinary tract infection, site not specified (principal) | CPT/HCPCS: 87077; 87086; 87181 ==

== ENCOUNTER 2018-10-08 13:33 | Outpatient (CLI) | payer MEDICARE ==
[2018-10-08 18:04] LABS: BASOPHILS % (AUTO) 0.5 %; EOSINOPHILS # (AUTO) 0.2 10^3/uL (0.0-0.7); LYMPHOCYTES # (AUTO) 4.4 10^3/uL (1.5-3.5); LYMPHOCYTES % (AUTO) 55.2 %; MEAN CORPUSCULAR HEMOGLOBIN 31.8 pg (27.0-31.0); MEAN CORPUSCULAR VOLUME 102.5 fL (81.0-99.0); MEAN PLATELET VOLUME 12.6 fL (7.9-10.8); MONOCYTES # (AUTO) 1.1 10^3/uL (0.0-1.0); MONOCYTES % (AUTO) 13.3 %; NEUTROPHILS # (AUTO) 2.3 10^3/uL (1.5-6.6); NEUTROPHILS % (AUTO) 28.7 %; PLT - PLATELET COUNT 99 10^3/uL (130-450); RED BLOOD COUNT 2.83 10^6/uL (4.20-5.40)
[2018-10-08 18:07] LABS: BILIRUBIN,URINE NEGATIVE (NEGATIVE); GLUCOSE, URINE (UA) NEGATIVE (NEGATIVE); KETONES,URINE (UA) NEGATIVE (NEGATIVE); LEUKOCYTE ESTERASE, URINE NEGATIVE (NEGATIVE); NITRITE,URINE NEGATIVE (NEGATIVE); OCCULT BLOOD,URINE NEGATIVE (NEGATIVE); PROTEIN,URINE 100 mg/dL (NEGATIVE); UROBILINOGEN,URINE 0.2 (NORMAL) E.U./dL (NORMAL)
[2018-10-08 18:08] LABS: CLARITY,URINE CLEAR (CLEAR)
[2018-10-08 18:15] LABS: BACTERIA,URINE Few /HPF (None Seen); CASTS, URINE 3-5 Hyaline Casts /LPF; RBC,URINE 0-5 /HPF (0-5); SQUAMOUS EPITHELIAL CELL,UR FEW Squamous (<= Few)
[2018-10-08 18:23] LABS: CALCIUM 9.1 mg/dL (8.5-10.3); CREATININE 2.3 mg/dL (0.4-1.0); MAGNESIUM 1.6 mg/dL (1.7-2.8)
[2018-10-08 19:54] LABS: DIFFERENTIAL COMMENT MANUAL=AUTO DIFF; PLATELET ESTIMATE, MANUAL DECREASED (<130,000) (NORMAL); PLATELET MORPHOLOGY NORMAL APPEARANCE (NORMAL); RBC MORPHOLOGY (MULTIPLE) NORMAL APPEARANCE (NORMAL)
== END 2018-10-08 13:34 | disposition home or self-care (01) ==
LOC: LAB.F 13:33
PROVIDERS: ATTEND Registered Nurse
DX: N30.90 Cystitis, unspecified without hematuria (principal)
CPT/HCPCS: 36415; 80048; 81001; 83735; 85025; 87086

== ENCOUNTER 2018-11-18 14:29 | Outpatient (CLI) | payer MEDICARE ==
[2018-11-18 18:08] LABS: HGB - HEMOGLOBIN 9.5 g/dL (12.0-16.0)
== END 2018-11-18 14:30 | disposition home or self-care (01) ==
LOC: LAB.S 14:29
PROVIDERS: ATTEND Internal Medicine Nephrology
DX: D64.9 Anemia, unspecified (principal)
CPT/HCPCS: 36415; 85014; 85018

== ENCOUNTER 2018-11-19 08:30 | Outpatient (CLI) | payer MEDICARE ==
[2018-11-19 08:57] LABS: HGB - HEMOGLOBIN 9.6 g/dL (12.0-16.0); MEAN CORPUSCULAR HEMOGLOBIN 31.5 pg (27.0-31.0); MEAN CORPUSCULAR HGB CONC 31.2 g/dL (32.0-36.0); MEAN PLATELET VOLUME 11.1 fL (7.9-10.8); RED BLOOD COUNT 3.05 10^6/uL (4.20-5.40); RED CELL DISTRIBUTION WIDTH 13.1 % (12.0-15.0)
[2018-11-19 09:10] LABS: CALCIUM 9.5 mg/dL (8.5-10.3); CREATININE 2.8 mg/dL (0.4-1.0)
== END 2018-11-19 08:31 | disposition home or self-care (01) ==
LOC: LAB 08:30
PROVIDERS: ATTEND Internal Medicine Nephrology
DX: N05.9 Unspecified nephritic syndrome with unspecified morphologic changes (principal); I50.32 Chronic diastolic (congestive) heart failure; D63.1 Anemia in chronic kidney disease; D70.9 Neutropenia, unspecified
CPT/HCPCS: 36415; 80048; 83880; 85027

== ENCOUNTER 2018-12-05 13:32 | Outpatient (CLI) | payer MEDICARE ==
[2018-12-05 14:18] LABS: CALCIUM 9.2 mg/dL (8.5-10.3); CREATININE 2.8 mg/dL (0.4-1.0)
== END 2018-12-05 13:33 | disposition home or self-care (01) ==
LOC: LAB 13:32
PROVIDERS: ATTEND Internal Medicine Nephrology
DX: N05.9 Unspecified nephritic syndrome with unspecified morphologic changes (principal); I50.32 Chronic diastolic (congestive) heart failure
CPT/HCPCS: 80048; 83880

== ENCOUNTER 2019-01-02 11:21 | Outpatient (CLI) | payer MEDICARE ==
[2019-01-02 17:11] LABS: MEAN CORPUSCULAR HGB CONC 33.2 g/dL (32.0-36.0); MEAN CORPUSCULAR VOLUME 99.3 fL (81.0-99.0); MEAN PLATELET VOLUME 12.3 fL (7.9-10.8); RED BLOOD COUNT 3.03 10^6/uL (4.20-5.40); RED CELL DISTRIBUTION WIDTH 13.5 % (12.0-15.0); WHITE BLOOD COUNT 8.2 x10^3/uL (4.8-10.8)
[2019-01-02 17:43] LABS: CALCIUM 8.9 mg/dL (8.5-10.3); CREATININE 2.9 mg/dL (0.4-1.0)
== END 2019-01-02 11:22 | disposition home or self-care (01) ==
LOC: LAB.S 11:21
PROVIDERS: ATTEND Internal Medicine Nephrology
DX: N05.9 Unspecified nephritic syndrome with unspecified morphologic changes (principal); I50.32 Chronic diastolic (congestive) heart failure; D70.9 Neutropenia, unspecified; D63.1 Anemia in chronic kidney disease
CPT/HCPCS: 36415; 80048; 83880; 85027

== ENCOUNTER 2019-02-26 14:53 | Outpatient (CLI) | payer MEDICARE ==
[2019-02-26 17:27] LABS: BASOPHILS % (AUTO) 0.3 %; EOSINOPHILS # (AUTO) 0.2 10^3/uL (0.0-0.7); HGB - HEMOGLOBIN 9.7 g/dL (12.0-16.0); LYMPHOCYTES # (AUTO) 4.3 10^3/uL (1.5-3.5); MEAN CORPUSCULAR HGB CONC 31.7 g/dL (32.0-36.0); MEAN PLATELET VOLUME 12.5 fL (7.9-10.8); MONOCYTES # (AUTO) 1.1 10^3/uL (0.0-1.0); MONOCYTES % (AUTO) 12.1 %; NEUTROPHILS # (AUTO) 3.3 10^3/uL (1.5-6.6); NEUTROPHILS % (AUTO) 37.3 %; PLT - PLATELET COUNT 114 10^3/uL (130-450); RED BLOOD COUNT 3.03 10^6/uL (4.20-5.40); RED CELL DISTRIBUTION WIDTH 13.8 % (12.0-15.0); WHITE BLOOD COUNT 8.9 x10^3/uL (4.8-10.8)
[2019-02-26 17:44] LABS: CALCIUM 9.5 mg/dL (8.5-10.3)
== END 2019-02-26 14:54 | disposition home or self-care (01) ==
LOC: LAB.S 14:53
PROVIDERS: ATTEND Internal Medicine Nephrology
DX: N05.9 Unspecified nephritic syndrome with unspecified morphologic changes (principal); D70.9 Neutropenia, unspecified; N18.9 Chronic kidney disease, unspecified; D63.1 Anemia in chronic kidney disease
CPT/HCPCS: 36415; 80048; 82728; 83540; 84466; 85025

== ENCOUNTER 2019-04-10 13:27 | Emergency (ER) | payer MEDICARE ==
--- NOTE | 2019-04-10 14:08 | ED Physician Documentation ---
PD HPI CHEST PAIN - Stated complaint Stated Complaint: CHEST PX - Chief complaint Chief Complaint: Cardiac - History obtained from History obtained from: Patient - History of Present Illness Timing - onset: Today (this morning, as well as 2 mornings ago.) Timing - onset during: Rest (she noted chest tightness/pressure when awoke this morning, improved with NTG x 2 but not fully resolved and has continued with some light pressure until here. Had similar 2 days ago also in AM, but resolved completely with NTG x 2. Has not used NTG for awhile. Did some extra walking around yesterday, but did not notice chest pressure nor pain during that.) Timing - duration: Hours Timing - details: Abrupt onset, Still present Quality: Pressure, Tightness. No: Sharp, Pain Location: Substernal, Right chest Radiation: No: Jaw, Back, Right upper extremity Improved by: Nitro (but not completely) Worsened by: No: Exertion, Inspiration Associated symptoms: Shortness of air. No: Nausea, Feeling faint / dizzy, Palpitations Similar symptoms before: Diagnosis (feeling similar to heart pain/angina she had prior to Rx with meds few years ago. Had heart cath with some stentable stenoses but not stented due to renal insufficiency at the time. Had been maintained without symptoms with medical management.) Recently seen: Not recently seen Review of Systems Constitutional: denies: Fever, Chills, Myalgias Nose: denies: Rhinorrhea / runny nose, Congestion Throat: denies: Sore throat Cardiac: reports: Chest pain / pressure, Pedal edema. denies: Palpitations, Calf pain Respiratory: denies: Cough GI: denies: Abdominal Pain, Nausea, Vomiting, Diarrhea Musculoskeletal: reports: Extremity swelling (typically slight edema right lower leg.) Neurologic: reports: Generalized weakness. 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, Other - Present Medications Home Medications: Ambulatory Orders Medication Instructions Recorded Confirmed traMADol [Ultram] 50 mg PO QID PRN 04/19/17 12/05/18 Atorvastatin Calcium 40 mg PO QPM 05/07/17 12/05/18 Cholecalciferol (Vitamin D3) 2,000 units PO QPM 05/07/17 12/05/18 [Vitamin D3] Insulin NPH Human Isophane 20 - 24 units SUBQ QPM 05/07/17 12/05/18 [Humulin N] Nitroglycerin [Nitrostat] 0.4 mg PO Q5M PRN 05/07/17 12/05/18 Sertraline [Zoloft] 50 mg PO DAILY 05/07/17 12/05/18 Furosemide [Lasix] 20 mg PO DAILY 05/19/17 12/05/18 Lidocaine Cream 1 ea TOP DAILY PRN 06/08/17 12/05/18 Lisinopril 5 mg PO DAILY 06/08/17 12/05/18 Magnesium Oxide 400 mg PO QPM 06/08/17 12/05/18 Ondansetron HCl [Zofran] 4 mg PO Q6H PRN 06/08/17 12/05/18 Spironolactone 25 mg PO QPM 06/08/17 12/05/18 Ranolazine [Ranexa] 500 mg PO BID #30 tab.er.12h 02/12/18 12/05/18 carvediloL [Carvedilol] 25 mg PO BID 02/12/18 12/05/18 hydrALAZINE [Apresoline] 25 mg PO BID #60 tablet 02/12/18 12/05/18 Albuterol 2.5 mg INH Q4H PRN #30 neb 03/23/18 12/05/18 Albuterol Sulf [Ventolin Hfa 1 - 2 puffs INH Q4HR PRN #1 inhaler 03/23/18 12/05/18 Inhaler] Ascorbic Acid [Vitamin C] 250 mg PO DAILY 12/05/18 12/05/18 Insulin Lispro [Humalog] 8 - 30 unit SUBQ ONCE PRN 12/05/18 12/05/18 Levothyroxine [Synthroid] 75 mcg PO QDAC 12/05/18 12/05/18 Nystatin/Triamcin 1 ea TP DAILY PRN 12/05/18 12/05/18 [Nystatin-Triamcinolone Cream] Vitamin B Complex 1 each PO DAILY 12/05/18 12/05/18 Isosorbide Mononitrate ER [Imdur] 30 mg PO DAILY #20 tablet 04/10/19 - Allergies Allergies/Adverse Reactions: Allergies Allergy/AdvReac Type Severity Reaction Status Date / Time adhesive tape AdvReac Mild Itching Verified 04/10/19 13:36 acetaminophen [From Tylenol] AdvReac Edema Verified 04/10/19 13:36 codeine AdvReac Unknown Verified 04/10/19 13:36 diazepam [From Valium] AdvReac Unknown Verified 04/10/19 13:36 Sulfa (Sulfonamide AdvReac Unknown Verified 04/10/19 13:36 Antibiotics) - Social History Does the pt smoke?: No Smoking Status: Never smoker Does the pt drink ETOH?: No Does the pt have substance abuse?: No - Immunizations Immunizations are current?: Yes - POLST Patient has POLST: Yes POLST Status: Full Code PD ED PE NORMAL - Vitals Vital signs reviewed: Yes - General General: Alert and oriented X 3, No acute distress, Well developed/nourished - HEENT HEENT: Moist mucous membranes, Pharynx benign - Neck Neck: Supple, no meningeal sign - Cardiac Cardiac: RRR, No murmur, Other (no chestwall tenderness. ) - Respiratory Respiratory: Clear bilaterally - Abdomen Abdomen: Soft, Non tender - Derm Derm: Normal color, Warm and dry - Extremities Extremities: No tenderness to palpate, Normal ROM s pain, No calf tenderness / cord. No: No edema (1+ edema in right leg; none in left. ) - Neuro Neuro: Alert and oriented X 3, No motor deficit, Normal speech Eye Opening: Spontaneous Motor: Obeys Commands Verbal: Oriented GCS Score: 15 Results - Vitals Vitals: Vital Signs - 24 hr 04/10/19 04/10/19 04/10/19 13:36 15:30 16:00 Temperature 37.1 C Heart Rate 64 57 L 58 L Respiratory 16 16 17 Rate Blood Pressure 134/57 H 149/54 H 155/51 H O2 Saturation 97 100 100 04/10/19 04/10/19 04/10/19 16:30 17:00 17:25 Temperature Heart Rate 59 L 57 L 57 L Respiratory 16 16 17 Rate Blood Pressure 160/54 H 172/56 H 170/59 H O2 Saturation 100 Oxygen O2 Source Room air - EKG (time done) 13:35 Rate: Rate (enter#) (60) Rhythm: NSR [place]: Normal Intervals: Normal RI QRS: Normal Ischemia: Normal ST segments. No: ST elevation c/w ischemia, ST depression, T wave inversion (but are flattened laterally) - Labs Labs: Laboratory Tests 04/10/19 04/10/19 04/10/19 13:42 13:53 13:53 WBC 11.8 H RBC 3.23 L Hgb 10.7 L Hct 32.4 L MCV 100.3 H MCH 33.1 H MCHC 33.0 RDW 13.0 Plt Count 111 L MPV 11.6 H Neut # (Auto) 4.8 Lymph # (Auto) 5.6 H [place]yer # (Auto) 1.1 H Eos # (Auto) 0.2 Baso # (Auto) 0.1 Absolute Nucleated RBC 0.00 Nucleated RBC % 0.0 Manual Slide Review Indicated WBC Morphology Platelet Estimate NORMAL (130-450,000) Platelet Morphology NORMAL APPEARANCE RBC Morph Micro Appear NORMAL APPEARANCE Sodium 141 Potassium 4.7 Chloride 114 H Carbon Dioxide 18 L Anion Gap 9.0 BUN 94 H* Creatinine 2.9 H Estimated GFR (MDRD) 16 L Glucose 48 L* POC Whole Bld Glucose Calcium 9.3 Magnesium Total Bilirubin 0.7 AST 23 ALT 24 Alkaline Phosphatase 60 Troponin I High Sens 18.2 H* B-Natriuretic Peptide Total Protein 6.6 L Albumin 3.6 Globulin 3.0 Albumin/Globulin Ratio 1.2 Lipase 80 H 04/10/19 04/10/19 04/10/19 13:53 13:53 15:31 WBC RBC Hgb Hct MCV MCH MCHC RDW Plt Count MPV Neut # (Auto) Lymph # (Auto) [place]yer # (Auto) Eos # (Auto) Baso # (Auto) Absolute Nucleated RBC Nucleated RBC % Manual Slide Review WBC Morphology Platelet Estimate Platelet Morphology RBC Morph Micro Appear Sodium Potassium Chloride Carbon Dioxide Anion Gap BUN Creatinine Estimated GFR (MDRD) Glucose POC Whole Bld Glucose 207 H Calcium Magnesium 1.6 L Total Bilirubin AST ALT Alkaline Phosphatase Troponin I High Sens B-Natriuretic Peptide 116 H Total Protein Albumin Globulin Albumin/Globulin Ratio Lipase - Rads (name of study) chest xray Radiology: Prelim report reviewed (no acute process), See rad report PD MEDICAL DECISION MAKING - ED course Complexity details: considered differential (consider angina. She did have low blood sugar here and felt some better with just having sugar up. NTG x 1 also resolved chest pressure. Concern for angina though could be reflux or other cause. 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 ) Departure - Departure Disposition: Home, Self Care Clinical Impression: Hypoglycemia Chest pain Qualifiers: Chest pain type: precordial pain Qualified Code(s): R07.2 - Precordial pain Condition: Stable Record reviewed to determine appropriate education?: Yes Instructions: ED Chest Pain Angina Stable Follow-Up: Cordelia Pendleton PA-C [Primary Care Provider] - Prescriptions: Isosorbide Mononitrate ER [Imdur] 30 mg PO DAILY #20 tablet Comments: Continue usual medications. Add Imdur long-acting nitrate daily. Call your plant guard tomorrow for a follow-up appointment in further advice. You can still use the nitroglycerin as needed for chest pain episodes. Return if recurrent chest pain unresolved with nitroglycerin or other concerns. Discharge Date/Time: 04/10/19 17:30
[2019-04-10 14:11] LABS: BASOPHILS # (AUTO) 0.1 10^3/uL (0.0-0.1); BASOPHILS % (AUTO) 0.4 %; EOSINOPHILS # (AUTO) 0.2 10^3/uL (0.0-0.7); EOSINOPHILS % (AUTO) 1.5 %; HGB - HEMOGLOBIN 10.7 g/dL (12.0-16.0); LYMPHOCYTES # (AUTO) 5.6 10^3/uL (1.5-3.5); LYMPHOCYTES % (AUTO) 47.5 %; MEAN CORPUSCULAR HEMOGLOBIN 33.1 pg (27.0-31.0); MEAN CORPUSCULAR VOLUME 100.3 fL (81.0-99.0); MEAN PLATELET VOLUME 11.6 fL (7.9-10.8); MONOCYTES # (AUTO) 1.1 10^3/uL (0.0-1.0); MONOCYTES % (AUTO) 9.4 %; NEUTROPHILS # (AUTO) 4.8 10^3/uL (1.5-6.6); NEUTROPHILS % (AUTO) 40.9 %; PLT - PLATELET COUNT 111 10^3/uL (130-450); RED BLOOD COUNT 3.23 10^6/uL (4.20-5.40); WHITE BLOOD COUNT 11.8 x10^3/uL (4.8-10.8)
--- NOTE | 2019-04-10 14:26 | XRAY Report ---
Reason: chest pain Procedure Date: 04/10/2019 Accession Number: [id number] / [id number] Procedure: XR - Chest 1 View X-Ray CPT Code: 45008 Final Report FULL RESULT: EXAM: CHEST RADIOGRAPHY EXAM DATE: 04/10/2019 01:56 PM. CLINICAL HISTORY: Chest pain. COMPARISON: CHEST 2 VIEW 07/24/2018 6:12 PM. TECHNIQUE: 1 view. FINDINGS: Lungs/Pleura: Clear. No effusion or pneumothorax. Mediastinum: Within exam limitations, the cardiomediastinal contour is normal. Upper lobe vessels not distended. Other: Degenerative changes. IMPRESSION: No acute disease. RADIA
[2019-04-10 14:31] LABS: ALBUMIN 3.6 g/dL (3.2-5.5); ALBUMIN/GLOBULIN RATIO 1.2 (1.0-2.2); BILIRUBIN,TOTAL 0.7 mg/dL (0.2-1.0); CALCIUM 9.3 mg/dL (8.5-10.3); CREATININE 2.9 mg/dL (0.4-1.0); TOTAL PROTEIN 6.6 g/dL (6.7-8.2)
[2019-04-10 14:32] LABS: PLATELET ESTIMATE, MANUAL NORMAL (130-450,000) (NORMAL); PLATELET MORPHOLOGY NORMAL APPEARANCE (NORMAL); RBC MORPHOLOGY (MULTIPLE) NORMAL APPEARANCE (NORMAL)
[2019-04-10] MEDS ORDERED: DEXTROSE 10% 250 ML IV STA (14:37)
[2019-04-10] MEDS ORDERED: NITROGLYCERIN SL 0.4 MG TABLET SL STA (14:39)
[2019-04-10 17:26] VITALS: BP 170/59
== END 2019-04-10 17:30 | disposition home or self-care (01) ==
LOC: ED 13:27
DX: R07.2 Precordial pain (principal); E11.649 Type 2 diabetes mellitus with hypoglycemia without coma; E11.42 Type 2 diabetes mellitus with diabetic polyneuropathy; Z79.4 Long term (current) use of insulin; I10 Essential (primary) hypertension
CPT/HCPCS: 36415; 71045; 80053; 83690; 83735; 83880; 84484; 85025; 93005; 99284; A9270; J3490

== ENCOUNTER 2019-05-28 08:00 | Outpatient (CLI) | payer MEDICARE ==
[2019-05-28 18:13] LABS: BASOPHILS % (AUTO) 0.4 %; EOSINOPHILS # (AUTO) 0.1 10^3/uL (0.0-0.7); HGB - HEMOGLOBIN 9.4 g/dL (12.0-16.0); LYMPHOCYTES # (AUTO) 4.3 10^3/uL (1.5-3.5); LYMPHOCYTES % (AUTO) 56.3 %; MEAN CORPUSCULAR HEMOGLOBIN 32.4 pg (27.0-31.0); MEAN CORPUSCULAR VOLUME 101.4 fL (81.0-99.0); MEAN PLATELET VOLUME 12.3 fL (7.9-10.8); MONOCYTES # (AUTO) 0.8 10^3/uL (0.0-1.0); MONOCYTES % (AUTO) 9.8 %; NEUTROPHILS # (AUTO) 2.5 10^3/uL (1.5-6.6); NEUTROPHILS % (AUTO) 32.4 %; PLT - PLATELET COUNT 94 10^3/uL (130-450); RED CELL DISTRIBUTION WIDTH 13.4 % (12.0-15.0); WHITE BLOOD COUNT 7.7 x10^3/uL (4.8-10.8)
[2019-05-28 18:31] LABS: HB2 TOTAL 9.2 g/dL; HEMOGLOBIN A1C 0.41 g/dL; HEMOGLOBIN A1C % 6.2 % (4.6-6.2)
[2019-05-28 19:01] LABS: ALBUMIN/GLOBULIN RATIO 1.3 (1.0-2.2)
[2019-05-28 19:02] LABS: ALBUMIN 3.6 g/dL (3.2-5.5); ALKALINE PHOSPHATASE 49 IU/L (42-121); ALT ALANINE AMINOTRANSFERASE 26 IU/L (10-60); AST ASPARTATE AMINOTRANSFERASE 30 IU/L (10-42); BILIRUBIN,TOTAL 0.7 mg/dL (0.2-1.0); CARBON DIOXIDE - CO2 19 mmol/L (21-32); CHLORIDE 111 mmol/L (101-111); CHOLESTEROL 149 mg/dL; CREATININE 3.2 mg/dL (0.4-1.0); GFR - MDRD 14 (>89); GLUCOSE 141 mg/dL (70-100); HDL CHOLESTEROL 49 mg/dL; LDL CHOLESTEROL,CALCULATED 79 mg/dL; LDL/HDL RATIO 1.6 (<4.4); SODIUM 138 mmol/L (135-145); TOTAL PROTEIN 6.4 g/dL (6.7-8.2); VLDL CHOLESTEROL 21 mg/dL
[2019-05-28 20:24] LABS: BUN - BLOOD UREA NITROGEN 100 mg/dL (6-20)
== END 2019-05-28 23:59 | disposition home or self-care (01) ==
LOC: LAB.S 08:00
PROVIDERS: ATTEND Physician Assistant Medical
DX: E11.22 Type 2 diabetes mellitus with diabetic chronic kidney disease (principal); N18.4 Chronic kidney disease, stage 4 (severe); E78.5 Hyperlipidemia, unspecified; E03.9 Hypothyroidism, unspecified
CPT/HCPCS: 36415; 80053; 80061; 83036; 83721; 84443; 85025

== ENCOUNTER 2019-07-13 01:35 | Outpatient (CLI) | payer MEDICARE | END 2019-07-13 01:36 | disposition EMS.NT | LOC: EMS 01:35 | PROVIDERS: ATTEND Surgery | DX: R00.0 Tachycardia, unspecified (principal) ==

== ENCOUNTER 2019-08-08 16:31 | Outpatient (CLI) | payer MEDICARE ==
[2019-08-08 16:59] LABS: CALCIUM 8.8 mg/dL (8.5-10.3); CREATININE 4.4 mg/dL (0.4-1.0)
== END 2019-08-08 16:32 | disposition home or self-care (01) ==
LOC: LAB 16:31
PROVIDERS: ATTEND Internal Medicine Nephrology
DX: I50.32 Chronic diastolic (congestive) heart failure (principal)
CPT/HCPCS: 36415; 80048

== ENCOUNTER 2019-08-11 15:45 | Outpatient (CLI) | payer MEDICARE | END 2019-08-11 15:46 | disposition home or self-care (01) | LOC: LAB 15:45 | PROVIDERS: ATTEND Emergency Medicine | DX: I48.91 Unspecified atrial fibrillation (principal) | CPT/HCPCS: 85610 ==

== ENCOUNTER 2019-08-13 20:14 | Outpatient (CLI) | payer MEDICARE | END 2019-08-13 23:59 | disposition short-term general hospital (02) | LOC: EMS 20:14 | PROVIDERS: ATTEND Surgery | DX: R06.02 Shortness of breath (principal); Z99.2 Dependence on renal dialysis | CPT/HCPCS: A0425; A0429 ==

== ENCOUNTER 2019-10-13 07:00 | Outpatient (CLI) | payer MEDICARE ==
[2019-10-13 14:53] LABS: BILIRUBIN,URINE NEGATIVE (NEGATIVE); CLARITY,URINE CLEAR (CLEAR); GLUCOSE, URINE (UA) NEGATIVE (NEGATIVE); KETONES,URINE (UA) NEGATIVE (NEGATIVE); LEUKOCYTE ESTERASE, URINE SMALL (NEGATIVE); NITRITE,URINE NEGATIVE (NEGATIVE); OCCULT BLOOD,URINE TRACE-INTA (NEGATIVE); PROTEIN,URINE 100 mg/dL (NEGATIVE); UROBILINOGEN,URINE 0.2 (NORMAL) E.U./dL (NORMAL)
[2019-10-13 15:01] LABS: BACTERIA,URINE None Seen /HPF (None Seen); RBC,URINE 0-5 /HPF (0-5); SQUAMOUS EPITHELIAL CELL,UR RARE Squamous (<= Few); WBC CLUMPS,URINE PRESENT
== END 2019-10-13 23:59 | disposition home or self-care (01) ==
LOC: LAB.R 07:00
PROVIDERS: ATTEND Physician Assistant
DX: R30.0 Dysuria (principal)
CPT/HCPCS: 81001; 81003; 87086

== ENCOUNTER 2019-10-13 09:47 | Outpatient (CLI) | payer MEDICARE ==
[2019-10-13 15:50] LABS: HB2 TOTAL 12.6 g/dL; HEMOGLOBIN A1C 0.55 g/dL; HEMOGLOBIN A1C % 6.1 % (4.6-6.2)
== END 2019-10-13 09:48 | disposition home or self-care (01) ==
LOC: LAB.S 09:47
PROVIDERS: ATTEND Physician Assistant
DX: R30.0 Dysuria (principal); E11.9 Type 2 diabetes mellitus without complications
CPT/HCPCS: 36415; 81001; 81002; 81003; 83036; 87086

== ENCOUNTER 2019-10-18 10:19 | Emergency (ER) | payer MEDICARE ==
[2019-10-18 11:02] LABS: BASOPHILS % (AUTO) 0.5 %; EOSINOPHILS # (AUTO) 0.2 10^3/uL (0.0-0.7); EOSINOPHILS % (AUTO) 2.1 %; LYMPHOCYTES # (AUTO) 4.4 10^3/uL (1.5-3.5); LYMPHOCYTES % (AUTO) 51.3 %; MEAN CORPUSCULAR HEMOGLOBIN 31.3 pg (27.0-31.0); MEAN CORPUSCULAR HGB CONC 32.7 g/dL (32.0-36.0); MEAN CORPUSCULAR VOLUME 95.7 fL (81.0-99.0); MEAN PLATELET VOLUME 12.2 fL (7.9-10.8); MONOCYTES # (AUTO) 1.2 10^3/uL (0.0-1.0); MONOCYTES % (AUTO) 13.6 %; NEUTROPHILS # (AUTO) 2.8 10^3/uL (1.5-6.6); NEUTROPHILS % (AUTO) 32.4 %; PLT - PLATELET COUNT 116 10^3/uL (130-450); RED BLOOD COUNT 4.16 10^6/uL (4.20-5.40); RED CELL DISTRIBUTION WIDTH 14.7 % (12.0-15.0); WHITE BLOOD COUNT 8.7 x10^3/uL (4.8-10.8)
[2019-10-18 11:12] LABS: ALBUMIN 3.7 g/dL (3.2-5.5); BILIRUBIN,TOTAL 0.8 mg/dL (0.2-1.0); CALCIUM 9.2 mg/dL (8.5-10.3); CREATININE 1.9 mg/dL (0.4-1.0); TOTAL PROTEIN 7.5 g/dL (6.7-8.2)
--- NOTE | 2019-10-18 11:16 | ED Physician Documentation ---
PD HPI CHEST PAIN - Stated complaint Stated Complaint: CHEST HEAVINESS - Chief complaint Chief Complaint: Cardiac - History obtained from History obtained from: Patient, Family - History of Present Illness Timing - onset: Enter time (0100), Last night Timing - onset during: Rest Timing - duration: Minutes (10-15) Timing - details: Abrupt onset, Now resolved, Waxing and waning Quality: Sharp, Pain Location: Substernal, Left chest Radiation: Left upper extremity Improved by: Rest Worsened by: No: Inspiration, Movement, Palpation, Position Associated symptoms: Diaphoresis, Nausea, Feeling faint / dizzy. No: Shortness of air, Vomiting, General Weakness, Palpitations, Cough Similar symptoms before: Has not had sx before Recently seen: Other (dialysis yesterday) - Additional information Additional information: 83-year-old female on renal dialysis has developed some chest pain last night at about 1:00 in the morning. She has had 4 episodes of chest pain each lasting 10 to 15 minutes characterizes left substernal pain high in the chest and with some burning sensation in the left arm this is accompanied by some diaphoresis and nausea as well as some lightheadedness. The patient has been dialyzing regularly and she has taken a lot of water off. Yesterday during dialysis she developed cramping in her legs. She has reached a new low weight and no longer has swelling in her ankles. She has had a stent placed previously with symptoms of angina and she states these are completely different than her anginal symptoms. Review of Systems Constitutional: denies: Fever Eyes: denies: Decreased vision Ears: denies: Ear pain Nose: denies: Rhinorrhea / runny nose, Congestion Throat: denies: Sore throat Cardiac: reports: Chest pain / pressure. denies: Palpitations, Pedal edema, Calf pain Respiratory: denies: Dyspnea, Cough GI: reports: Nausea. denies: Abdominal Pain, Vomiting : denies: Dysuria, Frequency Skin: denies: Rash Musculoskeletal: reports: Extremity pain. denies: Neck pain, Back pain, Extremity swelling Neurologic: denies: Generalized weakness, Focal weakness, Numbness PD PAST MEDICAL HISTORY - Past Medical History Cardiovascular: Hypertension, High cholesterol, [place] Respiratory: Pneumonia, Sleep apnea, CPAP use Neuro: None, CVA, Peripheral neuropathy Endocrine/Autoimmune: Type 2 diabetes, HyPOthyroidism GI: Chronic diarrhea : Incontinence, Renal insuffiency, Kidney stones HEENT: None Psych: Anxiety Musculoskeletal: Osteoarthritis, Fatigue, Chronic back pain Derm: None - Past Surgical History Past Surgical History: Yes General: Cholecystectomy, Appendectomy Ortho: Knee replacement, Spine surgery, 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: Hysterectomy, Other - Present Medications Home Medications: Ambulatory Orders Medication Instructions Recorded Confirmed traMADol [Ultram] 50 mg PO QID PRN 04/19/17 12/05/18 Atorvastatin Calcium 40 mg PO QPM 05/07/17 12/05/18 Cholecalciferol (Vitamin D3) 2,000 units PO QPM 05/07/17 12/05/18 [Vitamin D3] Insulin NPH Human Isophane 20 - 24 units SUBQ QPM 05/07/17 12/05/18 [Humulin N] Nitroglycerin [Nitrostat] 0.4 mg PO Q5M PRN 05/07/17 12/05/18 Sertraline [Zoloft] 50 mg PO DAILY 05/07/17 12/05/18 Lidocaine Cream 1 ea TOP DAILY PRN 06/08/17 12/05/18 Ondansetron HCl [Zofran] 4 mg PO Q6H PRN 06/08/17 12/05/18 Spironolactone 25 mg PO QPM 06/08/17 12/05/18 carvediloL [Carvedilol] 25 mg PO BID 02/12/18 12/05/18 hydrALAZINE [Apresoline] 25 mg PO BID #60 tablet 02/12/18 12/05/18 Albuterol 2.5 mg INH Q4H PRN #30 neb 03/23/18 12/05/18 Albuterol Sulf [Ventolin Hfa 1 - 2 puffs INH Q4HR PRN #1 inhaler 03/23/18 12/05/18 Inhaler] Ascorbic Acid [Vitamin C] 250 mg PO DAILY 12/05/18 12/05/18 Insulin Lispro [Humalog] 8 - 30 unit SUBQ ONCE PRN 12/05/18 12/05/18 Levothyroxine [Synthroid] 75 mcg PO QDAC 12/05/18 12/05/18 Nystatin/Triamcin 1 ea TP DAILY PRN 12/05/18 12/05/18 [Nystatin-Triamcinolone Cream] Vitamin B Complex 1 each PO DAILY 12/05/18 12/05/18 Isosorbide Mononitrate ER [Imdur] 30 mg PO DAILY #20 tablet 04/10/19 Warfarin [Coumadin] 3 tab PO 10/18/19 dilTIAZem HCL [Diltiazem 24Hr ER 1 tab PO DAILY 10/18/19 10/18/19 (Xr)] - Allergies Allergies/Adverse Reactions: Allergies Allergy/AdvReac Type Severity Reaction Status Date / Time adhesive tape AdvReac Mild Itching Verified 10/07/19 14:15 acetaminophen [From Tylenol] AdvReac Edema Verified 10/07/19 14:15 codeine AdvReac Unknown Verified 10/07/19 14:15 diazepam [From Valium] AdvReac Unknown Verified 10/07/19 14:15 Sulfa (Sulfonamide AdvReac Unknown Verified 10/07/19 14:15 Antibiotics) - Social History Does the pt smoke?: No Smoking Status: Never smoker Does the pt drink ETOH?: No Does the pt have substance abuse?: No - Immunizations Immunizations are current?: Yes - POLST Patient has POLST: Yes POLST Status: Full Code PD ED PE NORMAL - Vitals Vital signs reviewed: Yes (Hypertensive with wide pulse pressure) - General General: Alert and oriented X 3, No acute distress, Well developed/nourished - HEENT HEENT: Atraumatic, PERRL, EOMI - Neck Neck: Supple, no meningeal sign, No bony TTP - Cardiac Cardiac: RRR, No murmur - Respiratory Respiratory: No respiratory distress, Clear bilaterally - Abdomen Abdomen: Soft, Non tender - Back Back: No CVA TTP, No spinal TTP - Derm Derm: Normal color, Warm and dry, No rash - Extremities Extremities: No deformity, Other (trace edema only on the left ) - Neuro Neuro: Alert and oriented X 3, state inspector 2-12 intact, No motor deficit, No sensory deficit, Normal speech Eye Opening: Spontaneous Motor: Obeys Commands Verbal: Oriented GCS Score: 15 - Psych Psych: Normal mood, Normal affect Results - Vitals Vitals: Vital Signs - 24 hr 10/18/19 10:36 Temperature 36.7 C Heart Rate 60 Respiratory 18 Rate Blood Pressure 165/47 H O2 Saturation 99 Oxygen O2 Source Room air - EKG (time done) 1026 Rate: Rate (enter#) (64) [place]: LAD QRS: Poor R wave progression Compare to prior EKG: Unchanged from prior EKG (SPT 04-03-2019 no changes ) Computer interpretation: Disagree with computer (I do not see T abnormalities in the lateral leads) - Labs Labs: Laboratory Tests 10/18/19 10/18/19 10/18/19 10:30 10:30 10:30 WBC 8.7 RBC 4.16 L Hgb 13.0 Hct 39.8 MCV 95.7 MCH 31.3 H MCHC 32.7 RDW 14.7 Plt Count 116 L MPV 12.2 H Neut # (Auto) 2.8 Lymph # (Auto) 4.4 H [place] # (Auto) 1.2 H Eos # (Auto) 0.2 Baso # (Auto) 0.0 Absolute Nucleated RBC 0.00 Nucleated RBC % 0.0 Sodium 136 Potassium 3.7 Chloride 97 L Carbon Dioxide 27 Anion Gap 12.0 BUN 30 H Creatinine 1.9 H Estimated GFR (MDRD) 25 L Glucose 183 H Calcium 9.2 Total Bilirubin 0.8 AST 44 H ALT 30 Alkaline Phosphatase 115 Troponin I High Sens 20.6 H* Total Protein 7.5 Albumin 3.7 Globulin 3.8 Albumin/Globulin Ratio 1.0 Lipase 62 H 10/18/19 12:37 WBC RBC Hgb Hct MCV MCH MCHC RDW Plt Count MPV Neut # (Auto) Lymph # (Auto) [place] # (Auto) Eos # (Auto) Baso # (Auto) Absolute Nucleated RBC Nucleated RBC % Sodium Potassium Chloride Carbon Dioxide Anion Gap BUN Creatinine Estimated GFR (MDRD) Glucose Calcium Total Bilirubin AST ALT Alkaline Phosphatase Troponin I High Sens 18.3 H* Total Protein Albumin Globulin Albumin/Globulin Ratio Lipase - Rads (name of study) chest Radiology: Prelim report reviewed (Impression: No evidence of acute pulmonary process.), EMP read indepedently (On my read the lungs do look dry), See rad report Procedures - IVC sono (time) 1114 Bedside IVC sono: IVC measures (cm) (0.92), IVC collapsed c insp (cm) (complete), Dehydration (est 1-2 liter deficit) PD MEDICAL DECISION MAKING - ED course Complexity details: reviewed old records, reviewed results, re-evaluated patient, considered differential, d/w patient, d/w family ED course: 83-year-old female on renal dialysis is found to be dehydrated on interrogation of her inferior vena cava and she has had episodic chest pain atypical for her for angina. She has had some cramping yesterday as well during dialysis and and is at a low weight. She is administered a liter of saline and her electrocardiogram is otherwise unremarkable her chest x-ray is unremarkable. Departure - Departure Disposition: 01 Home, Self Care Clinical Impression: Atypical chest pain, Dehydration Condition: Stable Instructions: ED Dehydration, ED Chest Pain Atypical Unkn Cause Follow-Up: TOM FRAGOSO PA-C [Primary Care Provider] -
[2019-10-18] MEDS ORDERED: SODIUM CHLORIDE 0.9% 1,000 ML IV STA (11:19)
--- NOTE | 2019-10-18 11:26 | XRAY Report ---
PROCEDURE: Chest 1 View X-Ray INDICATIONS: Chest pain TECHNIQUE: One view of the chest was acquired. COMPARISON: 04/10/2019 FINDINGS: Surgical changes and devices: Interval tunneled dialysis catheter placement on the right.. Lungs and pleura: No pleural effusions or pneumothorax. Lungs are clear. Mediastinum: Mediastinal contours appear normal. Heart size is normal. Bones and chest wall: No suspicious bony lesions. Overlying soft tissues appear unremarkable. IMPRESSION: No evidence acute pulmonary process. Reviewed by: Moisés Kulkarni MD on 10/18/2019 10:25 AM BLAINE Approved by: Moisés Kulkarni MD on 10/18/2019 10:25 AM AKTAMARA Station ID: [id number]
[2019-10-18 13:19] VITALS: BP 164/52
== END 2019-10-18 13:29 | disposition home or self-care (01) ==
LOC: ED 10:19
DX: R07.89 Other chest pain (principal); E86.0 Dehydration; I25.2 Old myocardial infarction; Z95.5 Presence of coronary angioplasty implant and graft; Z99.2 Dependence on renal dialysis; N28.9 Disorder of kidney and ureter, unspecified; I10 Essential (primary) hypertension; E11.42 Type 2 diabetes mellitus with diabetic polyneuropathy; Z79.4 Long term (current) use of insulin
CPT/HCPCS: 36415; 71045; 80053; 83690; 84484; 85025; 93005; 96360; 99284

== ENCOUNTER 2019-10-21 16:11 | Outpatient (CLI) | payer MEDICARE ==
[2019-10-21 20:00] LABS: BILIRUBIN,URINE NEGATIVE (NEGATIVE); GLUCOSE, URINE (UA) 100 mg/dL (NEGATIVE); KETONES,URINE (UA) NEGATIVE (NEGATIVE); LEUKOCYTE ESTERASE, URINE TRACE (NEGATIVE); NITRITE,URINE NEGATIVE (NEGATIVE); OCCULT BLOOD,URINE NEGATIVE (NEGATIVE); PROTEIN,URINE >=300 mg/dL (NEGATIVE); UROBILINOGEN,URINE 0.2 (NORMAL) E.U./dL (NORMAL)
[2019-10-21 20:12] LABS: CLARITY,URINE CLEAR (CLEAR)
[2019-10-21 20:13] LABS: BACTERIA,URINE None Seen /HPF (None Seen); RBC,URINE None Seen /HPF (0-5); SQUAMOUS EPITHELIAL CELL,UR NONE SEEN (<= Few); YEAST,URINE PRESENT
== END 2019-10-21 16:12 | disposition home or self-care (01) ==
LOC: LAB.S 16:11
PROVIDERS: ATTEND Physician Assistant
DX: R30.0 Dysuria (principal)
CPT/HCPCS: 81001; 87086

== ENCOUNTER 2020-01-16 14:08 | Outpatient (CLI) | payer MEDICARE | END 2020-01-16 14:09 | disposition critical access hospital (66) | LOC: EMS 14:08 | PROVIDERS: ATTEND Surgery | DX: S09.90XA Unspecified injury of head, initial encounter (principal); W01.198A Fall on same level from slipping, tripping and stumbling with subsequent striking against other object, initial encounter; Y92.009 Unspecified place in unspecified non-institutional (private) residence as the place of occurrence of the external cause; Z79.01 Long term (current) use of anticoagulants | CPT/HCPCS: A0425; A0429 ==

== ENCOUNTER 2020-01-16 14:48 | Emergency (ER) | payer MEDICARE ==
--- NOTE | 2020-01-16 14:57 | ED Physician Documentation ---
PD HPI Fall - Stated complaint Stated Complaint: FALL - History obtained from History obtained from: Patient, EMS - History of Present Illness Mechanism of injury: Tripped Fall distance: Standing position Where injury occurred: Home Timing - onset: Today Injury(ies) location: Face Quality of pain: Pain Associated symptoms: No: LOC, AMS, Amnesia, Seizures, Ear drainage, Nasal drainage, Neck pain, Weakness, Paresthesias, Dyspnea, Nausea / vomiting, Hematemesis, Abdominal distension Symptoms improve with: Rest Worsens with: Palpation Contributing factors: Anticoagulated Similar symptoms before: Has not had sx before Recently seen: Other (is getting peritoneal dialysis) - Additional information Additional information: 83-year-old female with chronic renal disease is on peritoneal dialysis and today she has had a fall. She struck her face and she did not have loss of consciousness she denies any pain in her neck she denies any numbness or tingling. She has not had nausea or vomiting difficulty concentrating or dizziness. She is on Coumadin. Review of Systems Constitutional: denies: Fever Eyes: denies: Decreased vision Ears: denies: Ear pain Nose: denies: Congestion Throat: denies: Sore throat Cardiac: denies: Chest pain / pressure, Palpitations Respiratory: denies: Dyspnea, Cough GI: denies: Abdominal Pain, Nausea, Vomiting, Constipation, Diarrhea : denies: Dysuria PD PAST MEDICAL HISTORY - Past Medical History Cardiovascular: Hypertension, High cholesterol, [place] Respiratory: Pneumonia, Sleep apnea, CPAP use Neuro: None, CVA, Peripheral neuropathy Endocrine/Autoimmune: Type 2 diabetes, HyPOthyroidism GI: Chronic diarrhea : Incontinence, Renal insuffiency, Kidney stones HEENT: None Psych: Anxiety Musculoskeletal: Osteoarthritis, Fatigue, Chronic back pain Derm: None - Past Surgical History Past Surgical History: Yes General: Cholecystectomy, Appendectomy Ortho: Knee replacement, Spine surgery, 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 /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: Hysterectomy, Other - Present Medications Home Medications: Ambulatory Orders Medication Instructions Recorded Confirmed traMADol [Ultram] 50 mg PO BID PRN 04/19/17 01/16/20 Atorvastatin Calcium 80 mg PO QPM 05/07/17 01/16/20 Cholecalciferol (Vitamin D3) 2,000 units PO QPM 05/07/17 01/16/20 [Vitamin D3] Insulin NPH Human Isophane 8 - 20 units SUBQ QPM 05/07/17 01/16/20 [Humulin N] Nitroglycerin [Nitrostat] 0.4 mg PO Q5M PRN 05/07/17 01/16/20 Sertraline [Zoloft] 50 mg PO DAILY 05/07/17 01/16/20 Lidocaine Cream 1 ea TOP DAILY PRN 06/08/17 01/16/20 Ondansetron HCl [Zofran] 4 mg PO Q6H PRN 06/08/17 01/16/20 Spironolactone 25 mg PO QDAC 06/08/17 01/16/20 carvediloL [Carvedilol] 12.5 mg PO BID 02/12/18 01/16/20 hydrALAZINE [Apresoline] 25 mg PO BID #60 tablet 02/12/18 01/16/20 Albuterol 2.5 mg INH Q4H PRN #30 neb 03/23/18 01/16/20 Albuterol Sulf [Ventolin Hfa 1 - 2 puffs INH Q4HR PRN #1 inhaler 03/23/18 01/16/20 Inhaler] Ascorbic Acid [Vitamin C] 250 mg PO DAILY 12/05/18 01/16/20 Insulin Lispro [Humalog] 6 - 20 unit SUBQ ONCE PRN 12/05/18 01/16/20 Levothyroxine [Synthroid] 75 mcg PO QDAC 12/05/18 01/16/20 Nystatin/Triamcin 1 ea TP DAILY PRN 12/05/18 01/16/20 [Nystatin-Triamcinolone Cream] Vitamin B Complex 1 each PO DAILY 12/05/18 01/16/20 Warfarin [Coumadin] 3 tab PO DAILY 10/18/19 01/16/20 dilTIAZem HCL [Diltiazem 24Hr ER 1 tab PO DAILY 10/18/19 01/16/20 (Xr)] Clopidogrel [Plavix] 75 mg PO DAILY 11/15/19 01/16/20 Isosorbide Mononitrate ER [Imdur] 90 mg PO DAILY 11/15/19 01/16/20 - Allergies Allergies/Adverse Reactions: Allergies Allergy/AdvReac Type Severity Reaction Status Date / Time heparin Allergy Unknown Verified 01/16/20 16:42 adhesive tape AdvReac Mild Itching Verified 01/16/20 16:42 acetaminophen [From Tylenol] AdvReac Edema Verified 01/16/20 16:42 codeine AdvReac Unknown Verified 01/16/20 16:42 diazepam [From Valium] AdvReac Unknown Verified 01/16/20 16:42 Sulfa (Sulfonamide AdvReac Unknown Verified 01/16/20 16:42 Antibiotics) - Social History Does the pt smoke?: No Smoking Status: Never smoker Does the pt drink ETOH?: No Does the pt have substance abuse?: No - Immunizations Immunizations are current?: Yes - POLST Patient has POLST: Yes POLST Status: Full Code PD ED PE NORMAL - Vitals Vital signs reviewed: Yes (hypertensive with wide pulse pressure ) - General General: Alert and oriented X 3, No acute distress, Well developed/nourished - HEENT HEENT: PERRL, EOMI, Other (obvious facial trauma with swelling to the right face. ) - Neck Neck: Supple, no meningeal sign, No bony TTP - Cardiac Cardiac: RRR, No murmur - Respiratory Respiratory: No respiratory distress, Clear bilaterally - Abdomen Abdomen: Normal bowel sounds, Soft, Non tender, Non distended, No organomegaly - Back Back: No CVA TTP, No spinal TTP - Derm Derm: Normal color, Warm and dry, No rash - Extremities Extremities: No deformity, No edema - Neuro Neuro: Alert and oriented X 3, sports physiologist 2-12 intact, No motor deficit, No sensory deficit, Normal speech Eye Opening: Spontaneous Motor: Obeys Commands Verbal: Oriented GCS Score: 15 - Psych Psych: Normal mood, Normal affect Results - Vitals Vitals: Vital Signs - 24 hr 01/16/20 01/16/20 01/16/20 14:53 15:10 16:26 Temperature 37.4 C Heart Rate 72 73 73 Respiratory 16 12 16 Rate Blood Pressure 175/49 H 170/53 H 170/53 H O2 Saturation 98 97 97 01/16/20 01/16/20 16:56 18:28 Temperature 97.8 C H Heart Rate 76 61 Respiratory 19 20 Rate Blood Pressure 156/70 H 171/63 H O2 Saturation 97 100 Oxygen O2 Source Room air - Labs Labs: Laboratory Tests 01/16/20 01/16/20 01/16/20 15:00 15:00 15:00 WBC 8.8 RBC 3.81 L Hgb 12.1 Hct 36.0 L MCV 94.5 MCH 31.8 H MCHC 33.6 RDW 14.8 Plt Count 71 L MPV 12.0 H Neut # (Auto) 4.1 Lymph # (Auto) 3.4 [place] # (Auto) 0.9 Eos # (Auto) 0.3 Baso # (Auto) 0.0 Absolute Nucleated RBC 0.00 Nucleated RBC % 0.0 PT 19.0 H INR 1.8 H Sodium 136 Potassium 3.2 L Chloride 98 L Carbon Dioxide 29 Anion Gap 9.0 BUN 59 H Creatinine 2.1 H Estimated GFR (MDRD) 22 L Glucose 251 H Calcium 8.8 Total Bilirubin 0.7 AST 37 ALT 50 Alkaline Phosphatase 143 H Total Protein 6.2 L Albumin 3.1 L Globulin 3.1 Albumin/Globulin Ratio 1.0 Lipase 56 H Urine Color Urine Clarity Urine pH Ur Specific [place] Urine Protein Urine Glucose (UA) Urine Ketones Urine Occult Blood Urine Nitrite Urine Bilirubin Urine Urobilinogen Ur Leukocyte Esterase Urine RBC Urine WBC Ur Squamous Epith Cells Urine Bacteria Ur Microscopic Review Urine Culture Comments 01/16/20 16:50 WBC RBC Hgb Hct MCV MCH MCHC RDW Plt Count MPV Neut # (Auto) Lymph # (Auto) [place] # (Auto) Eos # (Auto) Baso # (Auto) Absolute Nucleated RBC Nucleated RBC % PT INR Sodium Potassium Chloride Carbon Dioxide Anion Gap BUN Creatinine Estimated GFR (MDRD) Glucose Calcium Total Bilirubin AST ALT Alkaline Phosphatase Total Protein Albumin Globulin Albumin/Globulin Ratio Lipase Urine Color YELLOW Urine Clarity CLEAR Urine pH 6.5 Ur Specific [place] 1.015 Urine Protein 100 H Urine Glucose (UA) 250 H Urine Ketones NEGATIVE Urine Occult Blood NEGATIVE Urine Nitrite NEGATIVE Urine Bilirubin NEGATIVE Urine Urobilinogen 0.2 (NORMAL) Ur Leukocyte Esterase NEGATIVE Urine RBC None Seen Urine WBC 0-3 Ur Squamous Epith Cells RARE Squamous Urine Bacteria None Seen Ur Microscopic Review INDICATED Urine Culture Comments NOT INDICATED - Rads (name of study) CT head without Radiology: Prelim report reviewed (Impression: Small parafalcine subdural hemato ma with no associated mass-effect.), EMP read indepedently, See rad report CT cervical spine Radiology: Prelim report reviewed (Impression: No CT evidence of acute or me tastatic cervical spine injury), EMP read indepedently, See rad report PD MEDICAL DECISION MAKING - ED course Complexity details: reviewed old records, reviewed results, re-evaluated patient, considered differential, d/w patient, d/w family, d/w organizational research consultant ([place] [facility] [place] at 4-6 hours and if unchanged stay off coumadin for 1-2 weeks. ) ED course: 84-year-old diabetic female on dialysis has had a fall she is on Coumadin and she has a small parafalcine bleed. Her CT of the cervical spine is without evidence of acute fracture. Cervical collar is removed she is given 10 mg of vitamin K intravenously to reverse the effects of Coumadin that she has stopped 2 days ago. At 1600 we have begun looking for a bed for this patient. We are able to consult with the neurosurgeon at [facility] and he has recommended repeating CT scan here with this small Parafalcine hemorrhage At shift change care is turned over to Dr. Sergey Larios for final disposition. Departure - Departure Clinical Impression: Traumatic subdural hemorrhage Qualifiers: Encounter type: initial encounter Loss of consciousness presence/duration: without LOC Qualified Code(s): S06.5X0A - Traumatic subdural hemorrhage without loss of consciousness, initial encounter Condition: Stable
[2020-01-16 15:16] LABS: BASOPHILS % (AUTO) 0.3 %; EOSINOPHILS # (AUTO) 0.3 10^3/uL (0.0-0.7); EOSINOPHILS % (AUTO) 3.2 %; HGB - HEMOGLOBIN 12.1 g/dL (12.0-16.0); INR 1.8 (0.8-1.2); LYMPHOCYTES # (AUTO) 3.4 10^3/uL (1.5-3.5); LYMPHOCYTES % (AUTO) 38.8 %; MEAN CORPUSCULAR HEMOGLOBIN 31.8 pg (27.0-31.0); MEAN CORPUSCULAR HGB CONC 33.6 g/dL (32.0-36.0); MEAN CORPUSCULAR VOLUME 94.5 fL (81.0-99.0); MONOCYTES # (AUTO) 0.9 10^3/uL (0.0-1.0); MONOCYTES % (AUTO) 10.5 %; NEUTROPHILS # (AUTO) 4.1 10^3/uL (1.5-6.6); PLT - PLATELET COUNT 71 10^3/uL (130-450); RED BLOOD COUNT 3.81 10^6/uL (4.20-5.40); RED CELL DISTRIBUTION WIDTH 14.8 % (12.0-15.0); WHITE BLOOD COUNT 8.8 x10^3/uL (4.8-10.8)
[2020-01-16 15:20] LABS: ALBUMIN 3.1 g/dL (3.2-5.5); BILIRUBIN,TOTAL 0.7 mg/dL (0.2-1.0); CALCIUM 8.8 mg/dL (8.5-10.3); CREATININE 2.1 mg/dL (0.4-1.0); TOTAL PROTEIN 6.2 g/dL (6.7-8.2)
--- NOTE | 2020-01-16 15:49 | CT Report ---
PROCEDURE: HEAD WO INDICATIONS: Fall, head injury TECHNIQUE: Noncontrast 4.5 mm thick angled axial sections acquired from the foramen magnum to the vertex. For r adiation dose reduction, the following was used: automated exposure control, adjustment of mA and/or kV according to patient size. COMPARISON: None. FINDINGS: Image quality: Excellent. CSF spaces: Basal cisterns are patent. No extra-axial fluid collections. Ventricles are normal in size and shape. Brain: There is a small posterior parafalcine subdural hematoma on the left measuring up to 2 mm. No adjacent degenerative edema in the brain parenchyma. No significant associated mass effect. No additi onal intracranial hemorrhage. There is global cerebral volume loss with passive expansion of the extr a axial spaces and advanced chronic microvascular ischemic change. Skull and face: Calvarium and visualized facial bones are intact, without suspicious lesions. Sinuses: Visualized sinuses and mastoids are clear. IMPRESSION: Small parafalcine subdural hematoma with no associated mass effect. Findings were discussed with Dr. Boucher at 3:45 PM on 01/16/2020 Reviewed by: Harman Joshi MD on 01/16/2020 3:48 PM PDT Approved by: Harman Joshi MD on 01/16/2020 3:48 PM PDT Station ID: [id number]
--- NOTE | 2020-01-16 15:51 | CT Report ---
PROCEDURE: CERVICAL SPINE WO INDICATIONS: fall head injury TECHNIQUE: Noncontrast 3 mm thick sections acquired from the skull base to the T4 level. Sagittal and coronal r eformats were then constructed. For radiation dose reduction, the following was used: automated exp osure control, adjustment of mA and/or kV according to patient size. COMPARISON: None. FINDINGS: Image quality: Excellent. Bones: There is no evidence of an acute cervical spine fracture. Intervertebral disc spaces are congr uent. Facets are congruent with no evidence of subluxation or dislocation. There is ankylosis of the facets on the left at C3-C4. Extensive degenerative changes in the cervical spine with diffuse anteri or osteophytes from C2 through T3. There is also ankylosis posteriorly with diffuse calcification of the posterior longitudinal ligament. Soft tissues: Prevertebral soft tissues are normal in thickness. No paravertebral hematomas. No ap ical pneumothoraces. IMPRESSION: No CT evidence of acute or metastatic cervical spine injury. Although no fracture is demonstrated, a low threshold for cervical spine MRI is recommended if there is point tenderness of the cervical spine or pain upon flexion/extension. 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 Reviewed by: Harman Joshi MD on 01/16/2020 3:50 PM PDT Approved by: Harman Joshi MD on 01/16/2020 3:50 PM PDT Station ID: [id number]
[2020-01-16] MEDS ORDERED: PHYTONADIONE 10 MG/ML AMP IVP STA (16:01)
--- NOTE | 2020-01-16 16:51 | CT Report ---
PROCEDURE: MAXILLOFACIAL WO INDICATIONS: fall facial trauma TECHNIQUE: Noncontrast 1.5 mm thick axial images acquired from the mandible through the frontal sinuses, with co charla and sagittal reformatting. For radiation dose reduction, the following was used: automated ex posure control, adjustment of mA and/or kV according to patient size. COMPARISON: None. FINDINGS: Image quality: Excellent. Bones and teeth: Orbital gramajo are intact. Sinus gramajo show no fracture or deformity. Nasal bones and septum are intact. Visualized portions of the mandible demonstrate no fractures or subluxation. Zygomatic arches are intact. Pterygoid plates are intact. Visualized portions of the skull base an d auditory canals are intact. Moderate degenerative changes of the bilateral temporal mandibular jesus nts. There are also degenerative changes at the craniocervical junction as well as the articulation o f the dens and anterior arch of C1. Sinuses: Minimal mucosal thickening of the bilateral maxillary sinuses, sphenoid sinuses, and fronta l sinuses. Mastoid air cells are aerated. Soft tissues: There is moderate right periorbital, right paranasal, and facial contusion/hematoma ex tending to the upper and lower lips. No abnormal fluid collections seen. No suspicious soft tissue ma ss. No enlarged lymph nodes. No evidence for radiopaque soft tissue foreign bodies. Visualized orbi ts and globes appear intact. Vascular: Visualized vascular structures appear normal in the absence of contrast. Bony vascular fo ramina and canals are intact. IMPRESSION: Moderate contusion/hematoma involving the right sided periorbital, paranasal, and facial soft tissues without underlying facial bone fractures. Other chronic findings as above. Reviewed by: Asim Miramontes MD on 01/16/2020 4:50 PM PDT Approved by: Asim Miramontes MD on 01/16/2020 4:50 PM PDT Station ID: [id number]
[2020-01-16 16:59] LABS: BILIRUBIN,URINE NEGATIVE (NEGATIVE); GLUCOSE, URINE (UA) 250 mg/dL (NEGATIVE); KETONES,URINE (UA) NEGATIVE (NEGATIVE); LEUKOCYTE ESTERASE, URINE NEGATIVE (NEGATIVE); NITRITE,URINE NEGATIVE (NEGATIVE); OCCULT BLOOD,URINE NEGATIVE (NEGATIVE); PH,URINE 6.5 PH (5.0-7.5); PROTEIN,URINE 100 mg/dL (NEGATIVE); UROBILINOGEN,URINE 0.2 (NORMAL) E.U./dL (NORMAL)
[2020-01-16 17:06] LABS: CLARITY,URINE CLEAR (CLEAR)
[2020-01-16 18:01] LABS: RBC,URINE None Seen /HPF (0-5)
[2020-01-16 18:02] LABS: BACTERIA,URINE None Seen /HPF (None Seen); SQUAMOUS EPITHELIAL CELL,UR RARE Squamous (<= Few)
--- NOTE | 2020-01-16 20:59 | CT Report ---
PROCEDURE: HEAD WO INDICATIONS: head bleed, compare to prior TECHNIQUE: Noncontrast 4.5 mm thick angled axial sections acquired from the foramen magnum to the vertex. For r adiation dose reduction, the following was used: automated exposure control, adjustment of mA and/or kV according to patient size. COMPARISON: None. FINDINGS: Image quality: Excellent. CSF spaces: Basal cisterns are patent. No extra-axial fluid collections. Ventricles are normal in size and shape. Brain: No midline shift. No intracranial masses. Small left parietal parafalcine subdural bleed is stable compared to 01/16/2020 at 1534 hours. He-white matter interface is normal. Skull and face: Calvarium and visualized facial bones are intact, without suspicious lesions. Sinuses: Visualized sinuses and mastoids are clear. IMPRESSION: 1. Stable examination compared to 01/16/2020 at 1534 hours. 2. Small left parietal parafalcine subdural hematoma is stable. No new intracranial hemorrhage. Reviewed by: Nova Fernandez MD, PhD on 01/16/2020 8:57 PM PDT Approved by: Nova Fernandez MD, PhD on 01/16/2020 8:57 PM PDT Station ID: [id number]
[2020-01-16 21:09] VITALS: BP 155/54
--- NOTE | 2020-01-16 21:09 | ED Physician Documentation ---
ED Addendum - Addendum Addendum: 01/16/20 21:07 She was signed out to me by Dr. Boucher awaiting repeat head CT per ne urosurgery recommendations. Repeat head CT was performed without any interval change. She has already been given vitamin K for her warfarin. Neurosurgery recommends holding the warfarin for 1 week. She will follow-up with her doctor in the next week for repeat evaluation. They will return immediately if she worsens in any way including changes in mental status, seizures or any other new or worsening symptoms. Patient and family counseled regarding signs and symptoms for which I believe and urgent re-evaluation would be necessary. Patient with good understanding of and agreement to plan and is comfortable going home at this time This document was made in part using voice recognition software. While efforts are made to proofread this document, sound alike and grammatical errors may oc cur. Departure - Departure Disposition: 01 Home, Self Care Clinical Impression: Traumatic subdural hemorrhage Qualifiers: Encounter type: initial encounter Loss of consciousness presence/duration: without LOC Qualified Code(s): S06.5X0A - Traumatic subdural hemorrhage without loss of consciousness, initial encounter Condition: Stable Instructions: Hematoma Subdural Follow-Up: TOM FRAGOSO PA-C [Primary Care Provider] - Within 1 week Comments: You do have a very small subdural hemorrhage. You need to stay off of your w arfarin for at least 1 week. Follow-up with your doctor to determine when you should restart this. Neurosurgery recommends at least 1 week. Return if you worsen including increasing pain, changes in mental status, seizures or any other new or worsening symptoms.
[2020-01-16] MEDS ORDERED: traMADol 50 MG TABLET PO STA (21:22)
== END 2020-01-16 21:41 | disposition home or self-care (01) ==
LOC: EDUNIT# → ED 14:48
DX: S06.5X0A Traumatic subdural hemorrhage without loss of consciousness, initial encounter (principal); S00.33XA Contusion of nose, initial encounter; S00.11XA Contusion of right eyelid and periocular area, initial encounter; W01.0XXA Fall on same level from slipping, tripping and stumbling without subsequent striking against object, initial encounter; Y93.01 Activity, walking, marching and hiking; Y92.002 Bathroom of unspecified non-institutional (private) residence as the place of occurrence of the external cause; M47.812 Spondylosis without myelopathy or radiculopathy, cervical region; I12.9 Hypertensive chronic kidney disease with stage 1 through stage 4 chronic kidney disease, or unspecified chronic kidney disease; E11.22 Type 2 diabetes mellitus with diabetic chronic kidney disease; N18.9 Chronic kidney disease, unspecified; E11.42 Type 2 diabetes mellitus with diabetic polyneuropathy; Z79.4 Long term (current) use of insulin; Z86.73 Personal history of transient ischemic attack (TIA), and cerebral infarction without residual deficits; Z79.01 Long term (current) use of anticoagulants
CPT/HCPCS: 36415; 70450; 70486; 72125; 80053; 81001; 83690; 85025; 85610; 96374; 99284; A9270; 81003; 87086

== ENCOUNTER 2020-04-07 14:10 | Outpatient (CLI) | payer MEDICARE ==
[2020-04-07 16:27] LABS: INR 6.9 (0.8-1.2)
== END 2020-04-07 23:59 | disposition home or self-care (01) ==
LOC: LAB.R 14:10
PROVIDERS: ATTEND Physician Assistant
DX: I48.0 Paroxysmal atrial fibrillation (principal)
CPT/HCPCS: 85610

== ENCOUNTER 2020-04-07 16:39 | Inpatient (IN) | payer MEDICARE ==
--- NOTE | 2020-04-07 17:19 | XRAY Report ---
PROCEDURE: Hip w/Pelvis 2-3V LT INDICATIONS: fall, L hip pain TECHNIQUE: AP pelvis with lateral view(s) of the left hip(s). COMPARISON: None. FINDINGS: Bones: No fractures or dislocations. Bilateral hip joint osteoarthritic changes are seen. No eviden ce of avascular necrosis of femoral head. Pelvic ring appears intact. No suspicious bony lesions. P ost fusion changes in lower lumbar spine at L4-5 level is seen. Soft tissues: The visualized bowel gas pattern is normal. No suspicious soft tissue calcifications. IMPRESSION: 1. No acute left hip fracture or dislocation. Bilateral hip joint osteoarthritis. No evidence of avas cular necrosis. Reviewed by: Ralph Fernandez MD on 04/07/2020 5:17 PM PST Approved by: Ralph Fernandez MD on 04/07/2020 5:17 PM PST Station ID: [id number]
--- NOTE | 2020-04-07 17:28 | ED Physician Documentation ---
History of Present Illness - Stated complaint Stated Complaint: GLF/BLOOD THINNERS/HEADACHES - Chief complaint Chief Complaint: Trauma Hd/Nk - History obtained from History obtained from: Patient - History of Present Illness Pain level max: 6 Pain level now: 4 - Additonal information Additional information: Patient is an 84-year-old female who fell at home 4 days ago. She states she injured her left hip and has a large amount of bruising to the area. She also states that she has had severe headaches since the event. She is on warfarin and had her INR checked today and found to be 6.3. She has been ambulating. Occasionally she will feel dizzy. It was a mechanical trip and fall. No syncope. No loss of consciousness. No chest pain. No palpitations. Worse with movement, better with rest. Review of Systems Ten Systems: 10 systems reviewed and negative Constitutional: denies: Fever, Chills Nose: denies: Rhinorrhea / runny nose, Congestion Respiratory: denies: Cough GI: denies: Nausea, Vomiting, Diarrhea Skin: denies: Rash Musculoskeletal: denies: Neck pain, Back pain Neurologic: reports: Headache. denies: Focal weakness, Numbness, Seizure, Confused PD PAST MEDICAL HISTORY - Past Medical History Past Medical History: Yes Cardiovascular: Hypertension, High cholesterol, [place] Respiratory: Pneumonia, Sleep apnea, CPAP use Neuro: None, CVA, Peripheral neuropathy Endocrine/Autoimmune: Type 2 diabetes, HyPOthyroidism GI: Chronic diarrhea : Incontinence, Renal insuffiency, Kidney stones HEENT: None Psych: Anxiety Musculoskeletal: Osteoarthritis, Fatigue, Chronic back pain Derm: None - Past Surgical History Past Surgical History: Yes General: Cholecystectomy, Appendectomy Ortho: Knee replacement, Spine surgery, 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, Other - Present Medications Home Medications: Ambulatory Orders Medication Instructions Recorded Confirmed traMADol [Ultram] 50 mg PO BID PRN 04/19/17 01/16/20 Atorvastatin Calcium 80 mg PO QPM 05/07/17 01/16/20 Cholecalciferol (Vitamin D3) 2,000 units PO QPM 05/07/17 01/16/20 [Vitamin D3] Insulin NPH Human Isophane 8 - 20 units SUBQ QPM 05/07/17 01/16/20 [Humulin N] Nitroglycerin [Nitrostat] 0.4 mg PO Q5M PRN 05/07/17 01/16/20 Sertraline [Zoloft] 50 mg PO DAILY 05/07/17 01/16/20 Lidocaine Cream 1 ea TOP DAILY PRN 06/08/17 01/16/20 Ondansetron HCl [Zofran] 4 mg PO Q6H PRN 06/08/17 01/16/20 Spironolactone 25 mg PO QDAC 06/08/17 01/16/20 carvediloL [Carvedilol] 12.5 mg PO BID 02/12/18 01/16/20 hydrALAZINE [Apresoline] 25 mg PO BID #60 tablet 02/12/18 01/16/20 Albuterol 2.5 mg INH Q4H PRN #30 neb 03/23/18 01/16/20 Albuterol Sulf [Ventolin Hfa 1 - 2 puffs INH Q4HR PRN #1 inhaler 03/23/18 01/16/20 Inhaler] Ascorbic Acid [Vitamin C] 250 mg PO DAILY 12/05/18 01/16/20 Insulin Lispro [Humalog] 6 - 20 unit SUBQ ONCE PRN 12/05/18 01/16/20 Levothyroxine [Synthroid] 75 mcg PO QDAC 12/05/18 01/16/20 Nystatin/Triamcin 1 ea TP DAILY PRN 12/05/18 01/16/20 [Nystatin-Triamcinolone Cream] Vitamin B Complex 1 each PO DAILY 12/05/18 01/16/20 Warfarin [Coumadin] 3 tab PO DAILY 10/18/19 01/16/20 dilTIAZem HCL [Diltiazem 24Hr ER 1 tab PO DAILY 10/18/19 01/16/20 (Xr)] Clopidogrel [Plavix] 75 mg PO DAILY 11/15/19 01/16/20 Isosorbide Mononitrate ER [Imdur] 90 mg PO DAILY 11/15/19 01/16/20 - Allergies Allergies/Adverse Reactions: Allergies Allergy/AdvReac Type Severity Reaction Status Date / Time heparin Allergy Unknown Verified 04/07/20 16:50 adhesive tape AdvReac Mild Itching Verified 04/07/20 16:50 acetaminophen [From Tylenol] AdvReac Edema Verified 04/07/20 16:50 codeine AdvReac Unknown Verified 04/07/20 16:50 diazepam [From Valium] AdvReac Unknown Verified 04/07/20 16:50 Sulfa (Sulfonamide AdvReac Unknown Verified 04/07/20 16:50 Antibiotics) - Social History Does the pt smoke?: No Smoking Status: Never smoker Does the pt drink ETOH?: No Does the pt have substance abuse?: No - Immunizations Immunizations are current?: Yes - POLST Patient has POLST: Yes POLST Status: Full Code PD ED PE NORMAL - Vitals Vital signs reviewed: Yes - General General: Alert and oriented X 3, No acute distress - HEENT HEENT: Atraumatic, PERRL, Ears normal, Moist mucous membranes, Pharynx benign - Neck Neck: Supple, no meningeal sign, No bony TTP - Cardiac Cardiac: RRR, Strong equal pulses - Respiratory Respiratory: No respiratory distress, Clear bilaterally - Abdomen Abdomen: Soft, Non tender, Non distended - Back Back: No spinal TTP (No step-off or deformity) - Derm Derm: Warm and dry - Extremities Extremities: Other (Large hematoma and ecchymosis to the left anterior hip. No bony tenderness. There is pain with range of movement. She is able to ambulate with her walker.) - Neuro Neuro: Alert and oriented X 3, pillowcase maker 2-12 intact, No motor deficit, No sensory deficit, Normal speech Eye Opening: Spontaneous Motor: Obeys Commands Verbal: Oriented GCS Score: 15 Results - Vitals Vitals: Vital Signs - 24 hr 04/07/20 04/07/20 04/07/20 16:45 17:19 17:30 Temperature 36.6 C Heart Rate 58 L 60 59 L Respiratory 16 17 17 Rate Blood Pressure 127/44 L 126/48 L O2 Saturation 98 95 99 04/07/20 04/07/20 18:00 18:30 Temperature Heart Rate 58 L 57 L Respiratory 19 18 Rate Blood Pressure 129/48 L 129/49 L O2 Saturation 99 99 Oxygen O2 Source Room air - Labs Labs: Laboratory Tests 04/07/20 04/07/20 04/07/20 17:46 17:46 17:46 WBC 8.3 RBC 2.68 L Hgb 8.9 L Hct 26.8 L MCV 100.0 H MCH 33.2 H MCHC 33.2 RDW 13.2 Plt Count 114 L MPV 11.9 H Neut # (Auto) 2.9 Lymph # (Auto) 4.4 H Rutherford # (Auto) 0.9 Eos # (Auto) 0.1 Baso # (Auto) 0.0 Absolute Nucleated RBC 0.00 Nucleated RBC % 0.0 PT 67.7 H INR 6.9 H* Sodium 135 Potassium 4.9 Chloride 95 L Carbon Dioxide 28 Anion Gap 12.0 BUN 73 H Creatinine 4.0 H Estimated GFR (MDRD) 11 L Glucose 243 H Calcium 9.0 Total Bilirubin 0.7 AST 29 ALT 24 Alkaline Phosphatase 79 Total Protein 6.1 L Albumin 3.1 L Globulin 3.0 Albumin/Globulin Ratio 1.0 - Rads (name of study) head CT Radiology: Prelim report reviewed, EMP read contemporaneously, See rad report (no acute abnormality) cervical spine CT Radiology: Prelim report reviewed, EMP read contemporaneously, See rad report (no acute abnormality) L hip xray Radiology: Prelim report reviewed, EMP read contemporaneously, See rad report (no acute abnormality) PD MEDICAL DECISION MAKING - ED course Complexity details: reviewed results, re-evaluated patient, considered differential, d/w patient, d/w health management consultant ED course: Patient is an 84-year-old female status post a fall on Sunday. Supratherapeutic INR. Given vitamin K. No acute findings on x-ray or CT scan. Does have a large left hip hematoma. Has anemia as well. Has worsening renal failure. Baseline creatinine is 2, she is currently at 4. Given IV fluids. Her hemoglobin is 8.9, down from 12. She has been down to 9.6 before, but with the bleeding in her hematoma, coupled with the supratherapeutic INR and acute renal insufficiency, will place her in observation for further care. Discussed the case Dr. Gallegos, hospitalist who accepts This document was made in part using voice recognition software. While efforts are made to proofread this document, sound alike and grammatical errors may occur. Departure - Departure Disposition: ED Place in Observation Clinical Impression: Hematoma, Supratherapeutic INR, Uremia Acute renal failure (ARF) Qualifiers: Acute renal failure type: unspecified Qualified Code(s): N17.9 - Acute kidney failure, unspecified Fall Qualifiers: Encounter type: initial encounter Qualified Code(s): W19.XXXA - Unspecified fall, initial encounter Anemia Qualifiers: Anemia type: unspecified type Qualified Code(s): D64.9 - Anemia, unspecified Condition: Stable
--- NOTE | 2020-04-07 17:52 | CT Report ---
PROCEDURE: HEAD WO INDICATIONS: fall, headache, INR 6.3 TECHNIQUE: Noncontrast 4.5 mm thick angled axial sections acquired from the foramen magnum to the vertex. For r adiation dose reduction, the following was used: automated exposure control, adjustment of mA and/or kV according to patient size. COMPARISON: None. FINDINGS: Image quality: Excellent. CSF spaces: Basal cisterns are patent. No extra-axial fluid collections. Ventricles are normal in size and shape. Brain: No midline shift. No intracranial masses or hemorrhage. He-white matter interface is norm al. Skull and face: Calvarium and visualized facial bones are intact, without suspicious lesions. Sinuses: Visualized sinuses and mastoids are clear. IMPRESSION: No acute intracranial process. Reviewed by: Newton Gan MD on 04/07/2020 5:51 PM PST Approved by: Newton Gan MD on 04/07/2020 5:51 PM PST Station ID: [id number]
--- NOTE | 2020-04-07 17:59 | CT Report ---
PROCEDURE: CERVICAL SPINE WO INDICATIONS: fall, neck pain TECHNIQUE: Noncontrast 3 mm thick sections acquired from the skull base to the T4 level. Sagittal and coronal r eformats were then constructed. For radiation dose reduction, the following was used: automated exp osure control, adjustment of mA and/or kV according to patient size. COMPARISON: None. FINDINGS: Image quality: Excellent. Bones: No fractures or dislocations. Visualized superior ribs are intact. Incidentally noted flowin g anterior spinal ossification suggestive of diffuse idiopathic skeletal hyperostosis Soft tissues: Prevertebral soft tissues are normal in thickness. No paravertebral hematomas. No ap ical pneumothoraces. Scattered carotid atherosclerotic calcified plaque. IMPRESSION: No fracture Reviewed by: Newton Gan MD on 04/07/2020 5:58 PM PST Approved by: Newton Gan MD on 04/07/2020 5:58 PM PST Station ID: [id number]
[2020-04-07 18:09] LABS: BASOPHILS % (AUTO) 0.2 %; EOSINOPHILS # (AUTO) 0.1 10^3/uL (0.0-0.7); EOSINOPHILS % (AUTO) 1.2 %; HGB - HEMOGLOBIN 8.9 g/dL (12.0-16.0); LYMPHOCYTES # (AUTO) 4.4 10^3/uL (1.5-3.5); LYMPHOCYTES % (AUTO) 53.1 %; MEAN CORPUSCULAR HEMOGLOBIN 33.2 pg (27.0-31.0); MEAN CORPUSCULAR HGB CONC 33.2 g/dL (32.0-36.0); MEAN PLATELET VOLUME 11.9 fL (7.9-10.8); MONOCYTES # (AUTO) 0.9 10^3/uL (0.0-1.0); MONOCYTES % (AUTO) 10.6 %; NEUTROPHILS # (AUTO) 2.9 10^3/uL (1.5-6.6); NEUTROPHILS % (AUTO) 34.8 %; PLT - PLATELET COUNT 114 10^3/uL (130-450); RED BLOOD COUNT 2.68 10^6/uL (4.20-5.40); RED CELL DISTRIBUTION WIDTH 13.2 % (12.0-15.0); WHITE BLOOD COUNT 8.3 x10^3/uL (4.8-10.8)
[2020-04-07 18:14] LABS: PT - PROTHROMBIN TIME 67.7 secs (9.9-12.6)
[2020-04-07 18:22] LABS: ALBUMIN 3.1 g/dL (3.2-5.5); BILIRUBIN,TOTAL 0.7 mg/dL (0.2-1.0); TOTAL PROTEIN 6.1 g/dL (6.7-8.2)
[2020-04-07 18:27] LABS: INR 6.9 (0.8-1.2)
[2020-04-07] MEDS ORDERED: PHYTONADIONE 10 MG/ML AMP PO STA (18:27)
[2020-04-07] MEDS ORDERED: SODIUM CHLORIDE 0.9% 1,000 ML IV STA (18:30)
[2020-04-07] MEDS ORDERED: MORPHINE 2 MG/ML CARPUJECT IVP STA (18:58)
[2020-04-07] MEDS ORDERED: MORPHINE 2 MG/ML CARPUJECT IVP PRN (21:17)
[2020-04-07] MEDS ORDERED: oxyCODONE 5 MG TABLET PO PRN (21:17)
[2020-04-07] MEDS ORDERED: SODIUM CHLORIDE FLUSH 0.9% 10 ML SYRINGE IVP PRN (21:17)
--- NOTE | 2020-04-07 21:21 | HISTORY & PHYSICAL EXAMINATION ---
Chief Complaint - Chief Complaint Chief Complaint: Supratherapeutic INR, mechanical fall. History of Present Illness - Admitted From Admitted From:: [facility] ED - History Obtained From Records Reviewed: Yes History obtained from: Patient - History of Present Illness HPI Comment/Other: Patient is an 84-year-old female with medical history significant for end-stage renal disease on peritoneal dialysis, diabetes mellitus on insulin, hypertensio n, hyperlipidemia, history of CVA, peripheral neuropathy, coronary disease, atrial fibrillation, osteoarthritis, Hypothyroidism, hyperlipidemia, obstructive sleep apnea on CPAP who presented to the ED at the request of the home health nurse. The home health nurse had come to draw a routine INR lab when she noticed significant bruise over the patient's left hip/thigh with what appeared to be a hematoma. The patient mentioned that she had fallen on Sunday. She had gone to the bathroom and when she tried to get up she twisted and her leg gave out under her causing her to fall. She hit the toilet bowl with her left hip, hit her head on the shower wall and hit her abdomen on the laundry basket. There is no significant bruise on her abdomen but it is sore. The above- mentioned bruise on the left thigh is appreciable. Likewise the hematoma. The patient did not blackout. She lives with her son and [id number] who were in the house at the time. After that episode she sustained another mechanical fall in the front room. Her [id number] was by her side at that time to. She did not hit her head or blackout. She has had hip problems for about 3 years and her leg occasionally gives out on her. Consequently she has a walker to get around. In the ED she was found to have an INR of 6.3 so she was presented for admission for further treatment. She was given a dose of vitamin K in the ED. She denies chest pain, dyspnea, nausea, vomiting, fever or chills. The rest of her history is unremarkable. Work-up in the ED included CT of the head, neck, hips and pelvis which were all unremarkable for bleeding. History - Past Medical History Cardiovascular: reports: Hypertension, High cholesterol, [place] Respiratory: reports: Pneumonia, Sleep apnea, CPAP use Neuro: reports: None, CVA, Peripheral neuropathy Endocrine/Autoimmune: reports: Type 2 diabetes, HyPOthyroidism GI: reports: Chronic diarrhea : reports: Dialysis (peritoneal dialysis daily), Incontinence, Renal insuffiency, Kidney stones HEENT: reports: None Psych: reports: Anxiety Musculoskeletal: reports: Osteoarthritis, Fatigue, Chronic back pain Derm: reports: None MRSA Hx?: Yes - Past Surgical History General: reports: Cholecystectomy, Appendectomy Ortho: reports: Knee replacement, Spine surgery, 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 She is . She previously lived in the [facility] area, she moved up to [facility] in 2014 so that her son could take care of her after her . She had 3 children 1 of whom has . 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 She has never smoked, she does not drink alcohol and she denies any illicit drug use. - Substance History Use: Uses substance without health or social issues: NONE (never smoker) - POLST Patient has POLST: No POLST Status: DNR Meds/Allgy - Home Medications Home Medications: Ambulatory Orders Medication Instructions Recorded Confirmed traMADol [Ultram] 50 mg PO BID PRN 04/19/17 04/07/20 Atorvastatin Calcium 80 mg PO QPM 05/07/17 04/07/20 Cholecalciferol (Vitamin D3) 2,000 units PO QPM 05/07/17 04/07/20 [Vitamin D3] Insulin NPH Human Isophane 8 - 20 units SUBQ QPM 05/07/17 04/07/20 [Humulin N] Nitroglycerin [Nitrostat] 0.4 mg PO Q5M PRN 05/07/17 04/07/20 Sertraline [Zoloft] 50 mg PO DAILY 05/07/17 04/07/20 Lidocaine Cream 1 ea TOP DAILY PRN 06/08/17 04/07/20 Ondansetron HCl [Zofran] 4 mg PO Q6H PRN 06/08/17 04/07/20 Spironolactone 25 mg PO QDAC 06/08/17 04/07/20 carvediloL [Carvedilol] 25 mg PO BID 02/12/18 04/07/20 Albuterol 2.5 mg INH Q4H PRN #30 neb 03/23/18 04/07/20 Albuterol Sulf [Ventolin Hfa 1 - 2 puffs INH Q4HR PRN #1 inhaler 03/23/18 04/07/20 Inhaler] Ascorbic Acid [Vitamin C] 250 mg PO DAILY 12/05/18 04/07/20 Insulin Lispro [Humalog] 6 - 20 unit SUBQ BID 12/05/18 04/07/20 Levothyroxine [Synthroid] 75 mcg PO QDAC 12/05/18 04/07/20 Nystatin/Triamcin 1 ea TP DAILY PRN 12/05/18 04/07/20 [Nystatin-Triamcinolone Cream] Vitamin B Complex 1 each PO DAILY 12/05/18 04/07/20 Warfarin [Coumadin] 2 mg PO DAILY 10/18/19 04/07/20 Clopidogrel [Plavix] 75 mg PO DAILY 11/15/19 04/07/20 Isosorbide Mononitrate ER [Imdur] 90 mg PO DAILY 11/15/19 04/07/20 Bumetanide 2 mg PO BID 04/07/20 04/07/20 Calcitriol [Rocaltrol] 0.25 mcg PO DAILY 04/07/20 04/07/20 Calcium Carbonate [Tums (Calcium 1,000 mg PO TID PRN 04/07/20 04/07/20 Carbonate 500mg)] Cyanocobalamin (Vitamin B-12) 250 mcg PO DAILY 04/07/20 04/07/20 [Vitamin B-12] Fluticasone Propionate [Flovent 50 mcg INH BID PRN 04/07/20 04/07/20 Diskus] dilTIAZem HCL [Diltiazem 24Hr ER 120 mg PO DAILY 04/07/20 04/07/20 (Xr)] hydrALAZINE [Apresoline] 10 mg PO BID 04/07/20 04/07/20 - Allergies Allergies/Adverse Reactions: Allergies Allergy/AdvReac Type Severity Reaction Status Date / Time heparin Allergy Unknown Verified 04/07/20 16:50 adhesive tape AdvReac Mild Itching Verified 04/07/20 16:50 acetaminophen [From Tylenol] AdvReac Edema Verified 04/07/20 16:50 codeine AdvReac Unknown Verified 04/07/20 16:50 diazepam [From Valium] AdvReac Unknown Verified 04/07/20 16:50 Sulfa (Sulfonamide AdvReac Unknown Verified 04/07/20 16:50 Antibiotics) Review of Systems - Constitutional Constitutional: denies: Fatigue, Fever, Chills - Eyes Eyes: denies: Pain, Dipolpia - Ears, Nose & Throat Ears, Nose & Throat: denies: Ear pain, Sore throat, Hoarseness - Cardiovascular Cariovascular: denies: Irregular heart rate, Chest pain, Edema, Lightheadedness, Syncope - Respiratory Respiratory: denies: Cough, Sputum production, Wheezing, SOB at rest, SOB with exertion - Gastrointestinal Gastrointestinal: denies: Abdominal pain, Abdominal distention, Constipation, Diarrhea, Nausea, Vomiting, Coffee grounds emesis, Reflux/heartburn - Genitourinary Genitourinary: denies: Dysuria, Frequency, Urgency, Hematuria - Integumentary Integumentary: denies: Rash, Pruritis, Dryness - Neurological Neurological: denies: General weakness, Focal weakness, Headache, Dizziness - Psychiatric Psychiatric: denies: Depression, Anxiety - Endocrine Endocrine: denies: Polyuria, Polydypsia - Hematologic/Lymphatic Hematologic/Lymphatic: reports: Anemia, Bruising Exam - Vital Signs Vital Signs: Vital Signs x48h Temp Pulse Resp BP Pulse Ox 04/07/20 21:00 60 20 134/49 H 99 04/07/20 20:30 62 19 135/49 H 100 04/07/20 20:00 59 L 18 135/51 H 98 04/07/20 19:30 58 L 20 131/50 H 99 04/07/20 19:00 64 18 133/59 H 98 04/07/20 18:30 57 L 18 129/49 L 99 04/07/20 18:00 58 L 19 129/48 L 99 04/07/20 17:30 59 L 17 99 04/07/20 17:19 60 17 126/48 L 95 04/07/20 16:45 36.6 C 58 L 16 127/44 L 98 - Physical Exam General Appearance: positive: Alert, Mild distress, Moderate distress Eyes Bilateral: positive: PERRL, EOMI ENT: positive: No signs of dehydration Neck: positive: No JVD, Trachea midline Respiratory: positive: Chest non-tender, No respiratory distress, Breath sounds nml. negative: Wheezes, Rales, Rhonchi Cardiovascular: positive: Regular rate & rhythm, No murmur. negative: Irregularly irregular, Tachycardia Abdomen: positive: Nml bowel sounds, No distention, Tenderness (mild tenderness). negative: Guarding, Rebound Back: negative: CVA tenderness (R), CVA tenderness (L) Skin: positive: Warm, Dry, Other (Bruising over left hip/thigh with hematoma) Extremities: positive: No pedal edema Neurologic/Psychiatric: positive: Oriented x3, Mood/affect nml Conclusion/Plan - Problem List (1) Supratherapeutic INR Conclusion/Plan: Patient's INR was 6.3. In light of patient's for with a hematoma, will hold patient's Coumadin. Patient was given 5 mg of vitamin K. We will check INR daily. We will also monitor H&H. Patient's last hemoglobin on record was 12.1 on April 16, 2020. Hemoglobin today is 8.9. (2) End stage renal disease Conclusion/Plan: Creatinine was 4.0 with an estimated GFR of 11. Patient does peritoneal dialysis nightly at home. She is not able to do it today because she is in the hospital. Anticipating that she would be in the hospital for more than 1 midnight she has been advised to request that her son bring her peritoneal dialysis supplies so that she can have dialysis tomorrow. She is agreeable to this. The patient also has left antecubital fistula as a backup for hemodialysis in the event there is a problem with her peritoneal dialysis in the future. (3) Atrial fibrillation Conclusion/Plan: On diltiazem 120 mg p.o. daily Coumadin held due to supratherapeutic INR of 6.3 upon presentation. (4) CHF (congestive heart failure) Conclusion/Plan: Not in exacerbation. Patient is on bumetanide 2 mg p.o. twice daily, spironolactone 25 mg p.o. daily AC and carvedilol 25 mg p.o. twice daily. She is also on hydralazine 10 mg p.o. twice daily and Imdur 90 mg p.o. daily Qualifiers: Qualified Code(s): I50.9 - Heart failure, unspecified (5) History of coronary artery disease Conclusion/Plan: On carvedilol, Imdur, Plavix and Atorvastatin (6) Diabetes Conclusion/Plan: Patient is on NPH and Humalog at home. 10 units of Lantus subcu nightly has been ordered Moderate scale sliding scale insulin with Accu-Cheks have been ordered. 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 qdAC (8) Hyperlipidemia Conclusion/Plan: On atorvastatin 80 mg p.o. every afternoon Qualifiers: Hyperlipidemia type: unspecified Qualified Code(s): E78.5 - Hyperlipidemia, unspecified (9) Hypertension Conclusion/Plan: Patient is currently normotensive. On carvedilol, hydralazine, Imdur, diltiazem, spironolactone and bumetanide Qualifiers: Hypertension type: essential hypertension Qualified Code(s): I10 - Essential (primary) hypertension (10) Osteoarthritis Conclusion/Plan: On tramadol as needed for pain. (11) Fall Conclusion/Plan: This is due to problems with chronic back pain and osteoarthritis. It was a mechanical fall. Patient gets around using a walker. Patient takes tramadol for pain. We will continue as needed. Qualifiers: Encounter type: initial encounter Qualified Code(s): W19.XXXA - Unspecified fall, initial encounter - Lab Results Fish Bones: 04/07/20 17:46 04/07/20 17:46 Core Measures - Anticipated LOS I expect patient to be DC'd or transferred within 96 hours.: Yes - DVT/VTE - Prophylaxis VTE/DVT Device ordered at admit?: Yes VTE/DVT Prophylaxis med ordered at admit?: No Not Ordered - Medical Reason: Contraindicated (Supratherapeutic INR)
[2020-04-07] MEDS: SODIUM CHLORIDE 0.9% 1,000 ML IV SCH (22:28)
[2020-04-07] MEDS ORDERED: MIN OIL/DIMETHICON/COCONUT OIL 92 GM TUBE TOP PRN (22:29)
[2020-04-07 22:56] LABS: C. PNEUMONIAE- RESP PCR PANEL NOT DETECTED
[2020-04-07] MEDS ORDERED: traMADol 50 MG TABLET PO PRN (23:20)
[2020-04-07] MEDS ORDERED: INSULIN GLARGINE 300 UNIT/3 ML PEN SUBQ SCH (23:39)
[2020-04-08] MEDS ORDERED: ALBUTEROL NEB 2.5 MG/3 ML INH PRN (00:42)
[2020-04-08] MEDS ORDERED: CALCIUM CARBONATE CHEW 500 MG TABLET PO PRN (00:42)
[2020-04-08] MEDS ORDERED: ALBUTEROL 6.7 GM INHALER INH PRN (01:24)
[2020-04-08] MEDS ORDERED: ONDANSETRON ODT 4 MG TABLET PO PRN (01:47)
[2020-04-08] MEDS: SODIUM CHLORIDE FLUSH 0.9% 10 ML SYRINGE IVP SCH ×2 (03:04→10:20)
[2020-04-08 05:39] LABS: BASOPHILS % (AUTO) 0.1 %; EOSINOPHILS # (AUTO) 0.1 10^3/uL (0.0-0.7); EOSINOPHILS % (AUTO) 1.6 %; HGB - HEMOGLOBIN 8.4 g/dL (12.0-16.0); LYMPHOCYTES # (AUTO) 3.9 10^3/uL (1.5-3.5); LYMPHOCYTES % (AUTO) 57.3 %; MEAN CORPUSCULAR HEMOGLOBIN 33.6 pg (27.0-31.0); MEAN CORPUSCULAR HGB CONC 33.7 g/dL (32.0-36.0); MEAN CORPUSCULAR VOLUME 99.6 fL (81.0-99.0); MEAN PLATELET VOLUME 12.1 fL (7.9-10.8); MONOCYTES # (AUTO) 0.8 10^3/uL (0.0-1.0); MONOCYTES % (AUTO) 11.6 %; NEUTROPHILS % (AUTO) 29.3 %; PLT - PLATELET COUNT 93 10^3/uL (130-450); WHITE BLOOD COUNT 6.9 x10^3/uL (4.8-10.8)
[2020-04-08 05:48] LABS: CALCIUM 8.5 mg/dL (8.5-10.3); CREATININE 3.7 mg/dL (0.4-1.0)
[2020-04-08 05:49] LABS: INR 2.2 (0.8-1.2); PT - PROTHROMBIN TIME 23.3 secs (9.9-12.6)
[2020-04-08] MEDS ORDERED: traMADol 50 MG TABLET PO PRN ×2 (06:25→11:24)
[2020-04-08] MEDS ORDERED: methocarbamoL 500 MG TABLET PO PRN (06:32)
[2020-04-08] MEDS ORDERED: LEVOTHYROXINE 75 MCG TABLET PO SCH (07:00)
[2020-04-08] MEDS ORDERED: SPIRONOLACTONE 25 MG TABLET PO SCH (07:00)
[2020-04-08] MEDS: SODIUM CHLORIDE 0.9% 1,000 ML IV SCH (07:02)
[2020-04-08] MEDS ORDERED: INSULIN ASPART 300 UNIT/3 ML PEN SUBQ SCH ×2 (08:00→12:00)
[2020-04-08] MEDS ORDERED: BUMETANIDE 1 MG TABLET PO SCH ×2 (09:00)
[2020-04-08] MEDS ORDERED: ISOSORBIDE MONONITRATE ER 30 MG TABLET PO SCH ×2 (09:00→12:00)
[2020-04-08] MEDS ORDERED: CLOPIDOGREL 75 MG TABLET PO SCH (09:00)
[2020-04-08] MEDS ORDERED: INSULIN GLARGINE 300 UNIT/3 ML PEN SUBQ SCH (09:00)
[2020-04-08] MEDS ORDERED: CHOLECALCIFEROL 25 MCG TABLET PO SCH (09:00)
[2020-04-08] MEDS ORDERED: diltiaZEM CD 120 MG CAPSULE PO SCH (09:00)
[2020-04-08] MEDS ORDERED: SERTRALINE 50 MG TABLET PO SCH (09:00)
[2020-04-08] MEDS ORDERED: carvediloL 12.5 MG TABLET PO SCH ×2 (09:00)
[2020-04-08] MEDS ORDERED: hydrALAZINE 10 MG TABLET PO SCH ×2 (09:00)
[2020-04-08] MEDS ORDERED: CYANOCOBALAMIN 500 MCG TABLET PO SCH (09:00)
[2020-04-08] MEDS ORDERED: polyethylene glycoL 3350 17 GM PACKET PO SCH (09:00)
[2020-04-08] MEDS ORDERED: GABAPENTIN 100 MG CAPSULE PO SCH (09:00)
[2020-04-08] MEDS ORDERED: VITAMIN B COMPLEX PO SCH (09:00)
[2020-04-08] MEDS ORDERED: calcitrioL 0.25 MCG CAPSULE PO SCH (09:00)
[2020-04-08] MEDS ORDERED: LIDOCAINE HCL TOP PRN (11:24)
[2020-04-08] MEDS ORDERED: NYSTATIN TP PRN (11:24)
[2020-04-08] MEDS ORDERED: NITROGLYCERIN SL 0.4 MG TABLET SL PRN (11:24)
[2020-04-08] MEDS ORDERED: TRIAMCIN TP PRN (11:24)
--- NOTE | 2020-04-08 12:28 | PHARMACY PROGRESS NOTE ---
- Best Possible Medication History Admit Date and Time: 04/07/202116 Processed by: Pharmacy Medication History completed: Yes Patient Interview: Completed Secondary Source(s): Physician records (PATIENT INTERVIEWED BY PHARMACY. PATIENT ABLE TO CONFIRM HOME MEDICATIONS.), Pharmacy records, Insurance records As the person ultimately responsible for medication therapy, providers are able to order a medication from an existing home medication list in [facility] via the "Reconcile Routine" prior to Confirmation of that medication by personal support worker. Such practice is discouraged except when the physician, in their clinical judgment, deems that a medical need exists for a medication without regard to previous use.
[2020-04-08 15:57] VITALS: BP 143/48
--- NOTE | 2020-04-08 17:13 | DISCHARGE SUMMARY ---
Discharge Summary Admit Date: 04/07/20 Discharge Date: 04/08/20 Discharging Provider: Nehemiah Butler Primary Care Provider: Sudha Harper Code Status: Do Not Attempt Resuscitation Condition at Discharge: Stable Discharge Disposition: 07 Against Medical Advice Discharge Facility Name: home - DIAGNOSES Discharge Diagnoses with Status of Each Condition: (1)AMA Patient refused to stay in the hospital anymore. I discussed the care plan with her twice but patient insisted she want to go home today. Patient had significant orthostatic hypotension and frequent falls in the home. I discussed with the patient the risk of signed a AMA, patient states she understand and want to sign the AMA. pt is alert and oriented plus 4. I Also called patient's son by phone, Patient wanted to sign the AMA and left the hospital, Patient has orthostatic hypotension and we try to help patient for prevention for her frequ ent falls. I discussed the risk of signed the AMA and why we hope pt stay at hospital to patient'a son. Her son understood. Patient's son report patient recently had 2 unhappy inpatient experiences, patient feels she was isolated in these hospital. Patient's son will seed cone picker patient soon (2)orthostatic hypotension Patient Was found to have orthostatic hypotension. Discussed with the patient for prevention of fall. PT also evaluated and treated for the patient. Patient signed AMA and left the hospital (3) Supratherapeutic INR resolved. INR is 2.2 (4) End stage renal disease Patient stated he will continue her peritoneal dialysis on tonight at home (5) Atrial fibrillation stable (6) CHF (congestive heart failure) stable. pt walked at hallway with PT without distress. (7) Fall Discussed prevention of fall with patient. PT also evaluated and treated for the patient. Patient signed AMA and left the hospital (8)Hematoma Patient had a hematoma in her left lower extremity from her fall. X-ray show no dislocation or fracture on left lower extremity in the hip. Patient walk in the hallway with PT without distress. Hemoglobin is stable. Patient signed AMA and left hospital. - HPI History of Present Illness: refer from Dr. Pittman's HPI on 04/07/2020 Patient is an 84-year-old female with medical history significant for end-stage renal disease on peritoneal dialysis, diabetes mellitus on insulin, hypertension, hyperlipidemia, history of CVA, peripheral neuropathy, coronary disease, atrial fibrillation, osteoarthritis, Hypothyroidism, hyperlipidemia, obstructive sleep apnea on CPAP who presented to the ED at the request of the home health nurse. The home health nurse had come to draw a routine INR lab when she noticed significant bruise over the patient's left hip/thigh with what appeared to be a hematoma. The patient mentioned that she had fallen on . She had gone to the bathroom and when she tried to get up she twisted and her leg gave out under her causing her to fall. She hit the toilet bowl with her left hip, hit her head on the shower wall and hit her abdomen on the laundry basket. There is no significant bruise on her abdomen but it is sore. The above-mentioned bruise on the left thigh is appreciable. Likewise the hematoma. The patient did not blackout. She lives with her son and [id number] who were in the house at the time. After that episode she sustained another mechanical fall in the front room. Her [id number] was by her side at that time to. She did not hit her head or blackout. She has had hip problems for about 3 years and her leg occasionally gives out on her. Consequently she has a walker to get around. In the ED she was found to have an INR of 6.3 so she was presented for admission for further treatment. She was given a dose of vitamin K in the ED. She denies chest pain, dyspnea, nausea, vomiting, fever or chills. The rest of her history is unremarkable. Work-up in the ED included CT of the head, neck, hips and pelvis which were all unremarkable for bleeding. - HOSPITAL COURSE Hospital Course: Patient was admitted for superatherapeutic INR, hematoma in the left lower extremity. Patient had frequent fall in the home. Patient was found to have significantly orthostatic hypotension. Patient had PT evaluation and treatment. Patient hemoglobin is stable. Patient walk with physical therapist in the hallway without distress. But repeat orthostatic BP test again, patient still has orthostatic hypotension. Patient has history of peritoneal dialysis. We will try to help patient prevention of fall. Patient refused to stay hospital, She signed AMA and left the hospital. We explained to patient the risk of signed AMA, she states she understand. I called to patient son and reported this condition to him. His son understand and will seed cone picker patient soon. - ALLERGIES Allergies/Adverse Reactions: Allergies Allergy/AdvReac Type Severity Reaction Status Date / Time heparin Allergy Unknown Verified 04/07/20 16:50 adhesive tape AdvReac Mild Itching Verified 04/07/20 16:50 acetaminophen [From Tylenol] AdvReac Edema Verified 04/07/20 16:50 codeine AdvReac Unknown Verified 04/07/20 16:50 diazepam [From Valium] AdvReac Unknown Verified 04/07/20 16:50 Sulfa (Sulfonamide AdvReac Unknown Verified 04/07/20 16:50 Antibiotics) - MEDICATIONS Home Medications: Ambulatory Orders Medication Instructions Recorded Confirmed traMADol [Ultram] 50 mg PO BID PRN 04/19/17 04/08/20 Atorvastatin Calcium 80 mg PO QPM 05/07/17 04/08/20 Cholecalciferol (Vitamin D3) 2,000 units PO QPM 05/07/17 04/08/20 [Vitamin D3] Insulin NPH Human Isophane 8 - 20 units SUBQ QPM 05/07/17 04/08/20 [Humulin N] Nitroglycerin [Nitrostat] 0.4 mg PO Q5M PRN 05/07/17 04/08/20 Sertraline [Zoloft] 50 mg PO DAILY 05/07/17 04/08/20 Spironolactone 25 mg PO QDAC 06/08/17 04/08/20 carvediloL [Carvedilol] 25 mg PO BID 02/12/18 04/08/20 Ascorbic Acid [Vitamin C] 250 mg PO DAILY 12/05/18 04/08/20 Levothyroxine [Synthroid] 75 mcg PO QDAC 12/05/18 04/08/20 Nystatin/Triamcin 1 ea TP DAILY PRN 12/05/18 04/08/20 [Nystatin-Triamcinolone Cream] Vitamin B Complex 1 each PO DAILY 12/05/18 04/08/20 Clopidogrel [Plavix] 75 mg PO DAILY 11/15/19 04/08/20 Isosorbide Mononitrate ER [Imdur] 90 mg PO DAILY 11/15/19 04/08/20 Bumetanide 2 mg PO BID 04/07/20 04/08/20 Cyanocobalamin (Vitamin B-12) 250 mcg PO DAILY 04/07/20 04/08/20 [Vitamin B-12] dilTIAZem HCL [Diltiazem 24Hr ER 120 mg PO DAILY 04/07/20 04/08/20 (Xr)] Gabapentin [Neurontin] 100 mg PO TID 04/08/20 04/08/20 Warfarin [Coumadin] 3 mg PO .TUTHUR 04/08/20 04/08/20 Warfarin [Coumadin] 4 mg PO .SUNMONWEDFRISAT 04/08/20 04/08/20 hydrALAZINE [Apresoline] 10 mg PO BID 04/08/20 04/08/20 hydrOXYzine HCL [Hydroxyzine HCl] 10 mg PO PRN PRN 04/08/20 04/08/20 lidocaine HCL [Lidocaine HCl] 1 - 2 each TOP PRN PRN 04/08/20 04/08/20 methocarbamoL [Robaxin] 500 mg PO PRN PRN 04/08/20 04/08/20 - PHYSICAL EXAM AT DISCHARGE Physical Exam Other/Comments: Patient signed AMA and left the hospital, Could not do physical exam for patient - LABS Result Diagrams: 04/08/20 05:10 04/08/20 05:10 - FOLLOW UP Follow Up: pt signed AMA and left hospital - TIME SPENT Time Spent in Discharge (Minutes): 30
[2020-04-08] MEDS ORDERED: ATORVASTATIN 40 MG TABLET PO SCH (21:00)
== END 2020-04-08 17:45 | disposition left against medical advice (07) | DRG 312 ==
LOC: ED 16:39 → MS2 21:17
PROVIDERS: ADMIT Internal Medicine; ATTEND Nurse Practitioner Gerontology
DX: I95.1 Orthostatic hypotension (principal); W01.0XXA Fall on same level from slipping, tripping and stumbling without subsequent striking against object, initial encounter; N17.9 Acute kidney failure, unspecified; D64.9 Anemia, unspecified; Z20.828 Contact with and (suspected) exposure to other viral communicable diseases; I10 Essential (primary) hypertension; I25.2 Old myocardial infarction; G47.30 Sleep apnea, unspecified; N18.6 End stage renal disease; I13.2 Hypertensive heart and chronic kidney disease with heart failure and with stage 5 chronic kidney disease, or end stage renal disease; R79.1 Abnormal coagulation profile; E11.22 Type 2 diabetes mellitus with diabetic chronic kidney disease; E11.65 Type 2 diabetes mellitus with hyperglycemia; I50.9 Heart failure, unspecified; Z79.4 Long term (current) use of insulin; I48.0 Paroxysmal atrial fibrillation; I25.10 Atherosclerotic heart disease of native coronary artery without angina pectoris; E03.9 Hypothyroidism, unspecified; E78.5 Hyperlipidemia, unspecified; M19.90 Unspecified osteoarthritis, unspecified site; S70.02XA Contusion of left hip, initial encounter; W01.198A Fall on same level from slipping, tripping and stumbling with subsequent striking against other object, initial encounter; Z91.81 History of falling; Y92.002 Bathroom of unspecified non-institutional (private) residence as the place of occurrence of the external cause; Z86.73 Personal history of transient ischemic attack (TIA), and cerebral infarction without residual deficits; E11.42 Type 2 diabetes mellitus with diabetic polyneuropathy; G47.33 Obstructive sleep apnea (adult) (pediatric); Z99.2 Dependence on renal dialysis; Z53.29 Procedure and treatment not carried out because of patient's decision for other reasons; Z79.01 Long term (current) use of anticoagulants; Z66 Do not resuscitate; M54.9 Dorsalgia, unspecified; G89.29 Other chronic pain
CPT/HCPCS: 36415; 70450; 72125; 73502; 80048; 80053; 84443; 85025; 85610; 87631; 96374; 97161; 99285; A6250; A9270; J1815; J7613; 0202U

== ENCOUNTER 2020-04-15 09:25 | Outpatient (CLI) | payer MEDICARE | END 2020-04-15 09:26 | disposition home or self-care (01) | LOC: LAB.S 09:25 | PROVIDERS: ATTEND Emergency Medicine | DX: I48.91 Unspecified atrial fibrillation (principal) | CPT/HCPCS: 85610 ==

== ENCOUNTER 2020-06-10 12:12 | Emergency (ER) | payer MEDICARE, MEDICAID ==
[2020-06-10 12:49] LABS: BASOPHILS % (AUTO) 0.3 %; EOSINOPHILS # (AUTO) 0.1 10^3/uL (0.0-0.7); EOSINOPHILS % (AUTO) 1.4 %; HGB - HEMOGLOBIN 11.9 g/dL (12.0-16.0); LYMPHOCYTES # (AUTO) 4.2 10^3/uL (1.5-3.5); MEAN CORPUSCULAR HEMOGLOBIN 32.5 pg (27.0-31.0); MEAN CORPUSCULAR HGB CONC 32.5 g/dL (32.0-36.0); MEAN PLATELET VOLUME 11.4 fL (7.9-10.8); MONOCYTES # (AUTO) 0.9 10^3/uL (0.0-1.0); MONOCYTES % (AUTO) 9.6 %; NEUTROPHILS # (AUTO) 4.3 10^3/uL (1.5-6.6); NEUTROPHILS % (AUTO) 44.4 %; PLT - PLATELET COUNT 136 10^3/uL (130-450); RED BLOOD COUNT 3.66 10^6/uL (4.20-5.40); RED CELL DISTRIBUTION WIDTH 12.4 % (12.0-15.0); WHITE BLOOD COUNT 9.6 x10^3/uL (4.8-10.8)
[2020-06-10 12:58] LABS: PT - PROTHROMBIN TIME 31.6 secs (9.9-12.6)
[2020-06-10 13:12] LABS: ALBUMIN 3.6 g/dL (3.2-5.5); ALBUMIN/GLOBULIN RATIO 0.9 (1.0-2.2); BILIRUBIN,TOTAL 0.8 mg/dL (0.2-1.0); CALCIUM 9.7 mg/dL (8.5-10.3); CREATININE 3.8 mg/dL (0.4-1.0); TOTAL PROTEIN 7.8 g/dL (6.7-8.2)
--- NOTE | 2020-06-10 13:31 | ED Physician Documentation ---
PD HPI FOCAL NEURO - Stated complaint Stated Complaint: slurred speech, facial droop - Chief complaint Chief Complaint: Neuro - History obtained from History obtained from: Patient, Family - History of Present Illness Timing - onset: How many weeks ago (1) Timing - duration: Weeks (1) Timing - details: Gradual onset Severity of deficit: Mild Weakness: Face (L facial droop is chronic and unchanged.). No: Arm, Hand, Leg, Foot, Right, Left Numbness: No: Face, Arm, Hand, Leg, Foot, Right, Left Associated symptoms: No: Headache, Nausea / vomiting, Seizure, Syncope, Fall, Head injury, Chest pain Contributing factors: positive: Anticoagulated (warfarin) Baseline status: positive: A&OX3, ambulatory, indep - Additional information Additional information: Patient is an 84-year-old female who presents to the emergency department with 1 week of generalized weakness. Family states that she has mildly slurred speech as well. Has chronic drooping of the left side of the face from prior stroke. Nothing makes this better or worse. Saw her doctor today and was sent here for "stroke evaluation". Review of Systems Ten Systems: 10 systems reviewed and negative Constitutional: denies: Fever, Chills Respiratory: denies: Cough GI: denies: Vomiting, Diarrhea Skin: denies: Rash Musculoskeletal: denies: Neck pain, Back pain Neurologic: denies: Confused, Headache PD PAST MEDICAL HISTORY - Past Medical History Cardiovascular: Hypertension, High cholesterol, MS Respiratory: Pneumonia, Sleep apnea, CPAP use Neuro: None, CVA, Peripheral neuropathy Endocrine/Autoimmune: Type 2 diabetes, HyPOthyroidism GI: Chronic diarrhea : Dialysis, Incontinence, Renal insuffiency, Kidney stones HEENT: None Psych: Anxiety Musculoskeletal: Osteoarthritis, Fatigue, Chronic back pain Derm: None - Past Surgical History Past Surgical History: Yes General: Cholecystectomy, Appendectomy Ortho: Knee replacement, Spine surgery, 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, Other - Present Medications Home Medications: Ambulatory Orders Medication Instructions Recorded Confirmed traMADol [Ultram] 50 mg PO BID PRN 04/19/17 04/08/20 Atorvastatin Calcium 80 mg PO QPM 05/07/17 04/08/20 Cholecalciferol (Vitamin D3) 2,000 units PO QPM 05/07/17 04/08/20 [Vitamin D3] Insulin NPH Human Isophane 8 - 20 units SUBQ QPM 05/07/17 04/08/20 [Humulin N] Nitroglycerin [Nitrostat] 0.4 mg PO Q5M PRN 05/07/17 04/08/20 Sertraline [Zoloft] 50 mg PO DAILY 05/07/17 04/08/20 Spironolactone 25 mg PO QDAC 06/08/17 04/08/20 carvediloL [Carvedilol] 25 mg PO BID 02/12/18 04/08/20 Ascorbic Acid [Vitamin C] 250 mg PO DAILY 12/05/18 04/08/20 Levothyroxine [Synthroid] 75 mcg PO QDAC 12/05/18 04/08/20 Nystatin/Triamcin 1 ea TP DAILY PRN 12/05/18 04/08/20 [Nystatin-Triamcinolone Cream] Vitamin B Complex 1 each PO DAILY 12/05/18 04/08/20 Clopidogrel [Plavix] 75 mg PO DAILY 11/15/19 04/08/20 Isosorbide Mononitrate ER [Imdur] 90 mg PO DAILY 11/15/19 04/08/20 Bumetanide 2 mg PO BID 04/07/20 04/08/20 Cyanocobalamin (Vitamin B-12) 250 mcg PO DAILY 04/07/20 04/08/20 [Vitamin B-12] dilTIAZem HCL [Diltiazem 24Hr ER 120 mg PO DAILY 04/07/20 04/08/20 (Xr)] Gabapentin [Neurontin] 100 mg PO TID 04/08/20 04/08/20 Warfarin [Coumadin] 3 mg PO .TUTHUR 04/08/20 04/08/20 Warfarin [Coumadin] 4 mg PO .SUNMONWEDFRISAT 04/08/20 04/08/20 hydrALAZINE [Apresoline] 10 mg PO BID 04/08/20 04/08/20 hydrOXYzine HCL [Hydroxyzine HCl] 10 mg PO PRN PRN 04/08/20 04/08/20 lidocaine HCL [Lidocaine HCl] 1 - 2 each TOP PRN PRN 04/08/20 04/08/20 methocarbamoL [Robaxin] 500 mg PO PRN PRN 04/08/20 04/08/20 cephALEXin [Keflex] 500 mg PO Q6H #20 cap 06/10/20 - Allergies Allergies/Adverse Reactions: Allergies Allergy/AdvReac Type Severity Reaction Status Date / Time heparin Allergy Unknown Verified 06/10/20 12:17 adhesive tape AdvReac Mild Itching Verified 06/10/20 12:17 acetaminophen [From Tylenol] AdvReac Edema Verified 06/10/20 12:17 codeine AdvReac Unknown Verified 06/10/20 12:17 diazepam [From Valium] AdvReac Unknown Verified 06/10/20 12:17 Sulfa (Sulfonamide AdvReac Unknown Verified 06/10/20 12:17 Antibiotics) - Social History Does the pt smoke?: No Smoking Status: Never smoker Does the pt drink ETOH?: No Does the pt have substance abuse?: No - Immunizations Immunizations are current?: Yes - POLST Patient has POLST: No POLST Status: DNR PD ED PE NORMAL - Vitals Vital signs reviewed: Yes - General General: Alert and oriented X 3, No acute distress - HEENT HEENT: Moist mucous membranes - Neck Neck: Supple, no meningeal sign - Cardiac Cardiac: RRR, Strong equal pulses - Respiratory Respiratory: No respiratory distress, Clear bilaterally - Abdomen Abdomen: Soft, Non tender, Non distended - Derm Derm: Warm and dry - Extremities Extremities: No edema, No calf tenderness / cord - Neuro Neuro: Alert and oriented X 3, rn supplemental 2-12 intact, No motor deficit, No sensory deficit, Normal speech, Other (mild L facial droop) Eye Opening: Spontaneous Motor: Obeys Commands Verbal: Oriented GCS Score: 15 NIHSS - Time Time: 12:25 - Level of Consciousness Level of consciousness: (0) Alert, Keenly responsive LOC Questions: (0) Answers both Q's correct LOC Commands: (0) Performs both correctly - Gaze Best Gaze: (0) Normal - Visual Visual: (0) No loss - Facial Palsy Facial Palsy: (1) Minor paralysis - Motor Arms (both separate) Motor Arm (right): (0) No drift Motor Arm (left): (0) No drift - Motor Legs (both separate) Motor Leg (right): (0) No drift Motor Leg (left): (0) No drift - Limb Ataxia Limb Ataxia: (0) Absent - Sensory Sensory: (0) Normal - Best Language Best Language: (0) No aphasia - Dysarthria Dysarthria: (0) Normal - Extinction and Inattention (formally neg Extinction and inattention: (0) No abnormality - Total Score/Results Total Score/Result: 1 Results - Vitals Vitals: Vital Signs - 24 hr 06/10/20 06/10/20 06/10/20 12:18 14:30 15:35 Temperature 36.7 C Heart Rate 71 67 78 Respiratory 16 12 18 Rate Blood Pressure 150/42 H 157/70 H 145/67 H O2 Saturation 100 99 100 Oxygen O2 Source Room air - EKG (time done) 1245 Rate: Rate (enter#) (69) Rhythm: NSR [place]: Normal Intervals: Normal OK QRS: Normal Ischemia: Normal ST segments - Labs Labs: Laboratory Tests 06/10/20 06/10/20 06/10/20 12:45 12:45 12:45 WBC 9.6 RBC 3.66 L Hgb 11.9 L Hct 36.6 L MCV 100.0 H MCH 32.5 H MCHC 32.5 RDW 12.4 Plt Count 136 MPV 11.4 H Neut # (Auto) 4.3 Lymph # (Auto) 4.2 H [place] # (Auto) 0.9 Eos # (Auto) 0.1 Baso # (Auto) 0.0 Absolute Nucleated RBC 0.00 Nucleated RBC % 0.0 PT 31.6 H INR 3.0 H Sodium 135 Potassium 4.2 Chloride 93 L Carbon Dioxide 29 Anion Gap 13.0 BUN 57 H Creatinine 3.8 H Estimated GFR (MDRD) 11 L Glucose 187 H Calcium 9.7 Total Bilirubin 0.8 AST 32 ALT 24 Alkaline Phosphatase 100 Total Protein 7.8 Albumin 3.6 Globulin 4.2 Albumin/Globulin Ratio 0.9 L Lipase 44 Urine Color Urine Clarity Urine pH Ur Specific [place] Urine Protein Urine Glucose (UA) Urine Ketones Urine Occult Blood Urine Nitrite Urine Bilirubin Urine Urobilinogen Ur Leukocyte Esterase Urine RBC Urine WBC Ur Squamous Epith Cells Urine Bacteria Ur Microscopic Review Urine Culture Comments 06/10/20 14:15 WBC RBC Hgb Hct MCV MCH MCHC RDW Plt Count MPV Neut # (Auto) Lymph # (Auto) [place] # (Auto) Eos # (Auto) Baso # (Auto) Absolute Nucleated RBC Nucleated RBC % PT INR Sodium Potassium Chloride Carbon Dioxide Anion Gap BUN Creatinine Estimated GFR (MDRD) Glucose Calcium Total Bilirubin AST ALT Alkaline Phosphatase Total Protein Albumin Globulin Albumin/Globulin Ratio Lipase Urine Color YELLOW Urine Clarity HAZY Urine pH 6.5 Ur Specific [place] 1.015 Urine Protein 100 H Urine Glucose (UA) 250 H Urine Ketones NEGATIVE Urine Occult Blood NEGATIVE Urine Nitrite NEGATIVE Urine Bilirubin NEGATIVE Urine Urobilinogen 0.2 (NORMAL) Ur Leukocyte Esterase MODERATE H Urine RBC None Seen Urine WBC 6-10 H Ur Squamous Epith Cells RARE Squamous Urine Bacteria Rare Ur Microscopic Review INDICATED Urine Culture Comments INDICATED - Rads (name of study) head CT Radiology: Prelim report reviewed, EMP read contemporaneously PD MEDICAL DECISION MAKING - ED course Complexity details: reviewed results, re-evaluated patient, considered differential, d/w patient ED course: 84-year-old female with mild increase of her left facial droop and mild slurred speech for the past week. No acute changes today. Nothing makes it better or worse. These are similar symptoms to a prior stroke. She does have a UTI and we will treat her for this. MRI is not available here today, nor is it available for the next week due to staffing issues. They do not wish to be transferred. I do not think she needs the MRI emergently today. She seems to be at her normal baseline currently. She also states that she would need an open MRI due to anxiety and claustrophobia. As the symptoms are over a week old, similar to prior stroke and does have an infection, I will treat the in fection and have her follow-up with her doctor for further care. Patient counseled regarding signs and symptoms for which I believe and urgent re- evaluation would be necessary. Patient with good understanding of and agreement to plan and is comfortable going home at this time This document was made in part using voice recognition software. While efforts are made to proofread this document, sound alike and grammatical errors may occur. IMPRESSION: 1. No CT evidence of acute hemorrhage or mass effect. 2. Chronic, age-appropriate white matter hypodensity. 3. Tiny remote right thalamic lacunar infarct. Departure - Departure Disposition: 01 Home, Self Care Clinical Impression: Stroke-like symptoms UTI (urinary tract infection) Qualifiers: Urinary tract infection type: acute cystitis Hematuria presence: without hematuria Qualified Code(s): N30.00 - Acute cystitis without hematuria Condition: Good Instructions: ED UTI Cystitis Female Follow-Up: TOM FRAGOSO PA-C [Primary Care Provider] - Within 3 Days Prescriptions: cephALEXin [Keflex] 500 mg PO Q6H #20 cap Comments: Take all antibiotics until gone. Return if you worsen. Continue your current medications. There are no acute findings on your head CT. You will need an MRI/MR angiogram of your head. Your doctor needs to schedule this for you. This should be performed within the next week. It sounds like she will need an open MRI, I believe the closest open MRI is in [place]. Discharge Date/Time: 06/10/20 15:35
--- NOTE | 2020-06-10 14:07 | CT Report ---
PROCEDURE: HEAD WO INDICATIONS: slurred speech x 1 week TECHNIQUE: Noncontrast 4.5 mm thick angled axial sections acquired from the foramen magnum to the vertex. For r adiation dose reduction, the following was used: automated exposure control, adjustment of mA and/or kV according to patient size. COMPARISON: 04/07/2020 FINDINGS: Image quality: Excellent. CSF spaces: Basal cisterns are patent. No extra-axial fluid collections. Ventricles are normal in size and shape. Brain: No midline shift. No intracranial masses or hemorrhage. He-white matter interface is norm al. Tiny right thalamic lacunar infarct. There is a background of mild patchy irregular white matter hypodensity. Skull and face: Calvarium and visualized facial bones are intact, without suspicious lesions. Sinuses: Visualized sinuses and mastoids are clear. IMPRESSION: 1. No CT evidence of acute hemorrhage or mass effect. 2. Chronic, age-appropriate white matter hypodensity. 3. Tiny remote right thalamic lacunar infarct. Reviewed by: Stacy Irving MD on 06/10/2020 12:11 PM [place] Approved by: Stacy Irving MD on 06/10/2020 12:11 PM AKST Station ID: [id number]
[2020-06-10 14:34] LABS: BILIRUBIN,URINE NEGATIVE (NEGATIVE); GLUCOSE, URINE (UA) 250 mg/dL (NEGATIVE); KETONES,URINE (UA) NEGATIVE (NEGATIVE); LEUKOCYTE ESTERASE, URINE MODERATE (NEGATIVE); NITRITE,URINE NEGATIVE (NEGATIVE); OCCULT BLOOD,URINE NEGATIVE (NEGATIVE); PH,URINE 6.5 PH (5.0-7.5); PROTEIN,URINE 100 mg/dL (NEGATIVE); UROBILINOGEN,URINE 0.2 (NORMAL) E.U./dL (NORMAL)
[2020-06-10 14:38] LABS: CLARITY,URINE HAZY (CLEAR)
[2020-06-10 14:54] LABS: BACTERIA,URINE Rare /HPF (None Seen); RBC,URINE None Seen /HPF (0-5); SQUAMOUS EPITHELIAL CELL,UR RARE Squamous (<= Few)
[2020-06-10] MEDS ORDERED: cefTRIAXone 1 GM VIAL IVP STA (15:00)
[2020-06-10 15:37] VITALS: BP 145/67
--- NOTE | 2020-06-13 12:34 | ED Physician Documentation ---
ED Addendum - Addendum Addendum: 06/13/20 12:33 Asked by RN to review cultures. Review of the chart shows that this 84-year-old woman presented with concern for strokelike symptoms but no specific urinary complaints, white count, or back pain. The low growth of 2 different bacterial cultures would suggest asymptomatic bacteriuria. I asked the nurse to call the patient and if she is not having fever, dysuria, frequency, urgency, or back pain, no change in the antibiotics are necessary.
== END 2020-06-10 15:35 | disposition home or self-care (01) ==
LOC: ED 12:12
DX: N39.0 Urinary tract infection, site not specified (principal); I12.0 Hypertensive chronic kidney disease with stage 5 chronic kidney disease or end stage renal disease; E11.42 Type 2 diabetes mellitus with diabetic polyneuropathy; E11.22 Type 2 diabetes mellitus with diabetic chronic kidney disease; N18.6 End stage renal disease; Z79.4 Long term (current) use of insulin; Z86.73 Personal history of transient ischemic attack (TIA), and cerebral infarction without residual deficits
CPT/HCPCS: 36415; 51701; 80053; 81001; 81003; 83690; 85025; 85610; 87077; 87086; 87181; 93005; 99284

== ENCOUNTER 2020-06-16 08:00 | Outpatient (CLI) | payer MEDICARE, MEDICAID | END 2020-06-16 23:59 | disposition home or self-care (01) | LOC: LAB.R 08:00 | PROVIDERS: ATTEND Physician Assistant Medical | DX: R30.0 Dysuria (principal) | CPT/HCPCS: 87086 ==

== ENCOUNTER 2020-06-24 08:00 | Outpatient (CLI) | payer MEDICARE, MEDICAID ==
[2020-06-24 15:38] LABS: BILIRUBIN,URINE NEGATIVE (NEGATIVE); GLUCOSE, URINE (UA) NEGATIVE (NEGATIVE); KETONES,URINE (UA) NEGATIVE (NEGATIVE); LEUKOCYTE ESTERASE, URINE NEGATIVE (NEGATIVE); NITRITE,URINE NEGATIVE (NEGATIVE); OCCULT BLOOD,URINE NEGATIVE (NEGATIVE); PH,URINE 7.5 PH (5.0-7.5); PROTEIN,URINE TRACE mg/dL (NEGATIVE); UROBILINOGEN,URINE 0.2 (NORMAL) E.U./dL (NORMAL)
[2020-06-24 15:39] LABS: CLARITY,URINE CLEAR (CLEAR)
[2020-06-24 15:48] LABS: BACTERIA,URINE Rare /HPF (None Seen); RBC,URINE 0-5 /HPF (0-5); SQUAMOUS EPITHELIAL CELL,UR RARE Squamous (<= Few); WBC,URINE 0-3 /HPF (0-5)
[2020-06-24 15:49] LABS: CASTS, URINE 0-2 Hyaline Casts /LPF
== END 2020-06-24 23:59 | disposition home or self-care (01) ==
LOC: LAB.R 08:00
PROVIDERS: ATTEND Physician Assistant
DX: N39.0 Urinary tract infection, site not specified (principal)
CPT/HCPCS: 81001; 87086

== ENCOUNTER 2020-08-25 10:37 | Outpatient (CLI) | payer MEDICARE, MEDICAID ==
--- NOTE | 2020-08-25 13:53 | Ultrasound Report ---
PROCEDURE: Duplex Lwr Ext Arterial Bilat INDICATIONS: PERIPHERAL ARTERIAL INSUFFICIENCY TECHNIQUE: Color and pulse Doppler interrogation was performed of both lower extremity arterial systems, with im age documentation. COMPARISON: FINDINGS: Right lower extremity: Common femoral artery: 71 cm/sec, with triphasic flow. Deep femoral artery: 44 cm/sec, with biphasic flow. Proximal superficial femoral artery: 66 cm/sec, with triphasic flow. Mid superficial femoral artery: 81 cm/sec, with triphasic flow. Distal superficial femoral artery: 60 cm/sec, with triphasic flow. Popliteal artery: 77 cm/sec, with triphasic flow. Posterior tibial artery: 83 cm/sec, with triphasic flow. Anterior tibial artery/dorsalis pedis: 33/23 cm/sec, with biphasic flow. He-scale imaging description: Moderate calcified plaque present throughout the right lower extremi ty lower extremity vasculature, but no focal high-grade stenosis. Left lower extremity: Common femoral artery: 65 cm/sec, with biphasic flow. Deep femoral artery: 46 cm/sec, with biphasic flow. Proximal superficial femoral artery: 65 cm/sec, with biphasic flow. Mid superficial femoral artery: 82 cm/sec, with biphasic flow. Distal superficial femoral artery: 105 cm/sec, with biphasic flow. Popliteal artery: 55 cm/sec, with biphasic flow. Posterior tibial artery: 49 cm/sec, with biphasic flow. Anterior tibial artery/dorsalis pedis: 91/23 cm/sec, with biphasic flow. He-scale imaging description: Scattered calcific and soft plaque as was seen on the right. IMPRESSION: No focus of high-grade stenosis. Generalized scattered calcific and soft plaque is seen through the l ower extremity arterial vasculature bilaterally. The degree of lower extremity arterial vasculature a ppears mildly greater on the left than the right, and this may reflect stenosis at inflow vasculature such as the common or external iliac arteries on the left. Depending on the clinical status follow-u p by MR angiogram could be obtained for additional assessment of this region of the vasculature. Reviewed by: Cory Mann MD on 08/25/2020 1:51 PM PDT Approved by: Cory Mann MD on 08/25/2020 1:51 PM PDT Station ID: [id number]
== END 2020-08-25 10:38 | disposition home or self-care (01) ==
LOC: DI 10:37
PROVIDERS: ATTEND Internal Medicine Nephrology
DX: I73.9 Peripheral vascular disease, unspecified (principal)
CPT/HCPCS: 93925

== ENCOUNTER 2020-09-10 11:36 | Outpatient (CLI) | payer MEDICARE, MEDICAID ==
--- NOTE | 2020-09-10 13:29 | XRAY Report ---
PROCEDURE: Hip w/Pelvis 2-3V LT INDICATIONS: HIP PAIN, LEFT TECHNIQUE: AP pelvis with lateral view(s) of the left hip(s). COMPARISON: None. FINDINGS: Bones: No fractures or dislocations. Pelvic ring appears intact. No suspicious bony lesions. Mild joint space narrowing and periarticular osteophyte formation at the bilateral hip joints. Soft tissues: The visualized bowel gas pattern is normal. No suspicious soft tissue calcifications. IMPRESSION: Bilateral hip osteoarthritis. No acute fracture. No osseous lesion. If symptoms and/or c linical suspicion for pathology continue, further assessment with repeat plain films, or advanced florian ging (e.g., CT, MRI, or bone scan) is recommended for further assessment. Reviewed by: Edwin Carter MD on 09/10/2020 1:27 PM PDT Approved by: Edwin Carter MD on 09/10/2020 1:27 PM PDT Station ID: [id number]
== END 2020-09-10 11:37 | disposition home or self-care (01) ==
LOC: DI.S 11:36
PROVIDERS: ATTEND Physician Assistant
DX: M16.0 Bilateral primary osteoarthritis of hip (principal)

== ENCOUNTER 2020-09-22 15:19 | Outpatient (CLI) | payer MEDICARE, MEDICAID | END 2020-09-22 15:20 | disposition home or self-care (01) | LOC: LAB.S 15:19 | PROVIDERS: ATTEND Emergency Medicine | DX: I48.91 Unspecified atrial fibrillation (principal) | CPT/HCPCS: 36416; 85610 ==

== ENCOUNTER 2020-10-11 19:49 | Emergency (ER) | payer MEDICAID, MEDICARE ==
--- NOTE | 2020-10-11 20:32 | ED Physician Documentation ---
History of Present Illness - Stated complaint Stated Complaint: LT HIP PX - Chief complaint Chief Complaint: Ext Problem - History obtained from History obtained from: Patient - History of Present Illness Timing: Other (3) Pain level max: 6 Pain level now: 5 - Additonal information Additional information: Patient is an 84-year-old female who presents to the emergency department stating that she has left hip pain. This been ongoing for the past 3 months. She states that she fell 3 months ago. She is a dialysis patient. She has an order for an outpatient CT of the hip, but the hip was hurting her more tonight so she came in for evaluation. Worse with ambulation and movement, better with rest. Review of Systems Constitutional: denies: Fever, Chills GI: denies: Vomiting Skin: denies: Rash Musculoskeletal: denies: Neck pain, Back pain PD PAST MEDICAL HISTORY - Past Medical History Past Medical History: Yes Cardiovascular: Hypertension, High cholesterol, ID Respiratory: Pneumonia, Sleep apnea, CPAP use Neuro: None, CVA, Peripheral neuropathy Endocrine/Autoimmune: Type 2 diabetes, HyPOthyroidism GI: Chronic diarrhea : Dialysis, Incontinence, Renal insuffiency, Kidney stones HEENT: None Psych: Anxiety Musculoskeletal: Osteoarthritis, Fatigue, Chronic back pain Derm: None - Past Surgical History Past Surgical History: Yes General: Cholecystectomy, Appendectomy Ortho: Knee replacement, Spine surgery, 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, Other - Present Medications Home Medications: Ambulatory Orders Medication Instructions Recorded Confirmed traMADol [Ultram] 50 mg PO BID PRN 04/19/17 10/11/20 Atorvastatin Calcium 80 mg PO QPM 05/07/17 10/11/20 Cholecalciferol (Vitamin D3) 2,000 units PO QPM 05/07/17 10/11/20 [Vitamin D3] Insulin NPH Human Isophane 8 - 20 units SUBQ QPM 05/07/17 10/11/20 [Humulin N] Nitroglycerin [Nitrostat] 0.4 mg PO Q5M PRN 05/07/17 10/11/20 Sertraline [Zoloft] 50 mg PO DAILY 05/07/17 10/11/20 Spironolactone 25 mg PO QDAC 06/08/17 10/11/20 carvediloL [Carvedilol] 25 mg PO BID 02/12/18 10/11/20 Ascorbic Acid [Vitamin C] 250 mg PO DAILY 12/05/18 10/11/20 Levothyroxine [Synthroid] 75 mcg PO QDAC 12/05/18 10/11/20 Nystatin/Triamcin 1 ea TP DAILY PRN 12/05/18 10/11/20 [Nystatin-Triamcinolone Cream] Vitamin B Complex 1 each PO DAILY 12/05/18 10/11/20 Isosorbide Mononitrate ER [Imdur] 90 mg PO DAILY 11/15/19 10/11/20 Bumetanide 2 mg PO BID 04/07/20 10/11/20 Cyanocobalamin (Vitamin B-12) 250 mcg PO DAILY 04/07/20 10/11/20 [Vitamin B-12] dilTIAZem HCL [Diltiazem 24Hr ER 120 mg PO DAILY 04/07/20 10/11/20 (Xr)] Gabapentin [Neurontin] 100 mg PO TID 04/08/20 10/11/20 Warfarin [Coumadin] 3 mg PO .TUTHUR 04/08/20 10/11/20 Warfarin [Coumadin] 4 mg PO .SUNMONWEDFRISAT 04/08/20 10/11/20 hydrALAZINE [Apresoline] 10 mg PO BID 04/08/20 10/11/20 hydrOXYzine HCL [Hydroxyzine HCl] 10 mg PO PRN PRN 04/08/20 10/11/20 lidocaine HCL [Lidocaine HCl] 1 - 2 each TOP PRN PRN 04/08/20 10/11/20 methocarbamoL [Robaxin] 500 mg PO PRN PRN 04/08/20 10/11/20 cephALEXin [Keflex] 500 mg PO Q6H #20 cap 06/10/20 10/11/20 Clopidogrel [Plavix] 75 mg PO BID 10/11/20 10/11/20 - Allergies Allergies/Adverse Reactions: Allergies Allergy/AdvReac Type Severity Reaction Status Date / Time heparin Allergy Unknown Verified 10/11/20 19:56 adhesive tape AdvReac Mild Itching Verified 10/11/20 19:56 acetaminophen [From Tylenol] AdvReac Edema Verified 10/11/20 19:56 codeine AdvReac Unknown Verified 10/11/20 19:56 diazepam [From Valium] AdvReac Unknown Verified 10/11/20 19:56 Sulfa (Sulfonamide AdvReac Unknown Verified 10/11/20 19:56 Antibiotics) - Social History Does the pt smoke?: No Smoking Status: Never smoker Does the pt drink ETOH?: No Does the pt have substance abuse?: No - Immunizations Immunizations are current?: Yes - POLST Patient has POLST: No POLST Status: DNR PD ED PE NORMAL - Vitals Vital signs reviewed: Yes - General General: Alert and oriented X 3, No acute distress - Derm Derm: Warm and dry - Extremities Extremities: Other (Mild diffuse tenderness about the left hip. Limited range of motion secondary to pain. There is a small 1 cm blood blister to the posterior aspect of the left thigh. No active bleeding. Neurovascularly intact) - Neuro Neuro: Alert and oriented X 3 - Psych Psych: Normal mood, Normal affect Results - Vitals Vitals: Vital Signs - 24 hr 10/11/20 10/11/20 10/11/20 19:56 20:05 21:16 Temperature 36.5 C 36.5 C 36.6 C Heart Rate 60 60 61 Respiratory 16 16 16 Rate Blood Pressure 128/62 128/62 125/60 O2 Saturation 99 99 99 Oxygen O2 Source Room air - Rads (name of study) Left hip CT Radiology: Prelim report reviewed, EMP read contemporaneously, See rad report PD MEDICAL DECISION MAKING - ED course Complexity details: reviewed results, re-evaluated patient, considered differential, d/w patient, d/w family ED course: No acute findings on CT scan of the left hip. Patient uses a walker and a cane at home. Declines pain medication here or for home. Small blood blister on the left posterior thigh. No significant hematoma. We will have her follow-up with her doctor for further care. Patient counseled regarding signs and symptoms for which I believe and urgent re-evaluation would be necessary. Patient with good understanding of and agreement to plan and is comfortable going home at this time This document was made in part using voice recognition software. While efforts are made to proofread this document, sound alike and grammatical errors may occur. IMPRESSION: 1. Mild to moderate left hip joint osteoarthritis. No evidence of acute left hip fracture or dislocation. No avascular necrosis of femoral head. 2. Likely old injury involving superior lateral left acetabular roof with well- corticated fragments. Likely enthesophyte formation in greater trochanter of the left proximal femur. 3. No significant joint effusion. No gross muscle or soft tissue abnormality is seen. Extensive vascular calcifications. Departure - Departure Disposition: 01 Home, Self Care Clinical Impression: Hip arthritis, Blister Condition: Good Instructions: ED Degenerative Joint Disease Follow-Up: TOM FRAGOSO PA-C [Primary Care Provider] - Within 1 week Comments: Your CT scan does not show any acute abnormalities tonight. There are no acute fractures. You do have left hip joint osteoarthritis. You also have an old injury of your left hip, but there are no acute fractures. Discharge Date/Time: 10/11/20 21:24
--- NOTE | 2020-10-11 20:59 | CT Report ---
PROCEDURE: LOWER EXTREMITY WO - LT INDICATIONS: fall 3 months ago, continued hip pain TECHNIQUE: Noncontrast 3 mm axial sections acquired of the left hip, with coronal and sagittal reformats. COMPARISON: Pelvic and left hip radiograph dated 09/10/2020. FINDINGS: Image quality: Excellent. Bones: Alignment of left hip is anatomic. No acute fracture or dislocation is seen in left hip and l eft hemipelvis. Corticated fragment adjacent to superior lateral aspect of left acetabular roof likel y represent old healed injury. Well-corticated calcifications adjacent to the greater trochanter of l eft femur are also seen likely represent enthesophyte formation. Kufu-cx-[id number] osteoarthritic duncan ges are noted in left hip joint. No evidence of avascular necrosis of femoral head. No suspicious int raosseous lesion. Soft tissues: No gross muscle or soft tissue abnormality is seen in left hemipelvis and left hip. No gross pelvic free fluid or free air. Bladder wall thickness is normal. No significant joint effusion is seen. No abnormal soft tissue calcifications are noted. Extensive atherosclerotic calcifications throughout left hemipelvic vessels are noted. IMPRESSION: 1. Mild to moderate left hip joint osteoarthritis. No evidence of acute left hip fracture or dislocat ion. No avascular necrosis of femoral head. 2. Likely old injury involving superior lateral left acetabular roof with well-corticated fragments. Likely enthesophyte formation in greater trochanter of the left proximal femur. 3. No significant joint effusion. No gross muscle or soft tissue abnormality is seen. Extensive vascu lar calcifications. Reviewed by: Ralph Fernandez MD on 10/11/2020 8:58 PM PDT Approved by: Ralph Fernandez MD on 10/11/2020 8:58 PM PDT Station ID: [id number]
[2020-10-11 21:19] VITALS: BP 125/60
== END 2020-10-11 21:24 | disposition home or self-care (01) ==
LOC: ED 19:49
DX: M16.12 Unilateral primary osteoarthritis, left hip (principal); S70.322A Blister (nonthermal), left thigh, initial encounter; X58.XXXA Exposure to other specified factors, initial encounter; Z91.81 History of falling; Z99.2 Dependence on renal dialysis; N28.9 Disorder of kidney and ureter, unspecified; Z86.73 Personal history of transient ischemic attack (TIA), and cerebral infarction without residual deficits; Z79.01 Long term (current) use of anticoagulants; I10 Essential (primary) hypertension; E11.42 Type 2 diabetes mellitus with diabetic polyneuropathy; Z79.4 Long term (current) use of insulin; Z66 Do not resuscitate
CPT/HCPCS: 99284

== ENCOUNTER 2020-12-14 09:47 | Outpatient (CLI) | payer MEDICARE | END 2020-12-14 09:48 | disposition EMS.NT | LOC: EMS 09:47 | DX: R46.89 Other symptoms and signs involving appearance and behavior (principal); R73.9 Hyperglycemia, unspecified ==

== ENCOUNTER 2020-12-17 08:00 | Outpatient (CLI) | payer MEDICARE ==
[2020-12-17 20:09] LABS: BILIRUBIN,URINE NEGATIVE (NEGATIVE); GLUCOSE, URINE (UA) NEGATIVE (NEGATIVE); KETONES,URINE (UA) NEGATIVE (NEGATIVE); LEUKOCYTE ESTERASE, URINE MODERATE (NEGATIVE); NITRITE,URINE NEGATIVE (NEGATIVE); OCCULT BLOOD,URINE TRACE-INTA (NEGATIVE); PH,URINE 5.5 PH (5.0-7.5); PROTEIN,URINE 100 mg/dL (NEGATIVE); UROBILINOGEN,URINE 0.2 (NORMAL) E.U./dL (NORMAL)
[2020-12-17 20:15] LABS: CLARITY,URINE CLEAR (CLEAR)
[2020-12-17 20:21] LABS: AMORPHOUS SEDIMENT,UR Few /LPF; BACTERIA,URINE Many /HPF (None Seen); MUCUS,URINE Few Strands; RBC,URINE 0-5 /HPF (0-5); SQUAMOUS EPITHELIAL CELL,UR FEW Squamous (<= Few); WBC,URINE >25 /HPF (0-5)
== END 2020-12-17 23:59 | disposition home or self-care (01) ==
LOC: LAB.S 08:00
PROVIDERS: ATTEND Emergency Medicine
DX: R30.0 Dysuria (principal)
CPT/HCPCS: 81001; 87077; 87086; 87181

== ENCOUNTER 2020-12-21 14:27 | Emergency (ER) | payer MEDICARE ==
[2020-12-21] MEDS ORDERED: SODIUM CHLORIDE 0.9% 500 ML IV STA (15:13)
--- NOTE | 2020-12-21 15:20 | ED Physician Documentation ---
PD HPI ABD PAIN - Stated complaint Stated Complaint: BACK/ABD PX - Chief complaint Chief Complaint: Abd Pain - History obtained from History obtained from: Patient - History of Present Illness Timing - onset: How many weeks ago (5) Timing - duration: Weeks (5) Timing - details: Gradual onset, Still present Quality: Sharp, Pain Location: LUQ Radiation: Left flank Improved by: Laying still, Position, Meds Worsened by: Moving, Position, Palpation Associated symptoms: Nausea. No: Vomiting Similar symptoms before: Diagnosis (UTI) Recently seen: Clinic - Additional information Additional information: 85-year-old female on peritoneal dialysis has developed symptoms of urinary tract infection and she has had an evaluation done at the walk-in clinic last week and was put on some antibiotic for urinary tract infection. She came back to the clinic today with complaints of ongoing pain and nausea and she was sent to the [facility] department for further evaluation. Review of Systems Constitutional: reports: Fatigue. denies: Fever Eyes: denies: Decreased vision Ears: denies: Ear pain Nose: denies: Rhinorrhea / runny nose, Congestion Throat: denies: Sore throat Cardiac: denies: Chest pain / pressure, Palpitations Respiratory: denies: Dyspnea, Cough GI: reports: Abdominal Pain, Nausea. denies: Vomiting, Constipation, Diarrhea : denies: Dysuria, Frequency Skin: denies: Rash Musculoskeletal: reports: Back pain. denies: Neck pain, Extremity pain Neurologic: denies: Generalized weakness, Focal weakness, Numbness PD PAST MEDICAL HISTORY - Past Medical History Past Medical History: Yes Cardiovascular: Hypertension, High cholesterol, MS Respiratory: Pneumonia, Sleep apnea, CPAP use Neuro: None, CVA, Peripheral neuropathy Endocrine/Autoimmune: Type 2 diabetes, HyPOthyroidism GI: Chronic diarrhea : Dialysis, Incontinence, Renal insuffiency, Kidney stones HEENT: None Psych: Anxiety Musculoskeletal: Osteoarthritis, Fatigue, Chronic back pain Derm: None - Past Surgical History Past Surgical History: Yes General: Cholecystectomy, Appendectomy Ortho: Knee replacement, Spine surgery, 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, Other - Present Medications Home Medications: Ambulatory Orders Medication Instructions Recorded Confirmed traMADol [Ultram] 50 mg PO BID PRN 04/19/17 10/11/20 Atorvastatin Calcium 80 mg PO QPM 05/07/17 10/11/20 Cholecalciferol (Vitamin D3) 2,000 units PO QPM 05/07/17 10/11/20 [Vitamin D3] Insulin NPH Human Isophane 8 - 20 units SUBQ QPM 05/07/17 10/11/20 [Humulin N] Nitroglycerin [Nitrostat] 0.4 mg PO Q5M PRN 05/07/17 10/11/20 Sertraline [Zoloft] 50 mg PO DAILY 05/07/17 10/11/20 Spironolactone 25 mg PO QDAC 06/08/17 10/11/20 carvediloL [Carvedilol] 25 mg PO BID 02/12/18 10/11/20 Ascorbic Acid [Vitamin C] 250 mg PO DAILY 12/05/18 10/11/20 Levothyroxine [Synthroid] 75 mcg PO QDAC 12/05/18 10/11/20 Nystatin/Triamcin 1 ea TP DAILY PRN 12/05/18 10/11/20 [Nystatin-Triamcinolone Cream] Vitamin B Complex 1 each PO DAILY 12/05/18 10/11/20 Isosorbide Mononitrate ER [Imdur] 90 mg PO DAILY 11/15/19 10/11/20 Bumetanide 2 mg PO BID 04/07/20 10/11/20 Cyanocobalamin (Vitamin B-12) 250 mcg PO DAILY 04/07/20 10/11/20 [Vitamin B-12] dilTIAZem HCL [Diltiazem 24Hr ER 120 mg PO DAILY 04/07/20 10/11/20 (Xr)] Gabapentin [Neurontin] 100 mg PO TID 04/08/20 10/11/20 Warfarin [Coumadin] 3 mg PO .TUTHUR 04/08/20 10/11/20 Warfarin [Coumadin] 4 mg PO .SUNMONWEDFRISAT 04/08/20 10/11/20 hydrALAZINE [Apresoline] 10 mg PO BID 04/08/20 10/11/20 hydrOXYzine HCL [Hydroxyzine HCl] 10 mg PO PRN PRN 04/08/20 10/11/20 lidocaine HCL [Lidocaine HCl] 1 - 2 each TOP PRN PRN 04/08/20 10/11/20 methocarbamoL [Robaxin] 500 mg PO PRN PRN 12/17/20 06/21/21 cephALEXin [Keflex] 500 mg PO Q6H #20 cap 06/10/20 10/11/20 Clopidogrel [Plavix] 75 mg PO BID 10/11/20 10/11/20 - Allergies Allergies/Adverse Reactions: Allergies Allergy/AdvReac Type Severity Reaction Status Date / Time heparin Allergy Unknown Verified 12/21/20 14:48 adhesive tape AdvReac Mild Itching Verified 12/21/20 14:48 acetaminophen [From Tylenol] AdvReac Edema Verified 12/21/20 14:48 codeine AdvReac Unknown Verified 12/21/20 14:48 diazepam [From Valium] AdvReac Unknown Verified 12/21/20 14:48 Sulfa (Sulfonamide AdvReac Unknown Verified 12/21/20 14:48 Antibiotics) - Social History Does the pt smoke?: No Smoking Status: Never smoker Does the pt drink ETOH?: No Does the pt have substance abuse?: No - Immunizations Immunizations are current?: Yes - POLST Patient has POLST: No POLST Status: DNR PD ED PE NORMAL - Vitals Vital signs reviewed: Yes (wide pulse pressure) - General General: No acute distress, Well developed/nourished - HEENT HEENT: Atraumatic, PERRL, EOMI - Neck Neck: Supple, no meningeal sign, No bony TTP - Cardiac Cardiac: RRR, No murmur - Respiratory Respiratory: No respiratory distress, Clear bilaterally - Abdomen Abdomen: Normal bowel sounds, Soft, No organomegaly, Other (distended with peritoneal dialysis catheter in place no inflamation or specific tenderness except to the RUQ and LUQ with bimanual palpation of the kidney) - Back Back: No spinal TTP, Other (bilaterally worse on the left and confirmed with sonographic tenderness to the kidney. 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, No motor deficit, No sensory deficit, Normal speech Eye Opening: Spontaneous Motor: Obeys Commands Verbal: Oriented GCS Score: 15 - Psych Psych: Normal mood, Normal affect Results - Vitals Vitals: Vital Signs - 24 hr 12/21/20 12/21/20 14:42 19:01 Temperature 36.3 C L Heart Rate 74 74 Respiratory 17 17 Rate Blood Pressure 130/59 L 125/52 L O2 Saturation 99 100 Oxygen O2 Source Room air - Labs Labs: Microbiology 12/21/20 15:36 Body Fluid Culture - Preliminary Other - Abdominal Laboratory Tests 12/21/20 12/21/20 12/21/20 15:25 15:25 15:36 WBC 9.7 RBC 3.27 L Hgb 10.7 L Hct 32.6 L MCV 99.7 H MCH 32.7 H MCHC 32.8 RDW 13.6 Plt Count 170 MPV 11.6 H Neut # (Auto) 4.5 Lymph # (Auto) 3.7 H [place] # (Auto) 1.2 H Eos # (Auto) 0.2 Baso # (Auto) 0.0 Absolute Nucleated RBC 0.00 Nucleated RBC % 0.0 Sodium 135 Potassium 4.8 Chloride 94 L Carbon Dioxide 28 Anion Gap 13.0 BUN 69 H Creatinine 4.0 H Estimated GFR (MDRD) 11 L Glucose 270 H Calcium 10.0 Total Bilirubin 0.9 AST 36 ALT 32 Alkaline Phosphatase 129 H Total Protein 7.5 Albumin 3.3 Globulin 4.2 Albumin/Globulin Ratio 0.8 L Lipase 49 Urine Color Urine Clarity Urine pH Ur Specific [place] Urine Protein Urine Glucose (UA) Urine Ketones Urine Occult Blood Urine Nitrite Urine Bilirubin Urine Urobilinogen Ur Leukocyte Esterase Ur Microscopic Review Urine Culture Comments Fluid Source PERITONEAL Fluid Color STRAW Fluid Clarity HAZY Fluid WBC 158 Fluid RBC < 3000 Fluid Neutrophils % 16 Fluid Lymphocytes % 80 Fluid Monocytes % 4 Fld Mesothelial Cell % Not Reportable Fluid Crystals 12/21/20 12/21/20 15:36 18:30 WBC RBC Hgb Hct MCV MCH MCHC RDW Plt Count MPV Neut # (Auto) Lymph # (Auto) [place] # (Auto) Eos # (Auto) Baso # (Auto) Absolute Nucleated RBC Nucleated RBC % Sodium Potassium Chloride Carbon Dioxide Anion Gap BUN Creatinine Estimated GFR (MDRD) Glucose Calcium Total Bilirubin AST ALT Alkaline Phosphatase Total Protein Albumin Globulin Albumin/Globulin Ratio Lipase Urine Color YELLOW Urine Clarity CLEAR Urine pH 7.0 Ur Specific [place] 1.010 Urine Protein NEGATIVE Urine Glucose (UA) NEGATIVE Urine Ketones NEGATIVE Urine Occult Blood NEGATIVE Urine Nitrite NEGATIVE Urine Bilirubin NEGATIVE Urine Urobilinogen 0.2 (NORMAL) Ur Leukocyte Esterase NEGATIVE Ur Microscopic Review NOT INDICATED Urine Culture Comments NOT INDICATED Fluid Source Fluid Color Fluid Clarity Fluid WBC Fluid RBC Fluid Neutrophils % Fluid Lymphocytes % Fluid Monocytes % Fld Mesothelial Cell % Fluid Crystals NONE SEEN PD MEDICAL DECISION MAKING - ED course Complexity details: reviewed results, re-evaluated patient, considered diff erential, d/w patient, d/w family ED course: 85 y/o female on peritoneal dialysis has developed a UTI and has been put on Cipro and she presented to the walk in clinic today with flank pain and was sent to the ED for evaluation. She does not have abdominal pain or tenderness but flank pain and tenderness to the kidneys sonographically. Her urine grew a rollins sensitive E.Coli and a Beta hemolytic strep B. Today we have found the patient to have normal WBC afebrile and not ill appearing. We did sample the peritoneal fluid and there is no sign of infection. A repeat urinalysis Departure - Departure Disposition: 01 Home, Self Care Clinical Impression: Dehydration, Pyelonephritis Condition: Stable Instructions: ED Dehydration, ED Kidney Infec Female Follow-Up: TOM FRAGOSO PA-C [Primary Care Provider] - Comments: Neetu, today in the ED on our evaluation it appears the infection in the urine is under control and there is no evidence of infection in the peritoneal fluid. It is typical for the pain of a kidney infection to persist after the infection is under control. The recommendation is to use your pain medication as needed and expect resolution in the next 2-5 days. continue the antibiotic.
[2020-12-21 15:40] LABS: BASOPHILS % (AUTO) 0.4 %; EOSINOPHILS # (AUTO) 0.2 10^3/uL (0.0-0.7); EOSINOPHILS % (AUTO) 1.7 %; HCT - HEMATOCRIT 32.6 % (37.0-47.0); HGB - HEMOGLOBIN 10.7 g/dL (12.0-16.0); LYMPHOCYTES # (AUTO) 3.7 10^3/uL (1.5-3.5); LYMPHOCYTES % (AUTO) 38.3 %; MEAN CORPUSCULAR HEMOGLOBIN 32.7 pg (27.0-31.0); MEAN CORPUSCULAR HGB CONC 32.8 g/dL (32.0-36.0); MEAN CORPUSCULAR VOLUME 99.7 fL (81.0-99.0); MEAN PLATELET VOLUME 11.6 fL (7.9-10.8); MONOCYTES # (AUTO) 1.2 10^3/uL (0.0-1.0); MONOCYTES % (AUTO) 12.4 %; NEUTROPHILS # (AUTO) 4.5 10^3/uL (1.5-6.6); NEUTROPHILS % (AUTO) 46.9 %; PLT - PLATELET COUNT 170 10^3/uL (130-450); RED BLOOD COUNT 3.27 10^6/uL (4.20-5.40); RED CELL DISTRIBUTION WIDTH 13.6 % (12.0-15.0); WHITE BLOOD COUNT 9.7 x10^3/uL (4.8-10.8)
[2020-12-21 15:45] LABS: ALBUMIN 3.3 g/dL (3.2-5.5); ALBUMIN/GLOBULIN RATIO 0.8 (1.0-2.2); BILIRUBIN,TOTAL 0.9 mg/dL (0.2-1.0); POTASSIUM 4.8 mmol/L (3.5-5.0); TOTAL PROTEIN 7.5 g/dL (6.7-8.2)
[2020-12-21 16:19] LABS: CC,BF WBC 158 /mm^3
[2020-12-21 16:20] LABS: BF CLARITY HAZY; BF COLOR STRAW; CC,BF RBC < 3000 /mm^3
[2020-12-21 16:38] LABS: BF SOURCE PERITONEAL
[2020-12-21 17:25] LABS: LYMPHOCYTES %,BODY FLUID 80 %; MONOCYTES %,BODY FLUID 4 %; NEUTROPHILS %, BF 16 %
[2020-12-21 18:48] LABS: BILIRUBIN,URINE NEGATIVE (NEGATIVE); GLUCOSE, URINE (UA) NEGATIVE (NEGATIVE); KETONES,URINE (UA) NEGATIVE (NEGATIVE); LEUKOCYTE ESTERASE, URINE NEGATIVE (NEGATIVE); NITRITE,URINE NEGATIVE (NEGATIVE); OCCULT BLOOD,URINE NEGATIVE (NEGATIVE); PROTEIN,URINE NEGATIVE (NEGATIVE); UROBILINOGEN,URINE 0.2 (NORMAL) E.U./dL (NORMAL)
[2020-12-21 18:57] LABS: CLARITY,URINE CLEAR (CLEAR)
[2020-12-21 19:01] VITALS: BP 125/52
== END 2020-12-21 19:11 | disposition home or self-care (01) ==
LOC: ED 14:27
DX: N12 Tubulo-interstitial nephritis, not specified as acute or chronic (principal); E11.22 Type 2 diabetes mellitus with diabetic chronic kidney disease; I12.0 Hypertensive chronic kidney disease with stage 5 chronic kidney disease or end stage renal disease; N18.6 End stage renal disease; Z99.2 Dependence on renal dialysis; Z79.4 Long term (current) use of insulin; Z66 Do not resuscitate; E86.0 Dehydration
CPT/HCPCS: 36415; 80053; 81001; 81003; 83690; 85025; 87070; 87086; 87205; 89051; 89060; 96360; 96361; 99284

== ENCOUNTER 2021-01-19 18:08 | Outpatient (CLI) | payer MEDICARE | END 2021-01-19 18:09 | disposition critical access hospital (66) | LOC: EMS 18:08 | DX: S01.01XA Laceration without foreign body of scalp, initial encounter (principal); W18.39XA Other fall on same level, initial encounter; Y93.01 Activity, walking, marching and hiking; Y92.000 Kitchen of unspecified non-institutional (private) residence as the place of occurrence of the external cause; Z79.01 Long term (current) use of anticoagulants | CPT/HCPCS: A0425; A0429 ==

== ENCOUNTER 2021-01-19 18:38 | Emergency (ER) | payer MEDICARE ==
[2021-01-19] MEDS ORDERED: oxyCODONE 5 MG TABLET PO STA (19:31)
--- NOTE | 2021-01-19 19:45 | ED Physician Documentation ---
History of Present Illness - Stated complaint Stated Complaint: GLF HEAD INJURY - Chief complaint Chief Complaint: Trauma Hd/Nk - History obtained from History obtained from: Patient - Additonal information Additional information: 85yF with pmh dm2, esrd on hd, cad, afib, chronic back pain, chronic L hip wound for which she is being seen in wound clinic, ambulatory with a walker at baseline, p/w worsening generalized weakness the past few days and fall today. patient was ambulating with walker and felt her legs give out, fell backward onto midocciput without LOC. +eliquis, plavix. modified trauma called on arrival. patient c/o chronic back/neck pain and hip pain that is worse after falling. denies recent fever, nausea, chills, diarrhea, abd pain, focal weakness or numbness, confusion, facial droop. patient lives with son who has not noted any changes recently except for acutely worsening generalized weakness this week and intermittent slurring of speech without FND. Review of Systems Ten Systems: 10 systems reviewed and negative Constitutional: denies: Fever, Chills Eyes: denies: Loss of vision Ears: denies: Loss of hearing Nose: denies: Rhinorrhea / runny nose, Congestion Throat: denies: Sore throat Cardiac: denies: Chest pain / pressure Respiratory: denies: Dyspnea, Cough GI: denies: Nausea, Vomiting, Diarrhea : reports: Frequency. denies: Dysuria, Hematuria Skin: reports: Other (chronic L skin wound) Neurologic: reports: Generalized weakness, Head injury. denies: Focal weakness, Numbness, Syncope, Headache, LOC PD PAST MEDICAL HISTORY - Past Medical History Cardiovascular: Hypertension, High cholesterol, [place] Respiratory: Pneumonia, Sleep apnea, CPAP use Neuro: None, CVA, Peripheral neuropathy Endocrine/Autoimmune: Type 2 diabetes, HyPOthyroidism GI: Chronic diarrhea : Dialysis, Incontinence, Renal insuffiency, Kidney stones HEENT: None Psych: Anxiety Musculoskeletal: Osteoarthritis, Fatigue, Chronic back pain Derm: None - Past Surgical History Past Surgical History: Yes General: Cholecystectomy, Appendectomy Ortho: Knee replacement, Spine surgery, Other /CONTINUOUS MINER: Hysterectomy, Other - Present Medications Home Medications: Ambulatory Orders Medication Instructions Recorded Confirmed Cholecalciferol (Vitamin D3) 2,000 units PO QPM 05/07/17 01/19/21 [Vitamin D3] Nitroglycerin [Nitrostat] 0.4 mg PO Q5M PRN 05/07/17 01/19/21 Sertraline [Zoloft] 50 mg PO DAILY 05/07/17 01/19/21 Spironolactone 50 mg PO QDAC 06/08/17 01/19/21 Levothyroxine [Synthroid] 75 mcg PO QDAC 12/05/18 01/19/21 Nystatin/Triamcin 1 ea TP DAILY PRN 12/05/18 01/19/21 [Nystatin-Triamcinolone Cream] Isosorbide Mononitrate ER [Imdur] 90 mg PO DAILY 11/15/19 01/19/21 Bumetanide 2 mg PO BID 04/07/20 01/19/21 dilTIAZem HCL [Diltiazem 24Hr ER 120 mg PO DAILY 04/07/20 01/19/21 (Xr)] Gabapentin [Neurontin] 300 mg PO TID 04/08/20 01/19/21 hydrOXYzine HCL [Hydroxyzine HCl] 10 mg PO PRN PRN 04/08/20 01/19/21 lidocaine HCL [Lidocaine HCl] 1 - 2 each TOP PRN PRN 04/08/20 01/19/21 Apixaban [Eliquis] 0.5 tab PO BID 01/19/21 01/19/21 Ciprofloxacin HCl [Cipro] 1 tab PO BID 01/19/21 01/19/21 Insulin Glargine [Lantus Solostar] 41 ml QPM 01/19/21 01/19/21 Lactulose 30 g PO TID 01/19/21 01/19/21 Oxycodone HCl [Roxicodone] 1 tab PO PRN PRN 01/19/21 01/19/21 calcitrioL [Rocaltrol] 1 cap PO DAILY 01/19/21 01/19/21 methocarbamoL [Methocarbamol] 500 mg PO TID 01/19/21 01/19/21 traMADol [Ultram] 50 mg PO PRN PRN 01/19/21 01/19/21 - Allergies Allergies/Adverse Reactions: Allergies Allergy/AdvReac Type Severity Reaction Status Date / Time heparin Allergy Unknown Verified 01/19/21 18:45 adhesive tape AdvReac Mild Itching Verified 01/19/21 18:45 acetaminophen [From Tylenol] AdvReac Edema Verified 01/19/21 18:45 codeine AdvReac Unknown Verified 01/19/21 18:45 diazepam [From Valium] AdvReac Unknown Verified 01/19/21 18:45 Sulfa (Sulfonamide AdvReac Unknown Verified 01/19/21 18:45 Antibiotics) - Social History Does the pt smoke?: No Smoking Status: Never smoker Does the pt drink ETOH?: No Does the pt have substance abuse?: No - Immunizations Immunizations are current?: Yes - POLST Patient has POLST: No POLST Status: DNR PD ED PE NORMAL - Vitals Vital signs reviewed: Yes - General General: Alert and oriented X 3, No acute distress, Well developed/nourished - HEENT HEENT: Other (midocciput with 1cm superficial laceration) - Neck Neck: Other (midline discomfort to palpation. 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, No motor deficit, No sensory deficit, Normal speech - Psych Psych: Normal mood, Normal affect Results - Vitals Vitals: Vital Signs - 24 hr 01/19/21 01/19/21 01/19/21 18:45 20:59 21:07 Temperature 36.6 C Heart Rate 63 81 Respiratory 18 16 Rate Blood Pressure 154/55 H 130/63 O2 Saturation 99 100 01/19/21 23:03 Temperature Heart Rate 70 Respiratory 16 Rate Blood Pressure 129/50 L O2 Saturation 98 Oxygen O2 Source Room air - Labs Labs: Laboratory Tests 01/19/21 20:49 Urine Color YELLOW Urine Clarity CLEAR Urine pH 5.5 Ur Specific Seth 1.015 Urine Protein TRACE Urine Glucose (UA) NEGATIVE Urine Ketones NEGATIVE Urine Occult Blood NEGATIVE Urine Nitrite NEGATIVE Urine Bilirubin NEGATIVE Urine Urobilinogen 0.2 (NORMAL) Ur Leukocyte Esterase NEGATIVE Urine RBC None Seen Urine WBC 0-3 Ur Squamous Epith Cells RARE Squamous Urine Bacteria None Seen Urine Casts 0-2 Hyaline Casts Urine Culture Comments NOT INDICATED Procedures - Laceration (location) Scalp Posterior Length in cm: 1 Wound type: Linear Neurovascular status: Sensory intact, Motor intact, Vascular intact Anesthesia: Lidocaine 1% with epi Wound preparation: Irrigated copiously NS Skin layer closure: Other (vicryl - 2 sutures placed) Other: Patient tolerated well, No complications, Neurovascular intact, Tetanus UTD PD MEDICAL DECISION MAKING - ED course ED course: 85yF presents with worsening weakness this week, fall from standing today with +HT on AC. traumatic workup ordered in addition to pain medication, fingerstick, u/a given her new symptoms. Glucose 55 then 61. patient provided with a sandwich and will continue to monitor. Hypoglycemia likely cause of her weakness given no infection on u/a and no other symptoms that could be eliciting this. trauma workup unremarkable. patient's son states her glucose was in the 60s this am and that she didn't eat anything for dinner last night. education given about need for healthy frequent small meals and need for close follow up with her mat weaver Dr. Blas who is predominantly managing her insulin regimen. strict return precautions discussed. Departure - Departure Disposition: 01 Home, Self Care Clinical Impression: Hypoglycemia, Fall, Laceration of scalp, Head injury Condition: Stable Instructions: Hypoglycemia, ED Head Injury Closed Comments: You were seen in the emergency department for weakness and head injury after a fall. The cut on your head was sewn up with absorbable sutures. Ct of your head, neck, and spine didn't show any trauma from today. You did have low blood sugar that improved after eating. You need to follow up with your mat weaver Dr. Blas right away to discuss glucose management and make sure you eat small frequent healthy meals. Please return to the emergency department immediately if you have any new or worsening symptoms or other concerns.
[2021-01-19] MEDS ORDERED: methocarbamoL 500 MG TABLET PO STA (20:35)
[2021-01-19 20:58] LABS: BILIRUBIN,URINE NEGATIVE (NEGATIVE); GLUCOSE, URINE (UA) NEGATIVE (NEGATIVE); KETONES,URINE (UA) NEGATIVE (NEGATIVE); LEUKOCYTE ESTERASE, URINE NEGATIVE (NEGATIVE); NITRITE,URINE NEGATIVE (NEGATIVE); OCCULT BLOOD,URINE NEGATIVE (NEGATIVE); PH,URINE 5.5 PH (5.0-7.5); PROTEIN,URINE TRACE mg/dL (NEGATIVE); UROBILINOGEN,URINE 0.2 (NORMAL) E.U./dL (NORMAL)
--- NOTE | 2021-01-19 21:03 | CT Report ---
PROCEDURE: HEAD WO INDICATIONS: fall/anticoagulated TECHNIQUE: Noncontrast 4.5 mm thick angled axial sections acquired from the foramen magnum to the vertex. For r adiation dose reduction, the following was used: automated exposure control, adjustment of mA and/or kV according to patient size. COMPARISON: 06/10/2020 FINDINGS: Image quality: Excellent. CSF spaces: Basal cisterns are patent. No extra-axial fluid collections. Ventricles are normal in size and shape. Brain: No midline shift. No intracranial masses or hemorrhage. He-white matter interface is norm al. Small right thalamic lacunar infarct. There is volume loss for age and moderate periventricular white matter hypodensity. Skull and face: Calvarium and visualized facial bones are intact, without suspicious lesions. Sinuses: Visualized sinuses and mastoids are clear. IMPRESSION: 1. No CT evidence of acute intracranial process. 2. Age-appropriate volume loss and findings of chronic microvascular ischemia. Reviewed by: Stacy Irving MD on 01/19/2021 9:01 PM PDT Approved by: Stacy Irving MD on 01/19/2021 9:01 PM PDT Station ID: [id number]
--- NOTE | 2021-01-19 21:07 | CT Report ---
PROCEDURE: CERVICAL SPINE WO INDICATIONS: fall/head injury TECHNIQUE: Noncontrast 3 mm thick sections acquired from the skull base to the T4 level. Sagittal and coronal r eformats were then constructed. For radiation dose reduction, the following was used: automated exp osure control, adjustment of mA and/or kV according to patient size. COMPARISON: 04/07/2020 FINDINGS: Image quality: Excellent. Bones: No fractures or dislocations. Thick bridging osteophytosis along the anterior cervical spine . Degenerative facet ankylosis along the left aspect of the mid cervical spine. Visualized superior r ibs are intact. Soft tissues: Prevertebral soft tissues are normal in thickness. Peripherally calcified pannus forma tion around the odontoid process. No paravertebral hematomas. No apical pneumothoraces. Incidental note made of dense bilateral carotid calcifications. IMPRESSION: 1. No acute cervical vertebral body fracture. 2. Anterior flowing osteophytosis suggestive of diffuse idiopathic skeletal hyperostosis. 3. 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 Reviewed by: Stacy Irving MD on 01/19/2021 9:06 PM PDT Approved by: Stacy Irving MD on 01/19/2021 9:06 PM PDT Station ID: [id number]
[2021-01-19 21:10] LABS: CLARITY,URINE CLEAR (CLEAR)
[2021-01-19 21:11] LABS: BACTERIA,URINE None Seen /HPF (None Seen); CASTS, URINE 0-2 Hyaline Casts /LPF; RBC,URINE None Seen /HPF (0-5); SQUAMOUS EPITHELIAL CELL,UR RARE Squamous (<= Few); WBC,URINE 0-3 /HPF (0-5)
--- NOTE | 2021-01-19 21:30 | CT Report ---
PROCEDURE: THORACIC SPINE WO INDICATIONS: chronic back pain worsening s/p fall TECHNIQUE: Noncontrast 3 mm thick sections acquired through the region of interest in the thoracic spine. Sagit francis and coronal reformats were then constructed. For radiation dose reduction, the following was used : automated exposure control, adjustment of mA and/or kV according to patient size. COMPARISON: 10/07/2017 FINDINGS: Image quality: Excellent. Bones: There is normal overall bony alignment. No visible acute vertebral body fractures. Flowing o steophytosis anteriorly throughout the thoracic spine. There is also posterior element spurring which contributes to mild central canal narrowing at multiple levels and moderate, chronic appearing bony central canal stenosis at T7-8. There is severe disc and endplate degenerative hypertrophy at T12-L1 along with moderate facet arthropathy which causes a moderate central canal stenosis. No suspicious s clerotic or lytic bony lesions. . Soft tissues: No paravertebral masses or hematomas. Visualized posteromedial lungs appear clear. IMPRESSION: 1. No acute fractures. 2. Diffuse osteophytosis throughout the spine results in anterior ankylosis. Bony central canal steno sis present at T7-8, stable compared to the prior study. 3. Severe degenerative changes T12-L1, also stable. Reviewed by: Stacy Irving MD on 01/19/2021 9:28 PM PDT Approved by: Stacy Irving MD on 01/19/2021 9:28 PM PDT Station ID: [id number]
--- NOTE | 2021-01-19 21:35 | XRAY Report ---
PROCEDURE: Chest 1 View X-Ray INDICATIONS: sternal pain s/p fall from standing TECHNIQUE: One view of the chest was acquired. COMPARISON: 11/15/2019 FINDINGS: Surgical changes and devices: None. Lungs and pleura: No pleural effusions or pneumothorax. Lungs demonstrate mild interstitial thicken ing and bilateral perihilar granulomas. Mediastinum: Mediastinal contours appear normal. Heart size is enlarged, less extensive compared to prior. Bones and chest wall: No suspicious bony lesions. Overlying soft tissues appear unremarkable. IMPRESSION: 1. No acute consolidations. 2. Decreased cardiomegaly. 3. Granulomatous changes. Reviewed by: Stacy Irving MD on 01/19/2021 9:34 PM PDT Approved by: Stacy Irving MD on 01/19/2021 9:34 PM PDT Station ID: [id number]
--- NOTE | 2021-01-19 21:37 | XRAY Report ---
PROCEDURE: Hip w/Pelvis 2-3V LT INDICATIONS: L hip pain (chronic) worsening s/p fall TECHNIQUE: AP pelvis with lateral view(s) of the left hip(s). COMPARISON: 09/10/2020 FINDINGS: Bones: No fractures or dislocations. Pelvic ring appears intact. No suspicious bony lesions. Part ially imaged lumbar spine fusion hardware Soft tissues: Peritoneal dialysis catheter. The visualized bowel gas pattern is normal. No suspicio us soft tissue calcifications. Heavy atherosclerotic calcification. IMPRESSION: No visible fractures. Reviewed by: Stacy Irving MD on 01/19/2021 9:36 PM PDT Approved by: Stacy Irving MD on 01/19/2021 9:36 PM PDT Station ID: [id number]
[2021-01-19] MEDS ORDERED: LIDOCAINE 1%-EPI 1:100000 20 ML MDV SUBQ STA (21:44)
--- NOTE | 2021-01-19 22:31 | CT Report ---
PROCEDURE: LUMBAR SPINE WO INDICATIONS: chronic back pain worsening s/p fall TECHNIQUE: Noncontrast 3 mm thick sections acquired from the T12 level to the sacrum. Sagittal and coronal refo rmats were constructed. For radiation dose reduction, the following was used: automated exposure co ntrol, adjustment of mA and/or kV according to patient size. COMPARISON: None. FINDINGS: Image quality: Excellent. Bones: No acute vertebral body fractures. Grade 1 anterolisthesis L3 on 4, stabilized by posterior fu aldo hardware. Disc spacer present. There is sacralization of L5. 4 lumbar vertebral bodies are seen. There are flowing endplate osteophytes at all levels, most prominent left laterally. Severe disc and endplate change at T12-L1 along with posterior element hypertrophy results in moderat e central bony canal stenosis. There is disc osteophyte and facet arthropathy causing mild central ca nal narrowing at L2-3. Severe right-sided foraminal narrowing at T12-L1 and moderate right-sided fora charlee narrowing at L2-3. Soft tissues: No retroperitoneal masses or hematomas. Visualized aorta is normal in caliber. There is heavy calcification of the abdominal aorta and severe calcification of mesenteric arteries. Perit carias dialysis catheter is partially imaged. There is bilateral renal atrophy and renal vascular calc ification. IMPRESSION: 1. No acute fractures. 2. Degenerative changes in the lumbar spine resulting in central canal stenosis as described, most se bill at T12-L1. 3. Severe atherosclerotic calcification. Reviewed by: Stacy Irving MD on 01/19/2021 10:30 PM PDT Approved by: Stacy Irving MD on 01/19/2021 10:30 PM PDT Station ID: [id number]
[2021-01-19 23:03] VITALS: BP 129/50
== END 2021-01-19 23:20 | disposition home or self-care (01) ==
LOC: EDUNIT# → ED 18:38
DX: E11.649 Type 2 diabetes mellitus with hypoglycemia without coma (principal); S01.01XA Laceration without foreign body of scalp, initial encounter; S09.90XA Unspecified injury of head, initial encounter; W18.39XA Other fall on same level, initial encounter; Y93.01 Activity, walking, marching and hiking; E11.22 Type 2 diabetes mellitus with diabetic chronic kidney disease; I12.0 Hypertensive chronic kidney disease with stage 5 chronic kidney disease or end stage renal disease; N18.6 End stage renal disease; Z99.2 Dependence on renal dialysis; E11.42 Type 2 diabetes mellitus with diabetic polyneuropathy; Z79.4 Long term (current) use of insulin; M47.816 Spondylosis without myelopathy or radiculopathy, lumbar region; M47.814 Spondylosis without myelopathy or radiculopathy, thoracic region; M48.061 Spinal stenosis, lumbar region without neurogenic claudication; M48.04 Spinal stenosis, thoracic region; I25.10 Atherosclerotic heart disease of native coronary artery without angina pectoris; I48.91 Unspecified atrial fibrillation; Z79.02 Long term (current) use of antithrombotics/antiplatelets; Z79.01 Long term (current) use of anticoagulants; S71.002A Unspecified open wound, left hip, initial encounter; X58.XXXA Exposure to other specified factors, initial encounter
CPT/HCPCS: 12001; 70450; 71045; 72125; 72128; 72131; 73502; 81001; 99284; A9270; 87086